=== PATIENT | female | born 1960 | race Caucasian/White ===

== ENCOUNTER 2016-09-22 07:19 | Emergency (ER) | payer OTHER ==
[2016-09-22 07:25] VITALS: BP 129/72; PULSE 89; TEMP 98; BMI 27.8
[2016-09-22] MEDS ORDERED: KETOROLAC TROMETHAMINE 60 MG/2 ML VIAL IM ONE (07:56)
[2016-09-22] MEDS ORDERED: traMADol HCL 50 MG TABLET PO ONE (07:56)
[2016-09-22] MEDS ORDERED: traMADol HCL 50 MG TABLET ONE (08:08)
[2016-09-22] MEDS ORDERED: KETOROLAC TROMETHAMINE 60 MG/2 ML VIAL ONE (08:08)
--- NOTE | 2016-09-22 08:43 | PDOC ---
History of Present Illness - General History Source: Patient - History of Present Illness Occurred: reports: other Pain Location: reports: back, lower extremity <August Espitia - Last Filed: 09/22/16 11:03> <aKit Pedro - Last Filed: 09/23/16 07:33> - General Chief Complaint: Pain Stated Complaint: R LEG PAIN Time Seen by Provider: 09/22/16 07:48 Past History - Past Medical History Diabetes: Yes HTN: Yes Hypercholesterolemia: Yes - Surgical History Cardiac Surgery: Yes (cardiac stent) - Immunization History Immunization Up to Date: No - Psycho/Social/Smoking Cessation Hx Anxiety: No Suicidal Ideation: No Smoking History: Never smoked Have you smoked in the past 12 months: No Number of Cigarettes Smoked Daily: 0 Cigars Per Day: 0 Information on smoking cessation initiated: No Hx Alcohol Use: No Drug/Substance Use Hx: No Substance Use Type: None Hx Substance Use Treatment: No <August Espitia - Last Filed: 09/22/16 11:03> <Kait Pedro - Last Filed: 09/23/16 07:33> - Past Medical History Allergies/Adverse Reactions: Allergies Allergy/AdvReac Type Severity Reaction Status Date / Time No Known Allergies Allergy Verified 09/22/16 07:25 Home Medications: Ambulatory Orders Aspirin [ASA -] 81 mg PO DAILY 11/14/15 Clopidogrel Bisulfate [Plavix -] 75 mg PO DAILY 11/14/15 Empagliflozin [Jardiance] 25 mg PO DAILY 11/14/15 Ergocalciferol (Vitamin D2) [Drisdol] 50,000 units PO WEEKLY 11/14/15 Hydrochlorothiazide [Hctz -] 12.5 mg PO DAILY 11/14/15 Ibuprofen [Motrin -] 800 mg PO Q6H #30 tablet 11/14/15 Insulin Glargine,Hum.rec.anlog [Toujeo Solostar] 80 unit SQ HS 11/14/15 Insulin Lispro [Humalog] 0 unit SQ ACHS 11/14/15 Lisinopril [Zestril] 5 mg PO DAILY 11/14/15 Metoprolol Tartrate [Lopressor -] 25 mg PO BID 11/14/15 Naproxen/Esomeprazole Mag [Vimovo Dr 500-20 mg Tablet] 1 each PO DAILY 11/14/15 Ondansetron HCl [Zofran] 4 mg PO Q8H #20 tablet 11/14/15 Pramipexole Dihydrochloride [Mirapex -] 1.5 mg PO HS 11/14/15 Pregabalin [Lyrica] 100 mg PO BID 11/14/15 Rosuvastatin Calcium [Crestor] 10 mg PO DAILY 11/14/15 Sitagliptin Phos/Metformin HCl [Janumet 50-1,000 mg Tablet] 1 each PO BID Venlafaxine HCl ER [Effexor Xr -] 75 mg PO DAILY 11/14/15 Oxycodone HCl/Acetaminophen [Percocet 5-325 mg Tablet] 1 - 2 tab PO Q6H #20 tablet MDD 4 02/28/16 Ibuprofen [Motrin -] 800 mg PO Q6H #30 tablet 09/22/16 Lidocaine 5% Patch [Lidoderm Patch -] 1 patch TP DAILY #7 patch 09/22/16 Tramadol HCl 50 mg PO Q6H #20 tablet MDD 200 mg 09/22/16 Review of Systems - Review of Systems Constitutional: No: Chills, Fever : No: Dysuria, Hematuria Musculoskeletal: Yes: Back Pain. No: Muscle Weakness <August Espitia - Last Filed: 09/22/16 11:03> *Physical Exam - Vital Signs Last Vital Signs Temp Pulse Resp BP Pulse Ox 98 F 89 18 129/72 99 09/22/16 07:22 09/22/16 07:22 09/22/16 07:22 09/22/16 07:22 09/22/16 07:22 - Physical Exam General Appearance: Yes: Appropriately Dressed, Mild Distress HEENT: positive: Normal Voice Neck: positive: Supple Respiratory/Chest: negative: Respiratory Distress Gastrointestinal/Abdominal: positive: Soft. negative: Tender Musculoskeletal: negative: CVA Tenderness Extremity: positive: Normal Inspection Integumentary: positive: Dry, Warm Neurologic: positive: Fully Oriented, Alert, Normal Mood/Affect, Motor Strength 5/5, Other (+SLR on the R). negative: Sensory Deficit <August Espitia - Last Filed: 09/22/16 11:03> - Vital Signs Last Vital Signs Temp Pulse Resp BP Pulse Ox 98 F 89 18 129/72 99 09/22/16 07:22 09/22/16 07:22 09/22/16 07:22 09/22/16 07:22 09/22/16 07:22 <Kait Pedro - Last Filed: 09/23/16 07:33> ED Treatment Course - Medications Given in the ED: ED Medications Discontinued Medications Generic Name Dose Route Start Last Admin Trade Name Freq PRN Reason Stop Dose Admin Ketorolac Tromethamine 60 mg 09/22/16 07:56 09/22/16 08:14 Toradol Injection - IM 09/22/16 07:57 60 mg ONCE ONE Administration Tramadol HCl 50 mg 09/22/16 07:56 09/22/16 08:14 Ultram - PO 09/22/16 07:57 50 mg ONCE ONE Administration <August Espitia - Last Filed: 09/22/16 11:03> - Medications Given in the ED: ED Medications Discontinued Medications Generic Name Dose Route Start Last Admin Trade Name Freq PRN Reason Stop Dose Admin Ketorolac Tromethamine 60 mg 09/22/16 07:56 09/22/16 08:14 Toradol Injection - IM 09/22/16 07:57 60 mg ONCE ONE Administration Lidocaine 1 patch 09/22/16 09:28 09/22/16 10:01 Lidoderm Patch - TP 09/22/16 09:29 1 patch ONCE ONE Administration Tramadol HCl 50 mg 09/22/16 07:56 09/22/16 08:14 Ultram - PO 09/22/16 07:57 50 mg ONCE ONE Administration <Kait Pedro - Last Filed: 09/23/16 07:33> Medical Decision Making - Medical Decision Making 09/22/16 08:38 56-year-old female history of diabetes and hypertension, presents with right lower back pain radiating to right foot 2 weeks. Patient unable to describe pain but reports that it's mostly constant and worsens with movement and weight bearing. Also states she has had frequent falls 2/2 R leg "giving out" on her. Denies trauma. States her primary care doctor arranged for her to have x-ray of her lumbar spine over a week ago, but does not yet know results. Has been taking Advil with no relief. Also complaining of intermittent numbness to right foot, but no lower extremity weakness, bowel or bladder incontinence or saddle anesthesia. 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 Bearing weight in ED now. Will dxc w. Pain control and PMD f/u 09/22/16 11:06 <August Espitia - Last Filed: 09/22/16 11:03> *DC/Admit/Observation/Transfer <August Espitia - Last Filed: 09/22/16 11:03> - Attestations Physician Attestion: I reviewed the case with the mid-level practitioner and agree with the mid- level practitioner's assessment, diagnosis and disposition. <Kait Pedro - Last Filed: 09/23/16 07:33> Diagnosis at time of Disposition: Back pain Qualifiers: Back pain location: low back pain Chronicity: acute Back pain laterality: right Sciatica presence: with sciatica Sciatica laterality: sciatica of right side Qualified Code(s): M54.41 - Lumbago with sciatica, right side - Discharge Dispostion Disposition: HOME Condition at time of disposition: Improved - Prescriptions Prescriptions: Lidocaine 5% Patch [Lidoderm Patch -] 1 patch TP DAILY #7 patch Ibuprofen [Motrin -] 800 mg PO Q6H #30 tablet Tramadol HCl 50 mg PO Q6H #20 tablet MDD 200 mg - Referrals Referrals: Art Gil MD [Primary Care Provider] - - Patient Instructions Printed Discharge Instructions: Sciatica Additional Instructions: Take medications as directed and follow up with your PMD for possible referral to ortho or neurology - Post Discharge Activity Work/School Note: Back to Work
[2016-09-22] MEDS ORDERED: LIDOCAINE 5% TOPICAL PATCH TP ONE (09:28)
== END 2016-09-22 12:03 | disposition home or self-care (01) ==
LOC: JER 07:19
PROC: 3E0333Z Introduction of Anti-inflammatory into Peripheral Vein, Percutaneous Approach (ICD-10-PCS; principal; 2016-09-22)
DX: M54.41 Lumbago with sciatica, right side (principal); I10 Essential (primary) hypertension; E11.9 Type 2 diabetes mellitus without complications; Z79.84 Long term (current) use of oral hypoglycemic drugs; E78.00 Pure hypercholesterolemia, unspecified
CPT/HCPCS: 99282-25

== ENCOUNTER 2017-03-08 07:37 | Emergency (ER) | payer OTHER ==
[2017-03-08 07:40] VITALS: TEMP 99.2; BMI 29.0
--- NOTE | 2017-03-08 07:44 | PDOC ---
History of Present Illness - General Chief Complaint: Injury Stated Complaint: FALL Time Seen by Provider: 03/08/17 07:42 History Source: Patient Exam Limitations: No Limitations - History of Present Illness Initial Comments: 03/08/17 07:44 The patient is a 56 year old female, with a significant past medical history of DM, HTN, HLD, and chronic urinary incontinence, who presents to the emergency department with Right rib pain. Patient woke up this morning, tried to roll over in bed, and fell off the bed. She landed on her right side. Patient states she has been having 7/10, non radiating, sharp pain in her ribs. She did not take any medications and came into the ED. Patient endorses pain upon inspiration. The patient denies head trauma, LOC, chest pain, shortness of breath, headache, and dizziness. Denies fever, chills, nausea, vomit, diarrhea and constipation. Denies dysuria, frequency, urgency and hematuria. Denies numbness, tingling, or weakness of extremities Allergies: NKDA Past surgical history: Ovarian cyst Social history: Denies smoking, alcohol, drug use PMD - Dr. Gil 03/08/17 08:09 Past History - Past Medical History Allergies/Adverse Reactions: Allergies Allergy/AdvReac Type Severity Reaction Status Date / Time No Known Allergies Allergy Verified 03/08/17 07:40 Home Medications: Ambulatory Orders Clopidogrel Bisulfate [Plavix -] 75 mg PO DAILY 11/14/15 Empagliflozin [Jardiance] 25 mg PO DAILY 11/14/15 Ergocalciferol (Vitamin D2) [Drisdol] 50,000 units PO WEEKLY 11/14/15 Hydrochlorothiazide [Hctz -] 12.5 mg PO DAILY 11/14/15 Insulin Glargine,Hum.rec.anlog [Toujeo Solostar] 80 unit SQ HS 11/14/15 Insulin Lispro [Humalog] 0 unit SQ ACHS 11/14/15 Lisinopril [Zestril] 5 mg PO DAILY 11/14/15 Metoprolol Tartrate [Lopressor -] 25 mg PO BID 11/14/15 Pramipexole Dihydrochloride [Mirapex -] 1.5 mg PO HS 11/14/15 Rosuvastatin Calcium [Crestor] 10 mg PO DAILY 11/14/15 Sitagliptin Phos/Metformin HCl [Janumet 50-1,000 mg Tablet] 1 each PO BID Venlafaxine HCl ER [Effexor Xr -] 75 mg PO DAILY 11/14/15 Tramadol HCl 50 mg PO Q6H PRN #12 tablet MDD 400 mg 03/08/17 Diabetes: Yes HTN: Yes Hypercholesterolemia: Yes - Surgical History Cardiac Surgery: Yes (cardiac stent) - Immunization History Immunization Up to Date: No - Suicide/Smoking/Psychosocial Hx Smoking History: Never smoked Have you smoked in the past 12 months: No Number of Cigarettes Smoked Daily: 0 Cigars Per Day: 0 Information on smoking cessation initiated: No Hx Alcohol Use: No Drug/Substance Use Hx: No Substance Use Type: None Hx Substance Use Treatment: No Review of Systems - Review of Systems Comments:: 03/08/17 07:45 GENERAL/CONSTITUTIONAL: No fever or chills. No weakness. HEAD, EYES, EARS, NOSE AND THROAT: No change in vision. No ear pain or discharge. No sore throat. CARDIOVASCULAR: No chest pain or shortness of breath RESPIRATORY: No cough, wheezing, or hemoptysis. GASTROINTESTINAL: No nausea, vomiting, diarrhea or constipation. GENITOURINARY: No dysuria, frequency, or change in urination. MUSCULOSKELETAL: No joint or muscle swelling or pain. No neck or back pain. + Pain around breast and along ribs SKIN: No rash NEUROLOGIC: No headache, vertigo, loss of consciousness, or change in strength/ sensation. ENDOCRINE: No increased thirst. No abnormal weight change HEMATOLOGIC/LYMPHATIC: No anemia, easy bleeding, or history of blood clots. ALLERGIC/IMMUNOLOGIC: No hives or skin allergy. *Physical Exam - Vital Signs Last Vital Signs Temp Pulse Resp BP Pulse Ox 99.2 F 91 H 18 122/67 99 03/08/17 07:39 03/08/17 07:39 03/08/17 07:39 03/08/17 07:39 03/08/17 07:39 - Physical Exam Comments: 03/08/17 07:45 GENERAL: Awake, alert, and fully oriented, in no acute distress HEAD: No signs of trauma, normocephalic, atraumatic EYES: PERRLA, EOMI, sclera anicteric, conjunctiva clear ENT: Oropharynx clear without exudates. Moist mucosa NECK: Normal ROM, supple, no lymphadenopathy, JVD, or masses LUNGS: No distress, speaks full sentences, clear to auscultation bilaterally HEART: Regular rate and rhythm, normal S1 and S2, no murmurs, rubs or gallops, peripheral pulses normal and equal bilaterally. ABDOMEN: Soft, nontender, normoactive bowel sounds. No guarding, no rebound. No masses EXTREMITIES: Normal inspection, Normal range of motion of R shoulder. No edema. No clubbing or cyanosis. +Pain upon palpation along right rib line beneath right breast. NEUROLOGICAL: Cranial nerves II through XII grossly intact. Normal speech, no focal sensorimotor deficits SKIN: Warm, Dry, normal turgor, no rashes or lesions noted. Medical Decision Making - Medical Decision Making 03/08/17 08:10 56 year old female, with a significant past medical history of DM, HTN, HLD, and chronic urinary incontinence, who presents to the emergency department with right rib pain. Plan: CXR to r/o fracture Pain control 03/08/17 10:17 CXR is negative. Will do rib series. 03/08/17 11:46 EKG unremarkable, NSR, HR-79, qtc-463 *DC/Admit/Observation/Transfer Diagnosis at time of Disposition: Costochondral pain - Discharge Dispostion Admit: No - Prescriptions Prescriptions: Tramadol HCl 50 mg PO Q6H PRN #12 tablet MDD 400 mg PRN Reason: Pain - Referrals Referrals: Art Gil MD [Staff Physician] - - Patient Instructions Printed Discharge Instructions: Costochondritis Additional Instructions: Please take motrin every 6 hours as needed to relieve pain. Please follow up with your primary care provider within 1 week. If you have any new, worsening or concerning symptoms, please come back to the emergency room immediately.
--- NOTE | 2017-03-08 07:57 | PDOC ---
Attending Attestation - Resident Resident Name: Fritz Sandhu - ED Attending Attestation I have performed the following: I have examined & evaluated the patient, The case was reviewed & discussed with the resident, I agree w/resident's findings & plan, Exceptions are as noted - HPI HPI: 03/08/17 07:52 56yo F hx DM presents to ED after she accidentally rolled off bed this morning when she thought she was on the center of her bed but was actually at the edge. Fell onto R shoulder. No HS, no LOC. C/o pain in R chest and R ribs. Was in her [facility] prior. Denies other injuries. Denies fevers, chills, nausea, vomiting, diarrhea Denies shortness of breath Denies abdominal pain, dysuria Denies LE edema and rashes. - Physicial Exam PE: 03/08/17 07:54 GENERAL: Awake, alert, and fully oriented, in no acute distress HEAD: No signs of trauma EYES: PERRLA, EOMI, sclera anicteric, conjunctiva clear ENT: Auricles normal inspection, hearing grossly normal, nares patent, oropharynx clear without exudates. Moist mucosa NECK: Normal ROM, supple, no lymphadenopathy, JVD, or masses LUNGS: Breath sounds equal, clear to auscultation bilaterally. No wheezes, and no crackles HEART: Regular rate and rhythm, normal S1 and S2, no murmurs, rubs or gallops ABDOMEN: Soft, nontender, normoactive bowel sounds. No guarding, no rebound. No masses EXTREMITIES: Normal range of motion, no edema, no deformities. No clubbing or cyanosis. No cords, erythema, or tenderness. 2+ peripheral pulses. MSK: ttp along R sternal border, along ribs by inferior breast crease NEUROLOGICAL: Normal speech, cranial nerves intact, negative pronator drift, 5/ 5 strength in all 4 extremities, normal sensation to light touch in all 4 extremities, normal cerebellar exam, normal gait, normal reflexes and tone SKIN: Warm, Dry, normal turgor, no rashes or lesions noted. - Medical Decision Making 03/08/17 07:54 56yo F hx DM p/w accidental fall off bed. C/o R chest and rib pain. Exam with ttp along inferior breast crease along the ribs and R sternal border. Lung sounds equal. Will obtain CXR to look for fracture or pneumothorax. -cxr -pain control -reassess 03/08/17 11:16 CXR and Rib series negative for acute fracture, pain well controlled with motrin , will DC pt to take motrin and if pain poorly controlled with a script for tramadol. Discussed precautions for tramadol and advised pt not to drive or operate machinery if she is taking tramadol. Pt expressed understanding. I discussed the physical exam findings, ancillary test results and final diagnoses with the patient. I answered all of the patient's questions. The patient was satisfied with the care received and felt comfortable with the discharge plan and treatment plan. The patient will call their primary care physician within 24 hours to arrange follow-up and will return to the Emergency Department with any new, persistent or worsening symptoms.
[2017-03-08] MEDS ORDERED: IBUPROFEN 600 MG TABLET (FP) PO ONE ×2 (07:59→08:12)
[2017-03-08 11:54] VITALS: BP 146/70; PULSE 70
--- NOTE | 2017-03-09 13:02 | EKG ---
Test Reason : Blood Pressure : / mmHG Vent. Rate : 079 BPM Atrial Rate : 079 BPM P-R Int : 166 ms QRS Dur : 068 ms QT Int : 404 ms P-R-T Axes : 052 038 036 degrees QTc Int : 463 ms NORMAL SINUS RHYTHM WHEN COMPARED WITH ECG OF 14-NOV-2015 02:20, NO SIGNIFICANT CHANGE WAS FOUND Confirmed by KENAN BEAUCHAMP MD ([id number]) on 03/09/2017 1:01:55 PM Referred By: Confirmed By:KENAN BEAUCHAMP MD
== END 2017-03-08 12:01 | disposition home or self-care (01) ==
LOC: JER 07:37
DX: M94.0 Chondrocostal junction syndrome [Tietze] (principal); I10 Essential (primary) hypertension; E11.9 Type 2 diabetes mellitus without complications; Z79.84 Long term (current) use of oral hypoglycemic drugs; Z79.4 Long term (current) use of insulin; E78.00 Pure hypercholesterolemia, unspecified
CPT/HCPCS: 71010-TC; 71020-TC; 71101-TC-RT; 93005; 93010; 99284-25

== ENCOUNTER 2017-08-05 01:19 | Inpatient (IN) | payer OTHER ==
--- NOTE | 2017-08-05 01:31 | PDOC ---
History of Present Illness - General History Source: Patient Exam Limitations: No Limitations - History of Present Illness Initial Comments: 08/05/17 02:30 The patient is a 57 year old female, with a significant past medical history of DM, HTN, HLD, and chronic urinary incontinence who presents to the emergency department with L foot wound today. [place] she [place] a injury to her L foot. Since then patient reports her foot has been warm and erythematous with pus and blood drainage. Patient also notes her blood glucose levels have been fluctuating. Patient presents to the ED for further evaluation. Patient denies chest pain, headache or dizziness. Patient denies fever, chills, abdominal pain, nausea, vomit, diarrhea or constipation. Patient denies dysuria, frequency, urgency or hematuria. Patient denies sick contacts or recent travel. Allergies: NKA Past surgical history: None Social history: None PCP: Dr. Gil <Amita Chan - Last Filed: 08/05/17 02:30> <Kait Pedro - Last Filed: 08/05/17 04:15> - General Stated Complaint: LEFT FOOT WOUND Time Seen by Provider: 08/05/17 01:30 Past History <Amita Chan - Last Filed: 08/05/17 02:30> - Past Medical History Diabetes: Yes HTN: Yes Hypercholesterolemia: Yes - Surgical History Cardiac Surgery: Yes (cardiac stent) - Immunization History Immunization Up to Date: No - Suicide/Smoking/Psychosocial Hx Smoking History: Never smoked Have you smoked in the past 12 months: No Number of Cigarettes Smoked Daily: 0 Cigars Per Day: 0 Hx Alcohol Use: No Drug/Substance Use Hx: No Substance Use Type: None Hx Substance Use Treatment: No <Kait Pedro - Last Filed: 08/05/17 04:15> - Past Medical History Allergies/Adverse Reactions: Allergies Allergy/AdvReac Type Severity Reaction Status Date / Time No Known Allergies Allergy Verified 08/05/17 01:44 Home Medications: Ambulatory Orders Clopidogrel Bisulfate [Plavix -] 75 mg PO DAILY 11/14/15 Empagliflozin [Jardiance] 25 mg PO DAILY 11/14/15 Ergocalciferol (Vitamin D2) [Drisdol] 50,000 units PO WEEKLY 11/14/15 Hydrochlorothiazide [Hctz -] 12.5 mg PO DAILY 11/14/15 Insulin Glargine,Hum.rec.anlog [Toumichelle Solostar] 80 unit SQ HS 11/14/15 Insulin Lispro [Humalog] 0 unit SQ ACHS 11/14/15 Lisinopril [Zestril] 5 mg PO DAILY 11/14/15 Metoprolol Tartrate [Lopressor -] 25 mg PO BID 11/14/15 Pramipexole Dihydrochloride [Mirapex -] 1.5 mg PO HS 11/14/15 Rosuvastatin Calcium [Crestor] 10 mg PO DAILY 11/14/15 Sitagliptin Phos/Metformin HCl [Janumet 50-1,000 mg Tablet] 1 each PO BID Venlafaxine HCl ER [Effexor Xr -] 75 mg PO DAILY 11/14/15 Tramadol HCl 50 mg PO Q6H PRN #12 tablet MDD 400 mg 03/08/17 Review of Systems - Review of Systems Able to Perform ROS?: Yes Comments:: 08/05/17 02:30 GENERAL/CONSTITUTIONAL: No fever or chills. No weakness. HEAD, EYES, EARS, NOSE AND THROAT: No change in vision. No ear pain or discharge. No sore throat. GASTROINTESTINAL: No nausea, vomiting, diarrhea or constipation. GENITOURINARY: No dysuria, frequency, or change in urination. CARDIOVASCULAR: No chest pain or shortness of breath. RESPIRATORY: No cough, wheezing, or hemoptysis. MUSCULOSKELETAL: No joint or muscle swelling or pain. No neck or back pain. SKIN: + L foot wound. No rash NEUROLOGIC: No headache, vertigo, loss of consciousness, or change in strength/ sensation. ENDOCRINE: No increased thirst. No abnormal weight change. HEMATOLOGIC/LYMPHATIC: No anemia, easy bleeding, or history of blood clots. ALLERGIC/IMMUNOLOGIC: No hives or skin allergy. <Amita Chan - Last Filed: 08/05/17 02:30> *Physical Exam - Vital Signs Last Vital Signs Temp Pulse Resp BP Pulse Ox 98.2 F 92 H 18 114/63 98 08/05/17 01:38 08/05/17 01:38 08/05/17 01:38 08/05/17 01:38 08/05/17 01:38 <Amita Chan - Last Filed: 08/05/17 02:30> - Physical Exam Comments: GENERAL: Awake, alert, and fully oriented, in no acute distress HEAD: No signs of trauma EYES: PERRLA, EOMI, sclera anicteric, conjunctiva clear ENT: Auricles normal inspection, hearing grossly normal, nares patent, oropharynx clear without exudates. Moist mucosa NECK: Normal ROM, supple, no lymphadenopathy, JVD, or masses LUNGS: Breath sounds equal, clear to auscultation bilaterally. No wheezes, and no crackles HEART: Regular rate and rhythm, normal S1 and S2, no murmurs, rubs or gallops ABDOMEN: Soft, nontender, normoactive bowel sounds. No guarding, no rebound. No masses EXTREMITIES: L foot with lesion to dorsum of foot between the bases of 1st and 2nd toes, no active drainage, +scab in place. +Granulation tissue to the base of the nail of the great toe. No active drainage, no bleeding. Remainder of extremities with normal range of motion, no edema. No clubbing or cyanosis. No cords or tenderness NEUROLOGICAL: Cranial nerves II through XII grossly intact. Normal speech, normal gait. Motor intact. Dec sensation to pinprick in both feet. SKIN: Warm, Dry, normal turgor. +Erythema to the L foot. <Kait Pedro - Last Filed: 08/05/17 04:15> ED Treatment Course - Medications Given in the ED: ED Medications Discontinued Medications Generic Name Dose Route Start Last Admin Trade Name Freq PRN Reason Stop Dose Admin Piperacillin/Tazobactam/Dextrose 50 mls @ 100 mls/hr 08/05/17 01:42 08/05/17 02:29 Zosyn 3.375gm Ivpb (Premix) IVPB 08/05/17 02:11 100 mls/hr ONCE ONE Administration Protocol <Amita Chan - Last Filed: 08/05/17 02:30> - LABORATORY CBC & Chemistry Diagram: 08/05/17 02:25 08/05/17 02:25 <Kait Pedro - Last Filed: 08/05/17 04:15> Medical Decision Making - Medical Decision Making Pt with cellulitis of entire L foot secondary to foot wound. No fluctuant areas , no drainage of pus. Will treat with IV abx based on history of DM. D/w hospitalist, will place on obs. <Kait Pedro - Last Filed: 08/05/17 04:15> *DC/Admit/Observation/Transfer - Attestations Scribe Attestion: 08/05/17 02:30 Documentation prepared by Amita Chan, acting as medical office technology instructor for Kait Pedro MD <Amita Chan - Last Filed: 08/05/17 02:30> - Discharge Dispostion Admit: Yes <Kait Pedro - Last Filed: 08/05/17 04:15> Diagnosis at time of Disposition: Diabetic foot infection - Discharge Dispostion Condition at time of disposition: Stable
[2017-08-05] MEDS ORDERED: PIPERACILLIN/TAZOB 3.375 GM 50 ML IVPB ONE (01:42)
[2017-08-05] MEDS ORDERED: VANCOMYCIN 1,000 MG in DEXTROSE 5%-WATER - 250 ML IVPB ONE (01:42)
[2017-08-05] MEDS ORDERED: PIPERACILLIN/TAZOB 3.375 GM 3.375 GM/50 ML BAG IVPB ONE (02:26)
[2017-08-05 02:35] LABS: BASO % 0.8 % (0-2.0); HEMATOCRIT 39.1 % (32.4-45.2); HEMOGLOBIN 12.8 GM/dL (10.7-15.3); LYMPH % 28.1 % (8-40); MCH 27.4 pg (25.7-33.7); MCHC 32.7 g/dl (32.0-36.0); MEAN CELL VOLUME 83.8 fl (80-96); MEAN PLT VOLUME 7.9 fl (7.5-11.1); MONO % 9.5 % (3.8-10.2); NEUT % 60.6 % (42.8-82.8); PLATELET COUNT 340 K/MM3 (134-434); RBC 4.67 M/mm3 (3.60-5.2); RDW 13.7 % (11.6-15.6)
[2017-08-05] MEDS ORDERED: VANCOMYCIN 1 GRAM (PRE-DOCKED) 1,000 MG/250 ML BAG IVPB ONE (03:08)
[2017-08-05 03:09] LABS: ANION GAP 11 (8-16); BILIRUBIN,TOTAL 0.2 mg/dL (0.2-1.0); BLOOD UREA NITROGEN 21 mg/dL (7-18); CALCIUM 9.6 mg/dL (8.5-10.1); CHLORIDE 97 mmol/L (98-107); CO2 29 mmol/L (21-32); CREATININE 0.8 mg/dL (0.55-1.02); GLUCOSE,RANDOM 131 mg/dL (74-106); POTASSIUM 3.6 mmol/L (3.5-5.1); SGOT/AST 20 U/L (15-37); SGPT/ALT 37 U/L (12-78); SODIUM 137 mmol/L (136-145); TOT PROT 6.9 g/dl (6.4-8.2)
[2017-08-05 03:10] LABS: ALK PHOS 125 U/L (45-117)
[2017-08-05] MEDS ORDERED: ACETAMINOPHEN 325 MG TABLET (FP) PO ONE (03:33)
[2017-08-05] MEDS ORDERED: ACETAMINOPHEN 325 MG TABLET (FP) ONE (04:27)
--- NOTE | 2017-08-05 04:42 | HP ---
CHIEF COMPLAINT: foot wound PCP: Jeffery HISTORY OF PRESENT ILLNESS: This is a 57 year old female with a significant past medical history of DM who presented to the ED with a wound to her left foot. She states that it happened 3 days ago when she was wearing improperly fitting sandals while she was away in [place]. She reports that her foot has become increasingly red, swollen and painful. ER course was notable for: (1) WBC 6.0 (2) foot xray pending Recent Travel: [place] PAST MEDICAL HISTORY: DM, HTN, HLD, chronic urinary incontinence PAST SURGICAL HISTORY: cardiac stent x 1 Social History: Smoking: pt denies Alcohol: pt denies Drugs: pt denies Family History: mother alive with DM father in his 70s, emphysema one sister and one brother with DM and HTN Allergies No Known Allergies Allergy (Verified 08/05/17 01:44) HOME MEDICATIONS: 3 Medication Instructions Recorded Clopidogrel Bisulfate [Plavix -] 75 mg PO DAILY 11/14/15 Empagliflozin [Jardiance] 25 mg PO DAILY 11/14/15 Ergocalciferol (Vitamin D2) 50,000 units PO WEEKLY 11/14/15 [Drisdol] Hydrochlorothiazide [Hctz -] 12.5 mg PO DAILY 11/14/15 Insulin Glargine,Hum.rec.anlog 80 unit SQ HS 11/14/15 [Toujeo Solostar] Insulin Lispro [Humalog] 0 unit SQ [facility] 11/14/15 Lisinopril [Zestril] 5 mg PO DAILY 11/14/15 Metoprolol Tartrate [Lopressor -] 25 mg PO BID 11/14/15 Pramipexole Dihydrochloride 1.5 mg PO HS 11/14/15 [Mirapex -] Rosuvastatin Calcium [Crestor] 10 mg PO DAILY 11/14/15 Sitagliptin Phos/Metformin HCl 1 each PO BID 11/14/15 [Janumet 50-1,000 mg Tablet] Venlafaxine HCl ER [Effexor Xr -] 75 mg PO DAILY 11/14/15 Tramadol HCl 50 mg PO Q6H PRN #12 tablet MDD 03/08/17 400 mg REVIEW OF SYSTEMS CONSTITUTIONAL: Absent: fever, chills, diaphoresis, generalized weakness, malaise, loss of appetite, weight change HEENT: Absent: rhinorrhea, nasal congestion, throat pain, throat swelling, difficulty swallowing, mouth swelling, ear pain, eye pain, visual changes CARDIOVASCULAR: Absent: chest pain, syncope, palpitations, irregular heart rate, lightheadedness , peripheral edema RESPIRATORY: Absent: cough, shortness of breath, dyspnea with exertion, orthopnea, wheezing, stridor, hemoptysis GASTROINTESTINAL: Absent: abdominal pain, abdominal distension, nausea, vomiting, diarrhea, constipation, melena, hematochezia GENITOURINARY: Absent: dysuria, frequency, urgency, hesitancy, hematuria, flank pain, genital pain MUSCULOSKELETAL: Present: left foot pain, swelling, erythema Absent: myalgia, arthralgia, joint swelling, back pain, neck pain SKIN: Present: Wound to left foot Absent: rash, itching, pallor HEMATOLOGIC/IMMUNOLOGIC: Absent: easy bleeding, easy bruising, lymphadenopathy, frequent infections ENDOCRINE: Absent: unexplained weight gain, unexplained weight loss, heat intolerance, cold intolerance NEUROLOGIC: Absent: headache, focal weakness or paresthesias, dizziness, unsteady gait, seizure, mental status changes, bladder or bowel incontinence PSYCHIATRIC: Absent: anxiety, depression, suicidal or homicidal ideation, hallucinations. PHYSICAL EXAMINATION Vital Signs - 24 hr 3 08/05/17 08/05/17 01:38 04:40 Temperature 98.2 F 97.9 F Pulse Rate 92 H Pulse Rate [ 85 Apical] Respiratory 18 18 Rate Blood Pressure 114/63 Blood Pressure 115/72 [Right Arm] O2 Sat by Pulse 98 96 Oximetry (%) GENERAL: Awake, alert, and fully oriented, in no acute distress. HEAD: Normal with no signs of trauma. EYES: Pupils equal, round and reactive to light, extraocular movements intact, sclera anicteric, conjunctiva clear. No lid lag. EARS, NOSE, THROAT: Ears normal, nares patent, oropharynx clear without exudates. Moist mucous membranes. NECK: Normal range of motion, supple without lymphadenopathy, JVD, or masses. LUNGS: Breath sounds equal, clear to auscultation bilaterally. No wheezes, and no crackles. No accessory muscle use. HEART: Regular rate and rhythm, normal S1 and S2 without murmur, rub or gallop. ABDOMEN: Soft, nontender, not distended, normoactive bowel sounds, no guarding, no rebound, no masses. No hepatomegaly or splenomegaly. MUSCULOSKELETAL: Normal range of motion at all joints. No bony deformities or tenderness. No CVA tenderness. UPPER EXTREMITIES: 2+ pulses, warm, well-perfused. No cyanosis. No clubbing. No peripheral edema. LOWER EXTREMITIES: 2+ pulses, warm, well-perfused. No calf tenderness. No peripheral edema. NEUROLOGICAL: Cranial nerves II-XII intact. Normal speech. Normal gait. PSYCHIATRIC: Cooperative. Good eye contact. Appropriate mood and affect. SKIN: Warm, dry, normal turgor, no rashes noted, normal capillary refill. left foot noted with erythema and mild STS. Wound noted just proximal to webbing of 1st and 2nd toes. Scab in place. No discharge. Left great toe noted with swelling, dried blood surrounding nail and faint ecchymosis. to base of toe Laboratory Results - last 24 hr 3 08/05/17 08/05/17 02:25 02:25 WBC 6.0 D RBC 4.67 Hgb 12.8 Hct 39.1 MCV 83.8 MCH 27.4 MCHC 32.7 RDW 13.7 Plt Count 340 MPV 7.9 Neutrophils % 60.6 D Lymphocytes % 28.1 D Monocytes % 9.5 Eosinophils % 1.0 D Basophils % 0.8 Sodium 137 Potassium 3.6 Chloride 97 L Carbon Dioxide 29 Anion Gap 11 BUN 21 H Creatinine 0.8 Creat Clearance w eGFR > 60 Random Glucose 131 H Calcium 9.6 Total Bilirubin 0.2 D AST 20 ALT 37 Alkaline Phosphatase 125 H Total Protein 6.9 Albumin 3.0 L ECG NSR vent rate 85, QTC 485, prolonged No acute ST/T wave changes ASSESSMENT/PLAN: 57yF with PMH DM, HTN, HLD, chronic urinary incontinence presented to the ED with wound to left foot and great toe. Cellulitis / Diabetic foot ulcer - cont vanc zosyn for now - ID consult - podiatry consult Diabetes - Pt home regimen somewhat confusing in that she reports being on both toujeo 80units qpm and tresiba 80u qpm, PCP to confirm in am, for now will order formulary levemir 40u BID - hold po hypoglycemics for now - BGM AC/HS with novolog sliding scale. - A1c in am HTN/HLD/CAD - cont home meds, no active problem at present DVT PPX - defer heparin for now as anticipated LOS <48h, reassess if longer stay FEN - Tolerating po - bmp in am - diabetic / low sodium diet Dispo: Pt admitted for observation for now; if wound not improving convert to full admission status. Visit type - Emergency Visit Emergency Visit: Yes ED Registration Date: 08/05/17 Care time: The patient presented to the Emergency Department on the above date and was hospitalized for further evaluation of their emergent condition. - New Patient This patient is new to me today: Yes Date on this admission: 08/05/17 - Critical Care Critical Care patient: No Hospitalist Screening - Colonoscopy Questionnaire Colonoscopy Questionnaire: Colonoscopy Questionnaire - Patient: 50 - 75 years old and never had a screening colonoscopy: No History of colon or rectal polyps, or CA: No History of IBD, Crohn's disease or UC: No History of abdominal radiation therapy as a child: No - Relative: 1 with colon or rectal CA, or polyps at age 60 or younger: No Colon or rectal CA diagnosed at age 45 or younger: No Multiple relatives with colon or rectal CA: No - Outcome: Screening Result: Negative Screen
[2017-08-05] MEDS: INSULIN SLIDING SCALE (NOVOLOG) 1 VIAL SQ SCH ×4 (06:18→21:31)
[2017-08-05 07:13] VITALS: BMI 29.5
[2017-08-05] MEDS ORDERED: PIPERACIL/TAZOB 3.375 GM 3.375 GM/50 ML PREMIX IVPB ONE (08:00)
[2017-08-05 08:04] LABS: BASO % 0.7 % (0-2.0); EOS % 1.1 % (0-4.5); HEMATOCRIT 38.5 % (32.4-45.2); HEMOGLOBIN 12.5 GM/dL (10.7-15.3); LYMPH % 33.1 % (8-40); MCHC 32.5 g/dl (32.0-36.0); MEAN PLT VOLUME 7.9 fl (7.5-11.1); MONO % 11.1 % (3.8-10.2); PLATELET COUNT 343 K/MM3 (134-434); RBC 4.64 M/mm3 (3.60-5.2); RDW 13.2 % (11.6-15.6); WHITE BLOOD COUNT 6.5 K/mm3 (4.0-10.0)
--- NOTE | 2017-08-05 09:09 | PN ---
Teaching Attending Note Name of Resident: Fritz Sandhu ATTENDING PHYSICIAN STATEMENT I saw and evaluated the patient. I reviewed the resident's note and discussed the case with the resident. I agree with the resident's findings and plan as documented. SUBJECTIVE:Case reviewed nonadherant Diabetic female with recent onset of redness and swelling left great toe and foot Not much pain but notes neuropathy NO fever chills Possible trauma from a sandal she wore while in [place] NO unusual exposures while traveling OBJECTIVE:Swelling of the great toe Nail appears discolored with dried blood and a discrete dry eschar dorsum of the foot NO fluctuance seen or drainage ASSESSMENT AND PLAN:Diabetic soft tissue infection with cellulitis and dry wounds toe and dorsum of foot. Plan Admitted Give Unasyn 1.5 grs q 6 H with switch to Augmentin YOLY Rogers MD Problem List - Problems (1) Cellulitis and abscess of foot Code(s): L03.119 - CELLULITIS OF UNSPECIFIED PART OF LIMB; L02.619 - CUTANEOUS ABSCESS OF UNSPECIFIED FOOT (2) Diabetic foot infection Code(s): E11.69 - TYPE 2 DIABETES MELLITUS WITH OTHER SPECIFIED COMPLICATION; L08.9 - LOCAL INFECTION OF THE SKIN AND SUBCUTANEOUS TISSUE, UNSP
[2017-08-05] MEDS ORDERED: INSULIN (NOVOLOG) ASPART 100 UNITS/ML 10ML VIAL ONE ×2 (10:04→11:39)
--- NOTE | 2017-08-05 10:14 | CON.ID ---
Consult Consult Specialty:: Infectious Disease Referred by:: Primary Team Reason for Consultation:: Cellulitis - History of Present Illness History of Present Illness: 57 y.o. F with pmh of DM, HTN, CAD s/p 1 stent in 2014 presented with a left foot wound. Patient was on vacation in [place] (for 2 weeks) when she was wearing wrong fitting sandals 3 days prior. Patient noticed her foot had a draining wound between the webbing of the 1st and 2nd digit and that her foot was becoming increasingly red, swollen, and painful. Patient denies fever, chills, chest pain, sob, ankle pain, foot pain (patient states she has neuropathy). - History Source History Provided By: Patient Limitations to Obtaining History: No Limitations - Past Medical History Cardio/Vascular: Yes: CAD, HTN ...: No Endocrine: Yes: Diabetes Mellitus - Alcohol/Substance Use Hx Alcohol Use: No - Smoking History Smoking history: Never smoked Have you smoked in the past 12 months: No Aproximately how many cigarettes per day: 0 Home Medications - Allergies Allergies/Adverse Reactions: Allergies Allergy/AdvReac Type Severity Reaction Status Date / Time No Known Allergies Allergy Verified 08/05/17 01:44 - Home Medications Home Medications: Ambulatory Orders Clopidogrel Bisulfate [Plavix -] 75 mg PO DAILY 11/14/15 Empagliflozin [Jardiance] 25 mg PO DAILY 11/14/15 Ergocalciferol (Vitamin D2) [Drisdol] 50,000 units PO WEEKLY 11/14/15 Hydrochlorothiazide [Hctz -] 25 mg PO DAILY 11/14/15 Insulin Glargine,Hum.rec.anlog [Rosy Lai] 80 unit SQ HS 11/14/15 Insulin Lispro [Humalog] 0 unit SQ [facility] 11/14/15 Lisinopril [Zestril] 5 mg PO DAILY 11/14/15 Metoprolol Tartrate [Lopressor -] 25 mg PO BID 11/14/15 Pramipexole Dihydrochloride [Mirapex -] 1.5 mg PO TID 11/14/15 Sitagliptin Phos/Metformin HCl [Janumet 50-1,000 mg Tablet] 1 each PO BID Venlafaxine HCl ER [Effexor Xr -] 75 mg PO DAILY 06/06/16 Dulaglutide [Trulicity] 1.5 mg SQ WEEKLY 08/05/17 Ezetimibe [Zetia] 10 mg PO DAILY 08/05/17 Glipizide 5 mg PO BID 08/05/17 Insulin Degludec [Tresiba Flextouch U-100] 80 unit SQ HS 08/05/17 Pregabalin [Lyrica] 100 mg PO BID 08/05/17 Review of Systems Findings/Remarks: CONSTITUTIONAL: Absent: fever, chills, diaphoresis, generalized weakness, malaise, loss of appetite, weight change HEENT: Absent: rhinorrhea, nasal congestion, throat pain, throat swelling, difficulty swallowing, mouth swelling, ear pain, eye pain, visual changes CARDIOVASCULAR: Absent: chest pain, syncope, palpitations, irregular heart rate, lightheadedness , peripheral edema RESPIRATORY: Absent: cough, shortness of breath, dyspnea with exertion, orthopnea, wheezing, stridor, hemoptysis GASTROINTESTINAL: Absent: abdominal pain, abdominal distension, nausea, vomiting, diarrhea, constipation, melena, hematochezia GENITOURINARY: Absent: dysuria, frequency, urgency, hesitancy, hematuria, flank pain, genital pain MUSCULOSKELETAL: Present: Swelling, erythema Absent: myalgia, arthralgia, joint swelling, back pain, neck pain SKIN: Present: Wound to left foot Absent: rash, itching, pallor HEMATOLOGIC/IMMUNOLOGIC: Absent: easy bleeding, easy bruising, lymphadenopathy, frequent infections ENDOCRINE: Absent: unexplained weight gain, unexplained weight loss, heat intolerance, cold intolerance NEUROLOGIC: Absent: headache, focal weakness or paresthesias, dizziness, unsteady gait, seizure, mental status changes, bladder or bowel incontinence PSYCHIATRIC: Absent: anxiety, depression, suicidal or homicidal ideation, hallucinations. Physical Exam Vital Signs: Vital Signs Temperature 98.2 F 08/05/17 08:50 Pulse Rate 90 08/05/17 08:50 Respiratory Rate 17 08/05/17 08:50 Blood Pressure 126/74 08/05/17 08:50 O2 Sat by Pulse Oximetry (%) 97 08/05/17 05:49 GENERAL: Awake, alert, and fully oriented, in no acute distress. HEAD: Normal with no signs of trauma. EYES: Extraocular movements intact, sclera anicteric, conjunctiva clear. No lid lag. LUNGS: Breath sounds equal, clear to auscultation bilaterally. No wheezes, and no crackles. No accessory muscle use. HEART: Regular rate and rhythm, normal S1 and S2 without murmur, rub or gallop. ABDOMEN: Soft, nontender, not distended, normoactive bowel sounds, no guarding, no rebound, no masses. No hepatomegaly or splenomegaly. NEUROLOGICAL: Cranial nerves II-XII intact. Normal speech. Normal gait. PSYCHIATRIC: Cooperative. Good eye contact. Appropriate mood and affect. SKIN: Left foot- erythema, warmth, mild edema. few mm wound proximal to 1st and 2nd toe space without drainage. Left great toe with thickening and yellowing, surrounded with eschar and dry blood. Labs: CBC, BMP 08/05/17 07:25 08/05/17 02:25 Assessment/Plan Assessment: 1. Diabetic wound infection 2. Surrounding Cellulitis Plan: 1. Recommend Unasyn 1.5 g q6h 2. Patient can switch to Augmentin upon discharge
--- NOTE | 2017-08-05 10:58 | PN ---
Progress Note, Physician Chief Complaint: admitteed for pain and swelling in left foot with wound - Current Medication List Current Medications: Active Medications Ampicillin Sodium/Sulbactam (Sodium 1.5 gm/ Sodium Chloride) 100 mls @ 200 mls/ hr IVPB Q6H-IV TRAM Insulin Aspart (Novolog Vial Sliding Scale -) 1 vial SQ ACHS TRAM PRN Reason: Protocol Last Admin: 08/05/17 06:18 Dose: Not Given - Objective Vital Signs: Vital Signs Temperature 98.2 F 08/05/17 08:50 Pulse Rate 90 08/05/17 08:50 Respiratory Rate 17 08/05/17 08:50 Blood Pressure 126/74 08/05/17 08:50 O2 Sat by Pulse Oximetry (%) 97 08/05/17 05:49 Constitutional: Yes: Calm Neck: Yes: Trachea Midline Cardiovascular: Yes: Regular Rate and Rhythm, S1, S2 Respiratory: Yes: CTA Bilaterally Gastrointestinal: Yes: Normal Bowel Sounds, Soft Extremities: Yes: Erythema (left foot swollen erythematous no pain) Edema: Yes (left foot) Wound/Incision: Yes: Other (left great toe dried blood swollen and drosun of foot small wound) Neurological: Yes: Alert, Oriented, Other (no sensation in left foot, decreased sensation in right foot) Labs: CBC, BMP 08/05/17 07:25 08/05/17 02:25 Problem List - Problems (1) Cellulitis and abscess of foot Assessment/Plan: iv unasyn podiatry ID Code(s): L03.119 - CELLULITIS OF UNSPECIFIED PART OF LIMB; L02.619 - CUTANEOUS ABSCESS OF UNSPECIFIED FOOT (2) Uncontrolled diabetes mellitus Assessment/Plan: hgba1c 13.3 endocrine consult has neuropathy levemir Code(s): E11.65 - TYPE 2 DIABETES MELLITUS WITH HYPERGLYCEMIA Qualifiers: Diabetes mellitus type: type 2 (3) Diabetic foot infection Assessment/Plan: see 1 Code(s): E11.69 - TYPE 2 DIABETES MELLITUS WITH OTHER SPECIFIED COMPLICATION; L08.9 - LOCAL INFECTION OF THE SKIN AND SUBCUTANEOUS TISSUE, UNSP (4) Hypertension Assessment/Plan: cuurently BP is ok wagner hold off meds for now will monitor BP Code(s): I10 - ESSENTIAL (PRIMARY) HYPERTENSION (5) Neuropathy Assessment/Plan: lyrica tid Code(s): G62.9 - POLYNEUROPATHY, UNSPECIFIED
[2017-08-05] MEDS: AMPICILLIN NA/SULBACTAM NA 1.5 GM in SODIUM CHLORIDE 100 ML IVPB SCH ×3 (11:35→21:24)
[2017-08-05] MEDS ORDERED: PREGABALIN 100 MG CAPSULE PO SCH (14:00)
[2017-08-05] MEDS: PREGABALIN 50 MG CAPSULE PO SCH ×2 (14:13→21:24)
[2017-08-05] MEDS ORDERED: PT OWN MED DRAWER 7, Y5N ONE ×2 (15:20→21:23)
--- NOTE | 2017-08-05 17:01 | EKG ---
Test Reason : Blood Pressure : / mmHG Vent. Rate : 085 BPM Atrial Rate : 085 BPM P-R Int : 142 ms QRS Dur : 074 ms QT Int : 404 ms P-R-T Axes : 052 035 048 degrees QTc Int : 480 ms NORMAL SINUS RHYTHM PROLONGED QT ABNORMAL ECG WHEN COMPARED WITH ECG OF 08-MAR-2017 11:37, NO SIGNIFICANT CHANGE WAS FOUND Confirmed by HARLAN MIRANDA MD ([id number]) on 08/05/2017 5:01:18 PM Referred By: Confirmed By:HARLAN MIRANDA MD
[2017-08-05] MEDS: INSULIN DETEMIR 100 UNITS/ML MDV SQ SCH (21:30)
--- NOTE | 2017-08-05 23:01 | CONSULT ---
Consult Consult Specialty:: endocrine Referred by:: dr.saba john Reason for Consultation:: diabetes mellitus hyperglycemia - History of Present Illness Chief Complaint: high sugars History of Present Illness: 57 year old female with a significant past medical history of DM who presented to the ED with a wound to her left foot. She states that it happened 3 days ago when she was wearing improperly fitting sandals while she was away in [place]. She reports that her foot has become increasingly red, swollen and painful.high blood sugars despite taking insulin multiple times a day,denies hypoglycemia, denies cp cough or fever - History Source History Provided By: Patient - Past Medical History Cardio/Vascular: Yes: CAD, HTN ...: No Endocrine: Yes: Diabetes Mellitus - Alcohol/Substance Use Hx Alcohol Use: No - Smoking History Smoking history: Never smoked Have you smoked in the past 12 months: No Aproximately how many cigarettes per day: 0 Home Medications - Allergies Allergies/Adverse Reactions: Allergies Allergy/AdvReac Type Severity Reaction Status Date / Time No Known Allergies Allergy Verified 08/05/17 01:44 - Home Medications Home Medications: Ambulatory Orders Clopidogrel Bisulfate [Plavix -] 75 mg PO DAILY 11/14/15 Empagliflozin [Jardiance] 25 mg PO DAILY 11/14/15 Ergocalciferol (Vitamin D2) [Drisdol] 50,000 units PO WEEKLY 11/14/15 Hydrochlorothiazide [Hctz -] 25 mg PO DAILY 11/14/15 Insulin Glargine,Hum.rec.anlog [Toumaryo Solostar] 80 unit SQ HS 11/14/15 Insulin Lispro [Humalog] 0 unit SQ ACHS 11/14/15 Lisinopril [Zestril] 5 mg PO DAILY 11/14/15 Metoprolol Tartrate [Lopressor -] 25 mg PO BID 11/14/15 Pramipexole Dihydrochloride [Mirapex -] 1.5 mg PO TID 11/14/15 Sitagliptin Phos/Metformin HCl [Janumet 50-1,000 mg Tablet] 1 each PO BID Venlafaxine HCl ER [Effexor Xr -] 75 mg PO DAILY 11/14/15 Dulaglutide [Trulicity] 1.5 mg SQ WEEKLY 08/05/17 Ezetimibe [Zetia] 10 mg PO DAILY 08/05/17 Glipizide 5 mg PO BID 08/05/17 Insulin Degludec [Tresiba Flextouch U-100] 80 unit SQ HS 08/05/17 Pregabalin [Lyrica] 100 mg PO BID 08/05/17 Review of Systems - Review of Systems Constitutional: reports: Loss of Appetite Eyes: reports: Blurred Vision HENT: reports: No Symptoms Neck: reports: No Symptoms Cardiovascular: reports: No Symptoms Respiratory: reports: Exercise Intolerance, SOB on Exertion Gastrointestinal: reports: Bloating Genitourinary: reports: No Symptoms Breasts: reports: No Symptoms Reported Musculoskeletal: reports: Muscle Cramps, Muscle Weakness Integumentary: reports: Blister, Rash, Wound Neurological: reports: Numbness, Weakness Endocrine: reports: Unexplained Weight Gain Physical Exam Vital Signs: Vital Signs Temperature 98.7 F 08/05/17 18:00 Pulse Rate 85 08/05/17 18:00 Respiratory Rate 18 08/05/17 18:00 Blood Pressure 128/70 08/05/17 18:00 O2 Sat by Pulse Oximetry (%) 99 08/05/17 12:48 Constitutional: Yes: Anxious Eyes: Yes: EOM Intact HENT: Yes: Normocephalic Neck: Yes: Trachea Midline Cardiovascular: Yes: Regular Rate and Rhythm Respiratory: Yes: CTA Bilaterally Gastrointestinal: Yes: Normal Bowel Sounds ...Rectal Exam: Yes: Deferred Renal/: Yes: WNL Musculoskeletal: Yes: WNL Extremities: Yes: WNL Integumentary: Yes: Erythema, Rash, Onychomycosis Wound/Incision: Yes: Well Approximated, Reddened Neurological: Yes: Alert, Oriented Labs: CBC, BMP 08/05/17 07:25 08/05/17 02:25 Problem List - Problems (1) Cellulitis and abscess of foot Code(s): L03.119 - CELLULITIS OF UNSPECIFIED PART OF LIMB; L02.619 - CUTANEOUS ABSCESS OF UNSPECIFIED FOOT (2) Diabetic foot infection Code(s): E11.69 - TYPE 2 DIABETES MELLITUS WITH OTHER SPECIFIED COMPLICATION; L08.9 - LOCAL INFECTION OF THE SKIN AND SUBCUTANEOUS TISSUE, UNSP (3) Neuropathy Code(s): G62.9 - POLYNEUROPATHY, UNSPECIFIED (4) Uncontrolled diabetes mellitus Code(s): E11.65 - TYPE 2 DIABETES MELLITUS WITH HYPERGLYCEMIA Qualifiers: Diabetes mellitus type: type 2 (5) Contusion of right hip Code(s): S70.01XA - CONTUSION OF RIGHT HIP, INITIAL ENCOUNTER Qualifiers: Encounter type: initial encounter Qualified Code(s): S70.01XA - Contusion of right hip, initial encounter (6) Costochondral pain Code(s): R07.1 - CHEST PAIN ON BREATHING Assessment/Plan Current Active Problems Cellulitis and abscess of foot (Acute) Diabetic foot infection (Acute) Neuropathy (Acute) Uncontrolled diabetes mellitus (Acute) Laboratory Results - last 24 hr 08/05/17 08/05/17 08/05/17 02:25 02:25 06:14 WBC 6.0 D RBC 4.67 Hgb 12.8 Hct 39.1 MCV 83.8 MCH 27.4 MCHC 32.7 RDW 13.7 Plt Count 340 MPV 7.9 Neutrophils % 60.6 D Lymphocytes % 28.1 D Monocytes % 9.5 Eosinophils % 1.0 D Basophils % 0.8 Sodium 137 Potassium 3.6 Chloride 97 L Carbon Dioxide 29 Anion Gap 11 BUN 21 H Creatinine 0.8 Creat Clearance w eGFR > 60 POC Glucometer 116 Random Glucose 131 H Hemoglobin A1c % Calcium 9.6 Total Bilirubin 0.2 D AST 20 ALT 37 Alkaline Phosphatase 125 H Total Protein 6.9 Albumin 3.0 L 08/05/17 08/05/17 08/05/17 07:25 07:25 11:37 WBC 6.5 RBC 4.64 Hgb 12.5 Hct 38.5 MCV 83.0 MCH 27.0 MCHC 32.5 RDW 13.2 Plt Count 343 MPV 7.9 Neutrophils % 54.0 Lymphocytes % 33.1 Monocytes % 11.1 H Eosinophils % 1.1 Basophils % 0.7 Sodium Potassium Chloride Carbon Dioxide Anion Gap BUN Creatinine Creat Clearance w eGFR POC Glucometer 152 Random Glucose Hemoglobin A1c % 13.3 H Calcium Total Bilirubin AST ALT Alkaline Phosphatase Total Protein Albumin 08/05/17 08/05/17 17:29 21:30 WBC RBC Hgb Hct MCV MCH MCHC RDW Plt Count MPV Neutrophils % Lymphocytes % Monocytes % Eosinophils % Basophils % Sodium Potassium Chloride Carbon Dioxide Anion Gap BUN Creatinine Creat Clearance w eGFR POC Glucometer 164 118 Random Glucose Hemoglobin A1c % Calcium Total Bilirubin AST ALT Alkaline Phosphatase Total Protein Albumin plan: bgm qid novolog insulin doses levemir 15 units am 20 unit pm nutrition consult close follow up outpatient for diabetes stric controll
[2017-08-06] MEDS: AMPICILLIN NA/SULBACTAM NA 1.5 GM in SODIUM CHLORIDE 100 ML IVPB SCH ×4 (03:19→22:33)
[2017-08-06] MEDS: PREGABALIN 50 MG CAPSULE PO SCH ×3 (05:32→22:32)
[2017-08-06] MEDS: INSULIN SLIDING SCALE (NOVOLOG) 1 VIAL SQ SCH ×4 (06:06→22:40)
[2017-08-06 08:19] LABS: ANION GAP 5 (8-16); BLOOD UREA NITROGEN 14 mg/dL (7-18); CALCIUM 8.5 mg/dL (8.5-10.1); CHLORIDE 103 mmol/L (98-107); CHOLESTEROL 265 mg/dL (50-200); CO2 33 mmol/L (21-32); CREATININE 0.6 mg/dL (0.55-1.02); GLUCOSE,RANDOM 102 mg/dL (74-106); HDL CHOLESTEROL 63 mg/dL (40-60); LDL CHOLESTEROL (ONLY SJRH) 168 mg/dL (5-100); MAGNESIUM 2.1 mg/dL (1.8-2.4); PHOSPHOROUS 3.5 mg/dL (2.5-4.9); POTASSIUM 4.3 mmol/L (3.5-5.1); SODIUM 141 mmol/L (136-145); TRIGLYCERIDES 135 mg/dL (35-160)
[2017-08-06] MEDS ORDERED: PT OWN MED DRAWER 7, Y5N ONE ×3 (08:40→22:00)
--- NOTE | 2017-08-06 08:44 | PN ---
Progress Note, Physician - Current Medication List Current Medications: Active Medications Ampicillin Sodium/Sulbactam (Sodium 1.5 gm/ Sodium Chloride) 100 mls @ 200 mls/ hr IVPB Q6H-IV TRAM Last Admin: 08/06/17 03:19 Dose: 200 mls/hr Insulin Aspart (Novolog Vial Sliding Scale -) 1 vial SQ ACHS [facility] PRN Reason: Protocol Last Admin: 08/06/17 06:06 Dose: Not Given Insulin Detemir (Levemir Vial) 20 units SQ HS [facility] Last Admin: 08/05/17 21:30 Dose: 20 units Pregabalin (Lyrica -) 100 mg PO TID [facility] Last Admin: 08/06/17 05:32 Dose: 100 mg - Objective Vital Signs: Vital Signs Temperature 98.8 F 08/06/17 06:00 Pulse Rate 94 H 08/06/17 06:00 Respiratory Rate 20 08/06/17 06:00 Blood Pressure 122/74 08/06/17 06:00 O2 Sat by Pulse Oximetry (%) 99 08/05/17 20:00 Cardiovascular: Yes: Regular Rate and Rhythm Respiratory: Yes: Regular, CTA Bilaterally Gastrointestinal: Yes: Normal Bowel Sounds, Soft Extremities: Yes: Erythema, Other (LEFT FOOT DRY ULCER) Labs: CBC, BMP 08/05/17 07:25 08/06/17 06:30 Assessment/Plan - Problems (1) Cellulitis and abscess of foot Assessment/Plan: iv unasyn podiatry VASCULAR ID Code(s): L03.119 - CELLULITIS OF UNSPECIFIED PART OF LIMB; L02.619 - CUTANEOUS ABSCESS OF UNSPECIFIED FOOT (2) Uncontrolled diabetes mellitus Assessment/Plan: hgba1c 13.3 endocrine consult has neuropathy levemir Code(s): E11.65 - TYPE 2 DIABETES MELLITUS WITH HYPERGLYCEMIA Qualifiers: Diabetes mellitus type: type 2 (3) Diabetic foot infection Assessment/Plan: see 1 Code(s): E11.69 - TYPE 2 DIABETES MELLITUS WITH OTHER SPECIFIED COMPLICATION; L08.9 - LOCAL INFECTION OF THE SKIN AND SUBCUTANEOUS TISSUE, UNSP (4) Hypertension Assessment/Plan: cuurently BP is ok wagner hold off meds for now will monitor BP Code(s): I10 - ESSENTIAL (PRIMARY) HYPERTENSION (5) Neuropathy Assessment/Plan: lyrica tid Code(s): G62.9 - POLYNEUROPATHY, UNSPECIFIED
--- NOTE | 2017-08-06 09:42 | CONSULT ---
Consult - text type - Consultation Consultation Note: Podiatry Consultation: Pleasant 57 year old diabetic F presents with L foot pain/swelling/redness for about 1 week. Patient recently returned from vacation in [place], she states she developed ulcer and infection secondary to irritation from sandal. Denies associated systemic symptoms. She does note her blood glucose has been poorly controlled of late. Currently afebrile, VSS. PMHx: DM, HTN, CAD s/p stent 2014, HLP Meds: noted ALL: NKMA JOEL: L foot: pedal pulses palpable, TG warm-warmer, CFT brisk to all toes. There is a diabetic ulcer first interspace dorsally with dried eschar, superficial purulence noted, post-debridement yields ulcer to level of extensor tendon laterally, no deep purulence, no deep fluctuance, moderate periwound erythema, moderate edema, no streaking cellulitis, no soft tissue crepitus. No tenderness to palpation. Epicritic sensation grossly diminished. WBC: 6.5 ESR: pending L foot XR: no radiographic evidence of osteomyelitis, no sub-q air Imp: 57 year old diabetic F with L foot ulcer, superficial abscess and cellulitis 1. With verbal consent obtained, incision and drainage of superficial abscess with excisional debridement of non-viable tissue to level of muscle using sterile #15 blade scalpel. Patient tolerated procedure well. Dry sterile applied. 2. C/w IV abx per Infectious Disease 3. Deeper wound culture obtained 4. Rx bactroban + DSD L foot 5. Rx surgical shoe L foot 6. Needs tighter glycemic control 7. May want to order MRI L foot to assess for any deep space infection 8. With appropriate circulation, should heal quite well, but will need follow up in wound healing center 9. Thank you for the courtesy of this consultation Сергей Bess DPM
--- NOTE | 2017-08-06 10:44 | PN ---
Progress Note, Physician History of Present Illness: No acute events overnight. Podiatry drained a superficial abscess yesterday. Patient feels much better this morning. - Current Medication List Current Medications: Active Medications Atorvastatin Calcium (Lipitor -) 20 mg PO HS [facility] Ampicillin Sodium/Sulbactam (Sodium 1.5 gm/ Sodium Chloride) 100 mls @ 200 mls/ hr IVPB Q6H-IV TRAM Last Admin: 08/06/17 09:10 Dose: 200 mls/hr Insulin Aspart (Novolog Vial Sliding Scale -) 1 vial SQ ACHS [facility] PRN Reason: Protocol Last Admin: 08/06/17 06:06 Dose: Not Given Insulin Detemir (Levemir Vial) 20 units SQ HS [facility] Last Admin: 08/05/17 21:30 Dose: 20 units Mupirocin (Bactroban 2% Ointment -) 1 applic TP DAILY [facility] Pregabalin (Lyrica -) 100 mg PO TID [facility] Last Admin: 08/06/17 05:32 Dose: 100 mg - Objective Vital Signs: Vital Signs Temperature 98.8 F 08/06/17 06:00 Pulse Rate 94 H 08/06/17 06:00 Respiratory Rate 20 08/06/17 06:00 Blood Pressure 122/74 08/06/17 06:00 O2 Sat by Pulse Oximetry (%) 99 08/05/17 20:00 GENERAL: Awake, alert, and fully oriented, in no acute distress. HEAD: Normal with no signs of trauma. EYES: Extraocular movements intact, sclera anicteric, conjunctiva clear. No lid lag. LUNGS: Breath sounds equal, clear to auscultation bilaterally. No wheezes, and no crackles. No accessory muscle use. HEART: Regular rate and rhythm, normal S1 and S2 without murmur, rub or gallop. ABDOMEN: Soft, nontender, not distended, normoactive bowel sounds, no guarding, no rebound, no masses. No hepatomegaly or splenomegaly. NEUROLOGICAL: Cranial nerves II-XII intact. Normal speech. Normal gait. PSYCHIATRIC: Cooperative. Good eye contact. Appropriate mood and affect. SKIN: Left foot- erythema, warmth, mild edema. few mm wound proximal to 1st and 2nd toe space without drainage. Left great toe with thickening and yellowing, surrounded with eschar and dry blood. Labs: CBC, BMP 08/05/17 07:25 02/27/18 06:30 Assessment/Plan Assessment: 1. Diabetic wound infection s/p I&D 2. Surrounding Cellulitis Plan: 1. Continue Unasyn 1.5 g q6h 2. Patient can switch to Augmentin upon discharge 3. Will order MRI to assess for deeper infection 4. Bactroban ointment to affected area
[2017-08-06] MEDS ORDERED: INSULIN (NOVOLOG) ASPART 100 UNITS/ML 10ML VIAL ONE (11:23)
[2017-08-06] MEDS: MUPIROCIN 2% TOPICAL OINTMENT 22 GM TUBE TP SCH (13:39)
--- NOTE | 2017-08-06 14:03 | PN ---
Progress Note (short form) - Note Progress Note: Vascular Surgery Pt seen and examined. Pt has a wound between her great and first toe. Podiatry opened and drained the wound already. Pt wiht palpable pulse -- DP Could not express any fluid when the wound was squeezed. ID on the case -- pt getting unasyn. Can image pt with MRI or CT to make sure there is no further collection deeper. Alvin Ayala DO
--- NOTE | 2017-08-06 18:43 | PN ---
Teaching Attending Note Name of Resident: Fritz Sandhu ATTENDING PHYSICIAN STATEMENT I saw and evaluated the patient. I reviewed the resident's note and discussed the case with the resident. I agree with the resident's findings and plan as documented. SUBJECTIVE: OBJECTIVE: ASSESSMENT AND PLAN Diabetic foot abscess R/O Osteomyelitis Await cultures MRI foot
[2017-08-06] MEDS: ATORVASTATIN CA 20 MG TABLET (FP) PO SCH (22:32)
[2017-08-06] MEDS: INSULIN DETEMIR 100 UNITS/ML MDV SQ SCH (22:33)
[2017-08-07] MEDS ORDERED: PT OWN MED DRAWER 7, Y5N ONE ×4 (01:15→21:52)
[2017-08-07] MEDS: AMPICILLIN NA/SULBACTAM NA 1.5 GM in SODIUM CHLORIDE 100 ML IVPB SCH ×4 (02:27→21:59)
[2017-08-07] MEDS: PREGABALIN 50 MG CAPSULE PO SCH ×3 (06:04→21:58)
[2017-08-07] MEDS: INSULIN SLIDING SCALE (NOVOLOG) 1 VIAL SQ SCH ×4 (06:05→22:16)
--- NOTE | 2017-08-07 08:04 | PN ---
Progress Note, Physician - Current Medication List Current Medications: Active Medications Atorvastatin Calcium (Lipitor -) 20 mg PO HS [facility] Last Admin: 08/06/17 22:32 Dose: 20 mg Ampicillin Sodium/Sulbactam (Sodium 1.5 gm/ Sodium Chloride) 100 mls @ 200 mls/ hr IVPB Q6H-IV [facility] Last Admin: 08/07/17 02:27 Dose: 200 mls/hr Insulin Aspart (Novolog Vial Sliding Scale -) 1 vial SQ ACHS [facility] PRN Reason: Protocol Last Admin: 08/07/17 06:05 Dose: Not Given Insulin Detemir (Levemir Vial) 20 units SQ HS [facility] Last Admin: 08/06/17 22:33 Dose: 20 units Mupirocin (Bactroban 2% Ointment -) 1 applic TP DAILY [facility] Last Admin: 08/06/17 13:39 Dose: 1 applic Pregabalin (Lyrica -) 100 mg PO TID [facility] Last Admin: 08/07/17 06:04 Dose: 100 mg - Objective Vital Signs: Vital Signs Temperature 98.3 F 08/07/17 06:42 Pulse Rate 84 08/07/17 06:42 Respiratory Rate 18 08/07/17 06:42 Blood Pressure 129/70 08/07/17 06:42 O2 Sat by Pulse Oximetry (%) 96 08/07/17 01:00 Cardiovascular: Yes: Regular Rate and Rhythm Respiratory: Yes: Regular, CTA Bilaterally Gastrointestinal: Yes: Normal Bowel Sounds, Soft Labs: CBC, BMP 08/05/17 07:25 08/06/17 06:30 Assessment/Plan - Problems (1) Cellulitis and abscess of foot Assessment/Plan: iv unasyn podiatry VASCULAR ID R/O OSTEO--MRI Code(s): L03.119 - CELLULITIS OF UNSPECIFIED PART OF LIMB; L02.619 - CUTANEOUS ABSCESS OF UNSPECIFIED FOOT (2) Uncontrolled diabetes mellitus Assessment/Plan: hgba1c 13.3 endocrine consult has neuropathy levemir Code(s): E11.65 - TYPE 2 DIABETES MELLITUS WITH HYPERGLYCEMIA Qualifiers: Diabetes mellitus type: type 2 (3) Diabetic foot infection Assessment/Plan: see 1 Code(s): E11.69 - TYPE 2 DIABETES MELLITUS WITH OTHER SPECIFIED COMPLICATION; L08.9 - LOCAL INFECTION OF THE SKIN AND SUBCUTANEOUS TISSUE, UNSP (4) Hypertension Assessment/Plan: cuurently BP is ok wagner hold off meds for now will monitor BP Code(s): I10 - ESSENTIAL (PRIMARY) HYPERTENSION (5) Neuropathy Assessment/Plan: asher balbuena Code(s): G62.9 - POLYNEUROPATHY, UNSPECIFIED
--- NOTE | 2017-08-07 08:12 | PN ---
Progress Note, Physician History of Present Illness: No acute events overnight. Patient feels well this morning. No fevers overnight. Still waiting for MRI. Currently on Day 3 of Unasyn. - Current Medication List Current Medications: Active Medications Atorvastatin Calcium (Lipitor -) 20 mg PO HS [facility] Last Admin: 08/06/17 22:32 Dose: 20 mg Ampicillin Sodium/Sulbactam (Sodium 1.5 gm/ Sodium Chloride) 100 mls @ 200 mls/ hr IVPB Q6H-IV [facility] Last Admin: 08/07/17 02:27 Dose: 200 mls/hr Insulin Aspart (Novolog Vial Sliding Scale -) 1 vial SQ ACHS [facility] PRN Reason: Protocol Last Admin: 08/07/17 06:05 Dose: Not Given Insulin Detemir (Levemir Vial) 20 units SQ HS [facility] Last Admin: 08/06/17 22:33 Dose: 20 units Mupirocin (Bactroban 2% Ointment -) 1 applic TP DAILY [facility] Last Admin: 08/06/17 13:39 Dose: 1 applic Pregabalin (Lyrica -) 100 mg PO TID [facility] Last Admin: 08/07/17 06:04 Dose: 100 mg - Objective Vital Signs: Vital Signs Temperature 98.3 F 08/07/17 06:42 Pulse Rate 84 08/07/17 06:42 Respiratory Rate 18 08/07/17 06:42 Blood Pressure 129/70 08/07/17 06:42 O2 Sat by Pulse Oximetry (%) 96 08/07/17 01:00 GENERAL: Awake, alert, and fully oriented, in no acute distress. HEAD: Normal with no signs of trauma. EYES: Extraocular movements intact, sclera anicteric, conjunctiva clear. No lid lag. LUNGS: Breath sounds equal, clear to auscultation bilaterally. No wheezes, and no crackles. No accessory muscle use. HEART: Regular rate and rhythm, normal S1 and S2 without murmur, rub or gallop. ABDOMEN: Soft, nontender, not distended, normoactive bowel sounds, no guarding, no rebound, no masses. No hepatomegaly or splenomegaly. NEUROLOGICAL: Cranial nerves II-XII intact. Normal speech. Normal gait. PSYCHIATRIC: Cooperative. Good eye contact. Appropriate mood and affect. SKIN: Left foot- Wrapped with kerlex and tape. No surrounding tenderness. Mild erythema, warmth. Edema has resolved. Labs: CBC, BMP 08/05/17 07:25 08/06/17 06:30 Microbiology 08/05/17 02:26 Blood Culture - Preliminary Blood - Peripheral Venous Pending Organism 08/05/17 02:25 Blood Culture - Preliminary Blood - Peripheral Venous NO GROWTH OBTAINED AFTER 48 HOURS, INCUBATION TO CONTINUE FOR 3 DAYS. 08/06/17 09:45 Gram Stain - Final Foot - Left Assessment/Plan Assessment: 1. Diabetic wound abscess s/p I&D 2. Surrounding Cellulitis Plan: 1. Continue Unasyn 1.5 g q6h 2. Patient can switch to Augmentin upon discharge 3. Will order MRI to assess for deeper infection and r/o Osteo-- Still pending 4. Bactroban ointment to affected area 5. Repeat Blood cultures 6. Add vancomycin given + bcx 7. wound cx pending
--- NOTE | 2017-08-07 09:16 | PN ---
Teaching Attending Note Name of Resident: Fritz Sandhu ATTENDING PHYSICIAN STATEMENT I saw and evaluated the patient. I reviewed the resident's note and discussed the case with the resident. I agree with the resident's findings and plan as documented. SUBJECTIVE: Asymptomatic Unasyn post I i& D left dorsum foot OBJECTIVE: ASSESSMENT AND PLAN: Microbiology Selected Entries 08/07/17 06:42 Temperature 98.3 F Pulse Rate 84 Respiratory 18 Rate Blood Pressure 129/70 Laboratory Tests 08/05/17 08/05/17 08/05/17 02:25 06:14 07:25 WBC 6.5 Plt Count 343 BUN 21 H POC Glucometer 116 Hemoglobin A1c % 08/05/17 07:25 WBC Plt Count BUN POC Glucometer Hemoglobin A1c % 13.3 H Assessment SSTI in this diabetic female On Unasyn Now positive blood culture 1 bottle gram posit chains ?? Plan Repeat set of blood cultures Add Vancomycin until we know more MRI has been ordered to rule out osteo Wound culture pending Sue AGUILAR Problem List - Problems (1) Cellulitis and abscess of foot Code(s): L03.119 - CELLULITIS OF UNSPECIFIED PART OF LIMB; L02.619 - CUTANEOUS ABSCESS OF UNSPECIFIED FOOT (2) Diabetic foot infection Code(s): E11.69 - TYPE 2 DIABETES MELLITUS WITH OTHER SPECIFIED COMPLICATION; L08.9 - LOCAL INFECTION OF THE SKIN AND SUBCUTANEOUS TISSUE, UNSP
[2017-08-07] MEDS: MUPIROCIN 2% TOPICAL OINTMENT 22 GM TUBE TP SCH (09:27)
[2017-08-07] MEDS: VANCOMYCIN 1,250 MG in DEXTROSE 5%-WATER - 250 ML IVPB SCH ×2 (10:36→22:50)
[2017-08-07] MEDS: INSULIN DETEMIR 100 UNITS/ML MDV SQ SCH (22:18)
[2017-08-07] MEDS: ATORVASTATIN CA 20 MG TABLET (FP) PO SCH (22:50)
--- NOTE | 2017-08-08 00:17 | PN ---
Progress Note, Physician Chief Complaint: sitting in chair no complaint History of Present Illness: dm htn,ashd,diabetic foot infection,has pain on dorsum of foot swelling improved - Current Medication List Current Medications: Active Medications Atorvastatin Calcium (Lipitor -) 20 mg PO HS [facility] Last Admin: 08/07/17 22:50 Dose: 20 mg Ampicillin Sodium/Sulbactam (Sodium 1.5 gm/ Sodium Chloride) 100 mls @ 200 mls/ hr IVPB Q6H-IV [facility] Last Admin: 08/07/17 21:59 Dose: 200 mls/hr Vancomycin HCl 1,250 mg/ (Dextrose) 250 mls @ 166.667 mls/hr IVPB BID TRAM PRN Reason: Protocol Last Admin: 08/07/17 22:50 Dose: 166.667 mls/hr Insulin Aspart (Novolog Vial Sliding Scale -) 1 vial SQ ACHS [facility] PRN Reason: Protocol Last Admin: 08/07/17 22:16 Dose: 3 units Insulin Detemir (Levemir Vial) 20 units SQ BID [facility] Mupirocin (Bactroban 2% Ointment -) 1 applic TP DAILY [facility] Last Admin: 08/07/17 09:27 Dose: 1 applic Pregabalin (Lyrica -) 100 mg PO TID [facility] Last Admin: 08/07/17 21:58 Dose: 100 mg - Objective Vital Signs: Vital Signs Temperature 97.1 F L 08/07/17 20:40 Pulse Rate 88 08/07/17 20:40 Respiratory Rate 18 08/07/17 20:40 Blood Pressure 131/75 08/07/17 20:40 O2 Sat by Pulse Oximetry (%) 97 08/07/17 20:47 Constitutional: Yes: Well Nourished, Moderate Distress Eyes: Yes: EOM Intact HENT: Yes: Normocephalic Neck: Yes: Trachea Midline Cardiovascular: Yes: Regular Rate and Rhythm Respiratory: Yes: CTA Bilaterally Gastrointestinal: Yes: Normal Bowel Sounds ...Rectal Exam: Yes: Deferred Genitourinary: Yes: WNL Breast(s): Yes: WNL Extremities: Yes: Erythema Labs: CBC, BMP 08/05/17 07:25 08/06/17 06:30 Problem List - Problems (1) Cellulitis and abscess of foot Code(s): L03.119 - CELLULITIS OF UNSPECIFIED PART OF LIMB; L02.619 - CUTANEOUS ABSCESS OF UNSPECIFIED FOOT (2) Diabetic foot infection Code(s): E11.69 - TYPE 2 DIABETES MELLITUS WITH OTHER SPECIFIED COMPLICATION; L08.9 - LOCAL INFECTION OF THE SKIN AND SUBCUTANEOUS TISSUE, UNSP (3) Neuropathy Code(s): G62.9 - POLYNEUROPATHY, UNSPECIFIED (4) Uncontrolled diabetes mellitus Code(s): E11.65 - TYPE 2 DIABETES MELLITUS WITH HYPERGLYCEMIA Qualifiers: Diabetes mellitus type: type 2 (5) Contusion of right hip Code(s): S70.01XA - CONTUSION OF RIGHT HIP, INITIAL ENCOUNTER Qualifiers: Encounter type: initial encounter Qualified Code(s): S70.01XA - Contusion of right hip, initial encounter (6) Costochondral pain Code(s): R07.1 - CHEST PAIN ON BREATHING Assessment/Plan Current Active Problems Cellulitis and abscess of foot (Acute) Diabetic foot infection (Acute) Neuropathy (Acute) Uncontrolled diabetes mellitus (Acute) Laboratory Results - last 24 hr 08/07/17 08/07/17 08/07/17 06:03 08:00 11:28 POC Glucometer 114 82 275 08/07/17 08/07/17 16:49 21:47 POC Glucometer 271 221 Laboratory Tests 08/07/17 08/07/17 08/07/17 06:03 08:00 11:28 POC Glucometer 114 82 275 08/07/17 08/07/17 16:49 21:47 POC Glucometer 271 221 plan: bgm qid novolog insulin levemir 20 units bid januvia 50mg bid metformin 500mg bid
[2017-08-08] MEDS ORDERED: PT OWN MED DRAWER 7, Y5N ONE ×2 (04:12→10:18)
[2017-08-08] MEDS: AMPICILLIN NA/SULBACTAM NA 1.5 GM in SODIUM CHLORIDE 100 ML IVPB SCH ×2 (04:14→10:50)
[2017-08-08] MEDS: PREGABALIN 50 MG CAPSULE PO SCH ×2 (06:54→14:40)
[2017-08-08] MEDS ORDERED: INSULIN DETEMIR 100 UNITS/ML MDV SQ SCH (07:00)
[2017-08-08] MEDS ORDERED: sitaGLIPtin PHOSPHATE 50 MG TABLET PO SCH (07:00)
[2017-08-08] MEDS: metFORMIN HCL 500 MG TABLET (FP) PO SCH ×2 (07:44→17:20)
--- NOTE | 2017-08-08 08:55 | PN ---
Progress Note, Physician - Current Medication List Current Medications: Active Medications Atorvastatin Calcium (Lipitor -) 20 mg PO HS [facility] Last Admin: 08/07/17 22:50 Dose: 20 mg Ampicillin Sodium/Sulbactam (Sodium 1.5 gm/ Sodium Chloride) 100 mls @ 200 mls/ hr IVPB Q6H-IV [facility] Last Admin: 08/08/17 04:14 Dose: 200 mls/hr Vancomycin HCl 1,250 mg/ (Dextrose) 250 mls @ 166.667 mls/hr IVPB BID TRAM PRN Reason: Protocol Last Admin: 08/07/17 22:50 Dose: 166.667 mls/hr Insulin Aspart (Novolog Vial Sliding Scale -) 1 vial SQ ACHS [facility] PRN Reason: Protocol Last Admin: 08/07/17 22:16 Dose: 3 units Insulin Detemir (Levemir Vial) 20 units SQ BID@0700,2200 [facility] Last Admin: 08/08/17 07:44 Dose: 20 unit Metformin HCl (Glucophage -) 500 mg PO BID@0700,1630 [facility] Last Admin: 08/08/17 07:44 Dose: 500 mg Mupirocin (Bactroban 2% Ointment -) 1 applic TP DAILY [facility] Last Admin: 08/07/17 09:27 Dose: 1 applic Pregabalin (Lyrica -) 100 mg PO TID [facility] Last Admin: 08/08/17 06:54 Dose: 100 mg Sitagliptin Phosphate (Januvia -) 100 mg PO DAILY@0700 [facility] Last Admin: 08/08/17 07:44 Dose: 100 mg - Objective Vital Signs: Vital Signs Temperature 98.4 F 08/08/17 04:00 Pulse Rate 84 08/08/17 04:00 Respiratory Rate 20 08/08/17 04:00 Blood Pressure 137/74 08/08/17 04:00 O2 Sat by Pulse Oximetry (%) 95 08/08/17 01:00 Labs: CBC, BMP 08/05/17 07:25 08/06/17 06:30
[2017-08-08] MEDS: VANCOMYCIN 1,250 MG in DEXTROSE 5%-WATER - 250 ML IVPB SCH (10:51)
[2017-08-08] MEDS: INSULIN SLIDING SCALE (NOVOLOG) 1 VIAL SQ SCH ×3 (10:52→17:20)
--- NOTE | 2017-08-08 11:50 | PN ---
Progress Note (short form) - Note Progress Note: Podiatry F/u: Seen/evaluated at bedside,NAD. Pain controlled to L foot, denies F/V/N/C/SOB/ CP. Afebrile, VSS. JOEL: L foot: subungual bleeding to nail unit with no loosening of the nail unit, no purulent drainage, no fluctuance, no periwound erythema, no streaking cellulitis. Dorsal first interspace diabetic ulcer fibrotic base, serous drainage, no deep purulence, mild periwound erythema, no streaking cellulitis, no soft tissue crepitus, no signs of active infection. No tenderness to palpation. WBC: 6.5 ESR: 25 Blood Cx: pending organism x 1; negative x 24 hrs currently Wound Cx: MSSA, strep B MRI: ? bone marrow edema distal phalanx Imp: 57 year old DM F with L foot diabetic ulcer, cellulitis, ?osteomyelitis distal phalanx 1. IV abx per ID 2. C/w local wound care 3. results of MRI discussed with patient. Index of suspicion low for osteomyelitis of the distal phalanx, given no probing ulcer in that region. There is no abscess collection dorsally. 4. Will follow. Сергей Bess DPM
[2017-08-08] MEDS: MUPIROCIN 2% TOPICAL OINTMENT 22 GM TUBE TP SCH (12:14)
--- NOTE | 2017-08-08 13:50 | PN ---
Progress Note, Physician Chief Complaint: ID Podiatric note seen and case discussed with surgery Low clinical suspicion for osteomyelitis noted Her ESR low - Current Medication List Current Medications: Active Medications Atorvastatin Calcium (Lipitor -) 20 mg PO HS [facility] Last Admin: 08/07/17 22:50 Dose: 20 mg Ampicillin Sodium/Sulbactam (Sodium 1.5 gm/ Sodium Chloride) 100 mls @ 200 mls/ hr IVPB Q6H-IV [facility] Last Admin: 08/08/17 10:50 Dose: 200 mls/hr Vancomycin HCl 1,250 mg/ (Dextrose) 250 mls @ 166.667 mls/hr IVPB BID [facility] PRN Reason: Protocol Last Admin: 08/08/17 10:51 Dose: 166.667 mls/hr Insulin Aspart (Novolog Vial Sliding Scale -) 1 vial SQ ACHS [facility] PRN Reason: Protocol Last Admin: 08/08/17 10:54 Dose: 3 units Insulin Detemir (Levemir Vial) 20 units SQ BID@0700,2200 [facility] Last Admin: 08/08/17 07:44 Dose: 20 unit Metformin HCl (Glucophage -) 500 mg PO BID@0700,1630 [facility] Last Admin: 08/08/17 07:44 Dose: 500 mg Mupirocin (Bactroban 2% Ointment -) 1 applic TP DAILY [facility] Last Admin: 08/08/17 12:14 Dose: Not Given Pregabalin (Lyrica -) 100 mg PO TID [facility] Last Admin: 08/08/17 06:54 Dose: 100 mg Sitagliptin Phosphate (Januvia -) 100 mg PO DAILY@0700 [facility] Last Admin: 08/08/17 07:44 Dose: 100 mg - Objective Vital Signs: Vital Signs Temperature 98.4 F 08/08/17 08:00 Pulse Rate 92 H 08/08/17 08:00 Respiratory Rate 18 08/08/17 08:00 Blood Pressure 130/69 08/08/17 08:00 O2 Sat by Pulse Oximetry (%) 95 08/08/17 01:00 Labs: CBC, BMP 08/05/17 07:25 08/06/17 06:30 Problem List - Problems (1) Cellulitis and abscess of foot Code(s): L03.119 - CELLULITIS OF UNSPECIFIED PART OF LIMB; L02.619 - CUTANEOUS ABSCESS OF UNSPECIFIED FOOT (2) Diabetic foot infection Code(s): E11.69 - TYPE 2 DIABETES MELLITUS WITH OTHER SPECIFIED COMPLICATION; L08.9 - LOCAL INFECTION OF THE SKIN AND SUBCUTANEOUS TISSUE, UNSP Assessment/Plan Microbiology 08/06/17 09:45 Foot - Left Gram Stain - Final 08/07/17 09:55 Blood - Peripheral Venous Blood Culture - Preliminary NO GROWTH OBTAINED AFTER 24 HOURS, INCUBATION TO CONTINUE FOR 4 DAYS. 08/07/17 09:35 Blood - Peripheral Venous Blood Culture - Preliminary NO GROWTH OBTAINED AFTER 24 HOURS, INCUBATION TO CONTINUE FOR 4 DAYS. 08/05/17 02:26 Blood - Peripheral Venous Blood Culture - Preliminary Pending Organism 08/05/17 02:25 Blood - Peripheral Venous Blood Culture - Preliminary NO GROWTH OBTAINED AFTER 72 HOURS, INCUBATION TO CONTINUE FOR 2 DAYS. 08/05/17 02:25 Blood - Peripheral Venous Blood Culture - Preliminary NO GROWTH OBTAINED AFTER 48 HOURS, INCUBATION TO CONTINUE FOR 3 DAYS. Laboratory Tests 08/05/17 08/06/17 07:25 06:30 WBC 6.5 Hgb 12.5 Plt Count 343 ESR 25 Assessment BLood culture no growth despite prelim report only 1 bottle suspect contaminant Low suspicion for osteomyeltiis Plan Augmentin 875 bid for 7 days with out pt follow up Sue AGUILAR
--- NOTE | 2017-08-08 16:47 | DS ---
Physical Examination Vital Signs: Vital Signs Temperature 98.0 F 08/08/17 14:36 Pulse Rate 88 08/08/17 14:36 Respiratory Rate 18 08/08/17 14:36 Blood Pressure 110/59 08/08/17 14:36 O2 Sat by Pulse Oximetry (%) 95 08/08/17 01:00 Labs: CBC, BMP 08/05/17 07:25 08/06/17 06:30 Discharge Summary Reason For Visit: DIABETIC FOOT INFECTION Current Active Problems Cellulitis and abscess of foot (Acute) Diabetic foot infection (Acute) Neuropathy (Acute) Uncontrolled diabetes mellitus (Acute) Hospital Course: 57 y.o. F with pmh of DM, HTN, CAD s/p 1 stent in 2014 presented with a left foot wound. Patient was on vacation in [place] (for 2 weeks) when she was wearing wrong fitting sandals 3 days prior. Patient noticed her foot had a draining wound between the webbing of the 1st and 2nd digit and that her foot was becoming increasingly red, swollen, and painful. Patient denies fever, chills, chest pain, sob, ankle pain, foot pain (patient states she has neuropathy). - History Source History Provided By: Patient Limitations to Obtaining History: No Limitations - Past Medical History Cardio/Vascular: Yes: CAD, HTN ...: No Endocrine: Yes: Diabetes Mellitus - Alcohol/Substance Use Hx Alcohol Use: No - Smoking History Smoking history: Never smoked - Problems (1) Cellulitis and abscess of foot Assessment/Plan: iv unasyn--to po podiatry VASCULAR ID noted--low susp for osteo R/O OSTEO--MRI--possible osteo--id follow up noted--augmentin x 7 days Code(s): L03.119 - CELLULITIS OF UNSPECIFIED PART OF LIMB; L02.619 - CUTANEOUS ABSCESS OF UNSPECIFIED FOOT (2) Uncontrolled diabetes mellitus Assessment/Plan: hgba1c 13.3 endocrine consult has neuropathy levemir Code(s): E11.65 - TYPE 2 DIABETES MELLITUS WITH HYPERGLYCEMIA Qualifiers: Diabetes mellitus type: type 2 (3) Diabetic foot infection Assessment/Plan: see 1 Code(s): E11.69 - TYPE 2 DIABETES MELLITUS WITH OTHER SPECIFIED COMPLICATION; L08.9 - LOCAL INFECTION OF THE SKIN AND SUBCUTANEOUS TISSUE, UNSP (4) Hypertension Assessment/Plan: will monitor BP on meds Code(s): I10 - ESSENTIAL (PRIMARY) HYPERTENSION (5) Neuropathy Assessment/Plan: lyrica tid Code(s): G62.9 - POLYNEUROPATHY, UNSPECIFIED Condition: Stable - Instructions Diet, Activity, Other Instructions: Monitor blood sugar and follow up with dr gil with blood log tresiba 20 bid Referrals: ON STAFF,NOT [Non Staff, Medical] - Art Gil MD [Primary Care Provider] - 1 Week - Home Medications Comprehensive Discharge Medication List: Ambulatory Orders Clopidogrel Bisulfate [Plavix -] 75 mg PO DAILY 11/14/15 Insulin Lispro [Humalog] 0 unit SQ ACHS 11/14/15 Lisinopril [Zestril] 5 mg PO DAILY 11/14/15 Metoprolol Tartrate [Lopressor -] 25 mg PO BID 11/14/15 Sitagliptin Phos/Metformin HCl [Janumet 50-1,000 mg Tablet] 1 each PO BID Venlafaxine HCl ER [Effexor Xr -] 75 mg PO DAILY 11/14/15 Ezetimibe [Zetia] 10 mg PO DAILY 08/05/17 Insulin Degludec [Tresiba Flextouch U-100] 80 unit SQ HS 08/05/17 Pregabalin [Lyrica] 100 mg PO BID 08/05/17 Amox-Tr/K Cl [Augmentin 875-125mg Tablet -] 1 tab PO BID@0800,1730 #14 tablet Atorvastatin Ca [Lipitor] 20 mg PO HS #30 tablet 08/08/17
[2017-08-08] MEDS ORDERED: AMOX TR/POT CLAV 875MG/125MG TABLETS (FP) PO SCH (17:30)
[2017-08-08 17:31] VITALS: BP 125/63; PULSE 94; TEMP 98.7
== END 2017-08-08 18:10 | disposition home or self-care (01) | DRG 638 ==
LOC: SUPCPDRO 01:19 → JER 01:19 → JERBED 03:54 → J8W 06:12 → OBSVTOIN 08-06 08:43
PROVIDERS: ADMIT Internal Medicine; ATTEND Family Medicine
PROC: 0H9NXZX Drainage of Left Foot Skin, External Approach, Diagnostic (ICD-10-PCS; principal; 2017-08-06)
DX: E11.69 Type 2 diabetes mellitus with other specified complication (principal); L03.116 Cellulitis of left lower limb; B95.1 Streptococcus, group B, as the cause of diseases classified elsewhere; E11.65 Type 2 diabetes mellitus with hyperglycemia; Z79.4 Long term (current) use of insulin; G62.9 Polyneuropathy, unspecified; I10 Essential (primary) hypertension; E78.5 Hyperlipidemia, unspecified; R32 Unspecified urinary incontinence; Z95.5 Presence of coronary angioplasty implant and graft; I25.10 Atherosclerotic heart disease of native coronary artery without angina pectoris
CPT/HCPCS: 36415; 73630-TC-LT; 73719-LT; 80048; 80053; 80061; 82962; 83036; 83721; 83735; 84100; 85025; 85651; 87040; 87070; 87076; 87186; 87205; 93005; 93010; 99284-25; G0378

== ENCOUNTER 2017-10-01 00:38 | Emergency (ER) | payer OTHER ==
[2017-10-01 00:57] VITALS: PULSE 88; TEMP 98.3; BMI 25.0
--- NOTE | 2017-10-01 01:04 | PDOC ---
History of Present Illness - General History Source: Patient Exam Limitations: No Limitations - History of Present Illness Initial Comments: 10/01/17 06:06 The patient is a 57 year old female, with a significant past medical history of DM, HTN, HLD, CAD s/p stent, neuropathy and chronic urinary incontinence who presents to the emergency department with multiple complaints for the past two days. Patient reports infusion treatments on sat and sat, that she receives every 3 months for her nerve disorder. Patient received infusion treatment 2 days ago and since then has been experiencing gradual onset of headache, dizziness, nausea, abd discofort. Patient describes dizziness as room spins and is unable to walk. Patient reports intermittent abdominal discomfort associated with nausea. Patient denies taking any pain medications for relief and presents to the ED for further evaluation. Note, patient experienced similar symptoms with her second infusion treatment in the past. Patient denies chest pain, palpitations, diaphoresis. Patient denies any new numbness/tingling/weakness, vision changes, dysathria. Patient denies fever, vomit, diarrhea or constipation. Patient denies dysuria, frequency, urgency or hematuria. Patient denies sick contacts or recent travel. Allergies: NKA Past surgical history: Cardiac stent Social history: denies etoh, smoking, recreational drug use Neuro: Dickoff <Amita Chan - Last Filed: 10/01/17 06:06> - General History Source: Patient Exam Limitations: No Limitations <John Fragoso - Last Filed: 10/01/17 07:48> - General Chief Complaint: Lightheaded Stated Complaint: SICK S/P INFUSION THERAPY Time Seen by Provider: 10/01/17 00:52 Past History <Amita Chan - Last Filed: 10/01/17 06:06> - Past Medical History Cardiac Disorders: Yes (cardiac stent) COPD: No Diabetes: Yes HTN: Yes Hypercholesterolemia: Yes - Surgical History Cardiac Surgery: Yes (cardiac stent) - Immunization History Immunization Up to Date: No - Suicide/Smoking/Psychosocial Hx Smoking History: Never smoked Have you smoked in the past 12 months: No Number of Cigarettes Smoked Daily: 0 Cigars Per Day: 0 Information on smoking cessation initiated: No Hx Alcohol Use: No Drug/Substance Use Hx: No Substance Use Type: None Hx Substance Use Treatment: No <John Fragoso - Last Filed: 10/01/17 07:48> - Past Medical History Allergies/Adverse Reactions: Allergies Allergy/AdvReac Type Severity Reaction Status Date / Time No Known Allergies Allergy Verified 10/01/17 00:54 Home Medications: Ambulatory Orders Clopidogrel Bisulfate [Plavix -] 75 mg PO DAILY 11/14/15 Insulin Lispro [Humalog] 0 unit SQ ACHS 11/14/15 Lisinopril [Zestril] 5 mg PO DAILY 11/14/15 Metoprolol Tartrate [Lopressor -] 25 mg PO BID 11/14/15 Sitagliptin Phos/Metformin HCl [Janumet 50-1,000 mg Tablet] 1 each PO BID Venlafaxine HCl ER [Effexor Xr -] 75 mg PO DAILY 11/14/15 Ezetimibe [Zetia] 10 mg PO DAILY 08/05/17 Insulin Degludec [Tresiba Flextouch U-100] 80 unit SQ HS 08/05/17 Pregabalin [Lyrica] 100 mg PO BID 08/05/17 Atorvastatin Ca [Lipitor] 20 mg PO HS #30 tablet 08/08/17 Mupirocin Ointment [Bactroban 2% Ointment -] 1 applic TP DAILY #90 grams Cefdinir [Omnicef -] 300 mg PO BID #14 capsule 09/24/17 Cephalexin [Keflex] 500 mg PO TID #15 capsule 10/01/17 Meclizine HCl [Antivert -] 25 mg PO TID PRN #14 tablet 10/01/17 Review of Systems - Review of Systems Able to Perform ROS?: Yes Comments:: 10/01/17 06:06 All other systems reviewed and are negative except noted in HPI <Amita Chan - Last Filed: 10/01/17 06:06> *Physical Exam - Vital Signs Last Vital Signs Temp Pulse Resp BP Pulse Ox 98.3 F 88 20 111/63 100 10/01/17 00:54 10/01/17 00:54 10/01/17 00:54 10/01/17 00:54 10/01/17 00:54 - Physical Exam Comments: 10/01/17 06:06 GENERAL: The patient is awake, alert, and fully oriented, Nontoxic - in no acute distress. HEAD: Normocephalic, atraumatic. EYES: +horizontal nystagmus, visual fieldsintact, EOMI ENT: Normal voice, Moist mucous membranes. NECK: Normal range of motion, No JVD LUNGS: Breath sounds equal, clear to auscultation bilaterally. No wheezes, no rhonchi, no rales. HEART: Regular rate and rhythm, normal S1 and S2 without murmur, rub or gallop. ABDOMEN: Soft, nontender, normoactive bowel sounds. No guarding, no rebound. No masses. No CVA tenderness EXTREMITIES: Normal range of motion, no edema. No clubbing or cyanosis. No cords , erythema, or tenderness. NEUROLOGICAL: No facial asymmetry, strength symmetric in upper/lower extremities 5/5, sensation symmetric in upper/lower extremities normal finger to nose normal rapid alternating movements, normal gait, PSYCH: Normal mood, normal affect. SKIN: Warm, Dry, normal turgor. <Amita Chan - Last Filed: 10/01/17 06:06> - Vital Signs Last Vital Signs Temp Pulse Resp BP Pulse Ox 98.3 F 88 20 111/63 100 10/01/17 00:54 10/01/17 00:54 10/01/17 00:54 10/01/17 00:54 10/01/17 00:54 <John Fragoso - Last Filed: 10/01/17 07:48> Heart Score/ECG Review - ECG Impressions Comment:: 10/01/17 03:24 Twelve-lead EKG was performed and reviewed by me. There is normal sinus rhythm with a normal rate. Rate 84 QT interval of 484 <John Fragoso - Last Filed: 10/01/17 07:48> ED Treatment Course - LABORATORY CBC & Chemistry Diagram: 10/01/17 02:20 10/01/17 02:20 - ADDITIONAL ORDERS Additional order review: Laboratory Results 10/01/17 10/01/17 04:10 02:20 Sodium 129 L Potassium 4.0 Chloride 87 L Carbon Dioxide 28 Anion Gap 14 BUN 33 H Creatinine 1.3 H Creat Clearance w eGFR 41.92 Random Glucose 386 H* Calcium 9.6 Total Bilirubin 0.2 AST 24 ALT 27 Alkaline Phosphatase 95 Creatine Kinase 89 Troponin I < 0.02 Total Protein 9.4 H Albumin 3.3 L Lipase 486 H Urine Color Straw Urine Appearance Slcloudy Urine pH 5.0 Ur Specific Julian 1.025 Urine Protein Negative Urine Glucose (UA) 3+ H Urine Ketones Trace H Urine Blood 1+ H Urine Nitrite Negative Urine Bilirubin Negative Urine Urobilinogen Negative Ur Leukocyte Esterase 1+ H Urine WBC (Auto) 25 Urine RBC (Auto) 7 Ur Epithelial Cells Moderate Urine Bacteria Many Urine Yeast Few 10/01/17 02:20 RBC 4.74 MCV 81.8 MCHC 34.8 RDW 12.7 MPV 8.4 Neutrophils % 67.3 D Lymphocytes % 22.3 D Monocytes % 8.9 Eosinophils % 0.2 D Basophils % 1.3 - Medications Given in the ED: ED Medications Discontinued Medications Generic Name Dose Route Start Last Admin Trade Name Freq PRN Reason Stop Dose Admin Sodium Chloride 1,000 mls @ 1,000 mls/hr 10/01/17 01:41 10/01/17 02:36 Normal Saline - IV 10/01/17 02:40 1,000 mls/hr .Q1H ONE Administration Meclizine HCl 25 mg 10/01/17 01:52 10/01/17 02:52 Antivert - PO 10/01/17 01:53 25 mg ONCE ONE Administration Metoclopramide HCl 10 mg 10/01/17 01:41 10/01/17 02:36 Reglan Injection - IVPUSH 10/01/17 01:42 10 mg ONCE ONE Administration <Amita Chan - Last Filed: 10/01/17 06:06> - LABORATORY CBC & Chemistry Diagram: 10/01/17 02:20 10/01/17 02:20 <John Fragoso - Last Filed: 10/01/17 07:48> Medical Decision Making - Medical Decision Making 10/01/17 01:40 57y F hx of CAD, HTN, dm, hl, neuropathy s/p ?infusion (pt oes not know, states it is 3 meds mixed together), last infusion sat/sat, on saturday started to feel mild posterior headache, intermittent abd pain, nausea, and some dizziness. pt denies any numbness/tingling/weakness, vision changes, fever/chills, diarrhea/ melena, dysuria, back pain, chest pain, sob. on exam pt appears well abd soft nontender +horizontal nystagmus +romberg neg finger to nose and rapid alternating movements, nonataxic gait will obtain CT head to r/o cerebellar hemorrhage will give meclizine/reglan will reassess A portion of this note was documented by scribe services under my direction. I have reviewed the details of the note, within reason, and agree with the documentation with the following case summary and management plan written by me 10/01/17 05:49 lbs reivewed pt feeling improved ct head negative ua cw uti will treate with course of CTX anticipate dc with pmd fu 10/01/17 07:25 pt was reasssed and notes that when she went to the bathroom to urinate, she cotinued to feel very dizzy and off balance, but at rest, she is ok will give her further hydration as her labs suggest prerenal azotemia will sign pt out to day team to reassess 10/01/17 07:47 pt feeling improved after another 500cc of NS will dc the pt with pmd able to ambulate will dc the pmd return precautions were discussed I discussed the physical exam findings, ancillary test results and final diagnoses with the patient. I answered all of the patient's questions. The patient was satisfied with the care received and felt comfortable with the discharge plan and treatment plan. The patient will call their primary care physician within 24 hours to arrange follow-up and will return to the Emergency Department with any new, persistent or worsening symptoms. <John Fragoso - Last Filed: 10/01/17 07:48> *DC/Admit/Observation/Transfer - Attestations Scribe Attestion: 10/01/17 06:06 Documentation prepared by Amita Chan, acting as medical science liaison for John Fragoso MD <Amita Chan - Last Filed: 10/01/17 06:06> - Discharge Dispostion Admit: No <John Fragoso - Last Filed: 10/01/17 07:48> Diagnosis at time of Disposition: Dehydration Urinary tract infection Qualifiers: Urinary tract infection type: acute cystitis Hematuria presence: with hematuria Qualified Code(s): N30.01 - Acute cystitis with hematuria - Discharge Dispostion Disposition: HOME Condition at time of disposition: Improved - Prescriptions Prescriptions: Cephalexin [Keflex] 500 mg PO TID #15 capsule Meclizine HCl [Antivert -] 25 mg PO TID PRN #14 tablet PRN Reason: Vertigo - Referrals Referrals: Art Gil MD [Primary Care Provider] - - Patient Instructions Printed Discharge Instructions: DI for Urinary Tract Infection (UTI) Additional Instructions: Return to the emergency department immediately with ANY new, persistent or worsening symptoms including any fevers, chills, back pain, headache, blurry vision, difficulty speaking or other concerns. Suspect your symptoms may be due to her UTI please continue taking the antibiotics until your prescription is complete. If you have any further room spinning dizziness you may take the meclizine. You MUST call and follow up with your doctor in 2-3 days for further evaluation of your symptoms. Results were discussed with you. Please make sure your doctor reviews the results of your emergency evaluation. Print Language: SPANISH - Post Discharge Activity
[2017-10-01] MEDS ORDERED: SODIUM CHLORIDE 1,000 ML IV ONE (01:41)
[2017-10-01] MEDS ORDERED: METOCLOPRAMIDE HCL INJECTION 10 MG/2 ML VIAL IVPUSH ONE (01:41)
[2017-10-01] MEDS ORDERED: MECLIZINE HCL 25 MG TABLET (FP) PO ONE (01:52)
[2017-10-01] MEDS ORDERED: METOCLOPRAMIDE HCL INJECTION 10 MG/2 ML VIAL ONE (02:28)
[2017-10-01 02:33] LABS: BASO % 1.3 % (0-2.0); EOS % 0.2 % (0-4.5); HEMATOCRIT 38.8 % (32.4-45.2); HEMOGLOBIN 13.5 GM/dL (10.7-15.3); LYMPH % 22.3 % (8-40); MCH 28.4 pg (25.7-33.7); MCHC 34.8 g/dl (32.0-36.0); MEAN CELL VOLUME 81.8 fl (80-96); MEAN PLT VOLUME 8.4 fl (7.5-11.1); MONO % 8.9 % (3.8-10.2); NEUT % 67.3 % (42.8-82.8); PLATELET COUNT 274 K/MM3 (134-434); RBC 4.74 M/mm3 (3.60-5.2); RDW 12.7 % (11.6-15.6); WHITE BLOOD COUNT 7.4 K/mm3 (4.0-10.0)
[2017-10-01] MEDS ORDERED: MECLIZINE HCL 25 MG TABLET (FP) ONE (02:37)
[2017-10-01 03:02] LABS: ALBUMIN 3.3 g/dl (3.4-5.0); ANION GAP 14 (8-16); BILIRUBIN,TOTAL 0.2 mg/dL (0.2-1.0); BLOOD UREA NITROGEN 33 mg/dL (7-18); CALCIUM 9.6 mg/dL (8.5-10.1); CHLORIDE 87 mmol/L (98-107); CO2 28 mmol/L (21-32); CREATININE 1.3 mg/dL (0.55-1.02); SGPT/ALT 27 U/L (12-78); SODIUM 129 mmol/L (136-145); TOT PROT 9.4 g/dl (6.4-8.2)
[2017-10-01 03:04] LABS: ALK PHOS 95 U/L (45-117)
[2017-10-01 03:05] LABS: LIPASE 486 U/L (73-393); SGOT/AST 24 U/L (15-37)
[2017-10-01 03:06] LABS: GLUCOSE,RANDOM 386 mg/dL (74-106)
[2017-10-01 04:21] LABS: URINE APPEARANCE SLCLOUDY; URINE BILIRUBIN NEGATIVE (<2.0 mg/dL); URINE BLOOD 1+ (NEGATIVE); URINE COLOR STRAW; URINE GLUCOSE (UA) 3+ (NEGATIVE); URINE KETONE TRACE (NEGATIVE); URINE NITRITE NEGATIVE (NEGATIVE); URINE PROTEIN NEGATIVE (NEGATIVE); URINE UROBILINOGEN NEGATIVE mg/dL (0.2-1.0)
[2017-10-01 04:27] LABS: URINE LEUK ESTERASE 1+ (NEGATIVE)
[2017-10-01 04:30] LABS: EPI CELLS MODERATE /HPF (FEW); URINE BACTERIA MANY /hpf (NONE SEEN); YEAST FEW
[2017-10-01] MEDS ORDERED: CEFTRIAXONE 1 GM in DEXTROSE 5%-WATER - 50 ML IVPB ONE (05:49)
[2017-10-01] MEDS ORDERED: CEFTRIAXONE 1 GM/50 ML BAG ONE (05:57)
[2017-10-01] MEDS ORDERED: SODIUM CHLORIDE 500 ML IV STA (07:03)
[2017-10-01 07:29] VITALS: BP 113/66
--- NOTE | 2017-10-01 10:13 | EKG ---
Test Reason : Blood Pressure : / mmHG Vent. Rate : 084 BPM Atrial Rate : 084 BPM P-R Int : 152 ms QRS Dur : 080 ms QT Int : 410 ms P-R-T Axes : 056 042 075 degrees QTc Int : 484 ms NORMAL SINUS RHYTHM PROLONGED QT ABNORMAL ECG WHEN COMPARED WITH ECG OF 05-AUG-2017 02:09, NO SIGNIFICANT CHANGE WAS FOUND Confirmed by MD ANNABEL, BRIAN ([id number]) on 10/01/2017 10:13:45 AM Referred By: Confirmed By:BRIAN JIN MD
== END 2017-10-01 08:10 | disposition home or self-care (01) ==
LOC: JER 00:38
PROC: 3E0337Z Introduction of Electrolytic and Water Balance Substance into Peripheral Vein, Percutaneous Approach (ICD-10-PCS; principal; 2017-10-01)
PROC: 3E03329 Introduction of Other Anti-infective into Peripheral Vein, Percutaneous Approach (ICD-10-PCS; 2017-10-01)
DX: N30.01 Acute cystitis with hematuria (principal); E86.0 Dehydration; E11.9 Type 2 diabetes mellitus without complications; I25.10 Atherosclerotic heart disease of native coronary artery without angina pectoris; I10 Essential (primary) hypertension; Z95.5 Presence of coronary angioplasty implant and graft
CPT/HCPCS: 36415; 70450-TC; 71045-TC-FY; 80053; 81003; 81015; 82550; 83690; 84484; 85025; 93005; 93010; 99285-25; J7030

== ENCOUNTER 2018-08-30 11:11 | Emergency (ER) | payer OTHER ==
[2018-08-30 11:23] VITALS: TEMP 98.5; BMI 30.9
--- NOTE | 2018-08-30 11:32 | PDOC ---
History of Present Illness - General History Source: Patient Exam Limitations: No Limitations - History of Present Illness Initial Comments: 08/30/18 12:10 The patient is a 58 year old female with a significant past medical history of diabetes, hypertension, hyperlipidemia, CAD s/p stents and peripheral neuropathy who presents to the ED with a medication overdose since earlier today. The patient reports that she woke up this morning at about 2am secondary to insomnia. She states that she then stayed up until about 9am by which she mistook her Humalog meds for her Tresenia. The patient states that instead of taking 10 units of Humalog, she took 100 units. The patient states that she subsequently became worried and called her PCP who advised her to intake food and juices. The patient reports that she wanted to come to the ED for further evaluation. The patient reports some associated dizziness s/p her overdose. She denies any other symptoms. She denies any fever, chills, nausea, vomiting, diarrhea, constipation or urinary symptoms. She denies any chest pain, shortness of breath , headache. The patient denies any other complaints. <Gary Juan - Last Filed: 08/30/18 12:09> - General History Source: Patient Exam Limitations: No Limitations <Rafaela Jarvis - Last Filed: 08/30/18 14:41> - General Chief Complaint: Overdose Stated Complaint: TOOK TO MUCH INSULIN Time Seen by Provider: 08/30/18 11:31 Past History <Gary Juan - Last Filed: 08/30/18 12:09> - Past Medical History Cardiac Disorders: Yes (cardiac stent) COPD: No Diabetes: Yes HTN: Yes Hypercholesterolemia: Yes - Surgical History Cardiac Surgery: Yes (cardiac stent) - Immunization History Immunization Up to Date: No - Suicide/Smoking/Psychosocial Hx Smoking History: Never smoked Have you smoked in the past 12 months: No Number of Cigarettes Smoked Daily: 0 Cigars Per Day: 0 Hx Alcohol Use: No Drug/Substance Use Hx: No Substance Use Type: None Hx Substance Use Treatment: No <Rafaela Jarvis - Last Filed: 08/30/18 14:41> - Past Medical History Allergies/Adverse Reactions: Allergies Allergy/AdvReac Type Severity Reaction Status Date / Time No Known Allergies Allergy Verified 08/30/18 11:18 Home Medications: Ambulatory Orders Clopidogrel Bisulfate [Plavix -] 75 mg PO DAILY 11/14/15 Metoprolol Tartrate [Lopressor -] 25 mg PO BID 11/14/15 Ezetimibe [Zetia] 10 mg PO DAILY 08/05/17 Aspirin [Aspirin EC] 81 mg PO DAILY 08/30/18 Bacitracin - [Bacitracin Topical Ointment -] 1 applic TP TID PRN #1 tube Cephalexin Monohydrate [Keflex -] 500 mg PO Q6H 5 Days #20 capsule 08/30/18 Empagliflozin [Jardiance] 25 mg PO DAILY 08/30/18 Ergocalciferol (Vitamin D2) [Drisdol] 50,000 unit PO DAILY 08/30/18 Exenatide Microspheres [Bydureon Pen] 2 mg SQ ASDIR 08/30/18 Glipizide [Glucotrol Xl] 10 mg PO BID 08/30/18 Hydrochlorothiazide 25 mg PO DAILY 08/30/18 Insulin Degludec [Tresiba Flextouch U-100] 80 unit SQ ACDIN 08/30/18 Lisinopril [Zestril] 5 mg PO DAILY 08/30/18 Pitavastatin Calcium [Livalo] 4 mg PO DAILY 08/30/18 Pramipexole Di-HCl [Pramipexole ER] 1.5 mg PO HS 08/30/18 Sitagliptin Phos/Metformin HCl [Janumet 50-1,000 mg Tablet] 1 each PO BID Review of Systems - Review of Systems Able to Perform ROS?: Yes Comments:: 08/30/18 12:10 GENERAL/CONSTITUTIONAL: (+)weakness. No fever or chills. HEAD, EYES, EARS, NOSE AND THROAT: No change in vision. No ear pain or discharge. No sore throat. CARDIOVASCULAR: No chest pain or shortness of breath. RESPIRATORY: No cough, wheezing, or hemoptysis. GASTROINTESTINAL: No nausea, vomiting, diarrhea or constipation. GENITOURINARY: No dysuria, frequency, or change in urination. MUSCULOSKELETAL: No joint or muscle swelling or pain. No neck or back pain. SKIN: No rash NEUROLOGIC: (+)dizziness.No headache, vertigo, loss of consciousness, or change in strength/sensation. ENDOCRINE: No increased thirst. No abnormal weight change. HEMATOLOGIC/LYMPHATIC: No anemia, easy bleeding, or history of blood clots. ALLERGIC/IMMUNOLOGIC: No hives or skin allergy. <Gary Juan - Last Filed: 08/30/18 12:09> *Physical Exam - Vital Signs Last Vital Signs Temp Pulse Resp BP Pulse Ox 98.5 F 87 16 137/72 100 08/30/18 11:19 08/30/18 11:19 08/30/18 11:19 08/30/18 11:19 08/30/18 11:19 <Gary Juan - Last Filed: 08/30/18 12:09> - Vital Signs Last Vital Signs Temp Pulse Resp BP Pulse Ox 98.5 F 87 16 137/72 100 08/30/18 11:19 08/30/18 11:19 08/30/18 11:19 08/30/18 11:19 08/30/18 11:19 <Rafaela Jarvis - Last Filed: 08/30/18 14:41> Moderate Sedation - Procedure Monitoring Vital Signs: Procedure Monitoring Vital Signs Temperature 98.5 F 08/30/18 11:19 Pulse Rate 87 08/30/18 11:19 Respiratory Rate 16 08/30/18 11:19 Blood Pressure 137/72 08/30/18 11:19 O2 Sat by Pulse Oximetry (%) 100 08/30/18 11:19 <Gary Juan - Last Filed: 08/30/18 12:09> - Procedure Monitoring Vital Signs: Procedure Monitoring Vital Signs Temperature 98.5 F 08/30/18 11:19 Pulse Rate 87 08/30/18 11:19 Respiratory Rate 16 08/30/18 11:19 Blood Pressure 137/72 08/30/18 11:19 O2 Sat by Pulse Oximetry (%) 100 08/30/18 11:19 <Rafaela Jarvis - Last Filed: 08/30/18 14:41> ED Treatment Course - LABORATORY CBC & Chemistry Diagram: 08/30/18 11:33 08/30/18 11:33 - ADDITIONAL ORDERS Additional order review: Laboratory Results 08/30/18 08/30/18 11:33 11:27 POC Glucometer 191 Creatine Kinase Cancelled Troponin I Cancelled 08/30/18 11:27 POC Glucometer 191 <Gary Juan - Last Filed: 08/30/18 12:09> - LABORATORY CBC & Chemistry Diagram: 08/30/18 11:33 08/30/18 11:33 - ADDITIONAL ORDERS Additional order review: Laboratory Results 08/30/18 11:27 POC Glucometer 191 08/30/18 11:27 POC Glucometer 191 <Rafaela Jarvis - Last Filed: 08/30/18 14:41> Medical Decision Making - Medical Decision Making 58 yo F s/p accidental medication overdose Pt took Humalog 100 Units this morning at 9am 08/30/18 11:46 Case reviewed with Poison Control 08/30/18 11:47 08/30/18 13:02 Laboratory Tests 08/30/18 08/30/18 11:33 11:33 WBC 8.1 Hgb 12.4 Hct 36.4 Plt Count 316 Sodium 135 L Potassium 3.8 Chloride 98 BUN 18 Creatinine 0.8 Random Glucose 184 H Creatine Kinase 176 Creatine Kinase Index 2.2 CK-MB (CK-2) 4.0 H Troponin I < 0.02 Poison control recommends observing until 5 hours after injection of Humalog 08/30/18 14:09 Pt observed Pt states she feels well Will re check fingerstick Will plan to discharge to home 08/30/18 14:41 Rechecked fingerstick - 240 Of note, pt was itching her right leg approximately 2 weeks ago since then she has noted superficial abrasion with surrounding erythema No drainage Will give keflex po and bacitracin <Rafaela Jarvis - Last Filed: 08/30/18 14:41> *DC/Admit/Observation/Transfer - Attestations Scribe Attestion: 08/30/18 12:11 Documentation prepared by Gary Juan, acting as medical administrator for Rafaela Jarvis MD. <Gary Juan - Last Filed: 08/30/18 12:09> - Discharge Dispostion Decision to Admit order: No <Rafaela Jarvis - Last Filed: 08/30/18 14:41> Diagnosis at time of Disposition: Poisoning by insulin and oral hypoglycemic [antidiabetic] drugs, accidental ( unintentional), initial encounter - Discharge Dispostion Disposition: HOME Condition at time of disposition: Stable - Prescriptions Prescriptions: Bacitracin - [Bacitracin Topical Ointment -] 1 applic TP TID PRN #1 tube PRN Reason: local infection Cephalexin Monohydrate [Keflex -] 500 mg PO Q6H 5 Days #20 capsule - Patient Instructions Printed Discharge Instructions: DI for Accidental Ingestion -- Adult Additional Instructions: Thank you for coming in to the ER Please be sure to monitor your blood glucose this afternoon/evening If you notice that your feel dizzy or lightheaded, please check your blood glucose AND check your blood glucose Please continue taking your diabetes medications Please follow up with your primary care physician Please return to the ER for any other concerns or complaints
[2018-08-30 11:57] LABS: BASO % 0.6 % (0-2.0); EOS % 0.9 % (0-4.5); HEMATOCRIT 36.4 % (32.4-45.2); HEMOGLOBIN 12.4 GM/dL (10.7-15.3); MCHC 34.1 g/dl (32.0-36.0); MEAN PLT VOLUME 7.7 fl (7.5-11.1); MONO % 8.7 % (3.8-10.2); NEUT % 64.8 % (42.8-82.8); PLATELET COUNT 316 K/MM3 (134-434); RBC 4.28 M/mm3 (3.60-5.2); RDW 13.2 % (11.6-15.6); WHITE BLOOD COUNT 8.1 K/mm3 (4.0-10.0)
[2018-08-30 12:29] LABS: ALBUMIN 3.5 g/dl (3.4-5.0); ALK PHOS 102 U/L (45-117); ANION GAP 9 MMOL/L (8-16); BILIRUBIN,TOTAL 0.1 mg/dL (0.2-1); BLOOD UREA NITROGEN 18 mg/dL (7-18); CALCIUM 8.6 mg/dL (8.5-10.1); CHLORIDE 98 mmol/L (98-107); CO2 28 mmol/L (21-32); CREATININE 0.8 mg/dL (0.55-1.3); GLUCOSE,RANDOM 184 mg/dL (74-106); POTASSIUM 3.8 mmol/L (3.5-5.1); SGOT/AST 25 U/L (15-37); SGPT/ALT 31 U/L (13-61); SODIUM 135 mmol/L (136-145)
[2018-08-30 15:05] VITALS: BP 125/76; PULSE 84
== END 2018-08-30 14:42 | disposition home or self-care (01) ==
LOC: JER 11:11
DX: T38.3X1A Poisoning by insulin and oral hypoglycemic [antidiabetic] drugs, accidental (unintentional), initial encounter (principal); R42 Dizziness and giddiness; Y92.038 Other place in apartment as the place of occurrence of the external cause; I25.10 Atherosclerotic heart disease of native coronary artery without angina pectoris; I10 Essential (primary) hypertension; Z95.5 Presence of coronary angioplasty implant and graft; E78.5 Hyperlipidemia, unspecified; G62.9 Polyneuropathy, unspecified
CPT/HCPCS: 36415; 80053; 82550; 82553; 82962; 84484; 85025; 99282-25

== ENCOUNTER 2019-02-02 10:07 | Emergency (ER) | payer OTHER ==
[2019-02-02 10:23] VITALS: BMI 30.7
--- NOTE | 2019-02-02 10:28 | PDOC ---
History of Present Illness - General Chief Complaint: Injury Stated Complaint: Injury Time Seen by Provider: 02/02/19 10:26 - History of Present Illness Initial Comments: 02/02/19 10:27 58 yo F with h/o HTN, HLD, DM, CAD s/p stents arrives via EMS with back pain s/ p mechanical fall. Patient [facility], when patient slipped and fell onto middle of back when ambulating down bottom steps. States that she slipped on "oily substance," on stairwell. Denies head trauma, convulsions, or LOC. Patient states that she grabbed hand rail banister with right hand and attempted to break her fall. Patient pain with weight bearing in back following fall. On plavix. Patient denies BELLA, vision change, palpitations, cough, wheezing, orthopena, PND , leg swelling, N/V, F,C, CP, SOB, urinary complaints, hematuria, BPR, abdominal pain, diarrhea, constipation, lightheadedness, weakness, sensory changes. PMHx: as noted above ROS: as noted SHx: Denies Etoh, IVDA, tobacco use Allergies: NKDA Past History - Past Medical History Allergies/Adverse Reactions: Allergies Allergy/AdvReac Type Severity Reaction Status Date / Time No Known Allergies Allergy Verified 02/02/19 10:20 Home Medications: Ambulatory Orders Clopidogrel Bisulfate [Plavix -] 75 mg PO DAILY 11/14/15 Metoprolol Tartrate [Lopressor -] 25 mg PO BID 11/14/15 Ezetimibe [Zetia] 10 mg PO DAILY 08/05/17 Bacitracin - [Bacitracin Topical Ointment -] 1 applic TP TID PRN #1 tube Cephalexin Monohydrate [Keflex -] 500 mg PO Q6H 5 Days #20 capsule 08/30/18 Empagliflozin [Jardiance] 25 mg PO DAILY 08/30/18 Ergocalciferol (Vitamin D2) [Drisdol] 50,000 unit PO DAILY 08/30/18 Exenatide Microspheres [Bydureon Pen] 2 mg SQ ASDIR 08/30/18 Glipizide [Glucotrol Xl] 10 mg PO BID 08/30/18 Hydrochlorothiazide 25 mg PO DAILY 08/30/18 Insulin Degludec [Tresiba Flextouch U-100] 80 unit SQ ACDIN 08/30/18 Lisinopril [Zestril] 5 mg PO DAILY 08/30/18 Pitavastatin Calcium [Livalo] 4 mg PO DAILY 08/30/18 Pramipexole Di-HCl [Pramipexole ER] 1.5 mg PO HS 08/30/18 Sitagliptin Phos/Metformin HCl [Janumet 50-1,000 mg Tablet] 1 each PO BID Cardiac Disorders: Yes (cardiac stent) COPD: No Diabetes: Yes HTN: Yes Hypercholesterolemia: Yes - Surgical History Cardiac Surgery: Yes (cardiac stent) - Immunization History Immunization Up to Date: No - Suicide/Smoking/Psychosocial Hx Smoking History: Never smoked Have you smoked in the past 12 months: No Number of Cigarettes Smoked Daily: 0 Cigars Per Day: 0 Information on smoking cessation initiated: No Hx Alcohol Use: No Drug/Substance Use Hx: No Substance Use Type: None Hx Substance Use Treatment: No Review of Systems - Review of Systems Comments:: 02/02/19 10:27 GENERAL/CONSTITUTIONAL: No fever or chills. No weakness. HEAD, EYES, EARS, NOSE AND THROAT: No change in vision. No ear pain or discharge. No sore throat. CARDIOVASCULAR: No chest pain or shortness of breath RESPIRATORY: No cough, wheezing, or hemoptysis. GASTROINTESTINAL: No nausea, vomiting, diarrhea or constipation. GENITOURINARY: No dysuria, frequency, or change in urination. MUSCULOSKELETAL: + Neck, back and multiple joint/muscle pain. SKIN: No rash NEUROLOGIC: No headache, vertigo, loss of consciousness, or change in strength/ sensation. ENDOCRINE: No increased thirst. No abnormal weight change HEMATOLOGIC/LYMPHATIC: No anemia, easy bleeding, or history of blood clots. ALLERGIC/IMMUNOLOGIC: No hives or skin allergy. *Physical Exam - Vital Signs Last Vital Signs Temp Pulse Resp BP Pulse Ox 98.7 F 83 18 114/66 95 02/02/19 10:20 02/02/19 10:20 02/02/19 10:20 02/02/19 10:20 02/02/19 10:20 - Physical Exam Comments: 02/02/19 10:27 GENERAL: Awake, alert, and fully oriented, in no acute distress HEAD: No signs of trauma, normocephalic, atraumatic EYES: PERRLA, EOMI, sclera anicteric, conjunctiva clear ENT: Auricles normal inspection, hearing grossly normal, nares patent, oropharynx clear without exudates. Moist mucosa NECK: Normal ROM, supple, no lymphadenopathy, JVD, or masses LUNGS: No distress, speaks full sentences, clear to auscultation bilaterally HEART: Regular rate and rhythm, normal S1 and S2, no murmurs, rubs or gallops, peripheral pulses normal and equal bilaterally. ABDOMEN: Soft, nontender, normoactive bowel sounds. No guarding, no rebound. No masses EXTREMITIES : + Right shoulder pain with active and passive ROM. + Right greater trochanter, olecranon, and thenar prominence ttp. + left tibial ttp. Absent scaphoid ttp, nml active and passive ROM through BL hands. Ext otherwise Normal inspection, Normal range of motion, no edema. or ttp. No clubbing or cyanosis. 2+ palpable and symmetric pulses throughout. NEUROLOGICAL: Cranial nerves II through XII grossly intact. Normal speech, normal gait, no focal sensorimotor deficits BACK: + midline cervical and thoracic ttp. Neg step-off, bony deformity, skin change, rib/chest wall ttp, ecchymosis, axillary skin change. SKIN: + Left tibial abrasions. Warm, Dry, normal turgor, no rashes or lesions noted Medical Decision Making - Medical Decision Making 02/02/19 10:57 58 yo F with h/o HTN, HLD, DM, CAD s/p stents arrives via EMS with mid thoracic and cervical back pain s/p mechanical fall. Vitals wnl, AF, A&Ox3. Physical exam notable for midline cervical and thoracic ttp, along musculature. CTH with no obvious signs of injury. Patient on plavix. CTH r/o hemorrhage, hematoma, skull fracture. Cervical and thoracic spine CT r/o fracture, subluxation, herniation. + left tibial abrasion, and right elbow, right thenar prominence, and right shoulder ttp. Pain control, imaging, reassess. 02/02/19 11:06 Ed Course: 02/02/19 14:13 CT C-SPINE, T SPINE : No acute change CTH: Unremarkable 02/02/19 16:32 XRAY of hip, R hand, Left tib/fib with no acute change Patient ambulatory, pain improved stable for d/c with return precautions. *DC/Admit/Observation/Transfer Diagnosis at time of Disposition: Back pain due to injury - Discharge Dispostion Condition at time of disposition: Stable Decision to Admit order: No - Referrals Referrals: Shari Braswell MD [Primary Care Provider] - - Patient Instructions Printed Discharge Instructions: How to Prevent Falls, DI for Thoracic Back Pain Additional Instructions: Please return to the emergency department with any new or worsening symptoms or concerns. Please follow up with your primary care physician within 72 hours. Can take Tylenol 650 mg every 6-8 hours as needed for pain. - Post Discharge Activity
[2019-02-02] MEDS ORDERED: ACETAMINOPHEN 325 MG TABLET (FP) PO ONE (10:45)
[2019-02-02] MEDS ORDERED: ACETAMINOPHEN 325 MG TABLET (FP) ONE (10:52)
--- NOTE | 2019-02-02 11:17 | PDOC ---
Attending Attestation - Resident Resident Name: Lionel Lora - ED Attending Attestation I have performed the following: I have examined & evaluated the patient, The case was reviewed & discussed with the resident, I agree w/resident's findings & plan, Exceptions are as noted - HPI HPI: 58 yo F history CAD s/p stents, on plavix presents s/p mechanical fall. She states she was walking down a flight of stairs, slid on an oily substance, landing on her back and falling down a few steps. She states she did not hit her head and did not lose consciousness. She c/o pain to neck, mid-back, and low back. Denies weakness, numbness, lightheadedness. - Physicial Exam PE: GENERAL: Awake, alert, and fully oriented, in no acute distress HEAD: No signs of trauma EYES: PERRLA, EOMI, sclera anicteric, conjunctiva clear ENT: Auricles normal inspection, hearing grossly normal, nares patent, oropharynx clear without exudates. Moist mucosa NECK: Normal ROM, supple, no lymphadenopathy, JVD, or masses LUNGS: Breath sounds equal, clear to auscultation bilaterally. No wheezes, and no crackles. No rib tenderness HEART: Regular rate and rhythm, normal S1 and S2, no murmurs, rubs or gallops ABDOMEN: Soft, nontender, normoactive bowel sounds. No guarding, no rebound. No masses EXTREMITIES: Normal range of motion, no edema. No clubbing or cyanosis. No cords, erythema, or tenderness NEUROLOGICAL: Cranial nerves II through XII grossly intact. Normal speech. Motor and sensation intact. Gait not tested due to back pain SKIN: Warm, dry, normal turgor, no rashes or lesions noted. SPINE: +Midline tenderness C5-7, T10-12. - Medical Decision Making Pt is s/p mechanical fall, with tenderness in the midline spine. No tenderness over the ribs, flank, or abdomen, making rib fx, splenic lac unlikely. Will obtain CTH, c-spine, and T-spine.
[2019-02-02 16:53] VITALS: BP 134/76; PULSE 68; TEMP 97.8
== END 2019-02-02 16:51 | disposition home or self-care (01) ==
LOC: JER 10:07
DX: M54.6 Pain in thoracic spine (principal); M54.2 Cervicalgia; S40.211A Abrasion of right shoulder, initial encounter; S60.511A Abrasion of right hand, initial encounter; S80.812A Abrasion, left lower leg, initial encounter; W10.8XXA Fall (on) (from) other stairs and steps, initial encounter; Y93.89 Activity, other specified; Y92.038 Other place in apartment as the place of occurrence of the external cause; Y99.8 Other external cause status; I25.10 Atherosclerotic heart disease of native coronary artery without angina pectoris; I10 Essential (primary) hypertension; Z95.5 Presence of coronary angioplasty implant and graft; E11.9 Type 2 diabetes mellitus without complications; Z79.4 Long term (current) use of insulin; E78.5 Hyperlipidemia, unspecified
CPT/HCPCS: 70450-TC; 72125-TC; 72128-TC; 73030-TC-RT-FY; 73070-TC-RT-FY; 73110-TC-RT-FY; 73130-TC-RT-FY; 73523-TC-FY; 73590-TC-LT-FY; 99282-25

== ENCOUNTER 2019-02-10 11:22 | Emergency (ER) | payer OTHER ==
[2019-02-10 11:35] VITALS: BP 112/68; PULSE 94; TEMP 98.9; BMI 30.2
--- NOTE | 2019-02-10 12:02 | PDOC ---
History of Present Illness - General Chief Complaint: Pain, Acute Stated Complaint: LT LEG WOUND Time Seen by Provider: 02/10/19 11:45 - History of Present Illness Initial Comments: 02/10/19 11:58 58-year-old female with a past medical history of coronary artery disease diabetes history of DVTs on Plavix presents for evaluation of left lower extremity pain. She states about a week ago she fell going up steps was treated in the emergency room x-rays were negative but has superficial abrasions which she feel may be getting infected. She has no systemic symptoms Past History - Past Medical History Allergies/Adverse Reactions: Allergies Allergy/AdvReac Type Severity Reaction Status Date / Time No Known Allergies Allergy Verified 02/10/19 11:32 Home Medications: Ambulatory Orders Clopidogrel Bisulfate [Plavix -] 75 mg PO DAILY 11/14/15 Metoprolol Tartrate [Lopressor -] 25 mg PO BID 11/14/15 Ezetimibe [Zetia] 10 mg PO DAILY 08/05/17 Bacitracin - [Bacitracin Topical Ointment -] 1 applic TP TID PRN #1 tube Cephalexin Monohydrate [Keflex -] 500 mg PO Q6H 5 Days #20 capsule 08/30/18 Empagliflozin [Jardiance] 25 mg PO DAILY 08/30/18 Ergocalciferol (Vitamin D2) [Drisdol] 50,000 unit PO DAILY 08/30/18 Exenatide Microspheres [Bydureon Pen] 2 mg SQ ASDIR 08/30/18 Glipizide [Glucotrol Xl] 10 mg PO BID 08/30/18 Hydrochlorothiazide 25 mg PO DAILY 08/30/18 Insulin Degludec [Tresiba Flextouch U-100] 80 unit SQ ACDIN 08/30/18 Lisinopril [Zestril] 5 mg PO DAILY 08/30/18 Pitavastatin Calcium [Livalo] 4 mg PO DAILY 08/30/18 Pramipexole Di-HCl [Pramipexole ER] 1.5 mg PO HS 08/30/18 Sitagliptin Phos/Metformin HCl [Janumet 50-1,000 mg Tablet] 1 each PO BID Cephalexin [Keflex] 500 mg PO QID #40 capsule 02/10/19 Cardiac Disorders: Yes (cardiac stent) COPD: No Diabetes: Yes HTN: Yes Hypercholesterolemia: Yes - Surgical History Cardiac Surgery: Yes (cardiac stent) - Immunization History Immunization Up to Date: No - Suicide/Smoking/Psychosocial Hx Smoking History: Never smoked Have you smoked in the past 12 months: No Number of Cigarettes Smoked Daily: 0 Cigars Per Day: 0 Hx Alcohol Use: No Drug/Substance Use Hx: No Substance Use Type: None Hx Substance Use Treatment: No Review of Systems - Review of Systems Constitutional: No: Chills, Diaphoresis, Fever, Malaise, Night Sweats Musculoskeletal: Yes: See HPI *Physical Exam - Vital Signs Last Vital Signs Temp Pulse Resp BP Pulse Ox 98.9 F 94 H 16 112/68 99 02/10/19 11:32 02/10/19 11:32 02/10/19 11:32 02/10/19 11:32 02/10/19 11:32 - Physical Exam Comments: 02/10/19 11:58 LLE skin color and temperature are normal there are no gross sensory motor deficits. There are superficial abrasions with mild surrounding erythema without warmth induration or areas of fluctuance on the anterior aspect of the left echeverria. Thighs and calves are soft and nontender and floppy. Neurovascularly intact. Medical Decision Making - Medical Decision Making 02/10/19 11:59 She is on Plavix, her exam is negative for DVT clinically. She does have superficial abrasions. She is concerned about potential infection. Even the surrounding erythema I do not think it is unreasonable to place her on prophylactic Keflex for 5 days and have her follow-up with her primary care physician for a wound check with instructions to return to the emergency room should her symptoms and pain increase. She is in agreement with the plan QUESTIONS were answered. *DC/Admit/Observation/Transfer Diagnosis at time of Disposition: Visit for wound check - Discharge Dispostion Disposition: HOME Condition at time of disposition: Stable Decision to Admit order: No - Prescriptions Prescriptions: Cephalexin [Keflex] 500 mg PO QID #40 capsule - Referrals Referrals: Cele Betancourt MD [Staff Physician] - - Patient Instructions Additional Instructions: The antibiotics as directed. You're given a 10 day course of Keflex. Please take it for 5 days. If you feel the your symptoms are getting worse continue the course for the next [address] you should follow-up with your primary care physician in the next 2-3 days for a wound check and further evaluation and treatment options. Return to the emergency room should symptoms worsen. - Post Discharge Activity
== END 2019-02-10 12:07 | disposition home or self-care (01) ==
LOC: JERFT 11:22
DX: Z51.89 Encounter for other specified aftercare (principal); S80.812D Abrasion, left lower leg, subsequent encounter; W10.8XXD Fall (on) (from) other stairs and steps, subsequent encounter; I25.10 Atherosclerotic heart disease of native coronary artery without angina pectoris; I10 Essential (primary) hypertension; Z95.5 Presence of coronary angioplasty implant and graft; E11.9 Type 2 diabetes mellitus without complications; Z79.4 Long term (current) use of insulin; Z79.84 Long term (current) use of oral hypoglycemic drugs; E78.00 Pure hypercholesterolemia, unspecified
CPT/HCPCS: 99281-25

== ENCOUNTER 2020-01-27 13:09 | Emergency (ER) | payer OTHER ==
[2020-01-27 13:14] VITALS: BP 122/68; PULSE 102; TEMP 99.3; BMI 30.9
[2020-01-27] MEDS ORDERED: ACETAMINOPHEN 500 MG TABLET (FP) ONE (13:33)
[2020-01-27] MEDS ORDERED: ACETAMINOPHEN 500 MG TABLET (FP) PO ONE (13:48)
--- NOTE | 2020-01-27 13:57 | PDOC ---
History of Present Illness - General Chief Complaint: Bone Injury Stated Complaint: FALL Time Seen by Provider: 01/27/20 13:23 History Source: Patient - History of Present Illness Occurred: reports: yesterday Severity: reports: mild Pain Location: reports: lower extremity, upper extremity Method of Injury: Yes: fall Past History - Medical History Allergies/Adverse Reactions: Allergies Allergy/AdvReac Type Severity Reaction Status Date / Time No Known Allergies Allergy Verified 01/27/20 13:11 Home Medications: Ambulatory Orders Clopidogrel Bisulfate [Plavix -] 75 mg PO DAILY 11/14/15 Metoprolol Tartrate [Lopressor -] 25 mg PO BID 11/14/15 Ergocalciferol (Vitamin D2) [Drisdol] 50,000 unit PO DAILY 08/30/18 Insulin Degludec [Tresiba Flextouch U-100] 120 unit SQ ACDIN 08/30/18 Pramipexole Di-HCl [Pramipexole ER] 1.5 mg PO HS 08/30/18 Insulin Lispro [Humalog] 12 unit SQ HS 11/13/19 Losartan Potassium 0 mg PO DAILY 11/13/19 Metformin HCl [Glucophage] 1,000 mg PO BID 11/13/19 Pregabalin [Lyrica] 100 mg PO BID 11/21/19 Aspirin 81 mg PO DAILY 12/01/19 Cardiac Disorders: Yes (cardiac stent) COPD: No Diabetes: Yes HTN: Yes Hypercholesterolemia: Yes Other medical history: NEURO- UNSURE - Surgical History Cardiac Surgery: Yes (cardiac stent) - Immunization History Immunization Up to Date: No - Psycho-Social/Smoking History Smoking History: Never smoked Have you smoked in the past 12 months: No Number of Cigarettes Smoked Daily: 0 Cigars Per Day: 0 - Substance Abuse Hx (Audit-C & DAST Scrn) How often the patient has a drink containing alcohol: Never Score: In Men: 4 or > Positive; In Women: 3 or > Positive: 0 Screen Result (Pos requires Nsg. Audit-10AR): Negative In the last yr the pt used illegal drug/Rx for NonMed reason: No Score: Yes response is considered Positive: 0 Screen Result (Positive result requires Nsg. DAST-10): Negative *Physical Exam - Vital Signs Last Vital Signs Temp Pulse Resp BP Pulse Ox 99.3 F 102 H 20 122/68 100 01/27/20 13:12 01/27/20 13:12 01/27/20 13:12 01/27/20 13:12 01/27/20 13:12 ED Treatment Course - RADIOLOGY Radiology Studies Ordered: Category Date Time Status ANKLE & FOOT-RIGHT* [RAD] Stat Radiology 01/27/20 13:48 Ordered SHOULDER-RIGHT [RAD] Stat Radiology 01/27/20 13:47 Ordered - Medications Given in the ED: ED Medications Discontinued Medications Generic Name Dose Route Start Last Admin Trade Name Sandee PRN Reason Stop Dose Admin Acetaminophen 1,000 mg 01/27/20 13:48 01/27/20 13:48 Tylenol - PO 01/27/20 13:49 1,000 mg ONCE ONE Administration Medical Decision Making - Medical Decision Making 01/27/20 13:53 59 yo F, h/o DM, here w/ R ankle/foot and shoulder pain s/p fall. States tripped at work yesterday. Has been able to bear weight since. No head injury see exam R ankle/shoulder sprain s/p minor injury at work Exam only remarkable for bi-malleolar swelling to R ankle -dose of tylenol -XR 01/27/20 14:31 XR ankle with well corticated lesion at distal tibia, m/l not representing acute fx. Of note, pt has no ttp to site, only area of ttp is in arch for R foot. JEREMY placed. Dc to take tylenol as needed and f/u with PMD Discharge - Discharge Information Problems reviewed: Yes Clinical Impression/Diagnosis: Ankle sprain Qualifiers: Encounter type: initial encounter Involved ligament of ankle: unspecified ligament Laterality: right Qualified Code(s): S93.401A - Sprain of unspecified ligament of right ankle, initial encounter Shoulder sprain Qualifiers: Encounter type: initial encounter Shoulder sprain type: unspecified sprain Laterality: right Qualified Code(s): S43.401A - Unspecified sprain of right shoulder joint, initial encounter Condition: Good Disposition: HOME - Follow up/Referral - Patient Discharge Instructions Patient Printed Discharge Instructions: DI for Ankle Sprain Additional Instructions: Your xrays did not show a fracture Take tylenol as needed for pain Please follow up with your PMD as needed - Post Discharge Activity Work/Back to School Note: Back to Work
== END 2020-01-27 14:57 | disposition home or self-care (01) ==
LOC: JERFT 13:09
DX: S93.401A Sprain of unspecified ligament of right ankle, initial encounter (principal)
CPT/HCPCS: 73030-TC-RT-FY; 73610-TC-RT-FY; 73630-TC-RT-FY; 99284-25

== ENCOUNTER 2020-10-24 11:14 | Observation (INO) | payer OTHER ==
[2020-10-24] MEDS ORDERED: ASPIRIN 81 MG CHEWABLE TABLETS PO ONE (11:47)
[2020-10-24 12:03] VITALS: BMI 34.9
[2020-10-24] MEDS ORDERED: ASPIRIN 81 MG CHEWABLE TABLETS ONE (12:23)
[2020-10-24 12:55] LABS: BASO % 0.7 % (0-2.0); EOS % 2.2 % (0-4.5); HEMATOCRIT 30.6 % (32.4-45.2); HEMOGLOBIN 10.5 GM/dL (10.7-15.3); LYMPH % 21.3 % (8-40); MCH 28.6 pg (25.7-33.7); MCHC 34.2 g/dl (32.0-36.0); MEAN CELL VOLUME 83.7 fl (80-96); MEAN PLT VOLUME 8.7 fl (7.5-11.1); MONO % 8.3 % (3.8-10.2); NEUT % 67.5 % (42.8-82.8); PLATELET COUNT 291 K/MM3 (134-434); RBC 3.65 M/mm3 (3.60-5.2); RDW 13.3 % (11.6-15.6); WHITE BLOOD COUNT 5.6 K/mm3 (4.0-10.0)
[2020-10-24 13:12] LABS: INR 0.91 (0.83-1.09); PROTHROMBIN TIME (PATIENT) 11.1 SEC (9.7-13.0)
[2020-10-24 13:32] LABS: CHLORIDE 100 mmol/L (98-107); SODIUM 136 mmol/L (136-145)
[2020-10-24 13:35] LABS: ALBUMIN 2.9 g/dl (3.4-5.0); ANION GAP 6 MMOL/L (8-16); CO2 30 mmol/L (21-32); GLUCOSE,RANDOM 319 mg/dL (74-106)
[2020-10-24 13:36] LABS: CALCIUM 8.3 mg/dL (8.5-10.1)
[2020-10-24 13:37] LABS: CREATININE 1.1 mg/dL (0.55-1.3); SGOT/AST 19 U/L (15-37)
[2020-10-24 13:39] LABS: BILIRUBIN,TOTAL 0.3 mg/dL (0.2-1); TOT PROT 6.2 g/dl (6.4-8.2)
[2020-10-24 13:41] LABS: ALK PHOS 127 U/L (45-117)
[2020-10-24 13:42] LABS: SGPT/ALT 26 U/L (13-61)
[2020-10-24 13:45] LABS: N-TERMINAL BNP 98.2 pg/ml (5-125)
[2020-10-24] MEDS: PRAMIPEXOLE DIHYDROCHLORIDE 0.5 MG TABLET PO SCH (21:06)
[2020-10-24] MEDS: PREGABALIN 100 MG CAPSULE PO SCH (21:06)
[2020-10-24] MEDS: METOPROLOL TARTRATE 25 MG TABLET (FP) PO SCH (21:06)
[2020-10-24] MEDS: INSULIN SLIDING SCALE (NOVOLOG) 1 VIAL SQ SCH (21:21)
[2020-10-25] MEDS: metFORMIN HCL 500 MG TABLET (FP) PO SCH ×2 (06:13→16:10)
[2020-10-25] MEDS: INSULIN SLIDING SCALE (NOVOLOG) 1 VIAL SQ SCH ×4 (06:13→21:35)
[2020-10-25 06:59] LABS: BASO % 0.8 % (0-2.0); EOS % 3.4 % (0-4.5); HEMATOCRIT 32.2 % (32.4-45.2); HEMOGLOBIN 10.3 GM/dL (10.7-15.3); LYMPH % 35.6 % (8-40); MCH 27.5 pg (25.7-33.7); MCHC 32.2 g/dl (32.0-36.0); MEAN CELL VOLUME 85.4 fl (80-96); MEAN PLT VOLUME 8.5 fl (7.5-11.1); MONO % 8.9 % (3.8-10.2); NEUT % 51.3 % (42.8-82.8); PLATELET COUNT 287 K/MM3 (134-434); RBC 3.77 M/mm3 (3.60-5.2); RDW 13.6 % (11.6-15.6); WHITE BLOOD COUNT 5.8 K/mm3 (4.0-10.0)
[2020-10-25 07:36] LABS: BLOOD UREA NITROGEN 19.2 mg/dL (7-18); CALCIUM 8.5 mg/dL (8.5-10.1)
[2020-10-25 07:37] LABS: ALBUMIN 2.7 g/dl (3.4-5.0)
[2020-10-25 07:38] LABS: CREATININE 0.7 mg/dL (0.55-1.3)
[2020-10-25 07:40] LABS: BILIRUBIN,TOTAL 0.2 mg/dL (0.2-1); TOT PROT 5.9 g/dl (6.4-8.2)
[2020-10-25 07:55] LABS: CHOLESTEROL 225 mg/dL (50-200); HDL CHOLESTEROL 79 mg/dL (40-60); LDL CHOLESTEROL (ONLY DFH) 121 mg/dl (5-100); TRIGLYCERIDES 123 mg/dL (0-150)
[2020-10-25] MEDS ORDERED: ASPIRIN COATED 81 MG TABLET.EC PO SCH (10:00)
[2020-10-25] MEDS: PANTOPRAZOLE 40 MG TABLET PO SCH (10:46)
[2020-10-25] MEDS: LOSARTAN POTASSIUM 25 MG TABLET PO SCH (10:46)
[2020-10-25] MEDS: ENOXAPARIN NA (PORCINE) 40 MG/0.4 ML DISP.SYRIN SQ SCH (10:46)
[2020-10-25] MEDS: PREGABALIN 100 MG CAPSULE PO SCH ×2 (10:46→21:35)
[2020-10-25] MEDS: ASPIRIN 81 MG CHEWABLE TABLETS PO SCH (10:46)
[2020-10-25] MEDS: ATORVASTATIN CA 20 MG TABLET (FP) PO ONE ×2 (10:46→10:54)
[2020-10-25] MEDS: CLOPIDOGREL BISULFATE 75 MG TABLET (FP) PO SCH (10:46)
[2020-10-25] MEDS: METOPROLOL TARTRATE 25 MG TABLET (FP) PO SCH ×2 (10:46→21:35)
[2020-10-25] MEDS: PRAMIPEXOLE DIHYDROCHLORIDE 0.5 MG TABLET PO SCH (21:35)
[2020-10-26] MEDS: INSULIN SLIDING SCALE (NOVOLOG) 1 VIAL SQ SCH ×2 (06:25→12:00)
[2020-10-26] MEDS: metFORMIN HCL 500 MG TABLET (FP) PO SCH (06:25)
[2020-10-26] MEDS: ENOXAPARIN NA (PORCINE) 40 MG/0.4 ML DISP.SYRIN SQ SCH (10:00)
[2020-10-26] MEDS ORDERED: REGADENOSON 0.4 MG/5 ML PRE-FILLED SYRINGE IVPUSH ONE ×2 (10:22→10:30)
[2020-10-26] MEDS ORDERED: ACETAMINOPHEN 325 MG TABLET (FP) ONE (12:22)
[2020-10-26] MEDS: PREGABALIN 100 MG CAPSULE PO SCH (12:26)
[2020-10-26] MEDS: ASPIRIN 81 MG CHEWABLE TABLETS PO SCH (12:26)
[2020-10-26] MEDS: LOSARTAN POTASSIUM 25 MG TABLET PO SCH (12:26)
[2020-10-26] MEDS: CLOPIDOGREL BISULFATE 75 MG TABLET (FP) PO SCH (12:26)
[2020-10-26] MEDS: PANTOPRAZOLE 40 MG TABLET PO SCH (12:27)
[2020-10-26] MEDS: METOPROLOL TARTRATE 25 MG TABLET (FP) PO SCH (12:27)
[2020-10-26 14:05] VITALS: BP 127/67; PULSE 80; TEMP 98.6
[2020-10-26] MEDS ORDERED: ATORVASTATIN CA 20 MG TABLET (FP) PO SCH (22:00)
== END 2020-10-26 17:27 | disposition home or self-care (01) ==
LOC: JER 11:14 → UNDOADMOB 13:07 → JERBED 13:07 → J4W 19:00 → JERBED 19:00 → INTOOBSV 20:32 → OBSVTOIN 20:32 → JERBED 10-25 09:47 → J4W 10-25 09:47
PROVIDERS: ADMIT Internal Medicine; ATTEND Internal Medicine
PROC: 3E033GC Introduction of Other Therapeutic Substance into Peripheral Vein, Percutaneous Approach (ICD-10-PCS; principal; 2020-10-25)
DX: I11.9 Hypertensive heart disease without heart failure (principal); G20 Parkinson's disease; E78.5 Hyperlipidemia, unspecified; I25.10 Atherosclerotic heart disease of native coronary artery without angina pectoris; Z95.5 Presence of coronary angioplasty implant and graft; F32.9 Major depressive disorder, single episode, unspecified; U07.1 COVID-19; M54.9 Dorsalgia, unspecified; E87.2 Acidosis; R07.9 Chest pain, unspecified; E66.8 Other obesity; Z68.34 Body mass index [BMI] 34.0-34.9, adult; E66.9 Obesity, unspecified; L03.119 Cellulitis of unspecified part of limb; L03.116 Cellulitis of left lower limb; R07.1 Chest pain on breathing; E11.65 Type 2 diabetes mellitus with hyperglycemia; R50.9 Fever, unspecified; E11.621 Type 2 diabetes mellitus with foot ulcer; R53.81 Other malaise; R11.2 Nausea with vomiting, unspecified; G62.9 Polyneuropathy, unspecified; Z51.89 Encounter for other specified aftercare; J06.9 Acute upper respiratory infection, unspecified; Z95.0 Presence of cardiac pacemaker; R09.3 Abnormal sputum
CPT/HCPCS: 36415; 71045-TC-FY; 78452-TC; 80053; 80061; 82550; 82962; 83036; 83880; 84484; 85025; 85610; 93005; 93010; 93017; 93306-TC; 96374; 99285-25; A9502; C9803; G0378; J2785; U0003; U0005

== ENCOUNTER 2021-03-25 08:50 | Observation (INO) | payer OTHER ==
[2021-03-25] MEDS ORDERED: LIDOCAINE 5% TOPICAL PATCH ONE (09:39)
[2021-03-25] MEDS ORDERED: LIDOCAINE 5% TOPICAL PATCH TP ONE (09:40)
[2021-03-25] MEDS ORDERED: ASPIRIN 81 MG CHEWABLE TABLETS ONE (09:40)
[2021-03-25] MEDS ORDERED: ASPIRIN 81 MG CHEWABLE TABLETS PO ONE (09:40)
[2021-03-25 09:58] VITALS: BMI 32.9
[2021-03-25 10:12] LABS: EOS % 2.3 % (0-4.5); HEMATOCRIT 33.3 % (32.4-45.2); HEMOGLOBIN 11.1 GM/dL (10.7-15.3); LYMPH % 28.5 % (8-40); MCH 27.4 pg (25.7-33.7); MCHC 33.2 g/dl (32.0-36.0); MEAN CELL VOLUME 82.5 fl (80-96); MEAN PLT VOLUME 8.1 fl (7.5-11.1); MONO % 8.2 % (3.8-10.2); PLATELET COUNT 318 10^3/uL (134-434); RBC 4.04 M/mm3 (3.60-5.2); RDW 13.1 % (11.6-15.6); WHITE BLOOD COUNT 6.6 K/mm3 (4.0-10.0)
[2021-03-25 10:14] LABS: CHLORIDE 98 mmol/L (98-107); SODIUM 134 mmol/L (136-145)
[2021-03-25 10:17] LABS: CALCIUM 9.1 mg/dL (8.5-10.1)
[2021-03-25 10:18] LABS: ANION GAP 7 MMOL/L (8-16); CO2 29 mmol/L (21-32); GLUCOSE,RANDOM 166 mg/dL (74-106)
[2021-03-25 10:21] LABS: CREATININE 1.3 mg/dL (0.55-1.3); SGOT/AST 14 U/L (15-37); SGPT/ALT 23 U/L (13-61)
[2021-03-25 10:22] LABS: BILIRUBIN,TOTAL 0.4 mg/dL (0.2-1)
[2021-03-25 10:23] LABS: ALK PHOS 129 U/L (45-117); TOT PROT 6.8 g/dl (6.4-8.2)
[2021-03-25 10:27] LABS: INR 0.88 (0.83-1.09); PROTHROMBIN TIME (PATIENT) 10.3 SEC (9.7-13.0)
[2021-03-25 10:29] LABS: ACTIVATED PTT 28.2 SECONDS (25.2-36.5)
[2021-03-25] MEDS ORDERED: PNEUMOC 13-VAL CONJ-DIP CRM/PF 0.5 ML DISP.SYRIN IM ONE (21:04)
[2021-03-25] MEDS ORDERED: FLU VACC QS2021-22(6MOS UP)/PF 60 MCG/0.5 ML SYRINGE IM ONE (21:04)
[2021-03-25] MEDS ORDERED: PNEUMOCOCCAL 23 VACCINE 0.5 ML VIAL IM ONE (21:15)
[2021-03-25] MEDS ORDERED: LIDOCAINE PATCH REMOVAL MC SCH (22:00)
[2021-03-25] MEDS: INSULIN SLIDING SCALE (NOVOLOG) 1 VIAL SQ SCH (22:30)
[2021-03-26 00:27] LABS: GLUCOSE,RANDOM 361 mg/dL (74-106)
[2021-03-26] MEDS: INSULIN SLIDING SCALE (NOVOLOG) 1 VIAL SQ SCH ×4 (06:23→21:28)
[2021-03-26 08:35] LABS: BASO % 0.9 % (0-2.0); EOS % 2.7 % (0-4.5); HEMATOCRIT 36.3 % (32.4-45.2); HEMOGLOBIN 12.4 GM/dL (10.7-15.3); LYMPH % 36.6 % (8-40); MCH 28.4 pg (25.7-33.7); MCHC 34.1 g/dl (32.0-36.0); MEAN CELL VOLUME 83.3 fl (80-96); MEAN PLT VOLUME 8.4 fl (7.5-11.1); MONO % 5.4 % (3.8-10.2); NEUT % 54.4 % (42.8-82.8); PLATELET COUNT 373 10^3/uL (134-434); RBC 4.36 M/mm3 (3.60-5.2); RDW 13.1 % (11.6-15.6); WHITE BLOOD COUNT 5.4 K/mm3 (4.0-10.0)
[2021-03-26 08:45] LABS: CHLORIDE 98 mmol/L (98-107); SODIUM 136 mmol/L (136-145)
[2021-03-26 09:00] LABS: ANION GAP 9 MMOL/L (8-16); CALCIUM 9.3 mg/dL (8.5-10.1); CO2 29 mmol/L (21-32); GLUCOSE,RANDOM 136 mg/dL (74-106)
[2021-03-26 09:04] LABS: CREATININE 1.1 mg/dL (0.55-1.3); SGOT/AST 17 U/L (15-37); SGPT/ALT 23 U/L (13-61)
[2021-03-26 09:05] LABS: ALK PHOS 118 U/L (45-117); BILIRUBIN,TOTAL 0.4 mg/dL (0.2-1); TOT PROT 7.1 g/dl (6.4-8.2)
[2021-03-26] MEDS ORDERED: PT OWN MED DRAWER 7, Y5N ONE ×2 (09:12→09:34)
[2021-03-26] MEDS: ASPIRIN 81 MG CHEWABLE TABLETS PO SCH (09:23)
[2021-03-26] MEDS: ENOXAPARIN NA (PORCINE) 40 MG/0.4 ML DISP.SYRIN SQ SCH (09:24)
[2021-03-26] MEDS: CLOPIDOGREL BISULFATE 75 MG TABLET (FP) PO SCH (09:25)
[2021-03-26] MEDS: PREGABALIN 100 MG CAPSULE PO SCH ×2 (09:25→21:28)
[2021-03-26] MEDS: PANTOPRAZOLE 40 MG TABLET PO SCH (09:25)
[2021-03-26] MEDS: LOSARTAN POTASSIUM 25 MG TABLET PO SCH (09:44)
[2021-03-26] MEDS: VENLAFAXINE HCL 75 MG E.R. CAPSULES PO SCH (09:45)
[2021-03-26] MEDS: METOPROLOL TARTRATE 25 MG TABLET (FP) PO SCH ×2 (09:45→21:28)
[2021-03-26] MEDS ORDERED: ATORVASTATIN CA 20 MG TABLET (FP) PO SCH (22:00)
[2021-03-26] MEDS ORDERED: [UNRECOGNIZED DRUG - OTHER] PO SCH (22:00)
[2021-03-26] MEDS ORDERED: PRAMIPEXOLE PO SCH (22:00)
[2021-03-27] MEDS: INSULIN SLIDING SCALE (NOVOLOG) 1 VIAL SQ SCH ×2 (06:01→11:30)
[2021-03-27 07:41] VITALS: BP 124/72; PULSE 82; TEMP 98.8
[2021-03-27 07:52] LABS: BASO % 0.9 % (0-2.0); EOS % 2.2 % (0-4.5); HEMATOCRIT 33.7 % (32.4-45.2); HEMOGLOBIN 11.4 GM/dL (10.7-15.3); LYMPH % 30.2 % (8-40); MCH 28.1 pg (25.7-33.7); MCHC 33.7 g/dl (32.0-36.0); MEAN CELL VOLUME 83.5 fl (80-96); MEAN PLT VOLUME 8.6 fl (7.5-11.1); MONO % 6.9 % (3.8-10.2); NEUT % 59.8 % (42.8-82.8); PLATELET COUNT 331 10^3/uL (134-434); RBC 4.04 M/mm3 (3.60-5.2); RDW 12.8 % (11.6-15.6); WHITE BLOOD COUNT 6.7 K/mm3 (4.0-10.0)
[2021-03-27 08:19] LABS: ALBUMIN 2.7 g/dl (3.4-5.0); BLOOD UREA NITROGEN 25.9 mg/dL (7-18); CALCIUM 8.9 mg/dL (8.5-10.1)
[2021-03-27 08:23] LABS: CREATININE 1.1 mg/dL (0.55-1.3)
[2021-03-27 08:24] LABS: BILIRUBIN,TOTAL 0.2 mg/dL (0.2-1); TOT PROT 6.4 g/dl (6.4-8.2)
[2021-03-27] MEDS: METOPROLOL TARTRATE 25 MG TABLET (FP) PO SCH (09:00)
[2021-03-27] MEDS: ASPIRIN 81 MG CHEWABLE TABLETS PO SCH (09:00)
[2021-03-27] MEDS: PREGABALIN 100 MG CAPSULE PO SCH (09:00)
[2021-03-27] MEDS: PANTOPRAZOLE 40 MG TABLET PO SCH (09:01)
[2021-03-27] MEDS: ENOXAPARIN NA (PORCINE) 40 MG/0.4 ML DISP.SYRIN SQ SCH (09:01)
[2021-03-27] MEDS: CLOPIDOGREL BISULFATE 75 MG TABLET (FP) PO SCH (09:01)
[2021-03-27] MEDS: VENLAFAXINE HCL 75 MG E.R. CAPSULES PO SCH (09:01)
[2021-03-27] MEDS: LOSARTAN POTASSIUM 25 MG TABLET PO SCH (09:01)
== END 2021-03-27 14:45 | disposition home or self-care (01) ==
LOC: JER 08:50 → JERBED 11:55 → J4W 20:40
PROVIDERS: ADMIT Internal Medicine; ATTEND Internal Medicine
PROC: 3E023GC Introduction of Other Therapeutic Substance into Muscle, Percutaneous Approach (ICD-10-PCS; principal; 2021-03-25)
PROC: 3E0234Z Introduction of Serum, Toxoid and Vaccine into Muscle, Percutaneous Approach (ICD-10-PCS; 2021-03-25)
PROC: 3E013VG Introduction of Insulin into Subcutaneous Tissue, Percutaneous Approach (ICD-10-PCS; 2021-03-25)
DX: I25.10 Atherosclerotic heart disease of native coronary artery without angina pectoris (principal); F32.9 Major depressive disorder, single episode, unspecified; Z95.5 Presence of coronary angioplasty implant and graft; I10 Essential (primary) hypertension; E66.8 Other obesity; Z68.32 Body mass index [BMI] 32.0-32.9, adult; E11.9 Type 2 diabetes mellitus without complications; R60.0 Localized edema; E78.5 Hyperlipidemia, unspecified; Z86.16 Personal history of COVID-19
CPT/HCPCS: 36415; 71046-TC-FY; 80053; 82550; 82947; 82962; 83036; 83880; 84443; 84484; 85025; 85610; 85730; 90686; 90732; 93005; 93010; 99285-25; C9803; G0009; G0378; U0003; U0005

== ENCOUNTER 2021-05-30 22:27 | Inpatient (IN) | payer OTHER ==
[2021-05-31 00:14] LABS: BASO % 0.8 % (0-2.0); EOS % 3.2 % (0-4.5); HEMATOCRIT 30.3 % (32.4-45.2); LYMPH % 28.4 % (8-40); MCH 27.5 pg (25.7-33.7); MEAN CELL VOLUME 83.2 fl (80-96); MEAN PLT VOLUME 7.7 fl (7.5-11.1); MONO % 5.9 % (3.8-10.2); NEUT % 61.7 % (42.8-82.8); PLATELET COUNT 280 10^3/uL (134-434); RBC 3.64 M/mm3 (3.60-5.2); RDW 13.2 % (11.6-15.6); WHITE BLOOD COUNT 6.2 K/mm3 (4.0-10.0)
[2021-05-31 00:44] LABS: CHLORIDE 102 mmol/L (98-107); SODIUM 138 mmol/L (136-145)
[2021-05-31 00:46] LABS: ALBUMIN 2.9 g/dl (3.4-5.0); ANION GAP 8 MMOL/L (8-16); BLOOD UREA NITROGEN 37.1 mg/dL (7-18); CALCIUM 8.5 mg/dL (8.5-10.1); CO2 28 mmol/L (21-32); GLUCOSE,RANDOM 344 mg/dL (74-106)
[2021-05-31 00:49] LABS: CREATININE 1.3 mg/dL (0.55-1.3); SGOT/AST 27 U/L (15-37); SGPT/ALT 36 U/L (13-61)
[2021-05-31 00:51] LABS: BILIRUBIN,TOTAL 0.2 mg/dL (0.2-1); TOT PROT 6.5 g/dl (6.4-8.2)
[2021-05-31 00:52] LABS: ALK PHOS 121 U/L (45-117)
[2021-05-31 00:54] LABS: N-TERMINAL BNP 227.8 pg/ml (5-125)
[2021-05-31] MEDS ORDERED: FUROSEMIDE 40 MG/4 ML INJECTABLE VIAL IVPUSH ONE (00:57)
[2021-05-31] MEDS ORDERED: FUROSEMIDE 40 MG/4 ML INJECTABLE VIAL ONE ×2 (01:47→10:44)
[2021-05-31] MEDS: ENOXAPARIN NA (PORCINE) 40 MG/0.4 ML DISP.SYRIN SQ SCH (10:37)
[2021-05-31] MEDS: LOSARTAN POTASSIUM 25 MG TABLET PO SCH (10:37)
[2021-05-31] MEDS: ASPIRIN COATED 81 MG TABLET.EC PO SCH (10:37)
[2021-05-31] MEDS: FUROSEMIDE 40 MG/4 ML INJECTABLE VIAL IVPUSH SCH (10:37)
[2021-05-31] MEDS: METOPROLOL TARTRATE 25 MG TABLET (FP) PO SCH ×2 (10:37→21:52)
[2021-05-31] MEDS: CLOPIDOGREL BISULFATE 75 MG TABLET (FP) PO SCH ×2 (10:38→10:55)
[2021-05-31] MEDS: PANTOPRAZOLE 40 MG TABLET PO SCH (10:38)
[2021-05-31] MEDS ORDERED: PREGABALIN 50 MG CAPSULE ONE (10:42)
[2021-05-31] MEDS ORDERED: PANTOPRAZOLE 40 MG TABLET ONE (10:43)
[2021-05-31] MEDS ORDERED: METOPROLOL TARTRATE 25 MG TABLET (FP) ONE ×2 (10:43→21:44)
[2021-05-31] MEDS ORDERED: CLOPIDOGREL BISULFATE 75 MG TABLET (FP) ONE (10:43)
[2021-05-31] MEDS ORDERED: LOSARTAN POTASSIUM 50 MG TABLET ONE (10:43)
[2021-05-31] MEDS ORDERED: ASPIRIN COATED 81 MG TABLET.EC ONE (10:43)
[2021-05-31] MEDS ORDERED: ENOXAPARIN NA (PORCINE) 40 MG/0.4 ML DISP.SYRIN SQ ONE (10:44)
[2021-05-31] MEDS ORDERED: VENLAFAXINE HCL 75 MG TABLET ONE (10:44)
[2021-05-31] MEDS: VENLAFAXINE HCL 75 MG E.R. CAPSULES PO SCH (10:54)
[2021-05-31] MEDS: PREGABALIN 100 MG CAPSULE PO SCH ×2 (10:55→21:52)
[2021-05-31] MEDS: INSULIN (NOVOLOG MIX 70/30) 100 UNITS/ML MDV SQ SCH ×3 (12:00→18:53)
[2021-05-31] MEDS: INSULIN SLIDING SCALE (NOVOLOG) 1 VIAL SQ SCH ×3 (15:57→21:59)
[2021-05-31] MEDS ORDERED: INSULIN (NOVOLOG MIX 70/30) 100 UNITS/ML MDV SQ ONE (18:50)
[2021-05-31] MEDS ORDERED: ATORVASTATIN CA 20 MG TABLET (FP) ONE (21:44)
[2021-05-31] MEDS ORDERED: PREGABALIN 100 MG CAPSULE ONE (21:44)
[2021-05-31] MEDS ORDERED: ATORVASTATIN CA 20 MG TABLET (FP) PO SCH (22:00)
[2021-06-01 00:42] VITALS: BMI 35.1
[2021-06-01] MEDS: INSULIN SLIDING SCALE (NOVOLOG) 1 VIAL SQ SCH ×2 (06:55→11:59)
[2021-06-01] MEDS: INSULIN (NOVOLOG MIX 70/30) 100 UNITS/ML MDV SQ SCH ×2 (06:55→11:58)
[2021-06-01 08:17] LABS: CHLORIDE 104 mmol/L (98-107); SODIUM 140 mmol/L (136-145)
[2021-06-01 08:21] LABS: CALCIUM 9.3 mg/dL (8.5-10.1)
[2021-06-01 08:22] LABS: ANION GAP 4 MMOL/L (8-16); BLOOD UREA NITROGEN 33.1 mg/dL (7-18); CO2 32 mmol/L (21-32); GLUCOSE,RANDOM 75 mg/dL (74-106)
[2021-06-01 08:25] LABS: ALK PHOS 100 U/L (45-117); CREATININE 0.9 mg/dL (0.55-1.3); SGOT/AST 21 U/L (15-37); SGPT/ALT 32 U/L (13-61)
[2021-06-01 08:26] LABS: BILIRUBIN,TOTAL 0.3 mg/dL (0.2-1); TOT PROT 6.6 g/dl (6.4-8.2)
[2021-06-01 08:27] LABS: BASO % 0.6 % (0-2.0); HEMATOCRIT 31.7 % (32.4-45.2); HEMOGLOBIN 10.6 GM/dL (10.7-15.3); LYMPH % 28.3 % (8-40); MCHC 33.3 g/dl (32.0-36.0); MEAN PLT VOLUME 8.2 fl (7.5-11.1); MONO % 7.9 % (3.8-10.2); NEUT % 60.2 % (42.8-82.8); PLATELET COUNT 313 10^3/uL (134-434); RBC 3.78 M/mm3 (3.60-5.2); RDW 13.4 % (11.6-15.6); WHITE BLOOD COUNT 6.9 K/mm3 (4.0-10.0)
[2021-06-01 09:53] VITALS: BP 144/98; PULSE 83; TEMP 97.6
[2021-06-01] MEDS ORDERED: PT OWN MED DRAWER 7, Y5N ONE (10:16)
[2021-06-01] MEDS: ASPIRIN COATED 81 MG TABLET.EC PO SCH (10:36)
[2021-06-01] MEDS: VENLAFAXINE HCL 75 MG E.R. CAPSULES PO SCH (10:36)
[2021-06-01] MEDS: FUROSEMIDE 40 MG/4 ML INJECTABLE VIAL IVPUSH SCH (10:36)
[2021-06-01] MEDS: ENOXAPARIN NA (PORCINE) 40 MG/0.4 ML DISP.SYRIN SQ SCH (10:37)
[2021-06-01] MEDS: METOPROLOL TARTRATE 25 MG TABLET (FP) PO SCH (10:37)
[2021-06-01] MEDS: CLOPIDOGREL BISULFATE 75 MG TABLET (FP) PO SCH (10:37)
[2021-06-01] MEDS: PREGABALIN 100 MG CAPSULE PO SCH (10:37)
[2021-06-01] MEDS: PANTOPRAZOLE 40 MG TABLET PO SCH (10:37)
[2021-06-01] MEDS: LOSARTAN POTASSIUM 25 MG TABLET PO SCH (10:37)
[2021-06-02] MEDS ORDERED: HYDROCHLOROTHIAZIDE 25 MG TABLET (FP) PO SCH (10:00)
== END 2021-06-01 15:30 | disposition home or self-care (01) | DRG 293 ==
LOC: JER 22:27 → JERBED 05-31 00:57 → J4W 05-31 22:18
PROVIDERS: ADMIT Internal Medicine; ATTEND Internal Medicine
DX: I50.31 Acute diastolic (congestive) heart failure (principal); R07.9 Chest pain, unspecified; I25.10 Atherosclerotic heart disease of native coronary artery without angina pectoris; Z98.61 Coronary angioplasty status; I10 Essential (primary) hypertension; E78.5 Hyperlipidemia, unspecified; E11.65 Type 2 diabetes mellitus with hyperglycemia; R51.9 Headache, unspecified
CPT/HCPCS: 36415; 71045-TC-FY; 80053; 82550; 82553; 82962; 83880; 84484; 85025; 93005; 93010; 93306-TC; 99285-25; C9803; U0003; U0005

== ENCOUNTER 2021-08-18 01:06 | Emergency (ER) | payer OTHER ==
[2021-08-18 01:20] VITALS: TEMP 98; BMI 33.3
[2021-08-18] MEDS ORDERED: LACTATED RINGERS SOLUTION 1000 ML INFUS.BAG IV ONE ×2 (01:48→03:14)
[2021-08-18] MEDS ORDERED: ACETAMINOPHEN 1000 MG/100 ML BAG IVPB ONE (01:54)
[2021-08-18] MEDS ORDERED: ACETAMINOPHEN INJECTION 100 ML IVPB ONE (02:04)
[2021-08-18 02:21] LABS: BASO % 0.7 % (0-2.0); EOS % 1.2 % (0-4.5); HEMATOCRIT 32.1 % (32.4-45.2); HEMOGLOBIN 10.5 GM/dL (10.7-15.3); LYMPH % 28.1 % (8-40); MCH 27.5 pg (25.7-33.7); MCHC 32.7 g/dl (32.0-36.0); MEAN CELL VOLUME 84.1 fl (80-96); MEAN PLT VOLUME 8.2 fl (7.5-11.1); PLATELET COUNT 334 10^3/uL (134-434); RBC 3.82 M/mm3 (3.60-5.2); RDW 13.2 % (11.6-15.6)
[2021-08-18 02:40] LABS: VENOUS BASE EXCESS -0.2 mmol/L (-2-2); VENOUS O2 SATURATION 89.1 % (70-80); VENOUS PCO2 45.5 mmHg (38-52); VENOUS PH 7.365 (7.310-7.410)
[2021-08-18 02:55] LABS: CHLORIDE 96 mmol/L (98-107); SODIUM 130 mmol/L (136-145)
[2021-08-18 02:57] LABS: CALCIUM 8.7 mg/dL (8.5-10.1)
[2021-08-18 02:58] LABS: ANION GAP 6 MMOL/L (8-16); BLOOD UREA NITROGEN 25.4 mg/dL (7-18); CO2 27 mmol/L (21-32); MAGNESIUM 2.3 mg/dL (1.8-2.4)
[2021-08-18 03:01] LABS: CREATININE 1.3 mg/dL (0.55-1.3); PHOSPHOROUS 3.2 mg/dL (2.5-4.9); SGOT/AST 25 U/L (15-37); SGPT/ALT 29 U/L (13-61)
[2021-08-18 03:02] LABS: BILIRUBIN,TOTAL 0.2 mg/dL (0.2-1); TOT PROT 6.4 g/dl (6.4-8.2)
[2021-08-18 03:12] LABS: ALK PHOS 163 U/L (45-117); GLUCOSE,RANDOM 586 mg/dL (74-106)
[2021-08-18] MEDS ORDERED: INSULIN (NOVOLOG) ASPART 100 UNITS/ML 10ML VIAL SQ ONE (03:14)
[2021-08-18 05:08] VITALS: BP 152/83; PULSE 77
== END 2021-08-18 06:25 | disposition home or self-care (01) ==
LOC: JER 01:06
PROC: 3E0333Z Introduction of Anti-inflammatory into Peripheral Vein, Percutaneous Approach (ICD-10-PCS; principal; 2021-08-18)
DX: R73.9 Hyperglycemia, unspecified (principal)
CPT/HCPCS: 36415; 71045-TC-FY; 80053; 82010; 82803; 82962; 83605; 83735; 83880; 84100; 84484; 85025; 93005; 93010; 99285-25

== ENCOUNTER 2021-09-08 15:37 | Emergency (ER) | payer OTHER ==
[2021-09-08 15:59] VITALS: BP 160/81; PULSE 91; TEMP 97.9; BMI 33.9
[2021-09-08] MEDS ORDERED: ACETAMINOPHEN 1000 MG/100 ML BAG IVPB ONE (18:00)
[2021-09-08] MEDS ORDERED: ACETAMINOPHEN INJECTION 100 ML IVPB ONE (18:03)
[2021-09-08 19:04] LABS: INR 0.93 (0.83-1.09); PROTHROMBIN TIME (PATIENT) 10.7 SEC (9.7-13.0)
[2021-09-08 19:08] LABS: BASO % 0.8 % (0-2.0); EOS % 0.5 % (0-4.5); HEMATOCRIT 33.6 % (32.4-45.2); HEMOGLOBIN 10.8 GM/dL (10.7-15.3); LYMPH % 21.5 % (8-40); MCH 26.9 pg (25.7-33.7); MCHC 32.1 g/dl (32.0-36.0); MEAN CELL VOLUME 83.8 fl (80-96); MEAN PLT VOLUME 8.6 fl (7.5-11.1); MONO % 8.7 % (3.8-10.2); NEUT % 68.5 % (42.8-82.8); PLATELET COUNT 293 10^3/uL (134-434); RBC 4.01 M/mm3 (3.60-5.2); RDW 13.5 % (11.6-15.6); WHITE BLOOD COUNT 4.6 K/mm3 (4.0-10.0)
[2021-09-08 19:19] LABS: CALCIUM 9.5 mg/dL (8.5-10.1)
[2021-09-08 19:20] LABS: ALBUMIN 3.4 g/dl (3.4-5.0)
[2021-09-08 19:23] LABS: CREATININE 1.6 mg/dL (0.55-1.3)
[2021-09-08 19:24] LABS: BILIRUBIN,TOTAL 0.2 mg/dL (0.2-1); TOT PROT 8.2 g/dl (6.4-8.2)
== END 2021-09-08 22:48 | disposition home or self-care (01) ==
LOC: JER 15:37
PROC: 3E0333Z Introduction of Anti-inflammatory into Peripheral Vein, Percutaneous Approach (ICD-10-PCS; principal; 2021-09-08)
DX: R60.0 Localized edema (principal); R21 Rash and other nonspecific skin eruption
CPT/HCPCS: 36415; 80053; 85025; 85610; 85730; 93970-TC; 99284-25

== ENCOUNTER 2021-11-14 15:42 | Inpatient (IN) | payer OTHER ==
[2021-11-14] MEDS ORDERED: PIPERACILLIN/TAZOB 4.5 GM 4.5 GM in DEXTROSE 5%-WATER 100 ML IVPB ONE (17:30)
[2021-11-14] MEDS ORDERED: VANCOMYCIN 1 GM in D5W (PRE-DOCKED) 1,000 MG/250 ML IVPB ONE (17:30)
[2021-11-14] MEDS ORDERED: VANCOMYCIN 1 GRAM (PRE-DOCKED) 1,000 MG/250 ML BAG IVPB ONE (17:33)
[2021-11-14 18:01] LABS: BASO % 0.7 % (0-2.0); EOS % 1.7 % (0-4.5); HEMATOCRIT 33.8 % (32.4-45.2); HEMOGLOBIN 10.9 GM/dL (10.7-15.3); LYMPH % 22.4 % (8-40); MCH 26.6 pg (25.7-33.7); MCHC 32.3 g/dl (32.0-36.0); MEAN CELL VOLUME 82.3 fl (80-96); MEAN PLT VOLUME 8.2 fl (7.5-11.1); MONO % 6.4 % (3.8-10.2); NEUT % 68.8 % (42.8-82.8); PLATELET COUNT 349 10^3/uL (134-434); RDW 13.8 % (11.6-15.6); WHITE BLOOD COUNT 7.7 K/mm3 (4.0-10.0)
[2021-11-14 18:09] LABS: INR 0.95 (0.83-1.09); PROTHROMBIN TIME (PATIENT) 10.9 SEC (9.7-13.0)
[2021-11-14 18:11] LABS: ACTIVATED PTT 29.8 SECONDS (25.2-36.5)
[2021-11-14 18:26] LABS: ALBUMIN 3.2 g/dl (3.4-5.0); BLOOD UREA NITROGEN 25.5 mg/dL (7-18); CALCIUM 9.7 mg/dL (8.5-10.1)
[2021-11-14 18:30] LABS: CREATININE 1.3 mg/dL (0.55-1.3)
[2021-11-14 18:32] LABS: BILIRUBIN,TOTAL 0.2 mg/dL (0.2-1); TOT PROT 6.9 g/dl (6.4-8.2)
[2021-11-14] MEDS ORDERED: PIPERACILLIN/TAZOB 4.5 GM 4.5 GM/100 ML BAG IVPB ONE (20:02)
[2021-11-14] MEDS ORDERED: VANCOMYCIN 1 GM PREMIX - 1 GM/200 ML BAG IVPB SCH (23:00)
[2021-11-15] MEDS ORDERED: PIPERACILLIN/TAZOBACTAM 3.375 GM VIAL IVPB ONE ×2 (01:11→09:57)
[2021-11-15] MEDS ORDERED: DEXTROSE 5%-WATER - 50 ML IVPB ONE ×2 (01:11→09:57)
[2021-11-15] MEDS: PREGABALIN 100 MG CAPSULE PO SCH ×3 (01:48→21:49)
[2021-11-15] MEDS: PIPERACILLIN/TAZOB 3.375 GM 3.375 GM in DEXTROSE 5%-WATER - 50 ML IVPB SCH ×2 (01:49→10:01)
[2021-11-15] MEDS ORDERED: VANCOMYCIN 1 GM PREMIX - 1 GM/200 ML BAG IVPB SCH (02:00)
[2021-11-15] MEDS ORDERED: VANCOMYCIN/WATER FOR INJ (PEG) 1 GM/200 ML BAG IVPB SCH (02:00)
[2021-11-15] MEDS: INSULIN SLIDING SCALE (NOVOLOG) 1 VIAL SQ SCH ×4 (06:39→21:49)
[2021-11-15] MEDS: INSULIN (NOVOLOG MIX 70/30) 100 UNITS/ML MDV SQ SCH ×3 (06:40→16:46)
[2021-11-15] MEDS ORDERED: INSULIN (NOVOLOG) ASPART 100 UNITS/ML 10ML VIAL ONE (06:50)
[2021-11-15 09:17] LABS: BASO % 0.8 % (0-2.0); EOS % 2.3 % (0-4.5); HEMATOCRIT 34.8 % (32.4-45.2); HEMOGLOBIN 11.1 GM/dL (10.7-15.3); LYMPH % 26.8 % (8-40); MCH 26.6 pg (25.7-33.7); MCHC 31.9 g/dl (32.0-36.0); MEAN CELL VOLUME 83.4 fl (80-96); MEAN PLT VOLUME 8.3 fl (7.5-11.1); MONO % 7.2 % (3.8-10.2); NEUT % 62.9 % (42.8-82.8); PLATELET COUNT 345 10^3/uL (134-434); RBC 4.17 M/mm3 (3.60-5.2); RDW 13.6 % (11.6-15.6); WHITE BLOOD COUNT 6.4 K/mm3 (4.0-10.0)
[2021-11-15 09:56] LABS: CALCIUM 9.1 mg/dL (8.5-10.1)
[2021-11-15 09:57] LABS: ALBUMIN 2.8 g/dl (3.4-5.0); BLOOD UREA NITROGEN 21.8 mg/dL (7-18)
[2021-11-15] MEDS ORDERED: ASPIRIN 81 MG CHEWABLE TABLETS PO SCH (10:00)
[2021-11-15] MEDS ORDERED: VENLAFAXINE HCL 75 MG E.R. CAPSULES PO SCH (10:00)
[2021-11-15] MEDS ORDERED: CLOPIDOGREL BISULFATE 75 MG TABLET (FP) PO SCH (10:00)
[2021-11-15] MEDS ORDERED: LOSARTAN POTASSIUM 25 MG TABLET PO SCH (10:00)
[2021-11-15] MEDS ORDERED: HYDROCHLOROTHIAZIDE 25 MG TABLET (FP) PO SCH (10:00)
[2021-11-15] MEDS ORDERED: CEFTRIAXONE 2 GM in DEXTROSE 5%-WATER 100 ML IVPB SCH (10:00)
[2021-11-15 10:01] LABS: BILIRUBIN,TOTAL 0.4 mg/dL (0.2-1); TOT PROT 6.3 g/dl (6.4-8.2)
[2021-11-15] MEDS: HEPARIN NA (PORCINE) 5,000 UNITS/ML 1ML VIAL SQ SCH ×2 (10:01→21:49)
[2021-11-15] MEDS: METOPROLOL TARTRATE 25 MG TABLET (FP) PO SCH ×2 (10:02→21:49)
[2021-11-15] MEDS ORDERED: DEXTROSE 5%-WATER 100 ML IVPB ONE (10:55)
[2021-11-15 21:55] LABS: EPI CELLS 8 /uL (0-25.1); HYALINE CASTS 0 /uL (0-3.1); PH,URINE 5.5 (5.0-8.0); URINE APPEARANCE CLEAR; URINE BACTERIA 70 /uL (0-1359); URINE BILIRUBIN NEGATIVE (NEGATIVE); URINE COLOR YELLOW; URINE GLUCOSE (UA) 3+ (NEGATIVE); URINE KETONE NEGATIVE (NEGATIVE); URINE LEUK ESTERASE NEGATIVE (NEGATIVE); URINE NITRITE NEGATIVE (NEGATIVE); URINE PROTEIN 3+ (NEGATIVE); URINE RBC 4 /uL (0-23.9); URINE UROBILINOGEN 0.2 mg/dL (0.2-1.0); URINE WBC 19 /uL (0-25.8)
[2021-11-16] MEDS ORDERED: PIPERACILLIN/TAZOB 3.375 GM 3.375 GM in DEXTROSE 5%-WATER - 50 ML IVPB SCH (02:00)
[2021-11-16] MEDS ORDERED: VANCOMYCIN 1 GM PREMIX - 1 GM/200 ML BAG IVPB SCH (02:00)
[2021-11-16] MEDS: INSULIN (NOVOLOG MIX 70/30) 100 UNITS/ML MDV SQ SCH ×3 (06:33→16:52)
[2021-11-16] MEDS: INSULIN SLIDING SCALE (NOVOLOG) 1 VIAL SQ SCH ×4 (06:34→21:41)
[2021-11-16] MEDS ORDERED: ONDANSETRON 4 MG/2 ML VIAL IVPUSH PRN ×2 (07:32→08:44)
[2021-11-16] MEDS ORDERED: PROMETHAZINE HCL 25 MG/1 ML VIAL IVPUSH PRN ×2 (07:32→08:44)
[2021-11-16] MEDS ORDERED: LACTATED RINGERS SOLUTION 1,000 ML IV SCH ×2 (07:45→08:44)
[2021-11-16] MEDS ORDERED: PROPOFOL 20 ML ONE ×2 (07:46)
[2021-11-16] MEDS ORDERED: MIDAZOLAM HCL 2 MG/2 ML SINGLE DOSE VIAL ONE (07:46)
[2021-11-16] MEDS ORDERED: LIDOCAINE HCL 2% (50ML VIAL) INF ONE (07:48)
[2021-11-16] MEDS ORDERED: LIDOCAINE HCL/PF 2% SDV 5ML VIAL ONE (07:51)
[2021-11-16] MEDS ORDERED: KETOROLAC TROMETHAMINE 30 MG/1 ML VIAL ONE (08:13)
[2021-11-16] MEDS ORDERED: DEXTROSE 5%-WATER 100 ML IVPB ONE (11:07)
[2021-11-16] MEDS: VENLAFAXINE HCL 75 MG E.R. CAPSULES PO SCH (11:41)
[2021-11-16] MEDS: CEFTRIAXONE 2 GM in DEXTROSE 5%-WATER 100 ML IVPB SCH (11:41)
[2021-11-16] MEDS: ASPIRIN 81 MG CHEWABLE TABLETS PO SCH (11:42)
[2021-11-16] MEDS: METOPROLOL TARTRATE 25 MG TABLET (FP) PO SCH ×2 (11:42→21:41)
[2021-11-16] MEDS: CLOPIDOGREL BISULFATE 75 MG TABLET (FP) PO SCH (11:42)
[2021-11-16] MEDS: LOSARTAN POTASSIUM 25 MG TABLET PO SCH (11:42)
[2021-11-16] MEDS: HEPARIN NA (PORCINE) 5,000 UNITS/ML 1ML VIAL SQ SCH ×2 (11:42→21:41)
[2021-11-16] MEDS: HYDROCHLOROTHIAZIDE 25 MG TABLET (FP) PO SCH (11:42)
[2021-11-16] MEDS: PREGABALIN 100 MG CAPSULE PO SCH ×2 (11:43→21:41)
[2021-11-16] MEDS ORDERED: INSULIN (NOVOLOG MIX 70/30) 100 UNITS/ML MDV SQ ONE (17:26)
[2021-11-17] MEDS: INSULIN SLIDING SCALE (NOVOLOG) 1 VIAL SQ SCH ×4 (06:33→22:03)
[2021-11-17] MEDS: INSULIN (NOVOLOG MIX 70/30) 100 UNITS/ML MDV SQ SCH ×3 (06:33→17:09)
[2021-11-17] MEDS ORDERED: DEXTROSE 5%-WATER 100 ML IVPB ONE ×2 (10:44→11:08)
[2021-11-17] MEDS: HYDROCHLOROTHIAZIDE 25 MG TABLET (FP) PO SCH (10:47)
[2021-11-17] MEDS: VENLAFAXINE HCL 75 MG E.R. CAPSULES PO SCH (10:47)
[2021-11-17] MEDS: METOPROLOL TARTRATE 25 MG TABLET (FP) PO SCH ×2 (10:47→21:49)
[2021-11-17] MEDS: LOSARTAN POTASSIUM 25 MG TABLET PO SCH (10:48)
[2021-11-17] MEDS: PREGABALIN 100 MG CAPSULE PO SCH ×2 (10:48→21:49)
[2021-11-17] MEDS: CLOPIDOGREL BISULFATE 75 MG TABLET (FP) PO SCH (10:48)
[2021-11-17] MEDS: CEFTRIAXONE 2 GM in DEXTROSE 5%-WATER 100 ML IVPB SCH (10:49)
[2021-11-17] MEDS: ASPIRIN 81 MG CHEWABLE TABLETS PO SCH (10:49)
[2021-11-17] MEDS: HEPARIN NA (PORCINE) 5,000 UNITS/ML 1ML VIAL SQ SCH ×2 (10:53→21:49)
[2021-11-17] MEDS ORDERED: INSULIN (NOVOLOG) ASPART 100 UNITS/ML 10ML VIAL ONE (21:35)
[2021-11-18] MEDS: INSULIN (NOVOLOG MIX 70/30) 100 UNITS/ML MDV SQ SCH ×3 (06:14→17:31)
[2021-11-18] MEDS: INSULIN SLIDING SCALE (NOVOLOG) 1 VIAL SQ SCH ×4 (06:15→21:37)
[2021-11-18] MEDS: ACETAMINOPHEN 325 MG TABLET (FP) PO PRN ×2 (06:18→21:36)
[2021-11-18] MEDS ORDERED: DEXTROSE 5%-WATER 100 ML IVPB ONE (10:09)
[2021-11-18] MEDS: CLOPIDOGREL BISULFATE 75 MG TABLET (FP) PO SCH (10:12)
[2021-11-18] MEDS: ASPIRIN 81 MG CHEWABLE TABLETS PO SCH (10:12)
[2021-11-18] MEDS: HYDROCHLOROTHIAZIDE 25 MG TABLET (FP) PO SCH (10:12)
[2021-11-18] MEDS: VENLAFAXINE HCL 75 MG E.R. CAPSULES PO SCH (10:12)
[2021-11-18] MEDS: LOSARTAN POTASSIUM 25 MG TABLET PO SCH (10:13)
[2021-11-18] MEDS: METOPROLOL TARTRATE 25 MG TABLET (FP) PO SCH ×2 (10:13→21:36)
[2021-11-18] MEDS: PREGABALIN 100 MG CAPSULE PO SCH ×2 (10:13→21:36)
[2021-11-18] MEDS: HEPARIN NA (PORCINE) 5,000 UNITS/ML 1ML VIAL SQ SCH ×2 (10:15→21:36)
[2021-11-18] MEDS: CEFTRIAXONE 2 GM in DEXTROSE 5%-WATER 100 ML IVPB SCH (10:16)
[2021-11-19] MEDS: INSULIN SLIDING SCALE (NOVOLOG) 1 VIAL SQ SCH ×4 (06:30→21:47)
[2021-11-19] MEDS: INSULIN (NOVOLOG MIX 70/30) 100 UNITS/ML MDV SQ SCH ×3 (06:31→17:20)
[2021-11-19 08:15] LABS: BASO % 0.8 % (0-2.0); EOS % 2.6 % (0-4.5); HEMATOCRIT 31.5 % (32.4-45.2); HEMOGLOBIN 10.3 GM/dL (10.7-15.3); LYMPH % 23.6 % (8-40); MCH 27.5 pg (25.7-33.7); MCHC 32.8 g/dl (32.0-36.0); MEAN CELL VOLUME 83.6 fl (80-96); MEAN PLT VOLUME 8.8 fl (7.5-11.1); MONO % 7.8 % (3.8-10.2); NEUT % 65.2 % (42.8-82.8); PLATELET COUNT 316 10^3/uL (134-434); RBC 3.77 M/mm3 (3.60-5.2); RDW 13.9 % (11.6-15.6)
[2021-11-19 08:33] LABS: ALBUMIN 2.6 g/dl (3.4-5.0); CALCIUM 8.9 mg/dL (8.5-10.1)
[2021-11-19 08:38] LABS: BILIRUBIN,TOTAL 0.3 mg/dL (0.2-1); TOT PROT 6.2 g/dl (6.4-8.2)
[2021-11-19] MEDS ORDERED: DEXTROSE 5%-WATER 100 ML IVPB ONE (09:56)
[2021-11-19] MEDS: HYDROCHLOROTHIAZIDE 25 MG TABLET (FP) PO SCH (10:00)
[2021-11-19] MEDS: HEPARIN NA (PORCINE) 5,000 UNITS/ML 1ML VIAL SQ SCH ×2 (10:00→21:47)
[2021-11-19] MEDS: CLOPIDOGREL BISULFATE 75 MG TABLET (FP) PO SCH (10:00)
[2021-11-19] MEDS: METOPROLOL TARTRATE 25 MG TABLET (FP) PO SCH ×2 (10:00→21:47)
[2021-11-19] MEDS: ASPIRIN 81 MG CHEWABLE TABLETS PO SCH (10:00)
[2021-11-19] MEDS: CEFTRIAXONE 2 GM in DEXTROSE 5%-WATER 100 ML IVPB SCH (10:00)
[2021-11-19] MEDS: VENLAFAXINE HCL 75 MG E.R. CAPSULES PO SCH (10:00)
[2021-11-19] MEDS: PREGABALIN 100 MG CAPSULE PO SCH ×2 (10:00→21:47)
[2021-11-19] MEDS: LOSARTAN POTASSIUM 25 MG TABLET PO SCH (10:00)
[2021-11-19] MEDS: ACETAMINOPHEN 325 MG TABLET (FP) PO PRN (10:39)
[2021-11-19] MEDS ORDERED: INSULIN (NOVOLOG) ASPART 100 UNITS/ML 10ML VIAL ONE (18:04)
[2021-11-19] MEDS ORDERED: INSULIN (NOVOLOG MIX 70/30) 100 UNITS/ML MDV SQ ONE (18:04)
[2021-11-20] MEDS: ACETAMINOPHEN 325 MG TABLET (FP) PO PRN (06:36)
[2021-11-20] MEDS: INSULIN (NOVOLOG MIX 70/30) 100 UNITS/ML MDV SQ SCH ×3 (06:37→17:29)
[2021-11-20] MEDS: INSULIN SLIDING SCALE (NOVOLOG) 1 VIAL SQ SCH ×4 (06:37→21:23)
[2021-11-20] MEDS ORDERED: DEXTROSE 5%-WATER 100 ML IVPB ONE (08:52)
[2021-11-20] MEDS: CEFTRIAXONE 2 GM in DEXTROSE 5%-WATER 100 ML IVPB SCH (09:00)
[2021-11-20] MEDS: CLOPIDOGREL BISULFATE 75 MG TABLET (FP) PO SCH (09:01)
[2021-11-20] MEDS: LOSARTAN POTASSIUM 25 MG TABLET PO SCH (09:01)
[2021-11-20] MEDS: HEPARIN NA (PORCINE) 5,000 UNITS/ML 1ML VIAL SQ SCH ×2 (09:01→21:23)
[2021-11-20] MEDS: HYDROCHLOROTHIAZIDE 25 MG TABLET (FP) PO SCH (09:01)
[2021-11-20] MEDS: ASPIRIN 81 MG CHEWABLE TABLETS PO SCH (09:01)
[2021-11-20] MEDS: METOPROLOL TARTRATE 25 MG TABLET (FP) PO SCH ×2 (09:01→21:23)
[2021-11-20] MEDS: PREGABALIN 100 MG CAPSULE PO SCH ×2 (09:01→21:23)
[2021-11-20] MEDS: VENLAFAXINE HCL 75 MG E.R. CAPSULES PO SCH (09:01)
[2021-11-20] MEDS: VANCOMYCIN/WATER 1250 MG 1,250 MG/250 ML BAG IVPB SCH ×2 (13:43→23:50)
[2021-11-20] MEDS ORDERED: INSULIN (NOVOLOG) ASPART 100 UNITS/ML 10ML VIAL ONE (21:15)
[2021-11-21] MEDS: INSULIN (NOVOLOG MIX 70/30) 100 UNITS/ML MDV SQ SCH ×3 (06:35→17:15)
[2021-11-21] MEDS: INSULIN SLIDING SCALE (NOVOLOG) 1 VIAL SQ SCH ×4 (06:36→22:12)
[2021-11-21] MEDS: PREGABALIN 100 MG CAPSULE PO SCH ×2 (09:39→22:13)
[2021-11-21] MEDS: VENLAFAXINE HCL 75 MG E.R. CAPSULES PO SCH (09:39)
[2021-11-21] MEDS: CLOPIDOGREL BISULFATE 75 MG TABLET (FP) PO SCH (09:39)
[2021-11-21] MEDS: METOPROLOL TARTRATE 25 MG TABLET (FP) PO SCH ×2 (09:40→22:13)
[2021-11-21] MEDS: LOSARTAN POTASSIUM 25 MG TABLET PO SCH (09:40)
[2021-11-21] MEDS: ASPIRIN 81 MG CHEWABLE TABLETS PO SCH (09:40)
[2021-11-21] MEDS: HYDROCHLOROTHIAZIDE 25 MG TABLET (FP) PO SCH (09:41)
[2021-11-21] MEDS: HEPARIN NA (PORCINE) 5,000 UNITS/ML 1ML VIAL SQ SCH ×2 (09:41→22:12)
[2021-11-21] MEDS: ACETAMINOPHEN 325 MG TABLET (FP) PO PRN (10:51)
[2021-11-21] MEDS: VANCOMYCIN/WATER 1250 MG 1,250 MG/250 ML BAG IVPB SCH (13:04)
[2021-11-22] MEDS: VANCOMYCIN/WATER 1250 MG 1,250 MG/250 ML BAG IVPB SCH ×2 (00:21→14:59)
[2021-11-22] MEDS: INSULIN (NOVOLOG MIX 70/30) 100 UNITS/ML MDV SQ SCH ×3 (06:22→17:07)
[2021-11-22] MEDS: INSULIN SLIDING SCALE (NOVOLOG) 1 VIAL SQ SCH ×4 (06:22→22:28)
[2021-11-22] MEDS ORDERED: INSULIN (NOVOLOG) ASPART 100 UNITS/ML 10ML VIAL ONE ×2 (07:46→10:54)
[2021-11-22] MEDS ORDERED: INSULIN (LEVEMIR) 100 UNITS/ML UNITS SQ ONE (07:46)
[2021-11-22 10:05] LABS: BASO % 0.8 % (0-2.0); EOS % 3.3 % (0-4.5); HEMATOCRIT 30.9 % (32.4-45.2); HEMOGLOBIN 10.1 GM/dL (10.7-15.3); LYMPH % 25.2 % (8-40); MCHC 32.6 g/dl (32.0-36.0); MEAN PLT VOLUME 8.7 fl (7.5-11.1); MONO % 8.9 % (3.8-10.2); NEUT % 61.8 % (42.8-82.8); PLATELET COUNT 339 10^3/uL (134-434); RBC 3.72 M/mm3 (3.60-5.2); RDW 14.1 % (11.6-15.6); WHITE BLOOD COUNT 6.8 K/mm3 (4.0-10.0)
[2021-11-22 10:23] LABS: ALBUMIN 2.5 g/dl (3.4-5.0); BLOOD UREA NITROGEN 27.4 mg/dL (7-18); CALCIUM 8.9 mg/dL (8.5-10.1)
[2021-11-22 10:26] LABS: CREATININE 0.9 mg/dL (0.55-1.3)
[2021-11-22 10:28] LABS: BILIRUBIN,TOTAL 0.2 mg/dL (0.2-1)
[2021-11-22] MEDS: VENLAFAXINE HCL 75 MG E.R. CAPSULES PO SCH (12:15)
[2021-11-22] MEDS: ASPIRIN 81 MG CHEWABLE TABLETS PO SCH (12:16)
[2021-11-22] MEDS: HYDROCHLOROTHIAZIDE 25 MG TABLET (FP) PO SCH (12:16)
[2021-11-22] MEDS: CLOPIDOGREL BISULFATE 75 MG TABLET (FP) PO SCH (12:16)
[2021-11-22] MEDS: METOPROLOL TARTRATE 25 MG TABLET (FP) PO SCH ×2 (12:16→22:28)
[2021-11-22] MEDS: PREGABALIN 100 MG CAPSULE PO SCH ×2 (12:16→22:28)
[2021-11-22] MEDS: LOSARTAN POTASSIUM 25 MG TABLET PO SCH (12:17)
[2021-11-22] MEDS: HEPARIN NA (PORCINE) 5,000 UNITS/ML 1ML VIAL SQ SCH ×2 (12:17→22:28)
[2021-11-23] MEDS: INSULIN (NOVOLOG MIX 70/30) 100 UNITS/ML MDV SQ SCH ×3 (06:45→17:08)
[2021-11-23] MEDS: INSULIN SLIDING SCALE (NOVOLOG) 1 VIAL SQ SCH ×4 (06:45→21:53)
[2021-11-23] MEDS: METOPROLOL TARTRATE 25 MG TABLET (FP) PO SCH ×2 (10:00→21:51)
[2021-11-23] MEDS: LOSARTAN POTASSIUM 25 MG TABLET PO SCH (10:00)
[2021-11-23] MEDS: HYDROCHLOROTHIAZIDE 25 MG TABLET (FP) PO SCH (10:00)
[2021-11-23] MEDS: ASPIRIN 81 MG CHEWABLE TABLETS PO SCH (10:00)
[2021-11-23] MEDS: CLOPIDOGREL BISULFATE 75 MG TABLET (FP) PO SCH (10:00)
[2021-11-23] MEDS: VENLAFAXINE HCL 75 MG E.R. CAPSULES PO SCH (10:00)
[2021-11-23 11:45] VITALS: BMI 32.5
[2021-11-23] MEDS ORDERED: INSULIN (NOVOLOG) ASPART 100 UNITS/ML 10ML VIAL ONE (21:53)
[2021-11-24] MEDS: PREGABALIN 100 MG CAPSULE PO SCH ×3 (01:16→21:44)
[2021-11-24] MEDS: INSULIN (NOVOLOG MIX 70/30) 100 UNITS/ML MDV SQ SCH ×3 (06:41→16:47)
[2021-11-24] MEDS: INSULIN SLIDING SCALE (NOVOLOG) 1 VIAL SQ SCH ×4 (06:42→21:44)
[2021-11-24] MEDS: HYDROCHLOROTHIAZIDE 25 MG TABLET (FP) PO SCH (10:00)
[2021-11-24] MEDS ORDERED: MULTIVITAMINS (DAILY MVI) TABLET (FP) PO SCH (10:00)
[2021-11-24] MEDS: CLOPIDOGREL BISULFATE 75 MG TABLET (FP) PO SCH (10:01)
[2021-11-24] MEDS: ASPIRIN 81 MG CHEWABLE TABLETS PO SCH (10:01)
[2021-11-24] MEDS: LOSARTAN POTASSIUM 25 MG TABLET PO SCH (10:01)
[2021-11-24] MEDS: VENLAFAXINE HCL 75 MG E.R. CAPSULES PO SCH (10:01)
[2021-11-24] MEDS: METOPROLOL TARTRATE 25 MG TABLET (FP) PO SCH ×2 (10:01→21:44)
[2021-11-24] MEDS: MULTIVITAMINS THER W-MINERALS COMBO TABLET (FP) PO SCH (10:01)
[2021-11-25] MEDS: INSULIN SLIDING SCALE (NOVOLOG) 1 VIAL SQ SCH ×4 (06:31→22:10)
[2021-11-25] MEDS: INSULIN (NOVOLOG MIX 70/30) 100 UNITS/ML MDV SQ SCH ×3 (06:31→17:34)
[2021-11-25] MEDS: ASPIRIN 81 MG CHEWABLE TABLETS PO SCH (09:09)
[2021-11-25] MEDS: PREGABALIN 100 MG CAPSULE PO SCH ×2 (09:09→22:06)
[2021-11-25] MEDS: LOSARTAN POTASSIUM 25 MG TABLET PO SCH (09:09)
[2021-11-25] MEDS: METOPROLOL TARTRATE 25 MG TABLET (FP) PO SCH ×2 (09:10→22:06)
[2021-11-25] MEDS: MULTIVITAMINS THER W-MINERALS COMBO TABLET (FP) PO SCH (09:10)
[2021-11-25] MEDS: HYDROCHLOROTHIAZIDE 25 MG TABLET (FP) PO SCH (09:10)
[2021-11-25] MEDS: VENLAFAXINE HCL 75 MG E.R. CAPSULES PO SCH (09:10)
[2021-11-25] MEDS: CLOPIDOGREL BISULFATE 75 MG TABLET (FP) PO SCH (09:10)
[2021-11-25 11:20] LABS: BASO % 0.6 % (0-2.0); EOS % 3.1 % (0-4.5); HEMOGLOBIN 10.7 GM/dL (10.7-15.3); LYMPH % 30.3 % (8-40); MCH 27.2 pg (25.7-33.7); MCHC 32.5 g/dl (32.0-36.0); MEAN CELL VOLUME 83.7 fl (80-96); MEAN PLT VOLUME 8.5 fl (7.5-11.1); MONO % 9.5 % (3.8-10.2); NEUT % 56.5 % (42.8-82.8); PLATELET COUNT 330 10^3/uL (134-434); RBC 3.94 M/mm3 (3.60-5.2); RDW 13.8 % (11.6-15.6); WHITE BLOOD COUNT 6.8 K/mm3 (4.0-10.0)
[2021-11-25 11:45] LABS: CALCIUM 9.3 mg/dL (8.5-10.1)
[2021-11-25 11:46] LABS: ALBUMIN 2.6 g/dl (3.4-5.0); BLOOD UREA NITROGEN 35.9 mg/dL (7-18)
[2021-11-25 11:49] LABS: CREATININE 1.2 mg/dL (0.55-1.3)
[2021-11-25 11:51] LABS: BILIRUBIN,TOTAL 0.2 mg/dL (0.2-1); TOT PROT 6.2 g/dl (6.4-8.2)
[2021-11-25] MEDS ORDERED: VANCOMYCIN/WATER FOR INJ (PEG) 1 GM/200 ML BAG IVPB ONE (14:00)
[2021-11-26] MEDS: VANCOMYCIN/WATER FOR INJ (PEG) 750 MG/150 ML BAG IVPB SCH ×2 (02:24→14:21)
[2021-11-26] MEDS: INSULIN SLIDING SCALE (NOVOLOG) 1 VIAL SQ SCH ×4 (06:23→21:41)
[2021-11-26] MEDS: INSULIN (NOVOLOG MIX 70/30) 100 UNITS/ML MDV SQ SCH ×3 (06:24→17:04)
[2021-11-26] MEDS: CLOPIDOGREL BISULFATE 75 MG TABLET (FP) PO SCH (09:49)
[2021-11-26] MEDS: VENLAFAXINE HCL 75 MG E.R. CAPSULES PO SCH (09:49)
[2021-11-26] MEDS: ASPIRIN 81 MG CHEWABLE TABLETS PO SCH (09:49)
[2021-11-26] MEDS: HYDROCHLOROTHIAZIDE 25 MG TABLET (FP) PO SCH (09:49)
[2021-11-26] MEDS: PREGABALIN 100 MG CAPSULE PO SCH ×2 (09:49→21:41)
[2021-11-26] MEDS: METOPROLOL TARTRATE 25 MG TABLET (FP) PO SCH ×2 (09:49→21:41)
[2021-11-26] MEDS: MULTIVITAMINS THER W-MINERALS COMBO TABLET (FP) PO SCH (09:50)
[2021-11-26] MEDS: LOSARTAN POTASSIUM 25 MG TABLET PO SCH (09:50)
[2021-11-26] MEDS ORDERED: INSULIN (NOVOLOG) ASPART 100 UNITS/ML 10ML VIAL ONE ×2 (14:08→16:29)
[2021-11-26] MEDS: POLYETHYLENE GLYCOL (HEALTHYLAX) 3350 17 GM PACKET PO SCH (15:18)
[2021-11-27] MEDS: VANCOMYCIN/WATER FOR INJ (PEG) 750 MG/150 ML BAG IVPB SCH ×2 (01:49→16:08)
[2021-11-27] MEDS: INSULIN (NOVOLOG MIX 70/30) 100 UNITS/ML MDV SQ SCH ×3 (06:03→16:38)
[2021-11-27] MEDS: INSULIN SLIDING SCALE (NOVOLOG) 1 VIAL SQ SCH ×4 (06:03→21:59)
[2021-11-27 08:01] LABS: BASO % 0.6 % (0-2.0); EOS % 3.2 % (0-4.5); HEMATOCRIT 31.9 % (32.4-45.2); HEMOGLOBIN 10.2 GM/dL (10.7-15.3); LYMPH % 34.4 % (8-40); MCH 26.9 pg (25.7-33.7); MCHC 32.1 g/dl (32.0-36.0); MEAN CELL VOLUME 83.8 fl (80-96); MEAN PLT VOLUME 8.5 fl (7.5-11.1); MONO % 8.4 % (3.8-10.2); NEUT % 53.4 % (42.8-82.8); PLATELET COUNT 304 10^3/uL (134-434); WHITE BLOOD COUNT 6.6 K/mm3 (4.0-10.0)
[2021-11-27 08:16] LABS: CALCIUM 8.6 mg/dL (8.5-10.1)
[2021-11-27 08:17] LABS: BLOOD UREA NITROGEN 34.3 mg/dL (7-18)
[2021-11-27] MEDS: VENLAFAXINE HCL 75 MG E.R. CAPSULES PO SCH (10:25)
[2021-11-27] MEDS: METOPROLOL TARTRATE 25 MG TABLET (FP) PO SCH ×2 (10:26→21:59)
[2021-11-27] MEDS: HYDROCHLOROTHIAZIDE 25 MG TABLET (FP) PO SCH (10:26)
[2021-11-27] MEDS: MULTIVITAMINS THER W-MINERALS COMBO TABLET (FP) PO SCH (10:26)
[2021-11-27] MEDS: CLOPIDOGREL BISULFATE 75 MG TABLET (FP) PO SCH (10:26)
[2021-11-27] MEDS: LOSARTAN POTASSIUM 25 MG TABLET PO SCH (10:26)
[2021-11-27] MEDS: ASPIRIN 81 MG CHEWABLE TABLETS PO SCH (10:26)
[2021-11-27] MEDS: PREGABALIN 100 MG CAPSULE PO SCH ×2 (10:27→21:59)
[2021-11-27] MEDS: POLYETHYLENE GLYCOL (HEALTHYLAX) 3350 17 GM PACKET PO SCH ×2 (10:27→10:42)
[2021-11-27] MEDS ORDERED: INSULIN (NOVOLOG) ASPART 100 UNITS/ML 10ML VIAL ONE ×2 (12:02→12:42)
[2021-11-27] MEDS ORDERED: INSULIN (NOVOLOG MIX 70/30) 100 UNITS/ML MDV SQ ONE ×3 (12:02→16:30)
[2021-11-28] MEDS: INSULIN (NOVOLOG MIX 70/30) 100 UNITS/ML MDV SQ SCH ×3 (06:37→16:58)
[2021-11-28] MEDS: INSULIN SLIDING SCALE (NOVOLOG) 1 VIAL SQ SCH ×4 (06:38→21:46)
[2021-11-28] MEDS: VENLAFAXINE HCL 75 MG E.R. CAPSULES PO SCH (11:26)
[2021-11-28] MEDS: CLOPIDOGREL BISULFATE 75 MG TABLET (FP) PO SCH (11:26)
[2021-11-28] MEDS: LOSARTAN POTASSIUM 25 MG TABLET PO SCH (11:27)
[2021-11-28] MEDS: HYDROCHLOROTHIAZIDE 25 MG TABLET (FP) PO SCH (11:27)
[2021-11-28] MEDS: MULTIVITAMINS THER W-MINERALS COMBO TABLET (FP) PO SCH (11:27)
[2021-11-28] MEDS: PREGABALIN 100 MG CAPSULE PO SCH ×2 (11:28→21:45)
[2021-11-28] MEDS ORDERED: INSULIN (NOVOLOG) ASPART 100 UNITS/ML 10ML VIAL ONE (11:28)
[2021-11-28] MEDS: ASPIRIN 81 MG CHEWABLE TABLETS PO SCH (11:28)
[2021-11-28] MEDS: METOPROLOL TARTRATE 25 MG TABLET (FP) PO SCH ×2 (11:28→21:45)
[2021-11-28] MEDS: POLYETHYLENE GLYCOL (HEALTHYLAX) 3350 17 GM PACKET PO SCH (11:28)
[2021-11-28] MEDS ORDERED: [UNRECOGNIZED DRUG - OTHER] IVPUSH PRN (11:42)
[2021-11-28] MEDS ORDERED: LOSARTAN POTASSIUM 25 MG TABLET PO SCH (13:39)
[2021-11-28] MEDS: VANCOMYCIN/WATER FOR INJ (PEG) 750 MG/150 ML BAG IVPB SCH (14:56)
[2021-11-28] MEDS: [UNRECOGNIZED DRUG - OTHER] IVPUSH SCH (21:46)
[2021-11-29] MEDS: VANCOMYCIN/WATER FOR INJ (PEG) 750 MG/150 ML BAG IVPB SCH ×2 (01:55→13:55)
[2021-11-29] MEDS: ACETAMINOPHEN 325 MG TABLET (FP) PO PRN ×2 (06:49→17:04)
[2021-11-29] MEDS: INSULIN (NOVOLOG MIX 70/30) 100 UNITS/ML MDV SQ SCH ×3 (06:50→17:01)
[2021-11-29] MEDS: INSULIN SLIDING SCALE (NOVOLOG) 1 VIAL SQ SCH ×4 (06:50→22:27)
[2021-11-29 08:22] LABS: EOS % 4.4 % (0-4.5); HEMATOCRIT 33.6 % (32.4-45.2); HEMOGLOBIN 10.8 GM/dL (10.7-15.3); LYMPH % 33.7 % (8-40); MCH 27.1 pg (25.7-33.7); MCHC 32.2 g/dl (32.0-36.0); MEAN CELL VOLUME 84.3 fl (80-96); MEAN PLT VOLUME 8.4 fl (7.5-11.1); MONO % 8.4 % (3.8-10.2); NEUT % 52.5 % (42.8-82.8); PLATELET COUNT 323 10^3/uL (134-434); RBC 3.98 M/mm3 (3.60-5.2); RDW 14.6 % (11.6-15.6); WHITE BLOOD COUNT 6.9 K/mm3 (4.0-10.0)
[2021-11-29 08:48] LABS: ALBUMIN 2.9 g/dl (3.4-5.0); BLOOD UREA NITROGEN 28.8 mg/dL (7-18); CALCIUM 9.4 mg/dL (8.5-10.1)
[2021-11-29 08:51] LABS: CREATININE 1.3 mg/dL (0.55-1.3)
[2021-11-29 08:53] LABS: BILIRUBIN,TOTAL 0.3 mg/dL (0.2-1)
[2021-11-29 08:55] LABS: TOT PROT 6.6 g/dl (6.4-8.2)
[2021-11-29] MEDS ORDERED: MULTIVITAMINS (DAILY MVI) TABLET (FP) PO SCH (10:00)
[2021-11-29] MEDS: [UNRECOGNIZED DRUG - OTHER] IVPUSH SCH ×2 (10:41→22:25)
[2021-11-29] MEDS: PREGABALIN 100 MG CAPSULE PO SCH ×2 (11:12→22:25)
[2021-11-29] MEDS: ASPIRIN 81 MG CHEWABLE TABLETS PO SCH (11:12)
[2021-11-29] MEDS: MULTIVITAMINS THER W-MINERALS COMBO TABLET (FP) PO SCH (11:12)
[2021-11-29] MEDS: VENLAFAXINE HCL 75 MG E.R. CAPSULES PO SCH (11:12)
[2021-11-29] MEDS: METOPROLOL TARTRATE 25 MG TABLET (FP) PO SCH ×2 (11:12→22:25)
[2021-11-29] MEDS: CLOPIDOGREL BISULFATE 75 MG TABLET (FP) PO SCH (11:13)
[2021-11-29] MEDS: POLYETHYLENE GLYCOL (HEALTHYLAX) 3350 17 GM PACKET PO SCH (11:13)
[2021-11-29] MEDS: HYDROCHLOROTHIAZIDE 25 MG TABLET (FP) PO SCH (11:17)
[2021-11-29] MEDS ORDERED: SODIUM ZIRCONIUM CYCLOSILICATE (LOKELMA) 5 GM PACKET PO SCH (13:30)
[2021-11-29] MEDS ORDERED: INSULIN (NOVOLOG) ASPART 100 UNITS/ML 10ML VIAL ONE (21:13)
[2021-11-30] MEDS: VANCOMYCIN/WATER FOR INJ (PEG) 750 MG/150 ML BAG IVPB SCH ×2 (02:45→15:27)
[2021-11-30] MEDS: INSULIN SLIDING SCALE (NOVOLOG) 1 VIAL SQ SCH ×4 (06:25→21:38)
[2021-11-30] MEDS: INSULIN (NOVOLOG MIX 70/30) 100 UNITS/ML MDV SQ SCH ×3 (06:26→18:08)
[2021-11-30 08:36] LABS: BASO % 0.8 % (0-2.0); EOS % 4.4 % (0-4.5); HEMATOCRIT 31.6 % (32.4-45.2); HEMOGLOBIN 10.3 GM/dL (10.7-15.3); LYMPH % 34.4 % (8-40); MCH 27.5 pg (25.7-33.7); MCHC 32.7 g/dl (32.0-36.0); MEAN PLT VOLUME 8.6 fl (7.5-11.1); MONO % 7.3 % (3.8-10.2); NEUT % 53.1 % (42.8-82.8); PLATELET COUNT 301 10^3/uL (134-434); RBC 3.76 M/mm3 (3.60-5.2); RDW 14.3 % (11.6-15.6); WHITE BLOOD COUNT 7.5 K/mm3 (4.0-10.0)
[2021-11-30 09:01] LABS: ALBUMIN 2.8 g/dl (3.4-5.0); BLOOD UREA NITROGEN 35.1 mg/dL (7-18)
[2021-11-30 09:04] LABS: CREATININE 1.3 mg/dL (0.55-1.3)
[2021-11-30 09:06] LABS: BILIRUBIN,TOTAL 0.7 mg/dL (0.2-1); TOT PROT 6.4 g/dl (6.4-8.2)
[2021-11-30] MEDS: POLYETHYLENE GLYCOL (HEALTHYLAX) 3350 17 GM PACKET PO SCH (11:12)
[2021-11-30] MEDS: PREGABALIN 100 MG CAPSULE PO SCH ×2 (11:13→21:38)
[2021-11-30] MEDS: VENLAFAXINE HCL 75 MG E.R. CAPSULES PO SCH (11:13)
[2021-11-30] MEDS: CLOPIDOGREL BISULFATE 75 MG TABLET (FP) PO SCH (11:13)
[2021-11-30] MEDS: ASPIRIN 81 MG CHEWABLE TABLETS PO SCH (11:13)
[2021-11-30] MEDS: MULTIVITAMINS THER W-MINERALS COMBO TABLET (FP) PO SCH (11:13)
[2021-11-30] MEDS: [UNRECOGNIZED DRUG - OTHER] IVPUSH SCH ×2 (11:14→21:44)
[2021-11-30] MEDS: METOPROLOL TARTRATE 25 MG TABLET (FP) PO SCH ×2 (11:14→21:38)
[2021-11-30] MEDS ORDERED: ZOLPIDEM TARTRATE 5 MG TABLET PO PRN (19:36)
[2021-11-30] MEDS ORDERED: INSULIN (LEVEMIR) 100 UNITS/ML UNITS SQ SCH (22:00)
[2021-11-30] MEDS ORDERED: MELATONIN 5 MG TABLETS PO PRN (22:55)
[2021-12-01] MEDS: VANCOMYCIN/WATER FOR INJ (PEG) 750 MG/150 ML BAG IVPB SCH (02:26)
[2021-12-01] MEDS: INSULIN (NOVOLOG) ASPART 100 UNITS/ML 10ML VIAL SQ SCH ×2 (06:02→11:38)
[2021-12-01] MEDS: INSULIN SLIDING SCALE (NOVOLOG) 1 VIAL SQ SCH ×4 (06:02→21:53)
[2021-12-01] MEDS ORDERED: INSULIN (LEVEMIR) 100 UNITS/ML UNITS SQ SCH (07:00)
[2021-12-01 09:24] LABS: CALCIUM 8.8 mg/dL (8.5-10.1)
[2021-12-01 09:26] LABS: ALBUMIN 2.7 g/dl (3.4-5.0); BLOOD UREA NITROGEN 33.2 mg/dL (7-18)
[2021-12-01 09:28] LABS: CREATININE 1.1 mg/dL (0.55-1.3)
[2021-12-01 09:30] LABS: BILIRUBIN,TOTAL 0.2 mg/dL (0.2-1); TOT PROT 6.2 g/dl (6.4-8.2)
[2021-12-01] MEDS: POLYETHYLENE GLYCOL (HEALTHYLAX) 3350 17 GM PACKET PO SCH (10:42)
[2021-12-01] MEDS: METOPROLOL TARTRATE 25 MG TABLET (FP) PO SCH ×2 (10:49→21:49)
[2021-12-01] MEDS: MULTIVITAMINS THER W-MINERALS COMBO TABLET (FP) PO SCH (10:49)
[2021-12-01] MEDS: VENLAFAXINE HCL 75 MG E.R. CAPSULES PO SCH (10:49)
[2021-12-01] MEDS: [UNRECOGNIZED DRUG - OTHER] IVPUSH SCH (10:51)
[2021-12-01] MEDS: CLOPIDOGREL BISULFATE 75 MG TABLET (FP) PO SCH (11:36)
[2021-12-01] MEDS: ASPIRIN 81 MG CHEWABLE TABLETS PO SCH (11:41)
[2021-12-01] MEDS ORDERED: NORMAL SALINE FLUSH 0.9% 5 ML SYRINGE IVPUSH SCH (12:00)
[2021-12-01] MEDS ORDERED: NORMAL SALINE FLUSH 0.9% 10 ML SYRINGE IVPUSH PRN (12:05)
[2021-12-01] MEDS ORDERED: [UNRECOGNIZED DRUG - OTHER] IVPUSH PRN ×2 (13:07→18:01)
[2021-12-01] MEDS: ACETAMINOPHEN 325 MG TABLET (FP) PO PRN (13:29)
[2021-12-01] MEDS ORDERED: LIDOCAINE HCL 1%, 10 MG/ML (20ML VIAL) ONE (15:56)
[2021-12-01] MEDS ORDERED: MIDAZOLAM HCL 2 MG/2 ML SINGLE DOSE VIAL ONE (17:03)
[2021-12-01] MEDS ORDERED: ceFAZolin SODIUM 1 GM VIAL IVPB ONE (17:05)
[2021-12-01] MEDS ORDERED: LIDOCAINE HCL 1%, 10 MG/ML (20ML VIAL) INF ONE (17:05)
[2021-12-01] MEDS ORDERED: PROPOFOL 20 ML ONE ×2 (17:14)
[2021-12-01] MEDS ORDERED: ACETAMINOPHEN 325 MG TABLET (FP) PO PRN (18:01)
[2021-12-01] MEDS: MELATONIN 5 MG TABLETS PO PRN (21:50)
[2021-12-01] MEDS: ZOLPIDEM TARTRATE 5 MG TABLET PO PRN (21:50)
[2021-12-01] MEDS: INSULIN (LEVEMIR) 100 UNITS/ML UNITS SQ SCH (21:54)
[2021-12-01] MEDS: NORMAL SALINE FLUSH 0.9% 5 ML SYRINGE IVPUSH SCH (21:57)
[2021-12-02] MEDS: INSULIN SLIDING SCALE (NOVOLOG) 1 VIAL SQ SCH ×4 (06:12→21:41)
[2021-12-02] MEDS: INSULIN (LEVEMIR) 100 UNITS/ML UNITS SQ SCH ×2 (06:13→21:41)
[2021-12-02] MEDS: INSULIN (NOVOLOG) ASPART 100 UNITS/ML 10ML VIAL SQ SCH ×3 (06:15→17:06)
[2021-12-02 09:01] LABS: BASO % 0.7 % (0-2.0); HEMATOCRIT 29.6 % (32.4-45.2); HEMOGLOBIN 9.8 GM/dL (10.7-15.3); MCH 27.7 pg (25.7-33.7); MEAN CELL VOLUME 83.8 fl (80-96); MEAN PLT VOLUME 8.3 fl (7.5-11.1); MONO % 7.9 % (3.8-10.2); NEUT % 62.4 % (42.8-82.8); PLATELET COUNT 282 10^3/uL (134-434); RBC 3.54 M/mm3 (3.60-5.2); RDW 14.4 % (11.6-15.6); WHITE BLOOD COUNT 6.5 K/mm3 (4.0-10.0)
[2021-12-02 09:27] LABS: ALBUMIN 2.6 g/dl (3.4-5.0); BLOOD UREA NITROGEN 26.8 mg/dL (7-18); CALCIUM 8.9 mg/dL (8.5-10.1)
[2021-12-02 09:31] LABS: BILIRUBIN,TOTAL 0.1 mg/dL (0.2-1); CREATININE 0.9 mg/dL (0.55-1.3); TOT PROT 5.9 g/dl (6.4-8.2)
[2021-12-02] MEDS: POLYETHYLENE GLYCOL (HEALTHYLAX) 3350 17 GM PACKET PO SCH (10:01)
[2021-12-02] MEDS: MULTIVITAMINS THER W-MINERALS COMBO TABLET (FP) PO SCH (10:01)
[2021-12-02] MEDS: METOPROLOL TARTRATE 25 MG TABLET (FP) PO SCH ×2 (10:01→21:41)
[2021-12-02] MEDS: VENLAFAXINE HCL 75 MG E.R. CAPSULES PO SCH (10:02)
[2021-12-02] MEDS: CLOPIDOGREL BISULFATE 75 MG TABLET (FP) PO SCH (10:02)
[2021-12-02] MEDS: ASPIRIN 81 MG CHEWABLE TABLETS PO SCH (10:02)
[2021-12-02] MEDS ORDERED: PROPOFOL 20 ML ONE ×3 (10:15)
[2021-12-02] MEDS: VANCOMYCIN/WATER FOR INJ (PEG) 750 MG/150 ML BAG IVPB SCH (13:43)
[2021-12-02] MEDS: NORMAL SALINE FLUSH 0.9% 5 ML SYRINGE IVPUSH SCH ×2 (13:44→21:41)
[2021-12-02] MEDS: LOSARTAN POTASSIUM 25 MG TABLET PO SCH (13:44)
[2021-12-02] MEDS ORDERED: LORATADINE 10 MG TABLET PO ONE (17:45)
[2021-12-02] MEDS: LORATADINE 10 MG TABLET PO SCH (20:06)
[2021-12-02] MEDS: ZOLPIDEM TARTRATE 5 MG TABLET PO PRN (21:41)
[2021-12-03] MEDS: VANCOMYCIN/WATER FOR INJ (PEG) 750 MG/150 ML BAG IVPB SCH ×2 (02:12→14:28)
[2021-12-03] MEDS: INSULIN (LEVEMIR) 100 UNITS/ML UNITS SQ SCH ×2 (06:45→21:38)
[2021-12-03] MEDS: INSULIN (NOVOLOG) ASPART 100 UNITS/ML 10ML VIAL SQ SCH ×3 (06:46→17:24)
[2021-12-03] MEDS: INSULIN SLIDING SCALE (NOVOLOG) 1 VIAL SQ SCH ×4 (06:46→21:38)
[2021-12-03 09:08] LABS: HEMATOCRIT 29.8 % (32.4-45.2); HEMOGLOBIN 9.9 GM/dL (10.7-15.3); LYMPH % 30.2 % (8-40); MCH 27.6 pg (25.7-33.7); MCHC 33.2 g/dl (32.0-36.0); MEAN CELL VOLUME 83.3 fl (80-96); MEAN PLT VOLUME 8.6 fl (7.5-11.1); MONO % 9.5 % (3.8-10.2); NEUT % 55.3 % (42.8-82.8); PLATELET COUNT 292 10^3/uL (134-434); RBC 3.57 M/mm3 (3.60-5.2); RDW 14.2 % (11.6-15.6); WHITE BLOOD COUNT 5.9 K/mm3 (4.0-10.0)
[2021-12-03 09:23] LABS: CALCIUM 8.5 mg/dL (8.5-10.1)
[2021-12-03 09:24] LABS: ALBUMIN 2.6 g/dl (3.4-5.0); BLOOD UREA NITROGEN 25.5 mg/dL (7-18)
[2021-12-03 09:28] LABS: CREATININE 0.9 mg/dL (0.55-1.3)
[2021-12-03 09:29] LABS: BILIRUBIN,TOTAL 0.3 mg/dL (0.2-1)
[2021-12-03] MEDS: ASPIRIN 81 MG CHEWABLE TABLETS PO SCH (10:25)
[2021-12-03] MEDS: CLOPIDOGREL BISULFATE 75 MG TABLET (FP) PO SCH (10:26)
[2021-12-03] MEDS: LOSARTAN POTASSIUM 25 MG TABLET PO SCH (10:26)
[2021-12-03] MEDS: MULTIVITAMINS THER W-MINERALS COMBO TABLET (FP) PO SCH (10:26)
[2021-12-03] MEDS: LORATADINE 10 MG TABLET PO SCH (10:26)
[2021-12-03] MEDS: POLYETHYLENE GLYCOL (HEALTHYLAX) 3350 17 GM PACKET PO SCH (10:26)
[2021-12-03] MEDS: VENLAFAXINE HCL 75 MG E.R. CAPSULES PO SCH (10:26)
[2021-12-03] MEDS: METOPROLOL TARTRATE 25 MG TABLET (FP) PO SCH ×2 (10:26→21:37)
[2021-12-03] MEDS: NORMAL SALINE FLUSH 0.9% 5 ML SYRINGE IVPUSH SCH ×2 (10:27→21:38)
[2021-12-03] MEDS: ZOLPIDEM TARTRATE 5 MG TABLET PO PRN (21:37)
[2021-12-03] MEDS: PREGABALIN 100 MG CAPSULE PO SCH (22:26)
[2021-12-04] MEDS: VANCOMYCIN/WATER FOR INJ (PEG) 750 MG/150 ML BAG IVPB SCH ×2 (02:26→13:58)
[2021-12-04] MEDS: INSULIN (LEVEMIR) 100 UNITS/ML UNITS SQ SCH ×2 (06:38→21:53)
[2021-12-04] MEDS: INSULIN SLIDING SCALE (NOVOLOG) 1 VIAL SQ SCH ×4 (06:38→22:06)
[2021-12-04] MEDS: INSULIN (NOVOLOG) ASPART 100 UNITS/ML 10ML VIAL SQ SCH ×3 (06:38→16:39)
[2021-12-04] MEDS ORDERED: LIDOCAINE HCL 2% (20ML MULTI-DOSE VIAL) ONE (07:11)
[2021-12-04] MEDS ORDERED: ONDANSETRON 4 MG/2 ML VIAL IVPUSH PRN (07:24)
[2021-12-04] MEDS ORDERED: oxyCODONE HCL 5 MG TABLET PO PRN (07:24)
[2021-12-04] MEDS ORDERED: ceFAZolin SODIUM 1 GM VIAL IVPB ONE (07:59)
[2021-12-04] MEDS: ASPIRIN 81 MG CHEWABLE TABLETS PO SCH (11:59)
[2021-12-04] MEDS: LOSARTAN POTASSIUM 25 MG TABLET PO SCH (11:59)
[2021-12-04] MEDS: LORATADINE 10 MG TABLET PO SCH (11:59)
[2021-12-04] MEDS: POLYETHYLENE GLYCOL (HEALTHYLAX) 3350 17 GM PACKET PO SCH (12:00)
[2021-12-04] MEDS: METOPROLOL TARTRATE 25 MG TABLET (FP) PO SCH ×2 (12:00→21:51)
[2021-12-04] MEDS: VENLAFAXINE HCL 75 MG E.R. CAPSULES PO SCH (12:00)
[2021-12-04] MEDS: PREGABALIN 100 MG CAPSULE PO SCH ×2 (12:01→21:52)
[2021-12-04] MEDS: CLOPIDOGREL BISULFATE 75 MG TABLET (FP) PO SCH (12:01)
[2021-12-04] MEDS: MULTIVITAMINS THER W-MINERALS COMBO TABLET (FP) PO SCH (12:01)
[2021-12-04] MEDS: LACTATED RINGERS SOLUTION 1,000 ML IV SCH ×2 (12:02→18:37)
[2021-12-04] MEDS: NORMAL SALINE FLUSH 0.9% 5 ML SYRINGE IVPUSH SCH ×2 (12:03→22:07)
[2021-12-04] MEDS: ACETAMINOPHEN 325 MG TABLET (FP) PO PRN (18:38)
[2021-12-04] MEDS: MELATONIN 5 MG TABLETS PO PRN (21:51)
[2021-12-05] MEDS: VANCOMYCIN/WATER FOR INJ (PEG) 750 MG/150 ML BAG IVPB SCH ×2 (03:55→14:04)
[2021-12-05] MEDS: ACETAMINOPHEN 325 MG TABLET (FP) PO PRN (04:33)
[2021-12-05] MEDS: INSULIN (LEVEMIR) 100 UNITS/ML UNITS SQ SCH ×2 (06:56→22:21)
[2021-12-05] MEDS: INSULIN (NOVOLOG) ASPART 100 UNITS/ML 10ML VIAL SQ SCH ×3 (06:57→17:00)
[2021-12-05] MEDS: INSULIN SLIDING SCALE (NOVOLOG) 1 VIAL SQ SCH ×4 (06:57→22:22)
[2021-12-05 10:11] LABS: BASO % 0.7 % (0-2.0); HEMATOCRIT 28.7 % (32.4-45.2); HEMOGLOBIN 9.5 GM/dL (10.7-15.3); LYMPH % 23.6 % (8-40); MCH 27.6 pg (25.7-33.7); MCHC 33.1 g/dl (32.0-36.0); MEAN CELL VOLUME 83.4 fl (80-96); MEAN PLT VOLUME 8.3 fl (7.5-11.1); MONO % 10.1 % (3.8-10.2); NEUT % 62.6 % (42.8-82.8); PLATELET COUNT 266 10^3/uL (134-434); RBC 3.44 M/mm3 (3.60-5.2); RDW 14.7 % (11.6-15.6); WHITE BLOOD COUNT 7.9 K/mm3 (4.0-10.0)
[2021-12-05 10:31] LABS: BLOOD UREA NITROGEN 28.3 mg/dL (7-18); CALCIUM 8.6 mg/dL (8.5-10.1)
[2021-12-05 10:32] LABS: ALBUMIN 2.6 g/dl (3.4-5.0)
[2021-12-05 10:36] LABS: BILIRUBIN,TOTAL 0.4 mg/dL (0.2-1); TOT PROT 5.7 g/dl (6.4-8.2)
[2021-12-05] MEDS: ASPIRIN 81 MG CHEWABLE TABLETS PO SCH (11:20)
[2021-12-05] MEDS: LORATADINE 10 MG TABLET PO SCH (11:20)
[2021-12-05] MEDS: METOPROLOL TARTRATE 25 MG TABLET (FP) PO SCH ×2 (11:21→22:21)
[2021-12-05] MEDS: LOSARTAN POTASSIUM 25 MG TABLET PO SCH (11:21)
[2021-12-05] MEDS: POLYETHYLENE GLYCOL (HEALTHYLAX) 3350 17 GM PACKET PO SCH (11:21)
[2021-12-05] MEDS: VENLAFAXINE HCL 75 MG E.R. CAPSULES PO SCH (11:21)
[2021-12-05] MEDS: PREGABALIN 100 MG CAPSULE PO SCH ×2 (11:22→22:21)
[2021-12-05] MEDS: NORMAL SALINE FLUSH 0.9% 5 ML SYRINGE IVPUSH SCH ×2 (11:22→22:23)
[2021-12-05] MEDS: CLOPIDOGREL BISULFATE 75 MG TABLET (FP) PO SCH (11:22)
[2021-12-05] MEDS: MULTIVITAMINS THER W-MINERALS COMBO TABLET (FP) PO SCH (11:22)
[2021-12-05] MEDS ORDERED: SODIUM ZIRCONIUM CYCLOSILICATE (LOKELMA) 5 GM PACKET PO SCH (15:45)
[2021-12-05] MEDS: MELATONIN 5 MG TABLETS PO PRN (22:23)
[2021-12-06] MEDS: VANCOMYCIN/WATER FOR INJ (PEG) 750 MG/150 ML BAG IVPB SCH ×2 (01:50→15:16)
[2021-12-06] MEDS: INSULIN (LEVEMIR) 100 UNITS/ML UNITS SQ SCH ×2 (06:47→22:53)
[2021-12-06] MEDS: INSULIN (NOVOLOG) ASPART 100 UNITS/ML 10ML VIAL SQ SCH ×3 (06:47→17:48)
[2021-12-06] MEDS: INSULIN SLIDING SCALE (NOVOLOG) 1 VIAL SQ SCH ×4 (06:48→22:54)
[2021-12-06] MEDS ORDERED: MELATONIN 5 MG TABLETS PO PRN (07:45)
[2021-12-06] MEDS ORDERED: [UNRECOGNIZED DRUG - OTHER] IVPUSH PRN (07:45)
[2021-12-06] MEDS ORDERED: ACETAMINOPHEN 325 MG TABLET (FP) PO PRN (07:45)
[2021-12-06] MEDS ORDERED: oxyCODONE HCL 5 MG TABLET PO PRN (07:45)
[2021-12-06 10:23] LABS: BASO % 0.7 % (0-2.0); EOS % 1.9 % (0-4.5); HEMATOCRIT 28.4 % (32.4-45.2); HEMOGLOBIN 9.4 GM/dL (10.7-15.3); LYMPH % 24.2 % (8-40); MCH 27.6 pg (25.7-33.7); MCHC 33.1 g/dl (32.0-36.0); MEAN CELL VOLUME 83.4 fl (80-96); MEAN PLT VOLUME 8.4 fl (7.5-11.1); MONO % 8.7 % (3.8-10.2); NEUT % 64.5 % (42.8-82.8); PLATELET COUNT 269 10^3/uL (134-434); RBC 3.41 M/mm3 (3.60-5.2); RDW 14.3 % (11.6-15.6); WHITE BLOOD COUNT 8.3 K/mm3 (4.0-10.0)
[2021-12-06 11:07] LABS: ALBUMIN 2.6 g/dl (3.4-5.0); BLOOD UREA NITROGEN 28.7 mg/dL (7-18); CALCIUM 8.6 mg/dL (8.5-10.1)
[2021-12-06 11:11] LABS: BILIRUBIN,TOTAL 0.3 mg/dL (0.2-1); TOT PROT 5.8 g/dl (6.4-8.2)
[2021-12-06] MEDS: MULTIVITAMINS THER W-MINERALS COMBO TABLET (FP) PO SCH (11:16)
[2021-12-06] MEDS: VENLAFAXINE HCL 75 MG E.R. CAPSULES PO SCH (11:16)
[2021-12-06] MEDS: POLYETHYLENE GLYCOL (HEALTHYLAX) 3350 17 GM PACKET PO SCH (11:16)
[2021-12-06] MEDS: CLOPIDOGREL BISULFATE 75 MG TABLET (FP) PO SCH (11:16)
[2021-12-06] MEDS: ASPIRIN 81 MG CHEWABLE TABLETS PO SCH (11:17)
[2021-12-06] MEDS: METOPROLOL TARTRATE 25 MG TABLET (FP) PO SCH ×2 (11:17→22:51)
[2021-12-06] MEDS: LORATADINE 10 MG TABLET PO SCH (11:17)
[2021-12-06] MEDS: PREGABALIN 100 MG CAPSULE PO SCH ×2 (11:17→22:51)
[2021-12-06] MEDS: NORMAL SALINE FLUSH 0.9% 5 ML SYRINGE IVPUSH SCH ×2 (11:18→22:35)
[2021-12-07] MEDS: VANCOMYCIN/WATER FOR INJ (PEG) 750 MG/150 ML BAG IVPB SCH ×2 (01:37→14:46)
[2021-12-07] MEDS: INSULIN (NOVOLOG) ASPART 100 UNITS/ML 10ML VIAL SQ SCH ×3 (06:04→17:48)
[2021-12-07] MEDS: INSULIN SLIDING SCALE (NOVOLOG) 1 VIAL SQ SCH ×4 (06:04→22:42)
[2021-12-07] MEDS: INSULIN (LEVEMIR) 100 UNITS/ML UNITS SQ SCH ×2 (06:33→22:41)
[2021-12-07] MEDS: ASPIRIN 81 MG CHEWABLE TABLETS PO SCH (09:58)
[2021-12-07] MEDS: LORATADINE 10 MG TABLET PO SCH (09:58)
[2021-12-07] MEDS: PREGABALIN 100 MG CAPSULE PO SCH ×2 (09:58→22:39)
[2021-12-07] MEDS: MULTIVITAMINS THER W-MINERALS COMBO TABLET (FP) PO SCH (09:58)
[2021-12-07] MEDS: CLOPIDOGREL BISULFATE 75 MG TABLET (FP) PO SCH (09:58)
[2021-12-07] MEDS: METOPROLOL TARTRATE 25 MG TABLET (FP) PO SCH ×2 (09:58→22:39)
[2021-12-07] MEDS: VENLAFAXINE HCL 75 MG E.R. CAPSULES PO SCH (09:58)
[2021-12-07] MEDS: POLYETHYLENE GLYCOL (HEALTHYLAX) 3350 17 GM PACKET PO SCH (09:59)
[2021-12-07] MEDS ORDERED: INSULIN (NOVOLOG) ASPART 100 UNITS/ML 10ML VIAL ONE ×2 (12:27→17:53)
[2021-12-07] MEDS: HYDROCHLOROTHIAZIDE 12.5 MG CAPSULE (FP) PO SCH (14:46)
[2021-12-07] MEDS: NORMAL SALINE FLUSH 0.9% 5 ML SYRINGE IVPUSH SCH ×2 (14:47→22:42)
[2021-12-08] MEDS: VANCOMYCIN/WATER FOR INJ (PEG) 750 MG/150 ML BAG IVPB SCH ×2 (02:38→14:10)
[2021-12-08] MEDS: INSULIN SLIDING SCALE (NOVOLOG) 1 VIAL SQ SCH ×3 (06:53→17:29)
[2021-12-08] MEDS: INSULIN (LEVEMIR) 100 UNITS/ML UNITS SQ SCH (06:58)
[2021-12-08] MEDS: INSULIN (NOVOLOG) ASPART 100 UNITS/ML 10ML VIAL SQ SCH ×3 (07:07→17:28)
[2021-12-08 08:48] LABS: BLOOD UREA NITROGEN 34.1 mg/dL (7-18)
[2021-12-08 08:53] LABS: BILIRUBIN,TOTAL 0.4 mg/dL (0.2-1); TOT PROT 6.6 g/dl (6.4-8.2)
[2021-12-08] MEDS: VENLAFAXINE HCL 75 MG E.R. CAPSULES PO SCH (10:04)
[2021-12-08] MEDS: METOPROLOL TARTRATE 25 MG TABLET (FP) PO SCH (10:05)
[2021-12-08] MEDS: LORATADINE 10 MG TABLET PO SCH (10:05)
[2021-12-08] MEDS: POLYETHYLENE GLYCOL (HEALTHYLAX) 3350 17 GM PACKET PO SCH (10:05)
[2021-12-08] MEDS: HYDROCHLOROTHIAZIDE 12.5 MG CAPSULE (FP) PO SCH (10:05)
[2021-12-08] MEDS: MULTIVITAMINS THER W-MINERALS COMBO TABLET (FP) PO SCH (10:05)
[2021-12-08] MEDS: PREGABALIN 100 MG CAPSULE PO SCH (10:05)
[2021-12-08] MEDS: ASPIRIN 81 MG CHEWABLE TABLETS PO SCH (10:05)
[2021-12-08] MEDS: CLOPIDOGREL BISULFATE 75 MG TABLET (FP) PO SCH (10:05)
[2021-12-08] MEDS: NORMAL SALINE FLUSH 0.9% 5 ML SYRINGE IVPUSH SCH (14:10)
[2021-12-08 15:59] VITALS: BP 136/66; PULSE 76; TEMP 98.5
== END 2021-12-08 18:37 | disposition home health service (06) | DRG 617 ==
LOC: JER 15:42 → JERBED 17:31 → J8W 11-15 00:14
PROVIDERS: ADMIT Internal Medicine; ATTEND Internal Medicine
PROC: 0QBQ0ZX Excision of Right Toe Phalanx, Open Approach, Diagnostic (ICD-10-PCS; principal; 2021-11-16 07:30)
PROC: 02HV33Z Insertion of Infusion Device into Superior Vena Cava, Percutaneous Approach (ICD-10-PCS; 2021-11-22)
PROC: B518ZZA Fluoroscopy of Superior Vena Cava, Guidance (ICD-10-PCS; 2021-11-22)
PROC: B40DYZZ Plain Radiography of Aorta and Bilateral Lower Extremity Arteries using Other Contrast (ICD-10-PCS; 2021-12-01)
PROC: B40FYZZ Plain Radiography of Right Lower Extremity Arteries using Other Contrast (ICD-10-PCS; 2021-12-01)
PROC: 0Y6M0Z9 Detachment at Right Foot, Partial 1st Ray, Open Approach (ICD-10-PCS; 2021-12-04)
DX: E11.621 Type 2 diabetes mellitus with foot ulcer (principal); E11.52 Type 2 diabetes mellitus with diabetic peripheral angiopathy with gangrene; I96 Gangrene, not elsewhere classified; M86.671 Other chronic osteomyelitis, right ankle and foot; L97.518 Non-pressure chronic ulcer of other part of right foot with other specified severity; N17.9 Acute kidney failure, unspecified; E11.69 Type 2 diabetes mellitus with other specified complication; I25.10 Atherosclerotic heart disease of native coronary artery without angina pectoris; E78.5 Hyperlipidemia, unspecified; G20 Parkinson's disease; F32.89 Other specified depressive episodes; E11.65 Type 2 diabetes mellitus with hyperglycemia; L08.9 Local infection of the skin and subcutaneous tissue, unspecified; I11.0 Hypertensive heart disease with heart failure; I50.9 Heart failure, unspecified; E87.5 Hyperkalemia; Z95.5 Presence of coronary angioplasty implant and graft
CPT/HCPCS: 11042; 36415; 36569; 73630-TC-RT-FY; 75635-TC; 76000-TC-FY; 77001-TC-FY; 80048; 80053; 81003; 82570; 82962; 84156; 85025; 85610; 85730; 86850; 86900; 86901; 87040; 87070; 87075; 87186; 87205; 88304-TC; 88305-TC; 88311-TC; 93005; 93010; 93922; 93925-TC; 93971-TC; 94760; 97116-GP; 97161-GP; 99285-25; A6022; C1751; C9803-CS; G0480; J1644; Q9967; U0003; U0005

== ENCOUNTER 2022-07-17 14:53 | Inpatient (IN) | payer OTHER ==
[2022-07-17 17:01] LABS: BASO % 0.4 % (0-2.0); EOS % 0.5 % (0-4.5); HEMATOCRIT 32.7 % (32.4-45.2); HEMOGLOBIN 10.6 GM/dL (10.7-15.3); LYMPH % 13.3 % (8-40); MCH 26.7 pg (25.7-33.7); MCHC 32.5 g/dl (32.0-36.0); MEAN CELL VOLUME 82.3 fl (80-96); MEAN PLT VOLUME 8.9 fl (7.5-11.1); MONO % 8.7 % (3.8-10.2); NEUT % 77.1 % (42.8-82.8); PLATELET COUNT 257 10^3/uL (134-434); RBC 3.98 M/mm3 (3.60-5.2); RDW 14.3 % (11.6-15.6); WHITE BLOOD COUNT 12.5 K/mm3 (4.0-10.0)
[2022-07-17 17:04] LABS: EPI CELLS 19 /uL (0-25.1); HYALINE CASTS 1 /uL (0-3.1); PH,URINE 5.5 (5.0-8.0); URINE APPEARANCE CLEAR; URINE BACTERIA 209 /uL (0-1359); URINE BILIRUBIN NEGATIVE (NEGATIVE); URINE COLOR YELLOW; URINE GLUCOSE (UA) 3+ (NEGATIVE); URINE KETONE NEGATIVE (NEGATIVE); URINE LEUK ESTERASE NEGATIVE (NEGATIVE); URINE NITRITE NEGATIVE (NEGATIVE); URINE PROTEIN 3+ (NEGATIVE); URINE RBC 13 /uL (0-23.9); URINE UROBILINOGEN 0.2 mg/dL (0.2-1.0); URINE WBC 8 /uL (0-25.8)
[2022-07-17 17:24] LABS: BLOOD UREA NITROGEN 52.4 mg/dL (7-18)
[2022-07-17 17:27] LABS: CREATININE 1.9 mg/dL (0.55-1.3)
[2022-07-17] MEDS ORDERED: SODIUM CHLORIDE 0.9% 500 ML INFUS.BAG IV ONE (17:42)
[2022-07-17 23:30] VITALS: BMI 34.4
[2022-07-18] MEDS ORDERED: ACETAMINOPHEN 325 MG TABLET (FP) PO PRN (00:15)
[2022-07-18] MEDS: SODIUM CHLORIDE 0.45% 1,000 ML IV SCH (02:51)
[2022-07-18] MEDS: INSULIN SLIDING SCALE (NOVOLOG) 1 VIAL SQ SCH ×4 (06:30→23:43)
[2022-07-18 09:30] LABS: BASO % 0.3 % (0-2.0); EOS % 0.2 % (0-4.5); HEMATOCRIT 30.6 % (32.4-45.2); HEMOGLOBIN 10.1 GM/dL (10.7-15.3); LYMPH % 7.5 % (8-40); MCHC 32.9 g/dl (32.0-36.0); MEAN CELL VOLUME 82.1 fl (80-96); MEAN PLT VOLUME 9.5 fl (7.5-11.1); MONO % 7.5 % (3.8-10.2); NEUT % 84.5 % (42.8-82.8); PLATELET COUNT 251 10^3/uL (134-434); RBC 3.72 M/mm3 (3.60-5.2); RDW 13.9 % (11.6-15.6); WHITE BLOOD COUNT 16.4 K/mm3 (4.0-10.0)
[2022-07-18 09:57] LABS: CALCIUM 8.7 mg/dL (8.5-10.1)
[2022-07-18 09:58] LABS: ALBUMIN 2.7 g/dl (3.4-5.0); BLOOD UREA NITROGEN 46.5 mg/dL (7-18)
[2022-07-18] MEDS ORDERED: CLOPIDOGREL BISULFATE 75 MG TABLET (FP) PO SCH (10:00)
[2022-07-18] MEDS ORDERED: CEFTRIAXONE 1 GM in DEXTROSE 5%-WATER - 50 ML IVPB SCH (10:00)
[2022-07-18] MEDS ORDERED: METOPROLOL TARTRATE 25 MG TABLET (FP) PO SCH (10:00)
[2022-07-18] MEDS ORDERED: PREGABALIN 100 MG CAPSULE PO SCH (10:00)
[2022-07-18 10:01] LABS: CREATININE 1.7 mg/dL (0.55-1.3)
[2022-07-18 10:02] LABS: BILIRUBIN,TOTAL 0.4 mg/dL (0.2-1); TOT PROT 6.6 g/dl (6.4-8.2)
[2022-07-18] MEDS ORDERED: metoPROLOL SUCCINATE 25 MG TAB.SR.24H (FP) PO SCH (10:21)
[2022-07-18] MEDS ORDERED: PREGABALIN 50 MG CAPSULE PO SCH (10:23)
[2022-07-18] MEDS ORDERED: PIPERACILLIN/TAZOBACTAM 2.25 GM VIAL IVPB ONE (11:46)
[2022-07-18] MEDS: PIPERACILLIN/TAZOB 2.25 GM 2.25 GM in DEXTROSE 5%-WATER - 50 ML IVPB SCH ×2 (11:51→18:16)
[2022-07-18] MEDS: HEPARIN NA (PORCINE) 5,000 UNITS/ML 1ML VIAL SQ SCH ×2 (11:52→22:18)
[2022-07-18] MEDS: ASPIRIN COATED 81 MG TABLET.EC PO SCH (11:54)
[2022-07-18] MEDS: metoPROLOL SUCCINATE 25 MG TAB.SR.24H (FP) PO SCH (11:54)
[2022-07-18] MEDS: PREGABALIN 50 MG CAPSULE PO SCH ×2 (11:54→22:18)
[2022-07-18] MEDS: VENLAFAXINE HCL 150 MG E.R. CAPSULE PO SCH (11:54)
[2022-07-18] MEDS: LOSARTAN POTASSIUM 25 MG TABLET PO SCH (11:54)
[2022-07-18] MEDS: ACETAMINOPHEN 325 MG TABLET (FP) PO PRN (12:18)
[2022-07-18] MEDS ORDERED: INSULIN (NOVOLOG) ASPART 100 UNITS/ML 10ML VIAL ONE (13:01)
[2022-07-18] MEDS: PRAMIPEXOLE DIHYDROCHLORIDE 1 MG TABLET PO SCH ×3 (17:30→22:18)
[2022-07-18] MEDS ORDERED: INSULIN (LEVEMIR) 100 UNITS/ML UNITS SQ SCH (22:00)
[2022-07-18] MEDS: ATORVASTATIN CA 40 MG TABLET (FP) PO SCH (22:18)
[2022-07-19] MEDS: PIPERACILLIN/TAZOB 2.25 GM 2.25 GM in DEXTROSE 5%-WATER - 50 ML IVPB SCH ×3 (01:38→17:27)
[2022-07-19] MEDS: SODIUM CHLORIDE 0.45% 1,000 ML IV SCH (01:38)
[2022-07-19] MEDS ORDERED: INSULIN (LEVEMIR) 100 UNITS/ML UNITS SQ ONE (06:46)
[2022-07-19] MEDS: INSULIN SLIDING SCALE (NOVOLOG) 1 VIAL SQ SCH ×4 (06:49→22:48)
[2022-07-19] MEDS: INSULIN (LEVEMIR) 100 UNITS/ML UNITS SQ SCH ×2 (06:50→22:45)
[2022-07-19 09:30] LABS: BASO % 0.5 % (0-2.0); EOS % 2.2 % (0-4.5); HEMATOCRIT 28.8 % (32.4-45.2); HEMOGLOBIN 9.6 GM/dL (10.7-15.3); LYMPH % 16.8 % (8-40); MCH 27.4 pg (25.7-33.7); MCHC 33.2 g/dl (32.0-36.0); MEAN CELL VOLUME 82.5 fl (80-96); MEAN PLT VOLUME 9.2 fl (7.5-11.1); MONO % 8.7 % (3.8-10.2); NEUT % 71.8 % (42.8-82.8); PLATELET COUNT 231 10^3/uL (134-434); RDW 13.9 % (11.6-15.6); WHITE BLOOD COUNT 10.3 K/mm3 (4.0-10.0)
[2022-07-19] MEDS: HEPARIN NA (PORCINE) 5,000 UNITS/ML 1ML VIAL SQ SCH ×2 (09:32→22:40)
[2022-07-19] MEDS: ASPIRIN COATED 81 MG TABLET.EC PO SCH (09:32)
[2022-07-19] MEDS: PREGABALIN 50 MG CAPSULE PO SCH ×2 (09:32→22:41)
[2022-07-19] MEDS: LOSARTAN POTASSIUM 25 MG TABLET PO SCH (09:32)
[2022-07-19] MEDS: PANTOPRAZOLE 40 MG TABLET PO SCH (09:32)
[2022-07-19] MEDS: VENLAFAXINE HCL 150 MG E.R. CAPSULE PO SCH (09:32)
[2022-07-19] MEDS: metoPROLOL SUCCINATE 25 MG TAB.SR.24H (FP) PO SCH (09:32)
[2022-07-19] MEDS: PRAMIPEXOLE DIHYDROCHLORIDE 1 MG TABLET PO SCH ×4 (09:35→22:41)
[2022-07-19 09:40] LABS: CALCIUM 8.4 mg/dL (8.5-10.1)
[2022-07-19 09:41] LABS: ALBUMIN 2.4 g/dl (3.4-5.0); BLOOD UREA NITROGEN 47.1 mg/dL (7-18)
[2022-07-19 09:44] LABS: CREATININE 1.7 mg/dL (0.55-1.3)
[2022-07-19 09:45] LABS: BILIRUBIN,TOTAL 0.4 mg/dL (0.2-1)
[2022-07-19] MEDS ORDERED: CLOPIDOGREL BISULFATE 75 MG TABLET (FP) PO SCH (10:00)
[2022-07-19] MEDS: ATORVASTATIN CA 40 MG TABLET (FP) PO SCH (22:41)
[2022-07-20] MEDS: PIPERACILLIN/TAZOB 2.25 GM 2.25 GM in DEXTROSE 5%-WATER - 50 ML IVPB SCH ×3 (03:31→17:32)
[2022-07-20] MEDS: SODIUM CHLORIDE 0.45% 1,000 ML IV SCH ×2 (03:32→09:36)
[2022-07-20] MEDS: INSULIN SLIDING SCALE (NOVOLOG) 1 VIAL SQ SCH ×4 (06:20→22:21)
[2022-07-20] MEDS: INSULIN (LEVEMIR) 100 UNITS/ML UNITS SQ SCH ×2 (06:21→22:22)
[2022-07-20] MEDS: PREGABALIN 50 MG CAPSULE PO SCH ×2 (09:37→22:14)
[2022-07-20] MEDS: VENLAFAXINE HCL 150 MG E.R. CAPSULE PO SCH (09:37)
[2022-07-20] MEDS: HEPARIN NA (PORCINE) 5,000 UNITS/ML 1ML VIAL SQ SCH ×2 (09:38→22:12)
[2022-07-20] MEDS: metoPROLOL SUCCINATE 25 MG TAB.SR.24H (FP) PO SCH (09:38)
[2022-07-20] MEDS: ASPIRIN COATED 81 MG TABLET.EC PO SCH (09:38)
[2022-07-20] MEDS: PRAMIPEXOLE DIHYDROCHLORIDE 1 MG TABLET PO SCH ×4 (09:38→22:18)
[2022-07-20] MEDS: PANTOPRAZOLE 40 MG TABLET PO SCH (09:38)
[2022-07-20] MEDS: ACETAMINOPHEN 325 MG TABLET (FP) PO PRN (11:52)
[2022-07-20] MEDS: ATORVASTATIN CA 40 MG TABLET (FP) PO SCH (22:14)
[2022-07-21] MEDS: PIPERACILLIN/TAZOB 2.25 GM 2.25 GM in DEXTROSE 5%-WATER - 50 ML IVPB SCH ×2 (02:05→11:05)
[2022-07-21] MEDS: INSULIN SLIDING SCALE (NOVOLOG) 1 VIAL SQ SCH ×4 (06:02→23:46)
[2022-07-21] MEDS: INSULIN (LEVEMIR) 100 UNITS/ML UNITS SQ SCH ×2 (06:03→23:48)
[2022-07-21 08:54] LABS: BASO % 0.8 % (0-2.0); EOS % 4.6 % (0-4.5); HEMATOCRIT 26.6 % (32.4-45.2); LYMPH % 24.7 % (8-40); MCH 27.9 pg (25.7-33.7); MEAN CELL VOLUME 81.9 fl (80-96); MEAN PLT VOLUME 8.9 fl (7.5-11.1); MONO % 9.8 % (3.8-10.2); NEUT % 60.1 % (42.8-82.8); PLATELET COUNT 271 10^3/uL (134-434); RBC 3.25 M/mm3 (3.60-5.2); WHITE BLOOD COUNT 6.6 K/mm3 (4.0-10.0)
[2022-07-21 09:10] LABS: CALCIUM 8.4 mg/dL (8.5-10.1)
[2022-07-21 09:11] LABS: ALBUMIN 2.2 g/dl (3.4-5.0); BLOOD UREA NITROGEN 36.3 mg/dL (7-18)
[2022-07-21 09:14] LABS: CREATININE 1.5 mg/dL (0.55-1.3)
[2022-07-21 09:15] LABS: TOT PROT 5.9 g/dl (6.4-8.2)
[2022-07-21 09:16] LABS: BILIRUBIN,TOTAL 0.1 mg/dL (0.2-1)
[2022-07-21] MEDS: PANTOPRAZOLE 40 MG TABLET PO SCH (10:40)
[2022-07-21] MEDS: metoPROLOL SUCCINATE 25 MG TAB.SR.24H (FP) PO SCH (10:40)
[2022-07-21] MEDS: ASPIRIN COATED 81 MG TABLET.EC PO SCH (10:40)
[2022-07-21] MEDS: HEPARIN NA (PORCINE) 5,000 UNITS/ML 1ML VIAL SQ SCH ×2 (10:40→22:28)
[2022-07-21] MEDS: PREGABALIN 50 MG CAPSULE PO SCH ×2 (10:40→22:29)
[2022-07-21] MEDS: PRAMIPEXOLE DIHYDROCHLORIDE 1 MG TABLET PO SCH ×4 (11:05→22:29)
[2022-07-21] MEDS: VENLAFAXINE HCL 150 MG E.R. CAPSULE PO SCH (11:06)
[2022-07-21] MEDS ORDERED: RACEPINEPHRINE IH SOL 2.25% 11.25 MG/0.5 ML VIAL NEB ONE (11:49)
[2022-07-21] MEDS: ALBUTEROL SO4 2.5/IPRATROPIUM 0.5 INH SOL 3 ML VIAL.NEB. NEB PRN ×2 (14:44→20:56)
[2022-07-21] MEDS: CEFTRIAXONE 1 GM in DEXTROSE 5%-WATER - 50 ML IVPB SCH (18:26)
[2022-07-21] MEDS: ATORVASTATIN CA 40 MG TABLET (FP) PO SCH (22:29)
[2022-07-22] MEDS: INSULIN (LEVEMIR) 100 UNITS/ML UNITS SQ SCH ×2 (08:00→22:30)
[2022-07-22] MEDS: INSULIN SLIDING SCALE (NOVOLOG) 1 VIAL SQ SCH ×4 (08:00→22:30)
[2022-07-22] MEDS: PREGABALIN 50 MG CAPSULE PO SCH ×2 (10:23→22:30)
[2022-07-22] MEDS: metoPROLOL SUCCINATE 25 MG TAB.SR.24H (FP) PO SCH (10:23)
[2022-07-22] MEDS: PANTOPRAZOLE 40 MG TABLET PO SCH (10:23)
[2022-07-22] MEDS: CEFTRIAXONE 1 GM in DEXTROSE 5%-WATER - 50 ML IVPB SCH (10:24)
[2022-07-22] MEDS: ASPIRIN COATED 81 MG TABLET.EC PO SCH (10:24)
[2022-07-22] MEDS: PRAMIPEXOLE DIHYDROCHLORIDE 1 MG TABLET PO SCH ×4 (10:24→22:30)
[2022-07-22] MEDS: VENLAFAXINE HCL 150 MG E.R. CAPSULE PO SCH (10:25)
[2022-07-22] MEDS: HEPARIN NA (PORCINE) 5,000 UNITS/ML 1ML VIAL SQ SCH ×2 (10:25→22:30)
[2022-07-22] MEDS: ACETAMINOPHEN 325 MG TABLET (FP) PO PRN (10:46)
[2022-07-22] MEDS: ALBUTEROL SO4 2.5/IPRATROPIUM 0.5 INH SOL 3 ML VIAL.NEB. NEB PRN (18:40)
[2022-07-22] MEDS: ATORVASTATIN CA 40 MG TABLET (FP) PO SCH (22:30)
[2022-07-23] MEDS: INSULIN (LEVEMIR) 100 UNITS/ML UNITS SQ SCH ×2 (06:05→21:43)
[2022-07-23] MEDS: INSULIN SLIDING SCALE (NOVOLOG) 1 VIAL SQ SCH ×4 (06:59→21:42)
[2022-07-23 08:45] LABS: BASO % 1.1 % (0-2.0); EOS % 4.9 % (0-4.5); HEMATOCRIT 27.9 % (32.4-45.2); HEMOGLOBIN 9.2 GM/dL (10.7-15.3); LYMPH % 30.8 % (8-40); MCH 27.4 pg (25.7-33.7); MCHC 33.2 g/dl (32.0-36.0); MEAN CELL VOLUME 82.7 fl (80-96); MEAN PLT VOLUME 8.4 fl (7.5-11.1); MONO % 10.2 % (3.8-10.2); PLATELET COUNT 323 10^3/uL (134-434); RBC 3.37 M/mm3 (3.60-5.2); RDW 14.1 % (11.6-15.6); WHITE BLOOD COUNT 6.4 K/mm3 (4.0-10.0)
[2022-07-23 09:49] LABS: BLOOD UREA NITROGEN 33.4 mg/dL (7-18); CALCIUM 8.9 mg/dL (8.5-10.1)
[2022-07-23 09:50] LABS: ALBUMIN 2.4 g/dl (3.4-5.0)
[2022-07-23 09:51] LABS: TOT PROT 6.4 g/dl (6.4-8.2)
[2022-07-23 09:52] LABS: BILIRUBIN,TOTAL 0.1 mg/dL (0.2-1); CREATININE 1.3 mg/dL (0.55-1.3)
[2022-07-23] MEDS: metoPROLOL SUCCINATE 25 MG TAB.SR.24H (FP) PO SCH (10:47)
[2022-07-23] MEDS: HEPARIN NA (PORCINE) 5,000 UNITS/ML 1ML VIAL SQ SCH (10:47)
[2022-07-23] MEDS: PRAMIPEXOLE DIHYDROCHLORIDE 1 MG TABLET PO SCH ×4 (10:47→21:35)
[2022-07-23] MEDS: PREGABALIN 50 MG CAPSULE PO SCH ×2 (10:47→21:35)
[2022-07-23] MEDS: ASPIRIN COATED 81 MG TABLET.EC PO SCH (10:47)
[2022-07-23] MEDS: PANTOPRAZOLE 40 MG TABLET PO SCH (10:47)
[2022-07-23] MEDS: VENLAFAXINE HCL 150 MG E.R. CAPSULE PO SCH (10:47)
[2022-07-23] MEDS: CEFTRIAXONE 1 GM in DEXTROSE 5%-WATER - 50 ML IVPB SCH (10:48)
[2022-07-23] MEDS ORDERED: SODIUM ZIRCONIUM CYCLOSILICATE (LOKELMA) 5 GM PACKET PO SCH (14:15)
[2022-07-23] MEDS ORDERED: POLYETHYLENE GLYCOL (HEALTHYLAX) 3350 17 GM PACKET PO PRN (16:39)
[2022-07-23] MEDS: ATORVASTATIN CA 40 MG TABLET (FP) PO SCH (21:34)
[2022-07-23 22:14] VITALS: RESP 18
[2022-07-24] MEDS: INSULIN (LEVEMIR) 100 UNITS/ML UNITS SQ SCH ×3 (06:39→09:15)
[2022-07-24] MEDS: INSULIN SLIDING SCALE (NOVOLOG) 1 VIAL SQ SCH ×3 (06:41→11:40)
[2022-07-24] MEDS: PREGABALIN 50 MG CAPSULE PO SCH (09:39)
[2022-07-24] MEDS: PANTOPRAZOLE 40 MG TABLET PO SCH (09:39)
[2022-07-24] MEDS: metoPROLOL SUCCINATE 25 MG TAB.SR.24H (FP) PO SCH (09:39)
[2022-07-24] MEDS: ASPIRIN COATED 81 MG TABLET.EC PO SCH (09:39)
[2022-07-24] MEDS: PRAMIPEXOLE DIHYDROCHLORIDE 1 MG TABLET PO SCH ×2 (09:40→13:13)
[2022-07-24] MEDS: CEFTRIAXONE 1 GM in DEXTROSE 5%-WATER - 50 ML IVPB SCH (09:40)
[2022-07-24] MEDS ORDERED: VENLAFAXINE HCL 75 MG E.R. CAPSULES PO SCH (10:00)
[2022-07-24 15:06] VITALS: BP 138/79; PULSE 75; TEMP 98
== END 2022-07-24 14:21 | disposition home or self-care (01) | DRG 683 ==
LOC: JERFT 14:53 → UNDOADMOB 18:21 → JERBED 18:21 → INTOOBSV 18:21 → JERBED 22:46 → J8W 22:46 → JERBED 07-18 11:21 → J8W 07-18 11:21 → OBSVTOIN 07-20 09:15
PROVIDERS: ADMIT Internal Medicine; ATTEND Internal Medicine
PROC: 0Y9N0ZX Drainage of Left Foot, Open Approach, Diagnostic (ICD-10-PCS; principal; 2022-07-19)
DX: N17.9 Acute kidney failure, unspecified (principal); L02.612 Cutaneous abscess of left foot; L03.116 Cellulitis of left lower limb; L97.528 Non-pressure chronic ulcer of other part of left foot with other specified severity; I25.10 Atherosclerotic heart disease of native coronary artery without angina pectoris; E78.5 Hyperlipidemia, unspecified; G20 Parkinson's disease; M47.816 Spondylosis without myelopathy or radiculopathy, lumbar region; E87.5 Hyperkalemia; F32.9 Major depressive disorder, single episode, unspecified; E11.51 Type 2 diabetes mellitus with diabetic peripheral angiopathy without gangrene; E11.40 Type 2 diabetes mellitus with diabetic neuropathy, unspecified; E11.65 Type 2 diabetes mellitus with hyperglycemia; E11.621 Type 2 diabetes mellitus with foot ulcer; B95.61 Methicillin susceptible Staphylococcus aureus infection as the cause of diseases classified elsewhere; I12.9 Hypertensive chronic kidney disease with stage 1 through stage 4 chronic kidney disease, or unspecified chronic kidney disease; E11.22 Type 2 diabetes mellitus with diabetic chronic kidney disease; N18.9 Chronic kidney disease, unspecified; R06.1 Stridor; Z95.5 Presence of coronary angioplasty implant and graft
CPT/HCPCS: 36415; 72131-TC; 73630-TC-LT; 73718-TC-LT; 80048; 80053; 81003; 82962; 83036; 85025; 87070; 87086; 87186; 87205; 93005; 93010; 94640; 97116-GP; 97161-GP; 99285-25; C9803-CS; G0378; J1644; U0003; U0005

== ENCOUNTER 2022-10-01 09:23 | Observation (INO) | payer OTHER ==
[2022-10-01] MEDS ORDERED: SODIUM CHLORIDE 0.9% 500 ML INFUS.BAG IV ONE ×2 (10:08→12:31)
[2022-10-01 11:57] LABS: BASO % 0.6 % (0-2.0); HEMATOCRIT 34.8 % (32.4-45.2); HEMOGLOBIN 11.6 GM/dL (10.7-15.3); LYMPH % 18.2 % (8-40); MCH 26.6 pg (25.7-33.7); MCHC 33.3 g/dl (32.0-36.0); MEAN CELL VOLUME 80.1 fl (80-96); MONO % 8.1 % (3.8-10.2); NEUT % 72.1 % (42.8-82.8); PLATELET COUNT 267 10^3/uL (134-434); RBC 4.34 M/mm3 (3.60-5.2); RDW 13.4 % (11.6-15.6); WHITE BLOOD COUNT 7.2 K/mm3 (4.0-10.0)
[2022-10-01 12:20] LABS: POTASSIUM 4.3 mmol/L (3.5-5.1)
[2022-10-01 12:22] LABS: ALBUMIN 2.9 g/dl (3.4-5.0); CALCIUM 8.4 mg/dL (8.5-10.1)
[2022-10-01 12:23] LABS: BLOOD UREA NITROGEN 55.6 mg/dL (7-18); MAGNESIUM 2.6 mg/dL (1.8-2.4)
[2022-10-01 12:25] LABS: CREATININE 2.6 mg/dL (0.55-1.3)
[2022-10-01 12:26] LABS: BILIRUBIN,TOTAL 0.3 mg/dL (0.2-1)
[2022-10-01 12:27] LABS: TOT PROT 6.7 g/dl (6.4-8.2)
[2022-10-01] MEDS ORDERED: SODIUM CHLORIDE 1,000 ML IV SCH (14:45)
[2022-10-01 18:52] VITALS: BMI 34.3
[2022-10-01] MEDS ORDERED: INSULIN (NOVOLOG) ASPART 100 UNITS/ML 10ML VIAL SQ ONE (19:00)
[2022-10-01 19:19] LABS: EPI CELLS 33 /uL (0-25.1); HYALINE CASTS 0 /uL (0-3.1); PH,URINE 6.5 (5.0-8.0); URINE APPEARANCE CLEAR; URINE BACTERIA 1371 /uL (0-1359); URINE BILIRUBIN NEGATIVE (NEGATIVE); URINE COLOR YELLOW; URINE GLUCOSE (UA) 3+ (NEGATIVE); URINE KETONE NEGATIVE (NEGATIVE); URINE LEUK ESTERASE NEGATIVE (NEGATIVE); URINE NITRITE NEGATIVE (NEGATIVE); URINE PROTEIN 2+ (NEGATIVE); URINE RBC 10 /uL (0-23.9); URINE UROBILINOGEN 0.2 mg/dL (0.2-1.0); URINE WBC 42 /uL (0-25.8)
[2022-10-01 20:44] LABS: GLUCOSE,RANDOM 563 mg/dL (74-106)
[2022-10-01] MEDS: INSULIN (LEVEMIR) 100 UNITS/ML UNITS SQ SCH (22:06)
[2022-10-01] MEDS: ATORVASTATIN CA 40 MG TABLET (FP) PO SCH (22:07)
[2022-10-01] MEDS: PRAMIPEXOLE DIHYDROCHLORIDE 1 MG TABLET PO SCH (22:07)
[2022-10-01] MEDS: CARBIDOPA/LEVODOPA 10/100 TABLET (FP) PO SCH (22:08)
[2022-10-01] MEDS ORDERED: INSULIN (NOVOLOG) ASPART 100 UNITS/ML 10ML VIAL ONE (22:17)
[2022-10-01] MEDS: INSULIN SLIDING SCALE (NOVOLOG) 1 VIAL SQ SCH (22:19)
[2022-10-02] MEDS ORDERED: INSULIN (NOVOLOG) ASPART 100 UNITS/ML 10ML VIAL ONE ×3 (06:21→21:34)
[2022-10-02] MEDS: INSULIN SLIDING SCALE (NOVOLOG) 1 VIAL SQ SCH ×4 (06:22→21:36)
[2022-10-02] MEDS: CARBIDOPA/LEVODOPA 10/100 TABLET (FP) PO SCH ×2 (06:22→13:56)
[2022-10-02 09:17] LABS: BASO % 0.8 % (0-2.0); EOS % 2.1 % (0-4.5); HEMATOCRIT 33.1 % (32.4-45.2); HEMOGLOBIN 11.4 GM/dL (10.7-15.3); LYMPH % 26.9 % (8-40); MCH 27.4 pg (25.7-33.7); MCHC 34.4 g/dl (32.0-36.0); MEAN CELL VOLUME 79.4 fl (80-96); MEAN PLT VOLUME 9.8 fl (7.5-11.1); MONO % 6.9 % (3.8-10.2); NEUT % 63.3 % (42.8-82.8); PLATELET COUNT 250 10^3/uL (134-434); RBC 4.17 M/mm3 (3.60-5.2); RDW 13.5 % (11.6-15.6); WHITE BLOOD COUNT 5.5 K/mm3 (4.0-10.0)
[2022-10-02] MEDS: CLOPIDOGREL BISULFATE 75 MG TABLET (FP) PO SCH (09:21)
[2022-10-02] MEDS: INSULIN (LEVEMIR) 100 UNITS/ML UNITS SQ SCH ×2 (09:21→21:37)
[2022-10-02] MEDS: VENLAFAXINE HCL 75 MG E.R. CAPSULES PO SCH (09:21)
[2022-10-02] MEDS: ENOXAPARIN NA (PORCINE) 40 MG/0.4 ML DISP.SYRIN SQ SCH (09:21)
[2022-10-02 09:46] LABS: POTASSIUM 3.8 mmol/L (3.5-5.1)
[2022-10-02 10:00] LABS: ALBUMIN 2.8 g/dl (3.4-5.0); BLOOD UREA NITROGEN 39.3 mg/dL (7-18)
[2022-10-02] MEDS ORDERED: PRAMIPEXOLE DIHYDROCHLORIDE 1 MG TABLET PO SCH (10:00)
[2022-10-02 10:01] LABS: CREATININE 1.5 mg/dL (0.55-1.3)
[2022-10-02 10:02] LABS: BILIRUBIN,TOTAL 0.2 mg/dL (0.2-1); TOT PROT 6.4 g/dl (6.4-8.2)
[2022-10-02] MEDS ORDERED: INSULIN (LEVEMIR) 100 UNITS/ML UNITS SQ ONE (10:23)
[2022-10-02] MEDS ORDERED: IMMUN GLOB G(IGG)/PRO/IGA 0-50 600 ML IVPB SCH (20:45)
[2022-10-02] MEDS ORDERED: IMMUN GLOB G(IGG)/PRO/IGA 0-50 600 ML IVPB ONE (20:55)
[2022-10-02] MEDS: TOPIRAMATE 25 MG TABLET PO SCH (21:35)
[2022-10-02] MEDS: ATORVASTATIN CA 40 MG TABLET (FP) PO SCH (21:35)
[2022-10-02] MEDS: PRAMIPEXOLE DIHYDROCHLORIDE 1 MG TABLET PO SCH (21:36)
[2022-10-02] MEDS ORDERED: CARBIDOPA/LEVODOPA 25/100 TABLET (FP) PO SCH (22:00)
[2022-10-03] MEDS ORDERED: INSULIN (LEVEMIR) 100 UNITS/ML UNITS SQ SCH ×2 (00:37→22:00)
[2022-10-03] MEDS: INSULIN SLIDING SCALE (NOVOLOG) 1 VIAL SQ SCH ×4 (06:23→22:19)
[2022-10-03] MEDS: INSULIN (NOVOLOG) ASPART 100 UNITS/ML 10ML VIAL SQ SCH ×3 (06:23→18:01)
[2022-10-03] MEDS: PRAMIPEXOLE DIHYDROCHLORIDE 0.5 MG TABLET PO SCH ×3 (06:24→18:13)
[2022-10-03] MEDS ORDERED: PRAMIPEXOLE DIHYDROCHLORIDE 1 MG TABLET PO SCH (07:00)
[2022-10-03] MEDS: ENOXAPARIN NA (PORCINE) 40 MG/0.4 ML DISP.SYRIN SQ SCH (10:19)
[2022-10-03] MEDS: VENLAFAXINE HCL 75 MG E.R. CAPSULES PO SCH (10:19)
[2022-10-03] MEDS: CLOPIDOGREL BISULFATE 75 MG TABLET (FP) PO SCH (10:19)
[2022-10-03] MEDS: TOPIRAMATE 25 MG TABLET PO SCH ×2 (10:19→22:11)
[2022-10-03] MEDS ORDERED: FUROSEMIDE 40 MG/4 ML INJECTABLE VIAL IVPUSH ONE ×2 (14:00→16:30)
[2022-10-03] MEDS ORDERED: ONDANSETRON 4 MG/2 ML VIAL IVPUSH PRN (15:13)
[2022-10-03] MEDS ORDERED: INSULIN (NOVOLOG) ASPART 100 UNITS/ML 10ML VIAL ONE ×2 (17:58→22:50)
[2022-10-03 22:01] VITALS: RESP 20
[2022-10-03] MEDS: ATORVASTATIN CA 40 MG TABLET (FP) PO SCH (22:11)
[2022-10-03] MEDS: INSULIN (LEVEMIR) 100 UNITS/ML UNITS SQ SCH (22:11)
[2022-10-03] MEDS: PRAMIPEXOLE DIHYDROCHLORIDE 1 MG TABLET PO SCH (22:13)
[2022-10-04] MEDS: PRAMIPEXOLE DIHYDROCHLORIDE 0.5 MG TABLET PO SCH ×2 (06:18→13:20)
[2022-10-04] MEDS: INSULIN (LEVEMIR) 100 UNITS/ML UNITS SQ SCH (06:25)
[2022-10-04] MEDS: INSULIN (NOVOLOG) ASPART 100 UNITS/ML 10ML VIAL SQ SCH ×2 (06:25→12:21)
[2022-10-04] MEDS: INSULIN SLIDING SCALE (NOVOLOG) 1 VIAL SQ SCH ×2 (06:26→12:22)
[2022-10-04] MEDS: CLOPIDOGREL BISULFATE 75 MG TABLET (FP) PO SCH (11:16)
[2022-10-04] MEDS: ENOXAPARIN NA (PORCINE) 40 MG/0.4 ML DISP.SYRIN SQ SCH (11:16)
[2022-10-04] MEDS: TOPIRAMATE 25 MG TABLET PO SCH (11:16)
[2022-10-04] MEDS: VENLAFAXINE HCL 75 MG E.R. CAPSULES PO SCH (11:16)
[2022-10-04 15:06] VITALS: BP 119/72; PULSE 68; TEMP 98.4
== END 2022-10-04 15:40 ==
LOC: JER 09:23 → JERBED 12:31 → OBSVTOIN 12:31 → INTOOBSV 12:31 → UNDOADMOB 12:31 → J8W 17:57 → JERBED 17:57 → J8W 10-02 14:56 → JERBED 10-02 14:56
PROVIDERS: ADMIT Internal Medicine; ATTEND Internal Medicine
PROC: 3E033GC Introduction of Other Therapeutic Substance into Peripheral Vein, Percutaneous Approach (ICD-10-PCS; principal; 2022-10-02)
PROC: 3E033GC Introduction of Other Therapeutic Substance into Peripheral Vein, Percutaneous Approach (ICD-10-PCS; 2022-10-02)
PROC: 3E013VG Introduction of Insulin into Subcutaneous Tissue, Percutaneous Approach (ICD-10-PCS; 2022-10-02)
DX: N17.9 Acute kidney failure, unspecified (principal); E11.42 Type 2 diabetes mellitus with diabetic polyneuropathy; I10 Essential (primary) hypertension; E87.1 Hypo-osmolality and hyponatremia; R07.9 Chest pain, unspecified; R26.81 Unsteadiness on feet; E66.01 Morbid (severe) obesity due to excess calories; R53.1 Weakness; Z68.34 Body mass index [BMI] 34.0-34.9, adult; Z79.4 Long term (current) use of insulin
CPT/HCPCS: 0241U-QW; 36415; 70450-TC; 71045-TC-FY; 72125-TC; 73630-TC-RT-FY; 80053; 81003; 82010; 82436; 82570; 82947; 82962; 83036; 83735; 84100; 84133; 84300; 84484; 85025; 87086; 93005; 93010; 97116-GP; 97161-GP; 99285-25; G0378; J1459

== ENCOUNTER 2022-10-30 20:58 | Observation (INO) | payer OTHER ==
[2022-10-30 21:22] VITALS: BMI 34.1
[2022-10-30 23:45] LABS: BASO % 0.6 % (0-2.0); EOS % 2.6 % (0-4.5); EPI CELLS 5 /uL (0-25.1); HEMATOCRIT 36.8 % (32.4-45.2); HYALINE CASTS 0 /uL (0-3.1); LYMPH % 32.5 % (8-40); MCH 26.3 pg (25.7-33.7); MCHC 32.5 g/dl (32.0-36.0); MEAN CELL VOLUME 80.7 fl (80-96); MEAN PLT VOLUME 9.5 fl (7.5-11.1); MONO % 8.1 % (3.8-10.2); NEUT % 56.2 % (42.8-82.8); PLATELET COUNT 364 10^3/uL (134-434); RBC 4.56 M/mm3 (3.60-5.2); RDW 14.6 % (11.6-15.6); URINE APPEARANCE CLEAR; URINE BACTERIA 423 /uL (0-1359); URINE BILIRUBIN NEGATIVE (NEGATIVE); URINE COLOR YELLOW; URINE GLUCOSE (UA) 3+ (NEGATIVE); URINE KETONE NEGATIVE (NEGATIVE); URINE LEUK ESTERASE NEGATIVE (NEGATIVE); URINE NITRITE NEGATIVE (NEGATIVE); URINE PROTEIN 3+ (NEGATIVE); URINE RBC 15 /uL (0-23.9); URINE UROBILINOGEN 0.2 mg/dL (0.2-1.0); URINE WBC 5 /uL (0-25.8)
[2022-10-30 23:46] LABS: VENOUS BASE EXCESS -0.9 mmol/L (-2-2); VENOUS O2 SATURATION 20.1 % (70-80); VENOUS PCO2 61.4 mmHg (38-52); VENOUS PH 7.266 (7.310-7.410)
[2022-10-30 23:53] LABS: INR 0.9 (0.83-1.09); PROTHROMBIN TIME (PATIENT) 10.5 SEC (9.7-13.0)
[2022-10-30 23:56] LABS: ACTIVATED PTT 31.1 SECONDS (25.2-36.5)
[2022-10-31 00:06] LABS: CALCIUM 9.4 mg/dL (8.5-10.1)
[2022-10-31 00:07] LABS: ALBUMIN 3.3 g/dl (3.4-5.0); BLOOD UREA NITROGEN 42.2 mg/dL (7-18); MAGNESIUM 2.7 mg/dL (1.8-2.4)
[2022-10-31 00:10] LABS: CREATININE 1.6 mg/dL (0.55-1.3)
[2022-10-31 00:11] LABS: BILIRUBIN,TOTAL 0.2 mg/dL (0.2-1); TOT PROT 7.7 g/dl (6.4-8.2)
[2022-10-31 00:15] LABS: N-TERMINAL BNP 549.7 pg/ml (5-125)
[2022-10-31] MEDS ORDERED: ASPIRIN 81 MG CHEWABLE TABLETS PO ONE (02:44)
[2022-10-31] MEDS ORDERED: ASPIRIN 81 MG CHEWABLE TABLETS ONE (02:56)
[2022-10-31] MEDS ORDERED: LYRICA PO SCH (09:30)
[2022-10-31] MEDS: INSULIN SLIDING SCALE (NOVOLOG) 1 VIAL SQ SCH ×3 (09:34→21:21)
[2022-10-31] MEDS ORDERED: VENLAFAXINE HCL 150 MG E.R. CAPSULE PO SCH (10:00)
[2022-10-31] MEDS ORDERED: PREGABALIN 100 MG CAPSULE ONE (10:27)
[2022-10-31] MEDS ORDERED: PREGABALIN 50 MG CAPSULE ONE (10:27)
[2022-10-31] MEDS ORDERED: VENLAFAXINE HCL 75 MG TABLET ONE (10:27)
[2022-10-31] MEDS: CLOPIDOGREL BISULFATE 75 MG TABLET (FP) PO SCH (10:35)
[2022-10-31] MEDS: LOSARTAN POTASSIUM 25 MG TABLET PO SCH (10:35)
[2022-10-31] MEDS: ENOXAPARIN NA (PORCINE) 40 MG/0.4 ML DISP.SYRIN SQ SCH (10:35)
[2022-10-31] MEDS ORDERED: FUROSEMIDE 40 MG/4 ML INJECTABLE VIAL IVPUSH ONE ×2 (11:00→18:50)
[2022-10-31] MEDS: PREGABALIN 75 MG CAPSULE PO SCH ×2 (11:23→23:00)
[2022-10-31] MEDS ORDERED: FUROSEMIDE 40 MG/4 ML INJECTABLE VIAL ONE (11:25)
[2022-10-31] MEDS ORDERED: CARBIDOPA/LEVODOPA 25/100 TABLET (FP) ONE (11:25)
[2022-10-31] MEDS: PRAMIPEXOLE DIHYDROCHLORIDE 0.5 MG TABLET PO SCH ×2 (17:42→21:10)
[2022-10-31] MEDS: ROSUVASTATIN CA 10 MG TABLET PO SCH (21:08)
[2022-10-31] MEDS ORDERED: INSULIN (NOVOLOG) ASPART 100 UNITS/ML 10ML VIAL ONE (21:18)
[2022-10-31] MEDS: PRAMIPEXOLE DIHYDROCHLORIDE 1 MG TABLET PO SCH (21:38)
[2022-11-01] MEDS ORDERED: INSULIN (NOVOLOG) ASPART 100 UNITS/ML 10ML VIAL ONE ×4 (06:16→21:27)
[2022-11-01] MEDS: INSULIN SLIDING SCALE (NOVOLOG) 1 VIAL SQ SCH ×5 (06:17→21:30)
[2022-11-01] MEDS: PRAMIPEXOLE DIHYDROCHLORIDE 0.5 MG TABLET PO SCH ×3 (06:18→21:33)
[2022-11-01 07:41] LABS: BASO % 0.6 % (0-2.0); EOS % 2.4 % (0-4.5); HEMATOCRIT 31.8 % (32.4-45.2); HEMOGLOBIN 10.8 GM/dL (10.7-15.3); LYMPH % 26.8 % (8-40); MCH 27.3 pg (25.7-33.7); MCHC 34.1 g/dl (32.0-36.0); MEAN PLT VOLUME 10.4 fl (7.5-11.1); MONO % 9.2 % (3.8-10.2); PLATELET COUNT 304 10^3/uL (134-434); RBC 3.98 M/mm3 (3.60-5.2); RDW 14.9 % (11.6-15.6); WHITE BLOOD COUNT 6.3 K/mm3 (4.0-10.0)
[2022-11-01 08:08] LABS: POTASSIUM 4.5 mmol/L (3.5-5.1)
[2022-11-01 08:42] LABS: CALCIUM 9.2 mg/dL (8.5-10.1)
[2022-11-01 08:43] LABS: BLOOD UREA NITROGEN 45.4 mg/dL (7-18)
[2022-11-01 08:46] LABS: CREATININE 1.7 mg/dL (0.55-1.3)
[2022-11-01 08:47] LABS: BILIRUBIN,TOTAL 0.3 mg/dL (0.2-1); TOT PROT 6.3 g/dl (6.4-8.2)
[2022-11-01 08:50] LABS: ALBUMIN 2.6 g/dl (3.4-5.0)
[2022-11-01] MEDS: ENOXAPARIN NA (PORCINE) 40 MG/0.4 ML DISP.SYRIN SQ SCH (09:17)
[2022-11-01] MEDS: CLOPIDOGREL BISULFATE 75 MG TABLET (FP) PO SCH (09:18)
[2022-11-01] MEDS: LOSARTAN POTASSIUM 25 MG TABLET PO SCH (09:18)
[2022-11-01] MEDS: VENLAFAXINE HCL 75 MG E.R. CAPSULES PO SCH (09:22)
[2022-11-01] MEDS: PREGABALIN 75 MG CAPSULE PO SCH ×2 (11:16→23:37)
[2022-11-01 20:18] VITALS: RESP 18
[2022-11-01] MEDS: ROSUVASTATIN CA 10 MG TABLET PO SCH (21:30)
[2022-11-01] MEDS: PRAMIPEXOLE DIHYDROCHLORIDE 1 MG TABLET PO SCH (21:31)
[2022-11-02] MEDS ORDERED: ACETAMINOPHEN 325 MG TABLET (FP) PO ONE ×2 (01:10)
[2022-11-02] MEDS: INSULIN SLIDING SCALE (NOVOLOG) 1 VIAL SQ SCH ×2 (06:34→11:23)
[2022-11-02] MEDS: PRAMIPEXOLE DIHYDROCHLORIDE 0.5 MG TABLET PO SCH ×2 (06:34→14:00)
[2022-11-02 07:32] LABS: POTASSIUM 5.5 mmol/L (3.5-5.1)
[2022-11-02 07:37] LABS: ALBUMIN 2.8 g/dl (3.4-5.0)
[2022-11-02 07:39] LABS: CREATININE 1.8 mg/dL (0.55-1.3)
[2022-11-02 07:41] LABS: BILIRUBIN,TOTAL 0.6 mg/dL (0.2-1); TOT PROT 6.5 g/dl (6.4-8.2)
[2022-11-02 08:35] VITALS: BP 129/79; PULSE 78; TEMP 98
[2022-11-02] MEDS: SODIUM ZIRCONIUM CYCLOSILICATE (LOKELMA) 5 GM PACKET PO SCH ×2 (09:07→10:09)
[2022-11-02] MEDS ORDERED: metoPROLOL SUCCINATE 25 MG TAB.SR.24H (FP) PO SCH (10:00)
[2022-11-02] MEDS: VENLAFAXINE HCL 75 MG E.R. CAPSULES PO SCH (10:07)
[2022-11-02] MEDS: ENOXAPARIN NA (PORCINE) 40 MG/0.4 ML DISP.SYRIN SQ SCH (10:08)
[2022-11-02] MEDS: CLOPIDOGREL BISULFATE 75 MG TABLET (FP) PO SCH (10:08)
[2022-11-02] MEDS ORDERED: INSULIN (NOVOLOG) ASPART 100 UNITS/ML 10ML VIAL ONE (11:19)
[2022-11-02] MEDS: PREGABALIN 75 MG CAPSULE PO SCH (11:23)
== END 2022-11-02 15:27 | disposition home or self-care (01) ==
LOC: JER 20:58 → UNDOADMOB 22:59 → JERBED 22:59 → INTOOBSV 10-31 09:21 → OBSVTOIN 10-31 09:21 → JERBED 10-31 10:39 → J4W 10-31 16:04
PROVIDERS: ADMIT Internal Medicine; ATTEND Internal Medicine
PROC: 3E023GC Introduction of Other Therapeutic Substance into Muscle, Percutaneous Approach (ICD-10-PCS; principal; 2022-10-31)
PROC: 3E033GC Introduction of Other Therapeutic Substance into Peripheral Vein, Percutaneous Approach (ICD-10-PCS; 2022-10-31)
PROC: 3E013VG Introduction of Insulin into Subcutaneous Tissue, Percutaneous Approach (ICD-10-PCS; 2022-10-31)
DX: E11.65 Type 2 diabetes mellitus with hyperglycemia (principal); I25.10 Atherosclerotic heart disease of native coronary artery without angina pectoris; G47.33 Obstructive sleep apnea (adult) (pediatric); R07.9 Chest pain, unspecified; I73.9 Peripheral vascular disease, unspecified; E66.01 Morbid (severe) obesity due to excess calories; Z68.34 Body mass index [BMI] 34.0-34.9, adult; I11.0 Hypertensive heart disease with heart failure; I50.9 Heart failure, unspecified; E78.5 Hyperlipidemia, unspecified; G20 Parkinson's disease; F32.A Depression, unspecified; N18.9 Chronic kidney disease, unspecified
CPT/HCPCS: 0241U-QW; 36415; 71045-TC-FY; 80053; 81003; 82010; 82550; 82553; 82803; 82962; 83036; 83690; 83735; 83880; 84484; 85025; 85610; 85730; 87086; 93005; 93010; 96372; 96375; 96376; 99285-25; G0378

== ENCOUNTER 2022-11-26 15:42 | Observation (INO) | payer OTHER ==
[2022-11-26] MEDS ORDERED: INSULIN REGULAR HUMAN 100 UNITS/ML *VIAL* (FOR IVP) IVPUSH ONE (16:45)
[2022-11-26] MEDS ORDERED: SODIUM CHLORIDE 0.9% 500 ML INFUS.BAG IV ONE (16:47)
[2022-11-26] MEDS ORDERED: ONDANSETRON 4 MG/2 ML VIAL IVPB ONE (16:47)
[2022-11-26] MEDS ORDERED: ONDANSETRON 4 MG/2 ML VIAL ONE (16:58)
[2022-11-26] MEDS ORDERED: INSULIN REGULAR HUMAN 100 UNITS/ML *VIAL ONE (16:59)
[2022-11-26 17:19] LABS: BASO % 0.7 % (0-2.0); EOS % 0.5 % (0-4.5); HEMOGLOBIN 11.4 GM/dL (10.7-15.3); LYMPH % 17.6 % (8-40); MCH 26.2 pg (25.7-33.7); MCHC 32.7 g/dl (32.0-36.0); MEAN CELL VOLUME 80.1 fl (80-96); MEAN PLT VOLUME 9.5 fl (7.5-11.1); MONO % 6.4 % (3.8-10.2); NEUT % 74.8 % (42.8-82.8); PLATELET COUNT 290 10^3/uL (134-434); RBC 4.36 M/mm3 (3.60-5.2); RDW 14.7 % (11.6-15.6); VENOUS BASE EXCESS 3.2 mmol/L (-2-2); VENOUS O2 SATURATION 60.1 % (70-80); VENOUS PCO2 46.7 mmHg (38-52); VENOUS PH 7.404 (7.310-7.410); WHITE BLOOD COUNT 9.2 K/mm3 (4.0-10.0)
[2022-11-26] MEDS ORDERED: ACETAMINOPHEN 1000 MG/100 ML BAG IVPB ONE (17:19)
[2022-11-26] MEDS ORDERED: ACETAMINOPHEN INJECTION 100 ML IVPB ONE (17:28)
[2022-11-26 17:37] LABS: POTASSIUM 5.2 mmol/L (3.5-5.1)
[2022-11-26 17:40] LABS: CALCIUM 9.3 mg/dL (8.5-10.1)
[2022-11-26 17:41] LABS: BLOOD UREA NITROGEN 37.3 mg/dL (7-18)
[2022-11-26 17:43] LABS: CREATININE 1.5 mg/dL (0.55-1.3)
[2022-11-26 17:45] LABS: BILIRUBIN,TOTAL 0.4 mg/dL (0.2-1)
[2022-11-26 18:11] LABS: ACTIVATED PTT 24.3 SECONDS (25.2-36.5); INR 0.92 (0.83-1.09); PROTHROMBIN TIME (PATIENT) 10.7 SEC (9.7-13.0)
[2022-11-26 20:46] LABS: EPI CELLS 13 /uL (0-25.1); HYALINE CASTS 0 /uL (0-3.1); PH,URINE 5.5 (5.0-8.0); URINE APPEARANCE CLEAR; URINE BACTERIA 8612 /uL (0-1359); URINE BILIRUBIN NEGATIVE (NEGATIVE); URINE COLOR YELLOW; URINE GLUCOSE (UA) 3+ (NEGATIVE); URINE KETONE NEGATIVE (NEGATIVE); URINE LEUK ESTERASE NEGATIVE (NEGATIVE); URINE NITRITE NEGATIVE (NEGATIVE); URINE PROTEIN 3+ (NEGATIVE); URINE RBC 7 /uL (0-23.9); URINE WBC 38 /uL (0-25.8)
[2022-11-26] MEDS ORDERED: CEFTRIAXONE 1 GM in DEXTROSE 5%-WATER - 100 ML IVPB ONE (20:56)
[2022-11-26] MEDS ORDERED: morphine SULFATE 4 MG/ML VIAL IVPUSH ONE (21:11)
[2022-11-26] MEDS ORDERED: CEFTRIAXONE 1 GM/50 ML BAG ONE (21:36)
[2022-11-26] MEDS ORDERED: TRIMETHOBENZAMIDE HCL 200MG/2ML INJ IM ONE ×2 (21:42→21:44)
[2022-11-26 22:40] LABS: MAGNESIUM 2.7 mg/dL (1.8-2.4)
[2022-11-26 22:44] LABS: PHOSPHOROUS 3.4 mg/dL (2.5-4.9)
[2022-11-27 02:22] VITALS: BMI 31.6
[2022-11-27] MEDS ORDERED: PATIENT'S OWN MEDICATION (NON-FORMULARY) (Insulin Nph Hum/Reg Insulin Hm [Humulin 70/30 Kw SQ SCH (06:00)
[2022-11-27] MEDS ORDERED: INSULIN (NOVOLOG MIX 70/30) 100 UNITS/ML MDV SQ ONE ×2 (06:04→22:12)
[2022-11-27] MEDS ORDERED: INSULIN (NOVOLOG) ASPART 100 UNITS/ML 10ML VIAL ONE ×3 (06:08→16:47)
[2022-11-27] MEDS: INSULIN SLIDING SCALE (NOVOLOG) 1 VIAL SQ SCH ×4 (06:15→22:17)
[2022-11-27] MEDS: PRAMIPEXOLE DIHYDROCHLORIDE 0.5 MG TABLET PO SCH ×3 (06:15→22:16)
[2022-11-27] MEDS: METOCLOPRAMIDE HCL 10 MG TABLET (FP) PO SCH ×3 (06:16→16:50)
[2022-11-27 07:29] LABS: BASO % 0.5 % (0-2.0); EOS % 2.7 % (0-4.5); HEMATOCRIT 34.8 % (32.4-45.2); HEMOGLOBIN 11.4 GM/dL (10.7-15.3); LYMPH % 27.8 % (8-40); MCH 26.8 pg (25.7-33.7); MCHC 32.8 g/dl (32.0-36.0); MEAN CELL VOLUME 81.7 fl (80-96); MEAN PLT VOLUME 10.1 fl (7.5-11.1); MONO % 5.9 % (3.8-10.2); NEUT % 63.1 % (42.8-82.8); PLATELET COUNT 287 10^3/uL (134-434); RBC 4.26 M/mm3 (3.60-5.2); RDW 14.3 % (11.6-15.6); WHITE BLOOD COUNT 7.7 K/mm3 (4.0-10.0)
[2022-11-27 07:36] LABS: POTASSIUM 3.8 mmol/L (3.5-5.1)
[2022-11-27 07:41] LABS: CALCIUM 9.4 mg/dL (8.5-10.1)
[2022-11-27 07:42] LABS: ALBUMIN 2.8 g/dl (3.4-5.0); BLOOD UREA NITROGEN 29.7 mg/dL (7-18)
[2022-11-27 07:44] LABS: CREATININE 1.3 mg/dL (0.55-1.3)
[2022-11-27 07:46] LABS: BILIRUBIN,TOTAL 0.3 mg/dL (0.2-1); TOT PROT 6.4 g/dl (6.4-8.2)
[2022-11-27] MEDS: CLOPIDOGREL BISULFATE 75 MG TABLET (FP) PO SCH (09:42)
[2022-11-27] MEDS: FUROSEMIDE 40 MG TABLET (FP) PO SCH ×2 (09:43→22:16)
[2022-11-27] MEDS: ENOXAPARIN NA (PORCINE) 40 MG/0.4 ML DISP.SYRIN SQ SCH (09:43)
[2022-11-27] MEDS: CEFTRIAXONE 1 GM in DEXTROSE 5%-WATER - 50 ML IVPB SCH (09:43)
[2022-11-27] MEDS: metoPROLOL SUCCINATE 25 MG TAB.SR.24H (FP) PO SCH (09:43)
[2022-11-27] MEDS ORDERED: VENLAFAXINE HCL 150 MG E.R. CAPSULE PO SCH (10:00)
[2022-11-27] MEDS: VENLAFAXINE HCL 75 MG E.R. CAPSULES PO SCH (10:37)
[2022-11-27] MEDS: PREGABALIN 75 MG CAPSULE PO SCH ×3 (11:07→22:19)
[2022-11-27] MEDS: INSULIN (NOVOLOG MIX 70/30) 100 UNITS/ML MDV SQ SCH (16:49)
[2022-11-27] MEDS ORDERED: ROSUVASTATIN CA 10 MG TABLET PO SCH (22:00)
[2022-11-27] MEDS ORDERED: PRAMIPEXOLE DIHYDROCHLORIDE 1 MG TABLET PO SCH (22:00)
[2022-11-28] MEDS: INSULIN (NOVOLOG MIX 70/30) 100 UNITS/ML MDV SQ SCH ×2 (06:07→11:11)
[2022-11-28] MEDS: INSULIN SLIDING SCALE (NOVOLOG) 1 VIAL SQ SCH ×2 (06:07→11:12)
[2022-11-28] MEDS: PRAMIPEXOLE DIHYDROCHLORIDE 0.5 MG TABLET PO SCH ×2 (06:07→12:59)
[2022-11-28] MEDS: METOCLOPRAMIDE HCL 10 MG TABLET (FP) PO SCH ×2 (06:07→11:15)
[2022-11-28 06:40] VITALS: RESP 20
[2022-11-28] MEDS: FUROSEMIDE 40 MG TABLET (FP) PO SCH (09:01)
[2022-11-28] MEDS: ENOXAPARIN NA (PORCINE) 40 MG/0.4 ML DISP.SYRIN SQ SCH (09:01)
[2022-11-28] MEDS: metoPROLOL SUCCINATE 25 MG TAB.SR.24H (FP) PO SCH (09:01)
[2022-11-28] MEDS: CLOPIDOGREL BISULFATE 75 MG TABLET (FP) PO SCH (09:01)
[2022-11-28] MEDS: VENLAFAXINE HCL 75 MG E.R. CAPSULES PO SCH (09:02)
[2022-11-28] MEDS: CEFTRIAXONE 1 GM in DEXTROSE 5%-WATER - 50 ML IVPB SCH (09:02)
[2022-11-28] MEDS ORDERED: INSULIN (NOVOLOG) ASPART 100 UNITS/ML 10ML VIAL ONE (11:04)
[2022-11-28] MEDS: PREGABALIN 75 MG CAPSULE PO SCH (11:13)
[2022-11-28 14:59] VITALS: BP 147/73; PULSE 74; TEMP 98.2
== END 2022-11-28 15:45 | disposition home health service (06) ==
LOC: JER 15:42 → JERBED 22:01 → UNDOADMOB 22:01 → OBSVTOIN 23:13 → INTOOBSV 23:13 → J4W 11-27 02:15 → JERBED 11-27 02:15 → J4W 11-28 10:48 → JERBED 11-28 10:48
PROVIDERS: ADMIT Internal Medicine; ATTEND Internal Medicine
PROC: 3E033NZ Introduction of Analgesics, Hypnotics, Sedatives into Peripheral Vein, Percutaneous Approach (ICD-10-PCS; principal; 2022-11-28)
PROC: 3E03329 Introduction of Other Anti-infective into Peripheral Vein, Percutaneous Approach (ICD-10-PCS; 2022-11-28)
PROC: 3E023GC Introduction of Other Therapeutic Substance into Muscle, Percutaneous Approach (ICD-10-PCS; 2022-11-28)
PROC: 3E013VG Introduction of Insulin into Subcutaneous Tissue, Percutaneous Approach (ICD-10-PCS; 2022-11-28)
PROC: 3E033NZ Introduction of Analgesics, Hypnotics, Sedatives into Peripheral Vein, Percutaneous Approach (ICD-10-PCS; 2022-11-28)
DX: N17.9 Acute kidney failure, unspecified (principal); I25.10 Atherosclerotic heart disease of native coronary artery without angina pectoris; I11.0 Hypertensive heart disease with heart failure; E78.5 Hyperlipidemia, unspecified; I12.9 Hypertensive chronic kidney disease with stage 1 through stage 4 chronic kidney disease, or unspecified chronic kidney disease; E11.22 Type 2 diabetes mellitus with diabetic chronic kidney disease; N18.9 Chronic kidney disease, unspecified
CPT/HCPCS: 36415; 74177-TC; 80053; 81003; 82010; 82803; 82962; 83036; 83605; 83735; 84100; 84443; 84484; 85025; 85610; 85730; 87086; 93005; 93010; 96365; 96366; 96372; 96375; 99285-25; G0378

== ENCOUNTER 2023-01-08 02:23 | Inpatient (IN) | payer OTHER ==
[2023-01-08] MEDS ORDERED: SODIUM CHLORIDE 0.9% 500 ML INFUS.BAG IV ONE ×2 (02:50→04:49)
[2023-01-08 03:15] LABS: EOS % 1.4 % (0-4.5); HEMATOCRIT 32.1 % (32.4-45.2); HEMOGLOBIN 10.7 GM/dL (10.7-15.3); LYMPH % 24.2 % (8-40); MCHC 33.2 g/dl (32.0-36.0); MEAN CELL VOLUME 81.1 fl (80-96); MEAN PLT VOLUME 9.6 fl (7.5-11.1); MONO % 6.9 % (3.8-10.2); NEUT % 66.5 % (42.8-82.8); PLATELET COUNT 260 10^3/uL (134-434); RBC 3.96 M/mm3 (3.60-5.2); RDW 14.4 % (11.6-15.6)
[2023-01-08 03:49] LABS: VENOUS BASE EXCESS -4.1 mmol/L (-2-2); VENOUS O2 SATURATION 55.4 % (70-80); VENOUS PCO2 42.1 mmHg (38-52); VENOUS PH 7.329 (7.310-7.410)
[2023-01-08 03:51] LABS: CHLORIDE 102 mmol/L (98-107); POTASSIUM 4.6 mmol/L (3.5-5.1); SODIUM 138 mmol/L (136-145)
[2023-01-08 03:53] LABS: CALCIUM 8.8 mg/dL (8.5-10.1)
[2023-01-08 03:54] LABS: ANION GAP 9 MMOL/L (8-16); BLOOD UREA NITROGEN 32.6 mg/dL (7-18); CO2 27 mmol/L (21-32)
[2023-01-08 03:56] LABS: SGPT/ALT 10 U/L (13-61)
[2023-01-08 03:57] LABS: CREATININE 1.6 mg/dL (0.55-1.3); SGOT/AST 10 U/L (15-37)
[2023-01-08 03:58] LABS: BILIRUBIN,TOTAL 0.3 mg/dL (0.2-1); TOT PROT 6.4 g/dl (6.4-8.2)
[2023-01-08 03:59] LABS: ALK PHOS 128 U/L (45-117)
[2023-01-08 04:18] LABS: GLUCOSE,RANDOM 441 mg/dL (74-106)
[2023-01-08] MEDS ORDERED: INSULIN (NOVOLOG MIX 70/30) 100 UNITS/ML MDV SQ ONE (05:09)
[2023-01-08] MEDS ORDERED: ONDANSETRON 4 MG/2 ML VIAL IVPUSH ONE (06:14)
[2023-01-08] MEDS ORDERED: ONDANSETRON 4 MG/2 ML VIAL ONE (06:16)
[2023-01-08 06:40] LABS: EPI CELLS >36 /uL (0-25.1); HYALINE CASTS 1 /uL (0-3.1); URINE APPEARANCE CLEAR; URINE BACTERIA 3411 /uL (0-1359); URINE BILIRUBIN NEGATIVE (NEGATIVE); URINE COLOR YELLOW; URINE GLUCOSE (UA) 3+ (NEGATIVE); URINE KETONE TRACE (NEGATIVE); URINE LEUK ESTERASE 1+ (NEGATIVE); URINE NITRITE NEGATIVE (NEGATIVE); URINE PROTEIN 3+ (NEGATIVE); URINE RBC 14 /uL (0-23.9); URINE UROBILINOGEN 0.2 mg/dL (0.2-1.0); URINE WBC 536 /uL (0-25.8)
[2023-01-08 11:26] VITALS: BMI 34.0
[2023-01-08] MEDS ORDERED: FUROSEMIDE 40 MG TABLET (FP) PO SCH (11:30)
[2023-01-08] MEDS ORDERED: VENLAFAXINE HCL 150 MG E.R. CAPSULE PO SCH (12:30)
[2023-01-08 12:34] LABS: EPI CELLS 4 /uL (0-25.1); HYALINE CASTS 0 /uL (0-3.1); PH,URINE 7.5 (5.0-8.0); URINE APPEARANCE CLEAR; URINE BACTERIA 1114 /uL (0-1359); URINE BILIRUBIN NEGATIVE (NEGATIVE); URINE COLOR YELLOW; URINE GLUCOSE (UA) 3+ (NEGATIVE); URINE KETONE TRACE (NEGATIVE); URINE LEUK ESTERASE NEGATIVE (NEGATIVE); URINE NITRITE NEGATIVE (NEGATIVE); URINE PROTEIN 3+ (NEGATIVE); URINE RBC 10 /uL (0-23.9); URINE UROBILINOGEN 0.2 mg/dL (0.2-1.0); URINE WBC 2 /uL (0-25.8)
[2023-01-08] MEDS: metoPROLOL SUCCINATE 25 MG TAB.SR.24H (FP) PO SCH (12:48)
[2023-01-08] MEDS: PREGABALIN 75 MG CAPSULE PO SCH ×2 (12:48→23:09)
[2023-01-08] MEDS: CLOPIDOGREL BISULFATE 75 MG TABLET (FP) PO SCH (12:48)
[2023-01-08] MEDS: VENLAFAXINE HCL 75 MG E.R. CAPSULES PO SCH (12:48)
[2023-01-08] MEDS: ONDANSETRON 4 MG/2 ML VIAL IVPUSH PRN ×2 (12:51→21:53)
[2023-01-08] MEDS: CEFTRIAXONE 1 GM in DEXTROSE 5%-WATER - 50 ML IVPB SCH (12:51)
[2023-01-08] MEDS: PRAMIPEXOLE DIHYDROCHLORIDE 0.5 MG TABLET PO SCH ×2 (14:51→21:29)
[2023-01-08] MEDS ORDERED: SODIUM CHLORIDE 0.45% 1,000 ML IV SCH (16:00)
[2023-01-08] MEDS: INSULIN SLIDING SCALE (NOVOLOG) 1 VIAL SQ SCH ×2 (16:39→21:31)
[2023-01-08] MEDS: ACETAMINOPHEN 325 MG TABLET (FP) PO PRN (17:42)
[2023-01-08] MEDS ORDERED: INSULIN (NOVOLOG) ASPART 100 UNITS/ML 10ML VIAL ONE (21:17)
[2023-01-08] MEDS: INSULIN (LEVEMIR) 100 UNITS/ML UNITS SQ SCH (21:27)
[2023-01-08] MEDS: HEPARIN NA (PORCINE) 5,000 UNITS/ML 1ML VIAL SQ SCH (21:27)
[2023-01-08] MEDS: ROSUVASTATIN CA 10 MG TABLET PO SCH (21:27)
[2023-01-08] MEDS: PRAMIPEXOLE DIHYDROCHLORIDE 1 MG TABLET PO SCH (21:29)
[2023-01-08] MEDS ORDERED: ROSUVASTATIN CALCIUM 10 MG PO SCH (22:00)
[2023-01-09] MEDS: PRAMIPEXOLE DIHYDROCHLORIDE 0.5 MG TABLET PO SCH ×3 (06:27→16:05)
[2023-01-09] MEDS: INSULIN SLIDING SCALE (NOVOLOG) 1 VIAL SQ SCH ×4 (06:47→23:27)
[2023-01-09] MEDS: ONDANSETRON 4 MG/2 ML VIAL IVPUSH PRN (06:56)
[2023-01-09] MEDS: PREGABALIN 75 MG CAPSULE PO SCH (11:35)
[2023-01-09] MEDS: VENLAFAXINE HCL 75 MG E.R. CAPSULES PO SCH (11:35)
[2023-01-09] MEDS: HEPARIN NA (PORCINE) 5,000 UNITS/ML 1ML VIAL SQ SCH ×2 (11:36→22:52)
[2023-01-09] MEDS: CLOPIDOGREL BISULFATE 75 MG TABLET (FP) PO SCH (11:36)
[2023-01-09] MEDS: metoPROLOL SUCCINATE 25 MG TAB.SR.24H (FP) PO SCH (11:37)
[2023-01-09] MEDS: PIPERACILLIN/TAZOB 3.375 GM 3.375 GM in DEXTROSE 5%-WATER - 50 ML IVPB SCH ×2 (13:30→17:23)
[2023-01-09] MEDS: CEFTRIAXONE 1 GM in DEXTROSE 5%-WATER - 50 ML IVPB SCH (13:35)
[2023-01-09] MEDS: ACETAMINOPHEN 325 MG TABLET (FP) PO PRN (16:12)
[2023-01-09] MEDS: INSULIN (LEVEMIR) 100 UNITS/ML UNITS SQ SCH (22:52)
[2023-01-09] MEDS: PRAMIPEXOLE DIHYDROCHLORIDE 1 MG TABLET PO SCH (22:55)
[2023-01-09] MEDS: ROSUVASTATIN CA 10 MG TABLET PO SCH (22:56)
[2023-01-10] MEDS: PREGABALIN 75 MG CAPSULE PO SCH ×3 (00:30→22:32)
[2023-01-10] MEDS: PIPERACILLIN/TAZOB 3.375 GM 3.375 GM in DEXTROSE 5%-WATER - 50 ML IVPB SCH ×3 (01:45→17:21)
[2023-01-10] MEDS: INSULIN SLIDING SCALE (NOVOLOG) 1 VIAL SQ SCH ×4 (06:42→22:02)
[2023-01-10] MEDS: PRAMIPEXOLE DIHYDROCHLORIDE 0.5 MG TABLET PO SCH ×3 (07:39→17:21)
[2023-01-10] MEDS ORDERED: PIPERACILLIN/TAZOBACTAM 3.375 GM VIAL IVPB ONE (09:41)
[2023-01-10] MEDS: VENLAFAXINE HCL 75 MG E.R. CAPSULES PO SCH (09:49)
[2023-01-10] MEDS: HEPARIN NA (PORCINE) 5,000 UNITS/ML 1ML VIAL SQ SCH ×2 (09:50→21:56)
[2023-01-10] MEDS: CLOPIDOGREL BISULFATE 75 MG TABLET (FP) PO SCH (09:50)
[2023-01-10 10:23] LABS: AMYLASE 62 U/L (25-115); LIPASE 84 U/L (73-393)
[2023-01-10] MEDS: metoPROLOL SUCCINATE 25 MG TAB.SR.24H (FP) PO SCH (11:14)
[2023-01-10] MEDS ORDERED: INSULIN (NOVOLOG) ASPART 100 UNITS/ML 10ML VIAL ONE (11:36)
[2023-01-10] MEDS: ROSUVASTATIN CA 10 MG TABLET PO SCH (21:56)
[2023-01-10] MEDS: INSULIN (LEVEMIR) 100 UNITS/ML UNITS SQ SCH (21:58)
[2023-01-10] MEDS: PRAMIPEXOLE DIHYDROCHLORIDE 1 MG TABLET PO SCH (22:55)
[2023-01-11] MEDS: PIPERACILLIN/TAZOB 3.375 GM 3.375 GM in DEXTROSE 5%-WATER - 50 ML IVPB SCH ×3 (01:49→17:02)
[2023-01-11] MEDS: INSULIN SLIDING SCALE (NOVOLOG) 1 VIAL SQ SCH ×4 (06:03→22:35)
[2023-01-11] MEDS: PRAMIPEXOLE DIHYDROCHLORIDE 0.5 MG TABLET PO SCH ×3 (06:07→16:47)
[2023-01-11 08:21] LABS: BASO % 0.6 % (0-2.0); EOS % 2.8 % (0-4.5); HEMATOCRIT 35.2 % (32.4-45.2); HEMOGLOBIN 11.3 GM/dL (10.7-15.3); LYMPH % 19.7 % (8-40); MCH 26.8 pg (25.7-33.7); MEAN CELL VOLUME 83.5 fl (80-96); MEAN PLT VOLUME 9.6 fl (7.5-11.1); MONO % 9.5 % (3.8-10.2); NEUT % 67.4 % (42.8-82.8); PLATELET COUNT 300 10^3/uL (134-434); RBC 4.22 M/mm3 (3.60-5.2); RDW 14.5 % (11.6-15.6); WHITE BLOOD COUNT 8.9 K/mm3 (4.0-10.0)
[2023-01-11 08:35] LABS: POTASSIUM 3.9 mmol/L (3.5-5.1)
[2023-01-11 08:39] LABS: BLOOD UREA NITROGEN 25.2 mg/dL (7-18); CALCIUM 8.9 mg/dL (8.5-10.1)
[2023-01-11 08:42] LABS: CREATININE 2.2 mg/dL (0.55-1.3)
[2023-01-11 08:44] LABS: BILIRUBIN,TOTAL 0.3 mg/dL (0.2-1); TOT PROT 6.7 g/dl (6.4-8.2)
[2023-01-11] MEDS: CLOPIDOGREL BISULFATE 75 MG TABLET (FP) PO SCH (09:08)
[2023-01-11] MEDS: VENLAFAXINE HCL 75 MG E.R. CAPSULES PO SCH (09:09)
[2023-01-11] MEDS: HEPARIN NA (PORCINE) 5,000 UNITS/ML 1ML VIAL SQ SCH ×2 (09:10→22:23)
[2023-01-11] MEDS: metoPROLOL SUCCINATE 25 MG TAB.SR.24H (FP) PO SCH (10:34)
[2023-01-11] MEDS: PREGABALIN 75 MG CAPSULE PO SCH ×2 (11:55→22:31)
[2023-01-11] MEDS ORDERED: SODIUM CHLORIDE 0.45% 1,000 ML IV SCH (14:30)
[2023-01-11] MEDS ORDERED: INSULIN (NOVOLOG) ASPART 100 UNITS/ML 10ML VIAL ONE (16:40)
[2023-01-11] MEDS: ROSUVASTATIN CA 10 MG TABLET PO SCH (22:23)
[2023-01-11] MEDS: PRAMIPEXOLE DIHYDROCHLORIDE 1 MG TABLET PO SCH (22:25)
[2023-01-11] MEDS: INSULIN (LEVEMIR) 100 UNITS/ML UNITS SQ SCH (22:37)
[2023-01-12] MEDS: PIPERACILLIN/TAZOB 3.375 GM 3.375 GM in DEXTROSE 5%-WATER - 50 ML IVPB SCH ×3 (01:40→16:59)
[2023-01-12] MEDS: PRAMIPEXOLE DIHYDROCHLORIDE 0.5 MG TABLET PO SCH ×3 (06:11→16:49)
[2023-01-12] MEDS: INSULIN SLIDING SCALE (NOVOLOG) 1 VIAL SQ SCH ×4 (06:31→22:11)
[2023-01-12] MEDS: metoPROLOL SUCCINATE 25 MG TAB.SR.24H (FP) PO SCH (09:23)
[2023-01-12] MEDS: VENLAFAXINE HCL 75 MG E.R. CAPSULES PO SCH (09:23)
[2023-01-12] MEDS: CLOPIDOGREL BISULFATE 75 MG TABLET (FP) PO SCH (09:24)
[2023-01-12] MEDS: HEPARIN NA (PORCINE) 5,000 UNITS/ML 1ML VIAL SQ SCH ×2 (09:24→21:42)
[2023-01-12 10:13] LABS: BASO % 0.7 % (0-2.0); HEMOGLOBIN 10.7 GM/dL (10.7-15.3); LYMPH % 28.5 % (8-40); MCH 27.4 pg (25.7-33.7); MCHC 33.6 g/dl (32.0-36.0); MEAN CELL VOLUME 81.6 fl (80-96); MEAN PLT VOLUME 9.5 fl (7.5-11.1); MONO % 9.2 % (3.8-10.2); NEUT % 57.6 % (42.8-82.8); PLATELET COUNT 260 10^3/uL (134-434); RBC 3.92 M/mm3 (3.60-5.2); RDW 14.6 % (11.6-15.6); WHITE BLOOD COUNT 7.3 K/mm3 (4.0-10.0)
[2023-01-12 10:23] LABS: CALCIUM 8.5 mg/dL (8.5-10.1)
[2023-01-12 10:24] LABS: ALBUMIN 2.7 g/dl (3.4-5.0)
[2023-01-12 10:27] LABS: CREATININE 2.3 mg/dL (0.55-1.3)
[2023-01-12 10:28] LABS: BILIRUBIN,TOTAL 0.4 mg/dL (0.2-1); TOT PROT 5.9 g/dl (6.4-8.2)
[2023-01-12] MEDS: PREGABALIN 75 MG CAPSULE PO SCH ×2 (12:24→23:17)
[2023-01-12] MEDS ORDERED: INSULIN (NOVOLOG) ASPART 100 UNITS/ML 10ML VIAL ONE (17:13)
[2023-01-12] MEDS: ROSUVASTATIN CA 10 MG TABLET PO SCH (21:42)
[2023-01-12] MEDS: PRAMIPEXOLE DIHYDROCHLORIDE 1 MG TABLET PO SCH (21:43)
[2023-01-12] MEDS: INSULIN (LEVEMIR) 100 UNITS/ML UNITS SQ SCH (21:49)
[2023-01-13] MEDS: INSULIN SLIDING SCALE (NOVOLOG) 1 VIAL SQ SCH ×4 (06:59→22:31)
[2023-01-13] MEDS: INSULIN (LEVEMIR) 100 UNITS/ML UNITS SQ SCH ×2 (07:14→22:26)
[2023-01-13] MEDS: AMOX TR/POT CLAV 500MG/125MG TABLETS (FP) PO SCH ×2 (07:56→16:34)
[2023-01-13] MEDS: PRAMIPEXOLE DIHYDROCHLORIDE 0.5 MG TABLET PO SCH ×3 (07:56→16:34)
[2023-01-13] MEDS: VENLAFAXINE HCL 75 MG E.R. CAPSULES PO SCH (09:03)
[2023-01-13] MEDS: HEPARIN NA (PORCINE) 5,000 UNITS/ML 1ML VIAL SQ SCH ×2 (09:04→22:24)
[2023-01-13] MEDS: CLOPIDOGREL BISULFATE 75 MG TABLET (FP) PO SCH (09:04)
[2023-01-13 10:33] LABS: POTASSIUM 4.5 mmol/L (3.5-5.1)
[2023-01-13 10:37] LABS: CALCIUM 8.8 mg/dL (8.5-10.1)
[2023-01-13 10:38] LABS: ALBUMIN 2.7 g/dl (3.4-5.0); BLOOD UREA NITROGEN 26.4 mg/dL (7-18)
[2023-01-13 10:41] LABS: CREATININE 1.9 mg/dL (0.55-1.3)
[2023-01-13 10:43] LABS: BILIRUBIN,TOTAL 0.4 mg/dL (0.2-1); TOT PROT 6.1 g/dl (6.4-8.2)
[2023-01-13] MEDS ORDERED: INSULIN (NOVOLOG) ASPART 100 UNITS/ML 10ML VIAL ONE (10:57)
[2023-01-13] MEDS: PREGABALIN 75 MG CAPSULE PO SCH ×2 (11:01→22:44)
[2023-01-13] MEDS: PRAMIPEXOLE DIHYDROCHLORIDE 1 MG TABLET PO SCH (22:25)
[2023-01-13] MEDS: ROSUVASTATIN CA 10 MG TABLET PO SCH (22:25)
[2023-01-14] MEDS: PRAMIPEXOLE DIHYDROCHLORIDE 0.5 MG TABLET PO SCH ×3 (06:08→16:47)
[2023-01-14] MEDS: INSULIN (LEVEMIR) 100 UNITS/ML UNITS SQ SCH ×2 (06:13→21:12)
[2023-01-14] MEDS: INSULIN SLIDING SCALE (NOVOLOG) 1 VIAL SQ SCH ×4 (06:17→21:12)
[2023-01-14] MEDS: CLOPIDOGREL BISULFATE 75 MG TABLET (FP) PO SCH (09:17)
[2023-01-14] MEDS: VENLAFAXINE HCL 75 MG E.R. CAPSULES PO SCH (09:17)
[2023-01-14] MEDS: HEPARIN NA (PORCINE) 5,000 UNITS/ML 1ML VIAL SQ SCH ×2 (09:18→21:05)
[2023-01-14] MEDS: AMOX TR/POT CLAV 500MG/125MG TABLETS (FP) PO SCH ×2 (09:18→16:47)
[2023-01-14] MEDS: ACETAMINOPHEN 325 MG TABLET (FP) PO PRN (10:05)
[2023-01-14] MEDS: PREGABALIN 75 MG CAPSULE PO SCH ×2 (11:54→23:00)
[2023-01-14] MEDS ORDERED: INSULIN (NOVOLOG) ASPART 100 UNITS/ML 10ML VIAL ONE ×2 (17:18→20:58)
[2023-01-14] MEDS: ROSUVASTATIN CA 10 MG TABLET PO SCH (21:05)
[2023-01-14] MEDS: PRAMIPEXOLE DIHYDROCHLORIDE 1 MG TABLET PO SCH (21:05)
[2023-01-15] MEDS: INSULIN (LEVEMIR) 100 UNITS/ML UNITS SQ SCH (06:23)
[2023-01-15] MEDS: INSULIN SLIDING SCALE (NOVOLOG) 1 VIAL SQ SCH ×2 (06:23→11:58)
[2023-01-15] MEDS ORDERED: INSULIN (LEVEMIR) 100 UNITS/ML UNITS SQ ONE (06:27)
[2023-01-15] MEDS ORDERED: INSULIN (NOVOLOG) ASPART 100 UNITS/ML 10ML VIAL ONE (06:28)
[2023-01-15] MEDS: ACETAMINOPHEN 325 MG TABLET (FP) PO PRN ×2 (06:44→13:47)
[2023-01-15] MEDS: AMOX TR/POT CLAV 500MG/125MG TABLETS (FP) PO SCH (08:33)
[2023-01-15] MEDS: PRAMIPEXOLE DIHYDROCHLORIDE 0.5 MG TABLET PO SCH ×2 (08:33→13:09)
[2023-01-15] MEDS: HEPARIN NA (PORCINE) 5,000 UNITS/ML 1ML VIAL SQ SCH (09:28)
[2023-01-15] MEDS: CLOPIDOGREL BISULFATE 75 MG TABLET (FP) PO SCH (09:28)
[2023-01-15] MEDS: VENLAFAXINE HCL 75 MG E.R. CAPSULES PO SCH (09:28)
[2023-01-15] MEDS ORDERED: ACETAMINOPHEN 1000 MG/100 ML BAG IVPB ONE (14:15)
[2023-01-15 14:21] VITALS: BP 155/62; PULSE 63; RESP 18; TEMP 98
== END 2023-01-15 16:36 | disposition home health service (06) | DRG 684 ==
LOC: JER 02:23 → UNDOADMOB 09:25 → INTOOBSV 09:25 → JERBED 09:25 → J6S 11:00 → JERBED 11:22 → OBSVTOIN 01-14 14:10
PROVIDERS: ADMIT Internal Medicine; ATTEND Internal Medicine
DX: N17.9 Acute kidney failure, unspecified (principal); E11.65 Type 2 diabetes mellitus with hyperglycemia; N18.9 Chronic kidney disease, unspecified; E66.9 Obesity, unspecified; Z68.34 Body mass index [BMI] 34.0-34.9, adult; G20 Parkinson's disease; E78.5 Hyperlipidemia, unspecified; I12.9 Hypertensive chronic kidney disease with stage 1 through stage 4 chronic kidney disease, or unspecified chronic kidney disease; I25.10 Atherosclerotic heart disease of native coronary artery without angina pectoris; E11.43 Type 2 diabetes mellitus with diabetic autonomic (poly)neuropathy; K31.84 Gastroparesis
CPT/HCPCS: 0241U-QW; 36415; 71045-TC-FY; 73030-TC-LT-FY; 73060-TC-LT-FY; 74176-TC; 80053; 81003; 82010; 82150; 82570; 82803; 82962; 83690; 84156; 84300; 85025; 87086; 87186; 93005; 93010; 99285-25; G0378; J1644

== ENCOUNTER 2023-04-26 14:14 | Inpatient (IN) | payer OTHER ==
[2023-04-26] MEDS ORDERED: SODIUM CHLORIDE 0.9% 500 ML INFUS.BAG IV ONE (14:53)
[2023-04-26 16:02] LABS: EPI CELLS 9 /uL (0-25.1); HYALINE CASTS 0 /uL (0-3.1); URINE APPEARANCE CLEAR; URINE BACTERIA 2425 /uL (0-1359); URINE BILIRUBIN NEGATIVE (NEGATIVE); URINE COLOR YELLOW; URINE GLUCOSE (UA) 3+ (NEGATIVE); URINE KETONE NEGATIVE (NEGATIVE); URINE LEUK ESTERASE 1+ (NEGATIVE); URINE NITRITE NEGATIVE (NEGATIVE); URINE PROTEIN 2+ (NEGATIVE); URINE RBC 9 /uL (0-23.9); URINE UROBILINOGEN 0.2 mg/dL (0.2-1.0); URINE WBC 470 /uL (0-25.8)
[2023-04-26] MEDS ORDERED: CEFTRIAXONE 1,000 MG in DEXTROSE 5%-WATER - 50 ML IVPB ONE (16:06)
[2023-04-26 16:15] LABS: BASO % 0.9 % (0-2.0); HEMATOCRIT 34.8 % (32.4-45.2); HEMOGLOBIN 11.3 GM/dL (10.7-15.3); LYMPH % 25.4 % (8-40); MCH 26.1 pg (25.7-33.7); MCHC 32.6 g/dl (32.0-36.0); MEAN CELL VOLUME 80.2 fl (80-96); MEAN PLT VOLUME 10.3 fl (7.5-11.1); MONO % 9.5 % (3.8-10.2); NEUT % 62.2 % (42.8-82.8); PLATELET COUNT 276 10^3/uL (134-434); RBC 4.34 M/mm3 (3.60-5.2); RDW 14.1 % (11.6-15.6); WHITE BLOOD COUNT 6.8 K/mm3 (4.0-10.0)
[2023-04-26 16:17] LABS: VENOUS BASE EXCESS 0.1 mmol/L (-2-2); VENOUS O2 SATURATION 49.3 % (70-80); VENOUS PH 7.292 (7.310-7.410)
[2023-04-26] MEDS ORDERED: PREGABALIN 50 MG CAPSULE ONE (16:51)
[2023-04-26] MEDS ORDERED: PREGABALIN 100 MG CAPSULE ONE (16:51)
[2023-04-26] MEDS ORDERED: CEFTRIAXONE 1 GM/50 ML BAG ONE (16:52)
[2023-04-26] MEDS ORDERED: CARBIDOPA/LEVODOPA 25/100 TABLET (FP) ONE (17:19)
[2023-04-26] MEDS: PREGABALIN 75 MG CAPSULE PO SCH (17:34)
[2023-04-26] MEDS: SODIUM CHLORIDE 0.45% 1,000 ML IV SCH (17:35)
[2023-04-26 17:56] LABS: CHLORIDE 93 mmol/L (98-107); POTASSIUM 3.8 mmol/L (3.5-5.1); SODIUM 131 mmol/L (136-145)
[2023-04-26 17:57] LABS: CALCIUM 8.3 mg/dL (8.5-10.1)
[2023-04-26 17:58] LABS: ANION GAP 11 mmol/L (4-13); BLOOD UREA NITROGEN 70.9 mg/dL (7-18); CO2 27 mmol/L (21-32)
[2023-04-26 18:00] LABS: SGOT/AST 20 U/L (15-37)
[2023-04-26 18:01] LABS: CREATININE 2.4 mg/dL (0.55-1.3); SGPT/ALT 10 U/L (13-61)
[2023-04-26 18:03] LABS: BILIRUBIN,TOTAL 0.2 mg/dL (0.2-1); TOT PROT 7.4 g/dl (6.4-8.2)
[2023-04-26 18:04] LABS: ALK PHOS 206 U/L (45-117)
[2023-04-26 18:09] LABS: GLUCOSE,RANDOM 540 mg/dL (74-106)
[2023-04-26] MEDS: PRAMIPEXOLE DIHYDROCHLORIDE 0.5 MG TABLET PO SCH (18:40)
[2023-04-26 18:51] VITALS: BMI 34.4
[2023-04-26] MEDS: ROSUVASTATIN CA 10 MG TABLET PO SCH (21:37)
[2023-04-26] MEDS: INSULIN SLIDING SCALE (NOVOLOG) 1 VIAL SQ SCH (21:51)
[2023-04-26] MEDS: INSULIN (LEVEMIR) 100 UNITS/ML UNITS SQ SCH (22:00)
[2023-04-26] MEDS: PRAMIPEXOLE DIHYDROCHLORIDE 1 MG TABLET PO SCH (22:37)
[2023-04-27] MEDS: PREGABALIN 75 MG CAPSULE PO SCH ×2 (05:24→17:57)
[2023-04-27] MEDS: PRAMIPEXOLE DIHYDROCHLORIDE 0.5 MG TABLET PO SCH ×3 (06:18→18:01)
[2023-04-27] MEDS: INSULIN SLIDING SCALE (NOVOLOG) 1 VIAL SQ SCH ×4 (06:19→22:52)
[2023-04-27] MEDS ORDERED: INSULIN (LEVEMIR) 100 UNITS/ML UNITS SQ ONE (08:19)
[2023-04-27 09:04] LABS: BASO % 0.8 % (0-2.0); EOS % 3.2 % (0-4.5); HEMATOCRIT 34.3 % (32.4-45.2); HEMOGLOBIN 10.8 GM/dL (10.7-15.3); LYMPH % 32.4 % (8-40); MCH 25.9 pg (25.7-33.7); MCHC 31.6 g/dl (32.0-36.0); MEAN CELL VOLUME 81.8 fl (80-96); MEAN PLT VOLUME 9.8 fl (7.5-11.1); MONO % 9.1 % (3.8-10.2); NEUT % 54.5 % (42.8-82.8); PLATELET COUNT 279 10^3/uL (134-434); RBC 4.19 M/mm3 (3.60-5.2); WHITE BLOOD COUNT 8.1 K/mm3 (4.0-10.0)
[2023-04-27 09:28] LABS: POTASSIUM 3.4 mmol/L (3.5-5.1)
[2023-04-27] MEDS ORDERED: VENLAFAXINE HCL 75 MG E.R. CAPSULES PO SCH (10:00)
[2023-04-27] MEDS ORDERED: FUROSEMIDE 40 MG/4 ML INJECTABLE VIAL IVPUSH SCH (10:00)
[2023-04-27] MEDS ORDERED: ENOXAPARIN NA (PORCINE) 40 MG/0.4 ML DISP.SYRIN SQ SCH (10:00)
[2023-04-27] MEDS ORDERED: CLOPIDOGREL BISULFATE 75 MG TABLET (FP) PO SCH (10:00)
[2023-04-27 10:11] LABS: MAGNESIUM 2.9 mg/dL (1.8-2.4)
[2023-04-27 10:15] LABS: PHOSPHOROUS 3.8 mg/dL (2.5-4.9)
[2023-04-27 10:21] LABS: ALBUMIN 2.8 g/dl (3.4-5.0)
[2023-04-27 10:22] LABS: CALCIUM 8.8 mg/dL (8.5-10.1)
[2023-04-27 10:27] LABS: BILIRUBIN,TOTAL 0.3 mg/dL (0.2-1); CREATININE 1.6 mg/dL (0.55-1.3); TOT PROT 6.9 g/dl (6.4-8.2)
[2023-04-27] MEDS: metoPROLOL SUCCINATE 25 MG TAB.SR.24H (FP) PO SCH (13:44)
[2023-04-27] MEDS ORDERED: INSULIN (NOVOLOG) ASPART 100 UNITS/ML 10ML VIAL ONE (15:03)
[2023-04-27] MEDS: SODIUM CHLORIDE 0.45% 1,000 ML IV SCH (17:55)
[2023-04-27] MEDS: INSULIN (LEVEMIR) 100 UNITS/ML UNITS SQ SCH (22:07)
[2023-04-27] MEDS: ROSUVASTATIN CA 10 MG TABLET PO SCH (22:51)
[2023-04-27] MEDS: PRAMIPEXOLE DIHYDROCHLORIDE 1 MG TABLET PO SCH (22:52)
[2023-04-28] MEDS ORDERED: BENZOCAINE/MENTH/CETYLPYRD CL 1 EACH LOZENGE MM PRN (02:55)
[2023-04-28] MEDS: PRAMIPEXOLE DIHYDROCHLORIDE 0.5 MG TABLET PO SCH ×3 (06:43→18:00)
[2023-04-28] MEDS: INSULIN SLIDING SCALE (NOVOLOG) 1 VIAL SQ SCH ×4 (06:51→23:13)
[2023-04-28 07:21] LABS: POTASSIUM 3.2 mmol/L (3.5-5.1)
[2023-04-28 07:23] LABS: CALCIUM 8.4 mg/dL (8.5-10.1)
[2023-04-28 07:25] LABS: BLOOD UREA NITROGEN 58.4 mg/dL (7-18)
[2023-04-28 07:28] LABS: CREATININE 1.6 mg/dL (0.55-1.3)
[2023-04-28] MEDS ORDERED: VENLAFAXINE HCL 150 MG E.R. CAPSULE PO SCH (10:00)
[2023-04-28] MEDS: CLOPIDOGREL BISULFATE 75 MG TABLET (FP) PO SCH (10:20)
[2023-04-28] MEDS: TORSEMIDE 20 MG TABLET (FP) PO SCH (10:20)
[2023-04-28] MEDS: metoPROLOL SUCCINATE 25 MG TAB.SR.24H (FP) PO SCH (10:20)
[2023-04-28] MEDS: PREGABALIN 75 MG CAPSULE PO SCH ×2 (10:20→23:35)
[2023-04-28] MEDS: ENOXAPARIN NA (PORCINE) 40 MG/0.4 ML DISP.SYRIN SQ SCH (10:20)
[2023-04-28] MEDS ORDERED: POTASSIUM CHLORIDE TABS 10 MEQ TABLET.ER (FP) PO ONE (10:45)
[2023-04-28] MEDS: VENLAFAXINE HCL 75 MG E.R. CAPSULES PO SCH (11:30)
[2023-04-28 17:05] LABS: EPI CELLS 3 /uL (0-25.1); HYALINE CASTS 1 /uL (0-3.1); PH,URINE 5.5 (5.0-8.0); URINE APPEARANCE CLEAR; URINE BACTERIA 25 /uL (0-1359); URINE BILIRUBIN NEGATIVE (NEGATIVE); URINE COLOR YELLOW; URINE GLUCOSE (UA) 2+ (NEGATIVE); URINE KETONE NEGATIVE (NEGATIVE); URINE LEUK ESTERASE NEGATIVE (NEGATIVE); URINE NITRITE NEGATIVE (NEGATIVE); URINE PROTEIN 3+ (NEGATIVE); URINE RBC 12 /uL (0-23.9); URINE UROBILINOGEN 0.2 mg/dL (0.2-1.0); URINE WBC 5 /uL (0-25.8)
[2023-04-28] MEDS: INSULIN (NOVOLOG) ASPART 100 UNITS/ML 10ML VIAL SQ SCH (18:01)
[2023-04-28] MEDS: POTASSIUM CHLORIDE ORAL LIQUID 20 MEQ/15 ML PO ONE ×2 (21:40→23:42)
[2023-04-28] MEDS ORDERED: PRAMIPEXOLE DIHYDROCHLORIDE 1 MG TABLET PO SCH (22:00)
[2023-04-28] MEDS ORDERED: ROSUVASTATIN CA 10 MG TABLET PO SCH (22:00)
[2023-04-28] MEDS: INSULIN (LEVEMIR) 100 UNITS/ML UNITS SQ SCH (23:34)
[2023-04-29] MEDS: INSULIN (LEVEMIR) 100 UNITS/ML UNITS SQ SCH (00:23)
[2023-04-29] MEDS: PRAMIPEXOLE DIHYDROCHLORIDE 0.5 MG TABLET PO SCH ×2 (06:07→12:59)
[2023-04-29] MEDS: INSULIN SLIDING SCALE (NOVOLOG) 1 VIAL SQ SCH ×2 (06:07→11:13)
[2023-04-29] MEDS: INSULIN (NOVOLOG) ASPART 100 UNITS/ML 10ML VIAL SQ SCH ×2 (06:07→11:13)
[2023-04-29] MEDS ORDERED: ACETAMINOPHEN 325 MG TABLET (FP) PO ONE (06:36)
[2023-04-29 07:58] LABS: POTASSIUM 3.5 mmol/L (3.5-5.1)
[2023-04-29 08:01] LABS: ALBUMIN 2.4 g/dl (3.4-5.0); BLOOD UREA NITROGEN 54.9 mg/dL (7-18); CALCIUM 8.3 mg/dL (8.5-10.1)
[2023-04-29 08:05] LABS: CREATININE 1.7 mg/dL (0.55-1.3)
[2023-04-29 08:06] LABS: BILIRUBIN,TOTAL 0.6 mg/dL (0.2-1); TOT PROT 6.1 g/dl (6.4-8.2)
[2023-04-29] MEDS: ENOXAPARIN NA (PORCINE) 40 MG/0.4 ML DISP.SYRIN SQ SCH (11:00)
[2023-04-29] MEDS: PREGABALIN 75 MG CAPSULE PO SCH (11:00)
[2023-04-29] MEDS: metoPROLOL SUCCINATE 25 MG TAB.SR.24H (FP) PO SCH (11:01)
[2023-04-29] MEDS: TORSEMIDE 20 MG TABLET (FP) PO SCH (11:01)
[2023-04-29] MEDS: VENLAFAXINE HCL 75 MG E.R. CAPSULES PO SCH (11:01)
[2023-04-29] MEDS ORDERED: AMOX TR/POT CLAV 500MG/125MG TABLETS (FP) PO SCH (11:45)
[2023-04-29] MEDS: CLOPIDOGREL BISULFATE 75 MG TABLET (FP) PO SCH (12:58)
[2023-04-29] MEDS ORDERED: SENNOSIDES 8.6MG TABLET (FP) PO SCH (13:15)
[2023-04-29] MEDS ORDERED: POLYETHYLENE GLYCOL (HEALTHYLAX) 3350 17 GM PACKET PO SCH (13:15)
[2023-04-29 13:33] VITALS: BP 138/71; PULSE 70; RESP 16; TEMP 98.3
== END 2023-04-29 14:01 | disposition home or self-care (01) | DRG 638 ==
LOC: JER 14:14 → JERBED 16:05 → OBSVTOIN 16:39 → J7W 18:22 → J4W 04-27 13:05
PROVIDERS: ADMIT Internal Medicine; ATTEND Internal Medicine
DX: E11.65 Type 2 diabetes mellitus with hyperglycemia (principal); I13.0 Hypertensive heart and chronic kidney disease with heart failure and stage 1 through stage 4 chronic kidney disease, or unspecified chronic kidney disease; J98.11 Atelectasis; N17.9 Acute kidney failure, unspecified; N39.0 Urinary tract infection, site not specified; I50.32 Chronic diastolic (congestive) heart failure; G25.81 Restless legs syndrome; N18.9 Chronic kidney disease, unspecified; E11.22 Type 2 diabetes mellitus with diabetic chronic kidney disease; G47.33 Obstructive sleep apnea (adult) (pediatric); I25.10 Atherosclerotic heart disease of native coronary artery without angina pectoris; E87.5 Hyperkalemia; R00.1 Bradycardia, unspecified; G20.A1 Parkinson's disease without dyskinesia, without mention of fluctuations; Z79.4 Long term (current) use of insulin; F32.A Depression, unspecified; E11.51 Type 2 diabetes mellitus with diabetic peripheral angiopathy without gangrene; E11.42 Type 2 diabetes mellitus with diabetic polyneuropathy
CPT/HCPCS: 36415; 71046-TC-FY; 80048; 80053; 81003; 82010; 82550; 82553; 82803; 82962; 83036; 83735; 83880; 84100; 84484; 85025; 87077; 87086; 93005; 93010; 93306-TC; 93970-TC; 99285-25; G0378

== ENCOUNTER 2023-06-01 16:27 | Inpatient (IN) | payer OTHER ==
[2023-06-01 18:20] LABS: BASO % 0.7 % (0-2.0); HEMATOCRIT 35.1 % (32.4-45.2); HEMOGLOBIN 11.1 GM/dL (10.7-15.3); MCH 25.7 pg (25.7-33.7); MCHC 31.6 g/dl (32.0-36.0); MEAN CELL VOLUME 81.3 fl (80-96); MEAN PLT VOLUME 9.9 fl (7.5-11.1); MONO % 6.1 % (3.8-10.2); NEUT % 67.2 % (42.8-82.8); PLATELET COUNT 287 10^3/uL (134-434); RBC 4.32 M/mm3 (3.60-5.2); RDW 14.2 % (11.6-15.6); WHITE BLOOD COUNT 7.4 K/mm3 (4.0-10.0)
[2023-06-01 18:28] LABS: PROTHROMBIN TIME (PATIENT) 11.6 SEC (9.7-13.0)
[2023-06-01 18:31] LABS: ACTIVATED PTT 31.2 SECONDS (25.2-36.5)
[2023-06-01 18:38] LABS: POTASSIUM 3.8 mmol/L (3.5-5.1)
[2023-06-01 18:41] LABS: ALBUMIN 3.1 g/dl (3.4-5.0); MAGNESIUM 3.1 mg/dL (1.8-2.4)
[2023-06-01 18:44] LABS: CREATININE 2.3 mg/dL (0.55-1.3)
[2023-06-01 18:45] LABS: BILIRUBIN,TOTAL 0.2 mg/dL (0.2-1); TOT PROT 7.4 g/dl (6.4-8.2)
[2023-06-01 18:49] LABS: N-TERMINAL BNP 1069.4 pg/ml (5-125)
[2023-06-01 19:05] LABS: EPI CELLS 5 /uL (0-25.1); HYALINE CASTS 1 /uL (0-3.1); URINE APPEARANCE CLEAR; URINE BACTERIA 8207 /uL (0-1359); URINE BILIRUBIN NEGATIVE (NEGATIVE); URINE COLOR YELLOW; URINE GLUCOSE (UA) 3+ (NEGATIVE); URINE KETONE NEGATIVE (NEGATIVE); URINE LEUK ESTERASE TRACE (NEGATIVE); URINE NITRITE NEGATIVE (NEGATIVE); URINE PROTEIN 2+ (NEGATIVE); URINE RBC 18 /uL (0-23.9); URINE UROBILINOGEN 0.2 mg/dL (0.2-1.0); URINE WBC 91 /uL (0-25.8)
[2023-06-01] MEDS ORDERED: CEFTRIAXONE 1,000 MG in DEXTROSE 5%-WATER - 50 ML IVPB ONE (19:20)
[2023-06-01] MEDS ORDERED: CEFTRIAXONE 1 GM/50 ML BAG ONE (19:29)
[2023-06-02] MEDS ORDERED: DOCUSATE SODIUM 100 MG CAPSULE (FP) PO PRN ×2 (04:45→11:15)
[2023-06-02] MEDS ORDERED: ACETAMINOPHEN 325 MG TABLET (FP) PO PRN ×2 (06:00→11:15)
[2023-06-02] MEDS: INSULIN SLIDING SCALE (NOVOLOG) 1 VIAL SQ SCH ×2 (06:29→12:07)
[2023-06-02] MEDS ORDERED: PRAMIPEXOLE DIHYDROCHLORIDE 0.5 MG TABLET PO SCH ×2 (07:00→12:00)
[2023-06-02] MEDS ORDERED: LIPASE/PROTEASE/AMYLASE 36,000 UNIT CAPSULE PO SCH ×2 (08:00→12:00)
[2023-06-02 08:55] LABS: BASO % 0.9 % (0-2.0); EOS % 2.5 % (0-4.5); HEMATOCRIT 36.3 % (32.4-45.2); HEMOGLOBIN 11.7 GM/dL (10.7-15.3); LYMPH % 26.5 % (8-40); MCHC 32.3 g/dl (32.0-36.0); MEAN CELL VOLUME 80.6 fl (80-96); MEAN PLT VOLUME 9.7 fl (7.5-11.1); MONO % 5.8 % (3.8-10.2); NEUT % 64.3 % (42.8-82.8); PLATELET COUNT 315 10^3/uL (134-434); RBC 4.51 M/mm3 (3.60-5.2); RDW 14.4 % (11.6-15.6); WHITE BLOOD COUNT 6.1 K/mm3 (4.0-10.0)
[2023-06-02 09:11] LABS: POTASSIUM 3.5 mmol/L (3.5-5.1)
[2023-06-02 09:17] LABS: CALCIUM 9.5 mg/dL (8.5-10.1)
[2023-06-02 09:18] LABS: MAGNESIUM 3.1 mg/dL (1.8-2.4)
[2023-06-02 09:19] LABS: BLOOD UREA NITROGEN 71.6 mg/dL (7-18); CREATININE 2.1 mg/dL (0.55-1.3); PHOSPHOROUS 4.3 mg/dL (2.5-4.9)
[2023-06-02] MEDS ORDERED: PREGABALIN 75 MG CAPSULE PO SCH ×2 (10:00→22:00)
[2023-06-02] MEDS ORDERED: HEPARIN NA (PORCINE) 5,000 UNITS/ML 1ML VIAL SQ SCH ×2 (10:00→22:00)
[2023-06-02] MEDS ORDERED: metoPROLOL SUCCINATE 25 MG TAB.SR.24H (FP) PO SCH (10:00)
[2023-06-02] MEDS ORDERED: POLYETHYLENE GLYCOL (HEALTHYLAX) 3350 17 GM PACKET PO SCH (10:00)
[2023-06-02] MEDS ORDERED: CLOPIDOGREL BISULFATE 75 MG TABLET (FP) PO SCH (10:00)
[2023-06-02] MEDS ORDERED: VENLAFAXINE HCL 75 MG E.R. CAPSULES PO SCH (10:00)
[2023-06-02] MEDS ORDERED: CEFTRIAXONE 1 GM in DEXTROSE 5%-WATER - 50 ML IVPB SCH (12:15)
[2023-06-02] MEDS ORDERED: TORSEMIDE 20 MG TABLET (FP) PO SCH (12:15)
[2023-06-02] MEDS ORDERED: LISINOPRIL 5 MG TABLET PO SCH (12:15)
[2023-06-02 14:13] VITALS: BP 114/70; PULSE 71; RESP 17; TEMP 97.8
[2023-06-02] MEDS ORDERED: INSULIN SLIDING SCALE (NOVOLOG) 1 VIAL SQ SCH (16:30)
[2023-06-02 17:26] VITALS: BMI 33.0
[2023-06-02] MEDS ORDERED: DOCUSATE SODIUM 100 MG CAPSULE (FP) PO SCH (22:00)
[2023-06-02] MEDS ORDERED: ROSUVASTATIN CA 10 MG TABLET PO SCH ×2 (22:00)
[2023-06-02] MEDS ORDERED: PRAMIPEXOLE DIHYDROCHLORIDE 1 MG TABLET PO SCH ×2 (22:00)
[2023-06-03] MEDS ORDERED: POLYETHYLENE GLYCOL (HEALTHYLAX) 3350 17 GM PACKET PO SCH (10:00)
[2023-06-03] MEDS ORDERED: VENLAFAXINE HCL 75 MG E.R. CAPSULES PO SCH (10:00)
[2023-06-03] MEDS ORDERED: MULTIVITAMINS (DAILY MVI) TABLET (FP) PO SCH (10:00)
[2023-06-03] MEDS ORDERED: CLOPIDOGREL BISULFATE 75 MG TABLET (FP) PO SCH (10:00)
[2023-06-03] MEDS ORDERED: metoPROLOL SUCCINATE 25 MG TAB.SR.24H (FP) PO SCH (10:00)
== END 2023-06-02 18:37 | disposition home or self-care (01) | DRG 690 ==
LOC: JER 16:27 → JERBED 19:21 → J5S 06-02 01:27 → J4S 06-02 10:17
PROVIDERS: ADMIT Internal Medicine; ATTEND Internal Medicine
DX: N39.0 Urinary tract infection, site not specified (principal); I13.0 Hypertensive heart and chronic kidney disease with heart failure and stage 1 through stage 4 chronic kidney disease, or unspecified chronic kidney disease; I50.32 Chronic diastolic (congestive) heart failure; N17.9 Acute kidney failure, unspecified; G61.81 Chronic inflammatory demyelinating polyneuritis; L03.115 Cellulitis of right lower limb; B96.20 Unspecified Escherichia coli [E. coli] as the cause of diseases classified elsewhere; G20.A1 Parkinson's disease without dyskinesia, without mention of fluctuations; I25.10 Atherosclerotic heart disease of native coronary artery without angina pectoris; E78.5 Hyperlipidemia, unspecified; F32.A Depression, unspecified; G25.81 Restless legs syndrome; E11.22 Type 2 diabetes mellitus with diabetic chronic kidney disease; N18.9 Chronic kidney disease, unspecified; E11.43 Type 2 diabetes mellitus with diabetic autonomic (poly)neuropathy; K31.84 Gastroparesis; E83.42 Hypomagnesemia; E11.40 Type 2 diabetes mellitus with diabetic neuropathy, unspecified; E87.5 Hyperkalemia; G47.33 Obstructive sleep apnea (adult) (pediatric); Z95.5 Presence of coronary angioplasty implant and graft
CPT/HCPCS: 0241U-QW; 36415; 71045-TC-FY; 80048; 80053; 81003; 82962; 83735; 83880; 84100; 84484; 85025; 85610; 85651; 85730; 86140; 87086; 87186; 93005; 93010; 93971-TC; 99285-25; J1644

== ENCOUNTER 2023-07-19 20:15 | Observation (INO) | payer OTHER ==
[2023-07-19] MEDS ORDERED: ONDANSETRON 4 MG/2 ML VIAL ONE (20:56)
[2023-07-19] MEDS ORDERED: FAMOTIDINE 20 MG/50 ML IVPB 20 MG/50 ML MG IVPB ONE (20:56)
[2023-07-19] MEDS ORDERED: ACETAMINOPHEN INJECTION 100 ML IVPB ONE (20:56)
[2023-07-19] MEDS: ACETAMINOPHEN 1000 MG/100 ML BAG IVPB ONE (21:24)
[2023-07-19] MEDS: SODIUM CHLORIDE 500 ML IV STA (21:24)
[2023-07-19] MEDS: ONDANSETRON 4 MG/2 ML VIAL IVPUSH ONE (21:24)
[2023-07-19] MEDS: FAMOTIDINE 20 MG/50 ML IVPB 20 MG/50 ML MG IVPB ONE (21:25)
[2023-07-19 21:27] LABS: BASO % 0.7 % (0-2.0); EOS % 0.8 % (0-4.5); HEMATOCRIT 38.1 % (32.4-45.2); HEMOGLOBIN 12.4 GM/dL (10.7-15.3); LYMPH % 23.3 % (8-40); MCH 26.3 pg (25.7-33.7); MCHC 32.5 g/dl (32.0-36.0); MEAN CELL VOLUME 80.9 fl (80-96); MEAN PLT VOLUME 9.4 fl (7.5-11.1); MONO % 8.4 % (3.8-10.2); NEUT % 66.8 % (42.8-82.8); PLATELET COUNT 311 10^3/uL (134-434); RBC 4.71 M/mm3 (3.60-5.2); RDW 14.5 % (11.6-15.6); WHITE BLOOD COUNT 7.7 K/mm3 (4.0-10.0)
[2023-07-19 21:34] LABS: INR 0.91 (0.83-1.09); PROTHROMBIN TIME (PATIENT) 10.6 SEC (9.7-13.0)
[2023-07-19 21:37] LABS: ACTIVATED PTT 28.2 SECONDS (25.2-36.5)
[2023-07-19 21:44] LABS: POTASSIUM 3.8 mmol/L (3.5-5.1)
[2023-07-19 21:46] LABS: CALCIUM 9.1 mg/dL (8.5-10.1)
[2023-07-19 21:47] LABS: ALBUMIN 2.8 g/dl (3.4-5.0); BLOOD UREA NITROGEN 62.8 mg/dL (7-18)
[2023-07-19 21:51] LABS: BILIRUBIN,TOTAL 0.2 mg/dL (0.2-1); TOT PROT 7.8 g/dl (6.4-8.2)
[2023-07-19 21:55] LABS: N-TERMINAL BNP 242.1 pg/ml (5-125)
[2023-07-20] MEDS: SODIUM CHLORIDE 500 ML IV STA (01:03)
[2023-07-20] MEDS ORDERED: METOCLOPRAMIDE HCL INJECTION 10 MG/2 ML VIAL ONE (01:06)
[2023-07-20] MEDS ORDERED: SIMETHICONE 80 MG TAB.CHEW (FP) ONE (01:17)
[2023-07-20] MEDS: METOCLOPRAMIDE HCL INJECTION 10 MG/2 ML VIAL IVPUSH ONE (01:20)
[2023-07-20] MEDS: DEXTROSE 5%-NORMAL SALINE 1,000 ML IV ONE (01:20)
[2023-07-20] MEDS: SIMETHICONE 80 MG TAB.CHEW (FP) PO ONE (01:20)
[2023-07-20 02:09] LABS: EPI CELLS >36 /uL (0-25.1); HYALINE CASTS 0 /uL (0-3.1); PH,URINE 5.5 (5.0-8.0); URINE APPEARANCE CLEAR; URINE BACTERIA 889 /uL (0-1359); URINE BILIRUBIN NEGATIVE (NEGATIVE); URINE COLOR YELLOW; URINE GLUCOSE (UA) 2+ (NEGATIVE); URINE KETONE NEGATIVE (NEGATIVE); URINE LEUK ESTERASE TRACE (NEGATIVE); URINE NITRITE NEGATIVE (NEGATIVE); URINE PROTEIN 3+ (NEGATIVE); URINE RBC 26 /uL (0-23.9); URINE UROBILINOGEN 0.2 mg/dL (0.2-1.0); URINE WBC 82 /uL (0-25.8)
[2023-07-20 06:46] LABS: EOS % 0.8 % (0-4.5); HEMATOCRIT 38.8 % (32.4-45.2); HEMOGLOBIN 12.5 GM/dL (10.7-15.3); LYMPH % 28.6 % (8-40); MCH 26.3 pg (25.7-33.7); MCHC 32.2 g/dl (32.0-36.0); MEAN CELL VOLUME 81.9 fl (80-96); MEAN PLT VOLUME 9.6 fl (7.5-11.1); MONO % 8.5 % (3.8-10.2); NEUT % 61.1 % (42.8-82.8); PLATELET COUNT 272 10^3/uL (134-434); RBC 4.74 M/mm3 (3.60-5.2); RDW 14.6 % (11.6-15.6); WHITE BLOOD COUNT 6.6 K/mm3 (4.0-10.0)
[2023-07-20] MEDS ORDERED: CARBIDOPA/LEVODOPA 25/100 TABLET (FP) ONE ×2 (07:48→12:29)
[2023-07-20] MEDS ORDERED: PREGABALIN 75 MG CAPSULE PO SCH (09:00)
[2023-07-20 09:14] LABS: POTASSIUM 4.3 mmol/L (3.5-5.1)
[2023-07-20 09:17] LABS: CALCIUM 8.7 mg/dL (8.5-10.1)
[2023-07-20 09:18] LABS: BLOOD UREA NITROGEN 57.5 mg/dL (7-18)
[2023-07-20 09:21] LABS: CREATININE 1.8 mg/dL (0.55-1.3)
[2023-07-20] MEDS ORDERED: PREGABALIN 50 MG CAPSULE ONE (09:40)
[2023-07-20] MEDS ORDERED: CLOPIDOGREL BISULFATE 75 MG TABLET (FP) ONE (09:41)
[2023-07-20] MEDS ORDERED: PREGABALIN 100 MG CAPSULE ONE (09:41)
[2023-07-20] MEDS ORDERED: PANTOPRAZOLE SODIUM 40 MG VIAL ONE (09:41)
[2023-07-20] MEDS: CLOPIDOGREL BISULFATE 75 MG TABLET (FP) PO SCH (09:48)
[2023-07-20] MEDS: PREGABALIN 100 MG, PREGABALIN 50 MG PO SCH (09:48)
[2023-07-20] MEDS: PANTOPRAZOLE SODIUM 40 MG VIAL IVPUSH SCH (09:48)
[2023-07-20] MEDS ORDERED: LISINOPRIL 5 MG TABLET ONE (09:51)
[2023-07-20] MEDS: LISINOPRIL 5 MG TABLET PO SCH (09:54)
[2023-07-20] MEDS: INSULIN ASPART SLIDING SCALE (NOVOLOG) 1 VIAL SQ SCH (11:47)
[2023-07-20] MEDS: PRAMIPEXOLE DIHYDROCHLORIDE 0.5 MG TABLET PO SCH (12:43)
[2023-07-20 14:42] LABS: MAGNESIUM 3.3 mg/dL (1.8-2.4)
[2023-07-20 17:42] VITALS: BMI 32.7
[2023-07-20] MEDS: ONDANSETRON 4 MG/2 ML VIAL IVPUSH PRN (17:51)
[2023-07-20] MEDS: ROSUVASTATIN CA 10 MG TABLET PO SCH (21:44)
[2023-07-20] MEDS ORDERED: INSULIN (NOVOLOG) ASPART 100 UNITS/ML 10ML VIAL ONE (22:41)
[2023-07-21 06:57] LABS: BASO % 0.7 % (0-2.0); EOS % 2.7 % (0-4.5); HEMATOCRIT 33.5 % (32.4-45.2); HEMOGLOBIN 10.6 GM/dL (10.7-15.3); LYMPH % 34.2 % (8-40); MCHC 31.6 g/dl (32.0-36.0); MEAN CELL VOLUME 82.4 fl (80-96); MEAN PLT VOLUME 9.9 fl (7.5-11.1); MONO % 9.7 % (3.8-10.2); NEUT % 52.7 % (42.8-82.8); PLATELET COUNT 246 10^3/uL (134-434); RBC 4.06 M/mm3 (3.60-5.2); RDW 14.6 % (11.6-15.6); WHITE BLOOD COUNT 5.6 K/mm3 (4.0-10.0)
[2023-07-21 07:14] LABS: POTASSIUM 4.5 mmol/L (3.5-5.1)
[2023-07-21 07:17] LABS: ALBUMIN 2.8 g/dl (3.4-5.0); BLOOD UREA NITROGEN 50.8 mg/dL (7-18)
[2023-07-21 07:20] LABS: CREATININE 1.9 mg/dL (0.55-1.3)
[2023-07-21 07:22] LABS: BILIRUBIN,TOTAL 0.3 mg/dL (0.2-1); TOT PROT 6.7 g/dl (6.4-8.2)
[2023-07-21] MEDS ORDERED: TORSEMIDE 20 MG TABLET (FP) PO SCH (10:00)
[2023-07-21] MEDS: metoPROLOL SUCCINATE 25 MG TAB.SR.24H (FP) PO SCH (11:00)
[2023-07-21] MEDS: TORSEMIDE 20 MG TABLET (FP) PO SCH (11:00)
[2023-07-21] MEDS: INSULIN (LEVEMIR) 100 UNITS/ML UNITS SQ SCH (18:27)
[2023-07-22 14:27] VITALS: BP 125/72; PULSE 76; RESP 16; TEMP 97.7
== END 2023-07-22 15:30 | disposition home or self-care (01) ==
LOC: JER 20:15 → JERBED 22:35 → J4W 07-20 17:10
PROVIDERS: ADMIT Internal Medicine; ATTEND Internal Medicine
PROC: 3E033NZ Introduction of Analgesics, Hypnotics, Sedatives into Peripheral Vein, Percutaneous Approach (ICD-10-PCS; principal; 2023-07-19)
PROC: 3E033GC Introduction of Other Therapeutic Substance into Peripheral Vein, Percutaneous Approach (ICD-10-PCS; 2023-07-19)
PROC: 3E013VG Introduction of Insulin into Subcutaneous Tissue, Percutaneous Approach (ICD-10-PCS; 2023-07-19)
PROC: 3E0337Z Introduction of Electrolytic and Water Balance Substance into Peripheral Vein, Percutaneous Approach (ICD-10-PCS; 2023-07-19)
DX: I49.3 Ventricular premature depolarization (principal); E11.43 Type 2 diabetes mellitus with diabetic autonomic (poly)neuropathy; I10 Essential (primary) hypertension; I25.10 Atherosclerotic heart disease of native coronary artery without angina pectoris; N17.9 Acute kidney failure, unspecified; E78.00 Pure hypercholesterolemia, unspecified; E11.9 Type 2 diabetes mellitus without complications; G25.81 Restless legs syndrome; G20.A1 Parkinson's disease without dyskinesia, without mention of fluctuations; Z95.5 Presence of coronary angioplasty implant and graft; E78.5 Hyperlipidemia, unspecified; Z91.148 Patient's other noncompliance with medication regimen for other reason; N18.9 Chronic kidney disease, unspecified; I11.0 Hypertensive heart disease with heart failure
CPT/HCPCS: 0241U-QW; 36415; 71045-TC-FY; 74176-TC; 76705-TC; 80048; 80053; 81003; 82962; 83036; 83605; 83690; 83735; 83880; 84484; 85025; 85610; 85730; 87086; 93005; 93010; 99285-25; G0378; J0131

== ENCOUNTER 2023-08-06 00:30 | Observation (INO) | payer OTHER ==
[2023-08-06 01:12] LABS: BASO % 0.5 % (0-2.0); EOS % 2.1 % (0-4.5); HEMATOCRIT 34.3 % (32.4-45.2); HEMOGLOBIN 11.3 GM/dL (10.7-15.3); LYMPH % 17.3 % (8-40); MCH 26.8 pg (25.7-33.7); MCHC 33.1 g/dl (32.0-36.0); MEAN CELL VOLUME 81.1 fl (80-96); MEAN PLT VOLUME 8.7 fl (7.5-11.1); MONO % 4.9 % (3.8-10.2); NEUT % 75.2 % (42.8-82.8); PLATELET COUNT 261 10^3/uL (134-434); RBC 4.23 M/mm3 (3.60-5.2); RDW 14.9 % (11.6-15.6); WHITE BLOOD COUNT 6.9 K/mm3 (4.0-10.0)
[2023-08-06 01:31] LABS: POTASSIUM 3.2 mmol/L (3.5-5.1)
[2023-08-06 01:55] LABS: ALBUMIN 2.9 g/dl (3.4-5.0); BILIRUBIN,TOTAL 0.1 mg/dL (0.2-1); BLOOD UREA NITROGEN 80.5 mg/dL (7-18); CREATININE 2.1 mg/dL (0.55-1.3); TOT PROT 7.4 g/dl (6.4-8.2)
[2023-08-06] MEDS ORDERED: POTASSIUM CHLORIDE ORAL LIQUID 20 MEQ/15 ML ONE (02:05)
[2023-08-06] MEDS: POTASSIUM CHLORIDE ORAL LIQUID 20 MEQ/15 ML PO ONE (02:37)
[2023-08-06] MEDS: SODIUM CHLORIDE 1,000 ML IV STA (02:37)
[2023-08-06 02:48] LABS: EPI CELLS >36 /uL (0-25.1); HYALINE CASTS 1 /uL (0-3.1); PH,URINE 7.5 (5.0-8.0); URINE APPEARANCE CLEAR; URINE BACTERIA 3314 /uL (0-1359); URINE BILIRUBIN NEGATIVE (NEGATIVE); URINE COLOR YELLOW; URINE GLUCOSE (UA) 1+ (NEGATIVE); URINE KETONE NEGATIVE (NEGATIVE); URINE LEUK ESTERASE TRACE (NEGATIVE); URINE NITRITE NEGATIVE (NEGATIVE); URINE PROTEIN 3+ (NEGATIVE); URINE RBC 9 /uL (0-23.9); URINE UROBILINOGEN 0.2 mg/dL (0.2-1.0); URINE WBC 43 /uL (0-25.8)
[2023-08-06] MEDS: DEXTROSE 5%-WATER - 250 ML IV SCH (05:19)
[2023-08-06] MEDS ORDERED: CARBIDOPA/LEVODOPA 25/100 TABLET (FP) ONE ×2 (06:54→06:55)
[2023-08-06] MEDS: CARBIDOPA/LEVODOPA 25/100 TABLET (FP) PO SCH (06:57)
[2023-08-06] MEDS: CLOPIDOGREL BISULFATE 75 MG TABLET (FP) PO SCH (10:30)
[2023-08-06] MEDS: metoPROLOL SUCCINATE 25 MG TAB.SR.24H (FP) PO SCH (10:30)
[2023-08-06] MEDS ORDERED: INSULIN (NOVOLOG) ASPART 100 UNITS/ML 10ML VIAL ONE ×3 (12:03→21:04)
[2023-08-06] MEDS: INSULIN ASPART SLIDING SCALE (NOVOLOG) 1 VIAL SQ SCH (12:05)
[2023-08-06 14:05] VITALS: BMI 33.7
[2023-08-06] MEDS: PRAMIPEXOLE DIHYDROCHLORIDE 0.5 MG TABLET PO SCH (21:34)
[2023-08-06] MEDS: ROSUVASTATIN CA 10 MG TABLET PO SCH (21:35)
[2023-08-07 07:45] LABS: POTASSIUM 3.8 mmol/L (3.5-5.1)
[2023-08-07 08:14] LABS: ALBUMIN 2.6 g/dl (3.4-5.0); BLOOD UREA NITROGEN 66.7 mg/dL (7-18); CALCIUM 8.4 mg/dL (8.5-10.1)
[2023-08-07 08:17] LABS: CREATININE 1.7 mg/dL (0.55-1.3)
[2023-08-07 08:19] LABS: BILIRUBIN,TOTAL 0.3 mg/dL (0.2-1); TOT PROT 6.5 g/dl (6.4-8.2)
[2023-08-07] MEDS: INSULIN ASPART SLIDING SCALE (NOVOLOG) 1 VIAL SQ SCH (11:52)
[2023-08-07] MEDS ORDERED: diphenhydrAMINE HCL 25 MG CAPSULE (FP) PO PRN ×2 (13:10→13:11)
[2023-08-07] MEDS: SODIUM CHLORIDE NASAL SPRAY 44 ML BOTTLE NS PRN (16:31)
[2023-08-07] MEDS: DOXYCYCLINE HYCLATE 100 MG CAPSULE PO SCH (17:12)
[2023-08-07] MEDS ORDERED: INSULIN (NOVOLOG) ASPART 100 UNITS/ML 10ML VIAL ONE ×2 (17:38→21:29)
[2023-08-07] MEDS: BENZOCAINE/MENTH/CETYLPYRD CL 1 EACH LOZENGE MM PRN (18:18)
[2023-08-07] MEDS: PREGABALIN 50 MG CAPSULE PO SCH (21:31)
[2023-08-07] MEDS: PRAMIPEXOLE DIHYDROCHLORIDE 1 MG TABLET PO SCH (21:31)
[2023-08-07] MEDS: INSULIN (LEVEMIR) 100 UNITS/ML UNITS SQ SCH (21:31)
[2023-08-07] MEDS ORDERED: ROSUVASTATIN CA 10 MG TABLET PO SCH (22:00)
[2023-08-07] MEDS ORDERED: metoPROLOL SUCCINATE 25 MG TAB.SR.24H (FP) PO SCH (22:00)
[2023-08-07] MEDS: guaiFENesin 200 MG/10 ML 10 ML UNIT-DOSE CUPS PO PRN (22:08)
[2023-08-08] MEDS ORDERED: INSULIN (NOVOLOG) ASPART 100 UNITS/ML 10ML VIAL ONE ×3 (06:22→16:51)
[2023-08-08] MEDS: INSULIN (LEVEMIR) 100 UNITS/ML UNITS SQ SCH (06:31)
[2023-08-08] MEDS ORDERED: PRAMIPEXOLE DIHYDROCHLORIDE 0.5 MG TABLET PO SCH (07:00)
[2023-08-08 07:42] LABS: POTASSIUM 4.1 mmol/L (3.5-5.1)
[2023-08-08 07:50] LABS: EOS % 3.9 % (0-4.5); HEMATOCRIT 31.9 % (32.4-45.2); HEMOGLOBIN 10.8 GM/dL (10.7-15.3); LYMPH % 27.7 % (8-40); MCH 27.4 pg (25.7-33.7); MEAN CELL VOLUME 80.6 fl (80-96); MEAN PLT VOLUME 9.1 fl (7.5-11.1); MONO % 10.6 % (3.8-10.2); NEUT % 56.8 % (42.8-82.8); PLATELET COUNT 244 10^3/uL (134-434); RBC 3.95 M/mm3 (3.60-5.2); RDW 15.1 % (11.6-15.6); WHITE BLOOD COUNT 6.3 K/mm3 (4.0-10.0)
[2023-08-08 08:01] LABS: CALCIUM 8.3 mg/dL (8.5-10.1)
[2023-08-08 08:02] LABS: ALBUMIN 2.7 g/dl (3.4-5.0); BLOOD UREA NITROGEN 60.8 mg/dL (7-18)
[2023-08-08 08:05] LABS: CREATININE 1.8 mg/dL (0.55-1.3)
[2023-08-08 08:06] LABS: TOT PROT 6.8 g/dl (6.4-8.2)
[2023-08-08 08:07] LABS: BILIRUBIN,TOTAL 0.3 mg/dL (0.2-1)
[2023-08-08] MEDS ORDERED: VENLAFAXINE HCL 150 MG E.R. CAPSULE PO SCH (10:00)
[2023-08-08] MEDS: LISINOPRIL 5 MG TABLET PO SCH (10:30)
[2023-08-08] MEDS: TORSEMIDE 20 MG TABLET (FP) PO SCH (10:31)
[2023-08-08] MEDS: VENLAFAXINE HCL 75 MG E.R. CAPSULES PO SCH (11:40)
[2023-08-08 19:33] VITALS: BP 120/65; PULSE 71; RESP 18; TEMP 98.6
== END 2023-08-08 19:17 | disposition home or self-care (01) ==
LOC: JER 00:30 → JERBED 04:47 → J7W 12:56
PROVIDERS: ADMIT Internal Medicine; ATTEND Internal Medicine
PROC: 3E0337Z Introduction of Electrolytic and Water Balance Substance into Peripheral Vein, Percutaneous Approach (ICD-10-PCS; principal; 2023-08-06)
PROC: 3E013VG Introduction of Insulin into Subcutaneous Tissue, Percutaneous Approach (ICD-10-PCS; 2023-08-06)
DX: R41.82 Altered mental status, unspecified (principal); E11.22 Type 2 diabetes mellitus with diabetic chronic kidney disease; I13.10 Hypertensive heart and chronic kidney disease without heart failure, with stage 1 through stage 4 chronic kidney disease, or unspecified chronic kidney disease; N18.9 Chronic kidney disease, unspecified; I50.33 Acute on chronic diastolic (congestive) heart failure; E11.649 Type 2 diabetes mellitus with hypoglycemia without coma; E78.5 Hyperlipidemia, unspecified; G20.A1 Parkinson's disease without dyskinesia, without mention of fluctuations; G61.81 Chronic inflammatory demyelinating polyneuritis; I25.10 Atherosclerotic heart disease of native coronary artery without angina pectoris; I11.0 Hypertensive heart disease with heart failure; F32.A Depression, unspecified; E11.40 Type 2 diabetes mellitus with diabetic neuropathy, unspecified; G47.33 Obstructive sleep apnea (adult) (pediatric); N39.0 Urinary tract infection, site not specified; N17.9 Acute kidney failure, unspecified; R10.84 Generalized abdominal pain; I50.9 Heart failure, unspecified
CPT/HCPCS: 36415; 71045-TC-FY; 80053; 81003; 82962; 83036; 83735; 84484; 85025; 87086; 87186; 99285-25; G0378

== ENCOUNTER 2023-08-29 13:14 | Inpatient (IN) | payer OTHER ==
[2023-08-29] MEDS ORDERED: ONDANSETRON 4 MG/2 ML VIAL ONE (15:51)
[2023-08-29] MEDS: SODIUM CHLORIDE 0.9% 500 ML INFUS.BAG IV ONE (15:57)
[2023-08-29] MEDS: ONDANSETRON 4 MG/2 ML VIAL IVPUSH ONE (15:57)
[2023-08-29 15:59] LABS: VENOUS BASE EXCESS -2.5 mmol/L (-2-2); VENOUS O2 SATURATION 28.1 % (70-80); VENOUS PCO2 45.7 mmHg (38-52); VENOUS PH 7.33 (7.310-7.410)
[2023-08-29 16:00] LABS: BASO % 0.6 % (0-2.0); EOS % 0.9 % (0-4.5); HEMOGLOBIN 11.5 GM/dL (10.7-15.3); LYMPH % 17.9 % (8-40); MCH 26.5 pg (25.7-33.7); MCHC 32.8 g/dl (32.0-36.0); MEAN PLT VOLUME 9.4 fl (7.5-11.1); MONO % 6.1 % (3.8-10.2); NEUT % 74.5 % (42.8-82.8); PLATELET COUNT 263 10^3/uL (134-434); RBC 4.32 M/mm3 (3.60-5.2); RDW 15.4 % (11.6-15.6); WHITE BLOOD COUNT 7.8 K/mm3 (4.0-10.0)
[2023-08-29 16:06] LABS: INR 1.05 (0.83-1.09); PROTHROMBIN TIME (PATIENT) 12.2 SEC (9.7-13.0)
[2023-08-29 16:20] LABS: POTASSIUM 5.3 mmol/L (3.5-5.1)
[2023-08-29 16:24] LABS: CALCIUM 9.2 mg/dL (8.5-10.1)
[2023-08-29 16:25] LABS: ALBUMIN 2.9 g/dl (3.4-5.0); BLOOD UREA NITROGEN 45.7 mg/dL (7-18)
[2023-08-29 16:28] LABS: CREATININE 1.7 mg/dL (0.55-1.3)
[2023-08-29 16:29] LABS: BILIRUBIN,TOTAL 0.3 mg/dL (0.2-1)
[2023-08-29] MEDS ORDERED: METOCLOPRAMIDE HCL INJECTION 10 MG/2 ML VIAL ONE (18:40)
[2023-08-29] MEDS: METOCLOPRAMIDE HCL INJECTION 10 MG/2 ML VIAL IVPB ONE (19:03)
[2023-08-29 21:59] LABS: POTASSIUM 4.3 mmol/L (3.5-5.1)
[2023-08-29 22:00] LABS: CALCIUM 8.8 mg/dL (8.5-10.1)
[2023-08-29 22:01] LABS: BLOOD UREA NITROGEN 42.6 mg/dL (7-18)
[2023-08-29 22:04] LABS: CREATININE 1.5 mg/dL (0.55-1.3)
[2023-08-29] MEDS ORDERED: SENNOSIDES 8.6MG TABLET (FP) PO PRN (22:08)
[2023-08-29] MEDS ORDERED: ACETAMINOPHEN 1000 MG/100 ML BAG IVPB PRN (22:12)
[2023-08-29] MEDS ORDERED: METOCLOPRAMIDE HCL INJECTION 10 MG/2 ML VIAL IVPUSH PRN (22:12)
[2023-08-29] MEDS: SODIUM CHLORIDE 0.45% 1,000 ML IV SCH (23:30)
[2023-08-30] MEDS: SODIUM CHLORIDE NASAL SPRAY 44 ML BOTTLE NS ONE (02:37)
[2023-08-30] MEDS ORDERED: SODIUM CHLORIDE 0.45% 1,000 ML IV SCH (03:10)
[2023-08-30] MEDS: SODIUM CHLORIDE 0.45% 1,000 ML IV SCH (03:53)
[2023-08-30 05:18] LABS: EPI CELLS 6 /uL (0-25.1); HYALINE CASTS 0 /uL (0-3.1); PH,URINE 5.5 (5.0-8.0); URINE APPEARANCE CLEAR; URINE BACTERIA 163 /uL (0-1359); URINE BILIRUBIN NEGATIVE (NEGATIVE); URINE COLOR YELLOW; URINE GLUCOSE (UA) 3+ (NEGATIVE); URINE KETONE 1+ (NEGATIVE); URINE LEUK ESTERASE NEGATIVE (NEGATIVE); URINE NITRITE NEGATIVE (NEGATIVE); URINE PROTEIN 3+ (NEGATIVE); URINE RBC 21 /uL (0-23.9); URINE UROBILINOGEN 0.2 mg/dL (0.2-1.0); URINE WBC 20 /uL (0-25.8)
[2023-08-30] MEDS: INSULIN ASPART SLIDING SCALE (NOVOLOG) 1 VIAL SQ SCH ×2 (06:19→22:03)
[2023-08-30] MEDS: PRAMIPEXOLE DIHYDROCHLORIDE 0.5 MG TABLET PO SCH (06:22)
[2023-08-30 08:19] LABS: BASO % 0.8 % (0-2.0); EOS % 1.2 % (0-4.5); HEMATOCRIT 35.6 % (32.4-45.2); HEMOGLOBIN 11.4 GM/dL (10.7-15.3); LYMPH % 19.1 % (8-40); MCH 26.3 pg (25.7-33.7); MEAN CELL VOLUME 82.4 fl (80-96); MEAN PLT VOLUME 9.5 fl (7.5-11.1); MONO % 6.6 % (3.8-10.2); NEUT % 72.3 % (42.8-82.8); PLATELET COUNT 240 10^3/uL (134-434); RBC 4.32 M/mm3 (3.60-5.2); RDW 15.3 % (11.6-15.6)
[2023-08-30 08:29] LABS: POTASSIUM 4.8 mmol/L (3.5-5.1)
[2023-08-30 08:33] LABS: CALCIUM 7.9 mg/dL (8.5-10.1)
[2023-08-30 08:34] LABS: MAGNESIUM 2.2 mg/dL (1.8-2.4)
[2023-08-30 08:36] LABS: CREATININE 1.4 mg/dL (0.55-1.3)
[2023-08-30] MEDS: VENLAFAXINE HCL 75 MG E.R. CAPSULES PO SCH (10:01)
[2023-08-30] MEDS: metoPROLOL SUCCINATE 25 MG TAB.SR.24H (FP) PO SCH (10:01)
[2023-08-30] MEDS: PREGABALIN 75 MG CAPSULE PO SCH (10:01)
[2023-08-30] MEDS: CLOPIDOGREL BISULFATE 75 MG TABLET (FP) PO SCH (10:01)
[2023-08-30] MEDS ORDERED: ONDANSETRON 4 MG/2 ML VIAL IVPUSH PRN (11:32)
[2023-08-30 15:30] VITALS: BMI 33.6
[2023-08-30] MEDS ORDERED: METOCLOPRAMIDE HCL 10 MG TABLET (FP) PO SCH (16:30)
[2023-08-30] MEDS ORDERED: INSULIN (NOVOLOG) ASPART 100 UNITS/ML 10ML VIAL ONE (21:29)
[2023-08-30] MEDS: ROSUVASTATIN CA 10 MG TABLET PO SCH (22:03)
[2023-08-31] MEDS ORDERED: INSULIN (NOVOLOG) ASPART 100 UNITS/ML 10ML VIAL ONE ×2 (05:23→12:01)
[2023-08-31] MEDS: ACETAMINOPHEN 325 MG TABLET (FP) PO PRN (05:32)
[2023-08-31 09:57] LABS: BASO % 0.5 % (0-2.0); EOS % 3.4 % (0-4.5); HEMATOCRIT 34.9 % (32.4-45.2); HEMOGLOBIN 11.2 GM/dL (10.7-15.3); LYMPH % 22.4 % (8-40); MCH 26.3 pg (25.7-33.7); MEAN CELL VOLUME 82.1 fl (80-96); MEAN PLT VOLUME 9.3 fl (7.5-11.1); MONO % 8.9 % (3.8-10.2); NEUT % 64.8 % (42.8-82.8); PLATELET COUNT 239 10^3/uL (134-434); RBC 4.25 M/mm3 (3.60-5.2); RDW 15.3 % (11.6-15.6); WHITE BLOOD COUNT 7.3 K/mm3 (4.0-10.0)
[2023-08-31 10:01] VITALS: RESP 20
[2023-08-31] MEDS: TORSEMIDE 20 MG TABLET (FP) PO SCH (10:02)
[2023-08-31 10:18] LABS: POTASSIUM 4.4 mmol/L (3.5-5.1)
[2023-08-31 10:20] LABS: CALCIUM 8.4 mg/dL (8.5-10.1)
[2023-08-31 10:21] LABS: ALBUMIN 2.5 g/dl (3.4-5.0); BLOOD UREA NITROGEN 30.5 mg/dL (7-18)
[2023-08-31 10:24] LABS: CREATININE 1.3 mg/dL (0.55-1.3)
[2023-08-31 10:25] LABS: BILIRUBIN,TOTAL 0.3 mg/dL (0.2-1)
[2023-08-31] MEDS: LIPASE/PROTEASE/AMYLASE 36,000 UNIT CAPSULE PO SCH (18:11)
[2023-09-01 10:53] VITALS: BP 158/77; PULSE 70; TEMP 98.6
[2023-09-01] MEDS ORDERED: INSULIN (NOVOLOG) ASPART 100 UNITS/ML 10ML VIAL ONE (11:58)
== END 2023-09-01 14:07 | disposition home health service (06) | DRG 74 ==
LOC: JER 13:14 → JERBED 20:39 → J8W 23:16
PROVIDERS: ADMIT Internal Medicine; ATTEND Internal Medicine
DX: E11.43 Type 2 diabetes mellitus with diabetic autonomic (poly)neuropathy (principal); G61.81 Chronic inflammatory demyelinating polyneuritis; I13.0 Hypertensive heart and chronic kidney disease with heart failure and stage 1 through stage 4 chronic kidney disease, or unspecified chronic kidney disease; I50.32 Chronic diastolic (congestive) heart failure; I25.10 Atherosclerotic heart disease of native coronary artery without angina pectoris; E78.5 Hyperlipidemia, unspecified; E87.5 Hyperkalemia; E11.22 Type 2 diabetes mellitus with diabetic chronic kidney disease; N18.9 Chronic kidney disease, unspecified; F32.A Depression, unspecified; G20.A1 Parkinson's disease without dyskinesia, without mention of fluctuations; G25.81 Restless legs syndrome; K31.84 Gastroparesis; E11.10 Type 2 diabetes mellitus with ketoacidosis without coma; G47.33 Obstructive sleep apnea (adult) (pediatric); E11.51 Type 2 diabetes mellitus with diabetic peripheral angiopathy without gangrene; E88.09 Other disorders of plasma-protein metabolism, not elsewhere classified; Z79.4 Long term (current) use of insulin
CPT/HCPCS: 0241U-QW; 36415; 71046-TC-FY; 80048; 80053; 81003; 82010; 82803; 82962; 83036; 83605; 83690; 83735; 84100; 84484; 85025; 85610; 87086; 93005; 93010; 99285-25

== ENCOUNTER 2023-09-08 13:13 | Inpatient (IN) | payer OTHER ==
[2023-09-08 14:08] LABS: BASO % 0.8 % (0-2.0); EOS % 2.9 % (0-4.5); HEMATOCRIT 32.9 % (32.4-45.2); HEMOGLOBIN 10.8 GM/dL (10.7-15.3); MCH 26.9 pg (25.7-33.7); MCHC 32.8 g/dl (32.0-36.0); MEAN PLT VOLUME 9.6 fl (7.5-11.1); NEUT % 67.3 % (42.8-82.8); PLATELET COUNT 290 10^3/uL (134-434); RBC 4.01 M/mm3 (3.60-5.2); RDW 16.6 % (11.6-15.6); WHITE BLOOD COUNT 7.4 K/mm3 (4.0-10.0)
[2023-09-08 14:16] LABS: INR 0.92 (0.83-1.09); PROTHROMBIN TIME (PATIENT) 10.7 SEC (9.7-13.0)
[2023-09-08 14:19] LABS: ACTIVATED PTT 31.5 SECONDS (25.2-36.5)
[2023-09-08 14:41] LABS: VENOUS BASE EXCESS -3.1 mmol/L (-2-2); VENOUS O2 SATURATION 78.5 % (70-80); VENOUS PCO2 53.3 mmHg (38-52); VENOUS PH 7.284 (7.310-7.410)
[2023-09-08 14:42] LABS: POTASSIUM 5.5 mmol/L (3.5-5.1)
[2023-09-08 14:44] LABS: ALBUMIN 2.9 g/dl (3.4-5.0); CALCIUM 8.7 mg/dL (8.5-10.1); MAGNESIUM 2.4 mg/dL (1.8-2.4)
[2023-09-08 14:45] LABS: BLOOD UREA NITROGEN 43.9 mg/dL (7-18)
[2023-09-08 14:47] LABS: CREATININE 2.2 mg/dL (0.55-1.3)
[2023-09-08 14:49] LABS: BILIRUBIN,TOTAL 0.1 mg/dL (0.2-1); TOT PROT 6.8 g/dl (6.4-8.2)
[2023-09-08 15:27] LABS: EPI CELLS 11 /uL (0-25.1); HYALINE CASTS 0 /uL (0-3.1); PH,URINE 6.5 (5.0-8.0); URINE APPEARANCE CLEAR; URINE BACTERIA 120 /uL (0-1359); URINE BILIRUBIN NEGATIVE (NEGATIVE); URINE COLOR YELLOW; URINE GLUCOSE (UA) 3+ (NEGATIVE); URINE KETONE NEGATIVE (NEGATIVE); URINE LEUK ESTERASE NEGATIVE (NEGATIVE); URINE NITRITE NEGATIVE (NEGATIVE); URINE PROTEIN 2+ (NEGATIVE); URINE RBC 8 /uL (0-23.9); URINE UROBILINOGEN 0.2 mg/dL (0.2-1.0); URINE WBC 30 /uL (0-25.8)
[2023-09-08] MEDS: SODIUM CHLORIDE 0.9% 500 ML INFUS.BAG IV ONE (15:38)
[2023-09-08] MEDS ORDERED: ACETAMINOPHEN INJECTION 100 ML IVPB ONE (16:15)
[2023-09-08] MEDS: ACETAMINOPHEN 1000 MG/100 ML BAG IVPB ONE (16:19)
[2023-09-08] MEDS ORDERED: HEPARIN NA (PORCINE) 5,000 UNITS/ML 1ML VIAL ONE (20:59)
[2023-09-08] MEDS ORDERED: ROSUVASTATIN CA 5 MG TABLET ONE (20:59)
[2023-09-08] MEDS ORDERED: metoPROLOL SUCCINATE 25 MG TAB.SR.24H (FP) PO ONE (20:59)
[2023-09-08] MEDS: ROSUVASTATIN CA 10 MG TABLET PO SCH (21:05)
[2023-09-08] MEDS: INSULIN (LEVEMIR) 100 UNITS/ML UNITS SQ SCH (21:05)
[2023-09-08] MEDS: HEPARIN NA (PORCINE) 5,000 UNITS/ML 1ML VIAL SQ SCH (21:05)
[2023-09-08] MEDS: metoPROLOL SUCCINATE 25 MG TAB.SR.24H (FP) PO SCH (21:06)
[2023-09-08] MEDS: INSULIN ASPART SLIDING SCALE (NOVOLOG) 1 VIAL SQ SCH (21:06)
[2023-09-08] MEDS ORDERED: INSULIN (LEVEMIR) 100 UNITS/ML UNITS SQ ONE (21:07)
[2023-09-08] MEDS: SODIUM CHLORIDE 0.45% 1,000 ML IV SCH (21:11)
[2023-09-09] MEDS: PRAMIPEXOLE DIHYDROCHLORIDE 0.5 MG TABLET PO SCH (06:17)
[2023-09-09 08:21] LABS: EOS % 4.4 % (0-4.5); HEMATOCRIT 29.5 % (32.4-45.2); HEMOGLOBIN 9.4 GM/dL (10.7-15.3); LYMPH % 31.7 % (8-40); MCH 26.2 pg (25.7-33.7); MCHC 31.8 g/dl (32.0-36.0); MEAN CELL VOLUME 82.2 fl (80-96); MEAN PLT VOLUME 9.2 fl (7.5-11.1); MONO % 8.7 % (3.8-10.2); NEUT % 54.2 % (42.8-82.8); PLATELET COUNT 272 10^3/uL (134-434); RBC 3.59 M/mm3 (3.60-5.2); WHITE BLOOD COUNT 6.2 K/mm3 (4.0-10.0)
[2023-09-09 08:26] LABS: POTASSIUM 4.8 mmol/L (3.5-5.1)
[2023-09-09 08:33] LABS: ALBUMIN 2.4 g/dl (3.4-5.0); BLOOD UREA NITROGEN 37.5 mg/dL (7-18); CALCIUM 8.1 mg/dL (8.5-10.1); MAGNESIUM 2.4 mg/dL (1.8-2.4)
[2023-09-09 08:35] LABS: CREATININE 1.5 mg/dL (0.55-1.3)
[2023-09-09 08:38] LABS: BILIRUBIN,TOTAL 0.2 mg/dL (0.2-1); TOT PROT 5.7 g/dl (6.4-8.2)
[2023-09-09] MEDS ORDERED: FLU VACCINE (FLULAVAL) PF 60 MCG/0.5 ML SYRINGE 2023-2024 IM ONE (10:00)
[2023-09-09] MEDS ORDERED: PATIENT'S OWN MEDICATION (NON-FORMULARY) (Dapagliflozin Propanediol 10 MG Tablet) PO SCH (10:00)
[2023-09-09] MEDS: CLOPIDOGREL BISULFATE 75 MG TABLET (FP) PO SCH (10:14)
[2023-09-09] MEDS: VENLAFAXINE HCL 150 MG E.R. CAPSULE PO SCH (11:19)
[2023-09-09] MEDS: TORSEMIDE 20 MG TABLET (FP) PO SCH (11:48)
[2023-09-09 13:03] VITALS: BMI 36.6
[2023-09-09] MEDS: PREGABALIN 75 MG CAPSULE PO SCH (21:22)
[2023-09-10] MEDS: ACETAMINOPHEN 1000 MG/100 ML BAG IVPB ONE (03:00)
[2023-09-10] MEDS: VENLAFAXINE HCL 75 MG E.R. CAPSULES PO SCH (12:28)
[2023-09-10] MEDS: TORSEMIDE 20 MG TABLET (FP) PO ONE (18:24)
[2023-09-10 22:46] VITALS: RESP 18
[2023-09-11] MEDS: TRIMETHOBENZAMIDE HCL 200MG/2ML INJ IM PRN (02:57)
[2023-09-11] MEDS ORDERED: TORSEMIDE 20 MG TABLET (FP) PO SCH (11:17)
[2023-09-11 12:32] VITALS: PULSE 70
[2023-09-11 15:01] VITALS: BP 149/76; TEMP 98.2
== END 2023-09-11 15:35 | disposition home health service (06) | DRG 57 ==
LOC: JER 13:13 → JERBED 15:52 → OBSVTOIN 20:14 → J4S 09-09 01:33
PROVIDERS: ADMIT Internal Medicine; ATTEND Internal Medicine
DX: G20.A1 Parkinson's disease without dyskinesia, without mention of fluctuations (principal); G61.81 Chronic inflammatory demyelinating polyneuritis; I13.0 Hypertensive heart and chronic kidney disease with heart failure and stage 1 through stage 4 chronic kidney disease, or unspecified chronic kidney disease; I50.32 Chronic diastolic (congestive) heart failure; I25.10 Atherosclerotic heart disease of native coronary artery without angina pectoris; M25.511 Pain in right shoulder; E11.22 Type 2 diabetes mellitus with diabetic chronic kidney disease; N18.9 Chronic kidney disease, unspecified; E11.43 Type 2 diabetes mellitus with diabetic autonomic (poly)neuropathy; E78.5 Hyperlipidemia, unspecified; G25.81 Restless legs syndrome; R26.81 Unsteadiness on feet; F32.A Depression, unspecified; K31.84 Gastroparesis; E11.42 Type 2 diabetes mellitus with diabetic polyneuropathy; G47.33 Obstructive sleep apnea (adult) (pediatric); W01.0XXA Fall on same level from slipping, tripping and stumbling without subsequent striking against object, initial encounter; Y92.091 Bathroom in other non-institutional residence as the place of occurrence of the external cause; Y99.9 Unspecified external cause status; Z95.5 Presence of coronary angioplasty implant and graft
CPT/HCPCS: 36415; 70450-TC; 71045-TC-FY; 72125-TC; 72170-TC-FY; 73030-TC-RT-FY; 73552-TC-RT-FY; 73562-TC-RT-FY; 80053; 81003; 82803; 82962; 83735; 84443; 84484; 85025; 85610; 85730; 87086; 93005; 93010; 97116-GP; 97161-GP; 99285-25; G0378; J0131; J1644

== ENCOUNTER 2023-11-14 13:10 | Emergency (ER) | payer OTHER ==
[2023-11-14 13:16] VITALS: RESP 18; BMI 36.8
[2023-11-14 15:37] LABS: BASO % 0.9 % (0-2.0); HEMATOCRIT 34.5 % (32.4-45.2); LYMPH % 23.5 % (8-40); MCH 26.8 pg (25.7-33.7); MCHC 31.9 g/dl (32.0-36.0); MEAN PLT VOLUME 9.6 fl (7.5-11.1); MONO % 9.3 % (3.8-10.2); NEUT % 64.3 % (42.8-82.8); PLATELET COUNT 241 10^3/uL (134-434); WHITE BLOOD COUNT 6.5 K/mm3 (4.0-10.0)
[2023-11-14 15:43] LABS: INR 0.89 (0.83-1.09); PROTHROMBIN TIME (PATIENT) 10.3 SEC (9.7-13.0)
[2023-11-14 15:46] LABS: ACTIVATED PTT 28.3 SECONDS (25.2-36.5)
[2023-11-14 15:56] LABS: CHLORIDE 103 mmol/L (98-107); POTASSIUM 4.6 mmol/L (3.5-5.1); SODIUM 132 mmol/L (136-145)
[2023-11-14 15:58] LABS: ANION GAP 6 mmol/L (4-13); BLOOD UREA NITROGEN 45.2 mg/dL (7-18); CALCIUM 8.4 mg/dL (8.5-10.1); CO2 23 mmol/L (21-32); MAGNESIUM 2.6 mg/dL (1.8-2.4)
[2023-11-14 15:59] LABS: ALBUMIN 2.6 g/dl (3.4-5.0)
[2023-11-14 16:01] LABS: SGPT/ALT 33 U/L (13-61)
[2023-11-14 16:02] LABS: CREATININE 1.8 mg/dL (0.55-1.3); SGOT/AST 19 U/L (15-37)
[2023-11-14 16:03] LABS: BILIRUBIN,TOTAL 0.2 mg/dL (0.2-1); TOT PROT 6.3 g/dl (6.4-8.2)
[2023-11-14 16:04] LABS: ALK PHOS 227 U/L (45-117)
[2023-11-14 16:05] LABS: GLUCOSE,RANDOM 515 mg/dL (74-106)
[2023-11-14] MEDS ORDERED: INSULIN REGULAR HUMAN 100 UNITS/ML *VIAL ONE (16:12)
[2023-11-14] MEDS ORDERED: FUROSEMIDE 40 MG/4 ML INJECTABLE VIAL ONE (16:12)
[2023-11-14] MEDS: FUROSEMIDE 40 MG/4 ML INJECTABLE VIAL IVPUSH ONE (16:36)
[2023-11-14] MEDS: INSULIN REGULAR HUMAN 100 UNITS/ML *VIAL SQ ONE (16:36)
[2023-11-14 19:52] VITALS: BP 152/70; PULSE 65; TEMP 98.4
== END 2023-11-14 19:53 | disposition home or self-care (01) ==
LOC: JER 13:10
PROC: 3E033GC Introduction of Other Therapeutic Substance into Peripheral Vein, Percutaneous Approach (ICD-10-PCS; principal; 2023-11-14)
PROC: 3E013VG Introduction of Insulin into Subcutaneous Tissue, Percutaneous Approach (ICD-10-PCS; 2023-11-14)
DX: N18.9 Chronic kidney disease, unspecified (principal); R60.0 Localized edema; R51.9 Headache, unspecified; R05.9 Cough, unspecified; R09.81 Nasal congestion; R11.0 Nausea; U07.1 COVID-19
CPT/HCPCS: 0241U-QW; 36415; 71046-TC-FY; 80053; 82962; 83735; 83880; 84484; 85025; 85610; 85730; 93005; 93010; 93970-TC; 96372; 96374; 99285-25

== ENCOUNTER 2023-12-30 11:03 | Inpatient (IN) | payer OTHER ==
[2023-12-30] MEDS ORDERED: FAMOTIDINE 20 MG/50 ML IVPB 20 MG/50 ML MG IVPB ONE (11:58)
[2023-12-30] MEDS ORDERED: MAG HYDROX/AL HYDROX/SIMETH 30 ML UNIT-DOSE CUP ONE (11:58)
[2023-12-30] MEDS ORDERED: ONDANSETRON 4 MG/2 ML VIAL ONE ×2 (11:58→23:00)
[2023-12-30] MEDS: SODIUM CHLORIDE 0.9% 500 ML INFUS.BAG IV ONE (12:15)
[2023-12-30] MEDS: FAMOTIDINE 20 MG/50 ML IVPB 20 MG/50 ML MG IVPB ONE (12:15)
[2023-12-30] MEDS: MAG HYDROX/AL HYDROX/SIMETH 30 ML UNIT-DOSE CUP PO ONE (12:15)
[2023-12-30] MEDS: ONDANSETRON 4 MG/2 ML VIAL IVPB ONE (12:15)
[2023-12-30 12:20] LABS: BASO % 0.9 % (0-2.0); EOS % 0.8 % (0-4.5); HEMOGLOBIN 11.8 GM/dL (10.7-15.3); LYMPH % 20.2 % (8-40); MCH 27.3 pg (25.7-33.7); MCHC 32.8 g/dl (32.0-36.0); MEAN CELL VOLUME 83.2 fl (80-96); MEAN PLT VOLUME 9.3 fl (7.5-11.1); NEUT % 70.1 % (42.8-82.8); PLATELET COUNT 270 10^3/uL (134-434); RBC 4.33 M/mm3 (3.60-5.2); RDW 14.1 % (11.6-15.6); WHITE BLOOD COUNT 7.4 K/mm3 (4.0-10.0)
[2023-12-30 12:41] LABS: POTASSIUM 4.2 mmol/L (3.5-5.1)
[2023-12-30 12:47] LABS: ALBUMIN 2.5 g/dl (3.4-5.0); CALCIUM 8.5 mg/dL (8.5-10.1)
[2023-12-30 12:48] LABS: BLOOD UREA NITROGEN 31.3 mg/dL (7-18)
[2023-12-30 12:51] LABS: CREATININE 1.8 mg/dL (0.55-1.3)
[2023-12-30 12:53] LABS: BILIRUBIN,TOTAL 0.3 mg/dL (0.2-1); TOT PROT 5.6 g/dl (6.4-8.2)
[2023-12-30 13:45] LABS: EPI CELLS 19 /uL (0-25.1); HYALINE CASTS 1 /uL (0-3.1); PH,URINE 5.5 (5.0-8.0); URINE APPEARANCE CLEAR; URINE BACTERIA 2935 /uL (0-1359); URINE BILIRUBIN NEGATIVE (NEGATIVE); URINE COLOR YELLOW; URINE GLUCOSE (UA) 3+ (NEGATIVE); URINE KETONE 2+ (NEGATIVE); URINE LEUK ESTERASE NEGATIVE (NEGATIVE); URINE NITRITE POSITIVE (NEGATIVE); URINE PROTEIN 4+ (NEGATIVE); URINE RBC 21 /uL (0-23.9); URINE UROBILINOGEN 0.2 mg/dL (0.2-1.0)
[2023-12-30 13:48] LABS: URINE WBC 364 /uL (0-25.8)
[2023-12-30] MEDS ORDERED: CEFTRIAXONE 1 GM/50 ML BAG ONE (14:09)
[2023-12-30] MEDS ORDERED: METOCLOPRAMIDE HCL INJECTION 10 MG/2 ML VIAL ONE ×2 (14:09→14:11)
[2023-12-30] MEDS: CEFTRIAXONE 1 GM in DEXTROSE 5%-WATER - 50 ML IVPB ONE (14:18)
[2023-12-30 14:43] LABS: VENOUS BASE EXCESS -9.8 mmol/L (-2-2); VENOUS O2 SATURATION 63.2 % (70-80); VENOUS PCO2 39.9 mmHg (38-52); VENOUS PH 7.245 (7.310-7.410)
[2023-12-30] MEDS ORDERED: INSULIN ASPART SLIDING SCALE (NOVOLOG) 1 VIAL SQ ONE (15:35)
[2023-12-30] MEDS: INSULIN (NOVOLOG) ASPART 100 UNITS/ML 10ML VIAL SQ ONE (15:40)
[2023-12-30] MEDS ORDERED: PREGABALIN 50 MG CAPSULE ONE (16:57)
[2023-12-30] MEDS: PREGABALIN 50 MG CAPSULE PO ONE (17:13)
[2023-12-30] MEDS: SODIUM CHLORIDE 1,000 ML IV SCH (21:13)
[2023-12-30] MEDS ORDERED: ACETAMINOPHEN 1000 MG/100 ML BAG IVPB PRN (21:36)
[2023-12-30] MEDS ORDERED: HEPARIN NA (PORCINE) 5,000 UNITS/ML 1ML VIAL ONE (22:12)
[2023-12-30] MEDS: INSULIN ASPART SLIDING SCALE (NOVOLOG) 1 VIAL SQ SCH (22:20)
[2023-12-30] MEDS: ONDANSETRON 4 MG/2 ML VIAL IVPUSH PRN (23:05)
[2023-12-31 07:13] LABS: BASO % 0.8 % (0-2.0); EOS % 2.8 % (0-4.5); HEMATOCRIT 35.4 % (32.4-45.2); HEMOGLOBIN 11.5 GM/dL (10.7-15.3); LYMPH % 24.2 % (8-40); MCH 27.1 pg (25.7-33.7); MCHC 32.4 g/dl (32.0-36.0); MEAN CELL VOLUME 83.7 fl (80-96); MEAN PLT VOLUME 9.9 fl (7.5-11.1); MONO % 8.5 % (3.8-10.2); NEUT % 63.7 % (42.8-82.8); PLATELET COUNT 276 10^3/uL (134-434); RBC 4.23 M/mm3 (3.60-5.2); RDW 14.1 % (11.6-15.6); WHITE BLOOD COUNT 7.3 K/mm3 (4.0-10.0)
[2023-12-31 07:25] LABS: INR 0.87 (0.83-1.09)
[2023-12-31 07:27] LABS: ACTIVATED PTT 29.5 SECONDS (25.2-36.5)
[2023-12-31 07:39] LABS: POTASSIUM 4.6 mmol/L (3.5-5.1)
[2023-12-31 07:40] LABS: CALCIUM 8.5 mg/dL (8.5-10.1)
[2023-12-31 07:41] LABS: MAGNESIUM 2.6 mg/dL (1.8-2.4)
[2023-12-31 07:44] LABS: CREATININE 1.5 mg/dL (0.55-1.3); PHOSPHOROUS 2.9 mg/dL (2.5-4.9)
[2023-12-31] MEDS ORDERED: INSULIN ASPART SLIDING SCALE (NOVOLOG) 1 VIAL SQ ONE ×2 (08:15→12:53)
[2023-12-31] MEDS ORDERED: PREGABALIN 100 MG CAPSULE ONE (09:43)
[2023-12-31] MEDS ORDERED: PREGABALIN 50 MG CAPSULE ONE (09:43)
[2023-12-31] MEDS: PRAMIPEXOLE DIHYDROCHLORIDE 0.5 MG TABLET PO SCH (09:52)
[2023-12-31] MEDS: metoPROLOL SUCCINATE 25 MG TAB.SR.24H (FP) PO SCH (09:53)
[2023-12-31] MEDS: CLOPIDOGREL BISULFATE 75 MG TABLET (FP) PO SCH (09:53)
[2023-12-31] MEDS: VENLAFAXINE HCL 75 MG E.R. CAPSULES PO SCH (09:53)
[2023-12-31] MEDS: LISINOPRIL 5 MG TABLET PO SCH (09:53)
[2023-12-31] MEDS: PREGABALIN 50 MG CAPSULE PO SCH (09:53)
[2023-12-31] MEDS ORDERED: TOPIRAMATE 25 MG TABLET ONE (14:41)
[2023-12-31] MEDS: TOPIRAMATE 25 MG TABLET PO SCH (14:49)
[2023-12-31] MEDS ORDERED: CEFTRIAXONE 1 GM/50 ML BAG ONE (17:19)
[2023-12-31] MEDS ORDERED: METOCLOPRAMIDE HCL 10 MG TABLET (FP) PO ONE (17:33)
[2023-12-31] MEDS: METOCLOPRAMIDE HCL 10 MG TABLET (FP) PO SCH (17:41)
[2023-12-31] MEDS: CEFTRIAXONE 1 GM in DEXTROSE 5%-WATER - 50 ML IVPB SCH (17:42)
[2023-12-31] MEDS: VANCOMYCIN 1 GRAM (PRE-DOCKED) 1,000 MG/250 ML BAG IVPB ONE (22:17)
[2023-12-31] MEDS: VANCOMYCIN/WATER FOR INJ (PEG) 1,000 MG/200 ML BAG IVPB ONE (22:24)
[2023-12-31] MEDS: ROSUVASTATIN CA 10 MG TABLET PO SCH (22:26)
[2023-12-31] MEDS: PRAMIPEXOLE DIHYDROCHLORIDE 1 MG TABLET PO SCH (22:26)
[2023-12-31] MEDS: HEPARIN NA (PORCINE) 5,000 UNITS/ML 1ML VIAL SQ SCH (22:27)
[2023-12-31] MEDS: INSULIN (LEVEMIR) 100 UNITS/ML UNITS SQ SCH (22:39)
[2024-01-01 09:32] LABS: BASO % 0.5 % (0-2.0); EOS % 3.6 % (0-4.5); HEMATOCRIT 34.7 % (32.4-45.2); LYMPH % 27.5 % (8-40); MCH 27.1 pg (25.7-33.7); MCHC 31.8 g/dl (32.0-36.0); MEAN CELL VOLUME 85.3 fl (80-96); MEAN PLT VOLUME 9.5 fl (7.5-11.1); NEUT % 59.4 % (42.8-82.8); PLATELET COUNT 241 10^3/uL (134-434); RBC 4.06 M/mm3 (3.60-5.2); WHITE BLOOD COUNT 6.8 K/mm3 (4.0-10.0)
[2024-01-01 09:47] LABS: CALCIUM 8.1 mg/dL (8.5-10.1)
[2024-01-01 09:48] LABS: ALBUMIN 2.1 g/dl (3.4-5.0); BLOOD UREA NITROGEN 24.2 mg/dL (7-18)
[2024-01-01 09:51] LABS: CREATININE 1.7 mg/dL (0.55-1.3)
[2024-01-01 09:52] LABS: BILIRUBIN,TOTAL 0.2 mg/dL (0.2-1); TOT PROT 5.2 g/dl (6.4-8.2)
[2024-01-01] MEDS: ACETAMINOPHEN 325 MG TABLET (FP) PO PRN (11:45)
[2024-01-01] MEDS: TORSEMIDE 20 MG TABLET (FP) PO SCH (12:46)
[2024-01-02] MEDS: INSULIN (LEVEMIR) 100 UNITS/ML UNITS SQ SCH (06:50)
[2024-01-02] MEDS: INSULIN ASPART SLIDING SCALE (NOVOLOG) 1 VIAL SQ SCH (06:54)
[2024-01-02 08:11] LABS: BASO % 0.9 % (0-2.0); HEMOGLOBIN 11.4 GM/dL (10.7-15.3); LYMPH % 29.7 % (8-40); MCH 27.6 pg (25.7-33.7); MCHC 32.5 g/dl (32.0-36.0); MEAN CELL VOLUME 84.9 fl (80-96); MEAN PLT VOLUME 9.6 fl (7.5-11.1); MONO % 7.2 % (3.8-10.2); NEUT % 58.2 % (42.8-82.8); PLATELET COUNT 241 10^3/uL (134-434); RBC 4.12 M/mm3 (3.60-5.2); RDW 13.9 % (11.6-15.6); WHITE BLOOD COUNT 5.8 K/mm3 (4.0-10.0)
[2024-01-02 08:29] LABS: BLOOD UREA NITROGEN 30.9 mg/dL (7-18)
[2024-01-02 08:32] LABS: CREATININE 1.6 mg/dL (0.55-1.3)
[2024-01-02 08:34] LABS: BILIRUBIN,TOTAL 0.1 mg/dL (0.2-1); TOT PROT 5.2 g/dl (6.4-8.2)
[2024-01-03 11:10] LABS: BASO % 0.9 % (0-2.0); HEMATOCRIT 35.3 % (32.4-45.2); HEMOGLOBIN 11.4 GM/dL (10.7-15.3); LYMPH % 24.8 % (8-40); MCH 26.9 pg (25.7-33.7); MCHC 32.4 g/dl (32.0-36.0); MEAN CELL VOLUME 83.1 fl (80-96); MEAN PLT VOLUME 9.8 fl (7.5-11.1); MONO % 7.4 % (3.8-10.2); NEUT % 61.9 % (42.8-82.8); PLATELET COUNT 255 10^3/uL (134-434); RBC 4.24 M/mm3 (3.60-5.2); RDW 14.2 % (11.6-15.6); WHITE BLOOD COUNT 6.5 K/mm3 (4.0-10.0)
[2024-01-03 11:27] LABS: POTASSIUM 4.6 mmol/L (3.5-5.1)
[2024-01-03 11:29] LABS: ALBUMIN 2.1 g/dl (3.4-5.0); CALCIUM 7.8 mg/dL (8.5-10.1); MAGNESIUM 2.2 mg/dL (1.8-2.4)
[2024-01-03 11:32] LABS: CREATININE 1.7 mg/dL (0.55-1.3)
[2024-01-03 11:34] LABS: BILIRUBIN,TOTAL 0.1 mg/dL (0.2-1); TOT PROT 5.4 g/dl (6.4-8.2)
[2024-01-03] MEDS: NITROGLYCERIN 2% OINTMENT - 1GM PACKET TD ONE (13:01)
[2024-01-03] MEDS: FLUCONAZOLE 150 MG TABLET PO ONE (13:49)
[2024-01-04 07:53] LABS: BASO % 0.6 % (0-2.0); EOS % 4.2 % (0-4.5); HEMATOCRIT 34.6 % (32.4-45.2); HEMOGLOBIN 11.1 GM/dL (10.7-15.3); LYMPH % 28.6 % (8-40); MCH 27.2 pg (25.7-33.7); MCHC 32.2 g/dl (32.0-36.0); MEAN CELL VOLUME 84.6 fl (80-96); MEAN PLT VOLUME 10.2 fl (7.5-11.1); MONO % 6.5 % (3.8-10.2); NEUT % 60.1 % (42.8-82.8); PLATELET COUNT 258 10^3/uL (134-434); RDW 13.9 % (11.6-15.6); WHITE BLOOD COUNT 6.8 K/mm3 (4.0-10.0)
[2024-01-04 07:56] LABS: ALBUMIN 2.1 g/dl (3.4-5.0); BLOOD UREA NITROGEN 40.9 mg/dL (7-18); CALCIUM 8.5 mg/dL (8.5-10.1)
[2024-01-04 07:59] LABS: CREATININE 1.8 mg/dL (0.55-1.3)
[2024-01-04 08:00] LABS: BILIRUBIN,TOTAL 0.2 mg/dL (0.2-1); TOT PROT 5.7 g/dl (6.4-8.2)
[2024-01-04] MEDS: metoPROLOL SUCCINATE 25 MG TAB.SR.24H (FP) PO SCH (09:46)
[2024-01-04] MEDS: DOCUSATE SODIUM 100 MG CAPSULE (FP) PO PRN (09:50)
[2024-01-05 14:25] VITALS: BMI 36.4
[2024-01-05] MEDS ORDERED: SENNOSIDES 8.6MG TABLET (FP) PO PRN (15:27)
[2024-01-05] MEDS: POLYETHYLENE GLYCOL (HEALTHYLAX) 3350 17 GM PACKET PO SCH (16:59)
[2024-01-06] MEDS: INSULIN ASPART SLIDING SCALE (NOVOLOG) 1 VIAL SQ SCH (06:35)
[2024-01-06 14:12] VITALS: RESP 18
[2024-01-06 15:38] VITALS: TEMP 98.1
[2024-01-06 18:09] VITALS: BP 106/63; PULSE 67
== END 2024-01-06 18:37 | disposition home health service (06) | DRG 74 ==
LOC: JER 11:03 → JERBED 17:28 → J5S 12-31 21:36 → J4W 01-03 13:06
PROVIDERS: ADMIT Internal Medicine; ATTEND Internal Medicine
DX: E11.43 Type 2 diabetes mellitus with diabetic autonomic (poly)neuropathy (principal); I50.32 Chronic diastolic (congestive) heart failure; I13.0 Hypertensive heart and chronic kidney disease with heart failure and stage 1 through stage 4 chronic kidney disease, or unspecified chronic kidney disease; E87.20 Acidosis, unspecified; N39.0 Urinary tract infection, site not specified; G61.81 Chronic inflammatory demyelinating polyneuritis; I25.10 Atherosclerotic heart disease of native coronary artery without angina pectoris; E11.9 Type 2 diabetes mellitus without complications; G20.A1 Parkinson's disease without dyskinesia, without mention of fluctuations; E11.40 Type 2 diabetes mellitus with diabetic neuropathy, unspecified; E11.22 Type 2 diabetes mellitus with diabetic chronic kidney disease; N18.9 Chronic kidney disease, unspecified; E78.00 Pure hypercholesterolemia, unspecified; B95.61 Methicillin susceptible Staphylococcus aureus infection as the cause of diseases classified elsewhere; F32.A Depression, unspecified; G25.81 Restless legs syndrome; R26.81 Unsteadiness on feet; R07.89 Other chest pain; K31.84 Gastroparesis; E11.65 Type 2 diabetes mellitus with hyperglycemia; J44.9 Chronic obstructive pulmonary disease, unspecified; G47.33 Obstructive sleep apnea (adult) (pediatric); E66.9 Obesity, unspecified; Z68.35 Body mass index [BMI] 35.0-35.9, adult; Z95.5 Presence of coronary angioplasty implant and graft
CPT/HCPCS: 36415; 71045-TC-FY; 74176-TC; 80048; 80053; 81003; 82550; 82803; 82962; 83036; 83690; 83735; 84100; 84484; 85025; 85610; 85730; 87077; 87086; 93005; 93010; 97116-GP; 97161-GP; 99285-25; J1644

== ENCOUNTER 2024-01-26 20:30 | Emergency (ER) | payer OTHER ==
[2024-01-26 20:35] VITALS: BMI 33.3
[2024-01-26 21:17] LABS: BASO % 0.6 % (0-2.0); EOS % 1.5 % (0-4.5); HEMATOCRIT 34.9 % (32.4-45.2); HEMOGLOBIN 11.3 GM/dL (10.7-15.3); LYMPH % 22.7 % (8-40); MCH 27.4 pg (25.7-33.7); MCHC 32.5 g/dl (32.0-36.0); MEAN CELL VOLUME 84.2 fl (80-96); MEAN PLT VOLUME 9.9 fl (7.5-11.1); MONO % 7.9 % (3.8-10.2); NEUT % 67.3 % (42.8-82.8); PLATELET COUNT 307 10^3/uL (134-434); RBC 4.14 M/mm3 (3.60-5.2); RDW 14.6 % (11.6-15.6); WHITE BLOOD COUNT 6.7 K/mm3 (4.0-10.0)
[2024-01-26 21:24] LABS: INR 0.88 (0.83-1.09)
[2024-01-26 21:25] LABS: VENOUS BASE EXCESS -2.8 mmol/L (-2-2); VENOUS O2 SATURATION 38.8 % (70-80); VENOUS PH 7.372 (7.310-7.410)
[2024-01-26 21:27] LABS: ACTIVATED PTT 28.9 SECONDS (25.2-36.5)
[2024-01-26 21:43] LABS: CHLORIDE 102 mmol/L (98-107); POTASSIUM 4.6 mmol/L (3.5-5.1); SODIUM 134 mmol/L (136-145)
[2024-01-26 21:46] LABS: ALBUMIN 2.2 g/dl (3.4-5.0); ANION GAP 9 mmol/L (4-13); BLOOD UREA NITROGEN 19.1 mg/dL (7-18); CALCIUM 8.1 mg/dL (8.5-10.1); CO2 23 mmol/L (21-32); MAGNESIUM 2.3 mg/dL (1.8-2.4)
[2024-01-26 21:47] LABS: GLUCOSE,RANDOM 415 mg/dL (74-106)
[2024-01-26 21:49] LABS: CREATININE 1.3 mg/dL (0.55-1.3); SGOT/AST 26 U/L (15-37); SGPT/ALT 19 U/L (13-61)
[2024-01-26 21:50] LABS: BILIRUBIN,TOTAL 0.4 mg/dL (0.2-1); PHOSPHOROUS 2.9 mg/dL (2.5-4.9); TOT PROT 5.2 g/dl (6.4-8.2)
[2024-01-26 21:52] LABS: ALK PHOS 142 U/L (45-117)
[2024-01-26 21:54] LABS: N-TERMINAL BNP 1219.5 pg/ml (5-125)
[2024-01-26] MEDS ORDERED: METOCLOPRAMIDE HCL INJECTION 10 MG/2 ML VIAL ONE (21:55)
[2024-01-26] MEDS ORDERED: ACETAMINOPHEN INJECTION 100 ML IVPB ONE (21:56)
[2024-01-26] MEDS: METOCLOPRAMIDE HCL INJECTION 10 MG/2 ML VIAL IVPUSH ONE (22:16)
[2024-01-26] MEDS: ACETAMINOPHEN 1000 MG/100 ML BAG IVPB ONE (22:16)
[2024-01-26 23:44] VITALS: RESP 16
[2024-01-26] MEDS ORDERED: PREGABALIN 50 MG CAPSULE ONE (23:46)
[2024-01-26] MEDS ORDERED: PREGABALIN 100 MG CAPSULE ONE (23:47)
[2024-01-26] MEDS: PREGABALIN 75 MG CAPSULE PO ONE (23:50)
[2024-01-27 03:50] VITALS: BP 136/78; PULSE 67; TEMP 98
== END 2024-01-27 07:52 | disposition home or self-care (01) ==
LOC: JER 20:30
PROC: 3E033NZ Introduction of Analgesics, Hypnotics, Sedatives into Peripheral Vein, Percutaneous Approach (ICD-10-PCS; principal; 2024-01-26)
PROC: 3E033GC Introduction of Other Therapeutic Substance into Peripheral Vein, Percutaneous Approach (ICD-10-PCS; 2024-01-26)
DX: R51.9 Headache, unspecified (principal); R11.2 Nausea with vomiting, unspecified; R50.9 Fever, unspecified; R05.9 Cough, unspecified; R10.30 Lower abdominal pain, unspecified; Z20.822 Contact with and (suspected) exposure to COVID-19
CPT/HCPCS: 0241U-QW; 36415; 70450-TC; 71045-TC-FY; 80053; 82803; 82962; 83735; 83880; 84100; 84484; 85025; 85610; 85730; 93005; 93010; 99285-25; J0131

== ENCOUNTER 2024-02-21 14:57 | Inpatient (IN) | payer OTHER ==
[2024-02-21 16:37] LABS: BASO % 0.8 % (0-2.0); EOS % 1.9 % (0-4.5); HEMATOCRIT 36.5 % (32.4-45.2); HEMOGLOBIN 11.7 GM/dL (10.7-15.3); LYMPH % 32.4 % (8-40); MCH 26.7 pg (25.7-33.7); MEAN CELL VOLUME 83.5 fl (80-96); MEAN PLT VOLUME 9.6 fl (7.5-11.1); MONO % 6.4 % (3.8-10.2); NEUT % 58.5 % (42.8-82.8); PLATELET COUNT 295 10^3/uL (134-434); RBC 4.37 M/mm3 (3.60-5.2); RDW 13.8 % (11.6-15.6); WHITE BLOOD COUNT 7.8 K/mm3 (4.0-10.0)
[2024-02-21 16:45] LABS: INR 0.86 (0.83-1.09); PROTHROMBIN TIME (PATIENT) 9.8 SEC (9.7-13.0)
[2024-02-21] MEDS: SODIUM CHLORIDE 0.9% 500 ML INFUS.BAG IV ONE ×2 (16:45→19:03)
[2024-02-21 16:47] LABS: VENOUS BASE EXCESS -3.7 mmol/L (-2-2); VENOUS O2 SATURATION 32.4 % (70-80); VENOUS PCO2 58.8 mmHg (38-52); VENOUS PH 7.25 (7.310-7.410)
[2024-02-21 16:47] LABS: ACTIVATED PTT 33.5 SECONDS (25.2-36.5)
[2024-02-21 17:03] LABS: EPI CELLS 26 /uL (0-25.1); HYALINE CASTS 4 /uL (0-3.1); PH,URINE 5.5 (5.0-8.0); URINE APPEARANCE CLEAR; URINE BACTERIA 7 /uL (0-1359); URINE BILIRUBIN NEGATIVE (NEGATIVE); URINE COLOR YELLOW; URINE GLUCOSE (UA) 3+ (NEGATIVE); URINE KETONE NEGATIVE (NEGATIVE); URINE LEUK ESTERASE NEGATIVE (NEGATIVE); URINE NITRITE NEGATIVE (NEGATIVE); URINE PROTEIN 3+ (NEGATIVE); URINE RBC 9 /uL (0-23.9); URINE UROBILINOGEN 0.2 mg/dL (0.2-1.0); URINE WBC 20 /uL (0-25.8)
[2024-02-21 17:04] LABS: LACTIC ACID 2.3 mmol/L (0.4-2.0)
[2024-02-21 17:08] LABS: POTASSIUM 3.5 mmol/L (3.5-5.1)
[2024-02-21 17:11] LABS: CALCIUM 9.3 mg/dL (8.5-10.1)
[2024-02-21 17:12] LABS: ALBUMIN 2.6 g/dl (3.4-5.0); BLOOD UREA NITROGEN 51.4 mg/dL (7-18); MAGNESIUM 2.6 mg/dL (1.8-2.4)
[2024-02-21 17:15] LABS: CREATININE 2.4 mg/dL (0.55-1.3)
[2024-02-21 17:16] LABS: BILIRUBIN,TOTAL 0.2 mg/dL (0.2-1); TOT PROT 6.3 g/dl (6.4-8.2)
[2024-02-21] MEDS ORDERED: DEXTROSE 50%-WATER 25 GM/50 ML DISP.SYRIN ONE (17:41)
[2024-02-21] MEDS: DEXTROSE 50%-WATER 25 GM/50 ML DISP.SYRIN IVPUSH ONE (17:46)
[2024-02-21 21:36] VITALS: BMI 32.1
[2024-02-21] MEDS: DEXTROSE 5%-NORMAL SALINE 1,000 ML IV SCH (22:21)
[2024-02-21] MEDS: MUPIROCIN 2% TOPICAL OINTMENT FOR DECOLONIZATION NS SCH (22:21)
[2024-02-21] MEDS: CHLORHEXIDINE GLUCONATE 4% CLEANSER FOR DECOLONIZATION TP SCH (22:22)
[2024-02-21] MEDS: HEPARIN NA (PORCINE) 5,000 UNITS/ML 1ML VIAL SQ SCH (22:23)
[2024-02-22] MEDS ORDERED: DEXTROSE 50%-WATER 25 GM/50 ML DISP.SYRIN ONE (02:23)
[2024-02-22] MEDS: DEXTROSE 50%-WATER - 25 GM/50 ML VIAL IVPUSH ONE (02:25)
[2024-02-22] MEDS: DEXTROSE 10%-WATER - 1,000 ML IV SCH ×2 (03:02→10:37)
[2024-02-22] MEDS: ACETAMINOPHEN 1000 MG/100 ML BAG IVPB PRN (05:12)
[2024-02-22 06:53] LABS: BASO % 0.8 % (0-2.0); EOS % 3.2 % (0-4.5); HEMATOCRIT 36.3 % (32.4-45.2); HEMOGLOBIN 11.5 GM/dL (10.7-15.3); LYMPH % 35.3 % (8-40); MCH 26.7 pg (25.7-33.7); MCHC 31.7 g/dl (32.0-36.0); MEAN CELL VOLUME 84.3 fl (80-96); MEAN PLT VOLUME 9.9 fl (7.5-11.1); MONO % 6.3 % (3.8-10.2); NEUT % 54.4 % (42.8-82.8); PLATELET COUNT 257 10^3/uL (134-434); RBC 4.31 M/mm3 (3.60-5.2); RDW 14.4 % (11.6-15.6); WHITE BLOOD COUNT 7.5 K/mm3 (4.0-10.0)
[2024-02-22 07:13] LABS: POTASSIUM 3.4 mmol/L (3.5-5.1)
[2024-02-22 07:16] LABS: CALCIUM 8.6 mg/dL (8.5-10.1)
[2024-02-22 07:17] LABS: ALBUMIN 2.2 g/dl (3.4-5.0); BLOOD UREA NITROGEN 42.2 mg/dL (7-18); MAGNESIUM 2.3 mg/dL (1.8-2.4)
[2024-02-22 07:20] LABS: CREATININE 1.9 mg/dL (0.55-1.3); PHOSPHOROUS 3.3 mg/dL (2.5-4.9)
[2024-02-22 07:21] LABS: BILIRUBIN,TOTAL 0.2 mg/dL (0.2-1); TOT PROT 5.4 g/dl (6.4-8.2)
[2024-02-22 10:24] LABS: INR 0.87 (0.83-1.09); PROTHROMBIN TIME (PATIENT) 10.1 SEC (9.7-13.0)
[2024-02-22] MEDS: POTASSIUM CHLORIDE ORAL LIQUID 20 MEQ/15 ML PO ONE ×2 (10:36→22:45)
[2024-02-22] MEDS: TORSEMIDE 20 MG TABLET (FP) PO SCH (10:37)
[2024-02-22] MEDS: metoPROLOL SUCCINATE 25 MG TAB.SR.24H (FP) PO SCH (10:37)
[2024-02-22] MEDS: CLOPIDOGREL BISULFATE 75 MG TABLET (FP) PO SCH (10:37)
[2024-02-22] MEDS: INSULIN ASPART SLIDING SCALE (NOVOLOG) 1 VIAL SQ SCH (10:57)
[2024-02-22] MEDS ORDERED: ACETAMINOPHEN 1000 MG/100 ML BAG IVPB PRN (16:58)
[2024-02-22] MEDS: PNEUMOC 20-VAL CONJ-DIP CRM/PF 0.5 ML SYRINGE IM ONE (17:13)
[2024-02-22] MEDS: ROSUVASTATIN CA 10 MG TABLET PO SCH (21:18)
[2024-02-22] MEDS ORDERED: ROSUVASTATIN CA 10 MG TABLET PO SCH (22:00)
[2024-02-22] MEDS ORDERED: MUPIROCIN 2% TOPICAL OINTMENT FOR DECOLONIZATION NS SCH (22:00)
[2024-02-22] MEDS ORDERED: CHLORHEXIDINE GLUCONATE 4% CLEANSER FOR DECOLONIZATION TP SCH (22:00)
[2024-02-23 08:34] LABS: BASO % 0.7 % (0-2.0); EOS % 3.4 % (0-4.5); HEMATOCRIT 37.1 % (32.4-45.2); HEMOGLOBIN 12.2 GM/dL (10.7-15.3); LYMPH % 30.9 % (8-40); MCH 27.1 pg (25.7-33.7); MEAN CELL VOLUME 82.2 fl (80-96); MONO % 8.1 % (3.8-10.2); NEUT % 56.9 % (42.8-82.8); PLATELET COUNT 273 10^3/uL (134-434); RBC 4.52 M/mm3 (3.60-5.2); RDW 14.4 % (11.6-15.6); WHITE BLOOD COUNT 6.1 K/mm3 (4.0-10.0)
[2024-02-23 08:59] LABS: POTASSIUM 4.1 mmol/L (3.5-5.1)
[2024-02-23 09:04] LABS: CALCIUM 8.7 mg/dL (8.5-10.1)
[2024-02-23 09:05] LABS: ALBUMIN 2.2 g/dl (3.4-5.0); BLOOD UREA NITROGEN 45.2 mg/dL (7-18); MAGNESIUM 2.4 mg/dL (1.8-2.4)
[2024-02-23] MEDS: TORSEMIDE 20 MG TABLET (FP) PO SCH (09:06)
[2024-02-23] MEDS: metoPROLOL SUCCINATE 25 MG TAB.SR.24H (FP) PO SCH (09:06)
[2024-02-23 09:08] LABS: CREATININE 2.2 mg/dL (0.55-1.3); PHOSPHOROUS 3.3 mg/dL (2.5-4.9)
[2024-02-23 09:09] LABS: BILIRUBIN,TOTAL 0.3 mg/dL (0.2-1); TOT PROT 5.6 g/dl (6.4-8.2)
[2024-02-23] MEDS: CLOPIDOGREL BISULFATE 75 MG TABLET (FP) PO SCH (09:18)
[2024-02-23] MEDS: INSULIN (NOVOLOG) ASPART 100 UNITS/ML 10ML VIAL SQ ONE (11:59)
[2024-02-23] MEDS: PREGABALIN 75 MG CAPSULE PO SCH (21:27)
[2024-02-24] MEDS: INSULIN (LEVEMIR) 100 UNITS/ML UNITS SQ SCH ×2 (06:42→21:53)
[2024-02-24] MEDS: INSULIN ASPART SLIDING SCALE (NOVOLOG) 1 VIAL SQ SCH (06:42)
[2024-02-24 08:49] LABS: POTASSIUM 4.3 mmol/L (3.5-5.1)
[2024-02-24 08:53] LABS: ALBUMIN 2.1 g/dl (3.4-5.0); BLOOD UREA NITROGEN 38.1 mg/dL (7-18)
[2024-02-24 08:56] LABS: CREATININE 1.9 mg/dL (0.55-1.3)
[2024-02-24 08:58] LABS: BILIRUBIN,TOTAL 0.4 mg/dL (0.2-1); TOT PROT 5.5 g/dl (6.4-8.2)
[2024-02-24] MEDS: INSULIN (NOVOLOG) ASPART 100 UNITS/ML 10ML VIAL SQ ONE (11:49)
[2024-02-25] MEDS: ARTIFICIAL TEARS OPHTHALMIC DROPS OU PRN (00:49)
[2024-02-25 10:28] LABS: BASO % 0.4 % (0-2.0); EOS % 3.9 % (0-4.5); HEMATOCRIT 37.4 % (32.4-45.2); HEMOGLOBIN 12.1 GM/dL (10.7-15.3); LYMPH % 29.8 % (8-40); MCH 27.2 pg (25.7-33.7); MCHC 32.2 g/dl (32.0-36.0); MEAN CELL VOLUME 84.4 fl (80-96); MEAN PLT VOLUME 10.1 fl (7.5-11.1); MONO % 7.9 % (3.8-10.2); PLATELET COUNT 250 10^3/uL (134-434); RBC 4.43 M/mm3 (3.60-5.2); RDW 14.4 % (11.6-15.6); WHITE BLOOD COUNT 8.9 K/mm3 (4.0-10.0)
[2024-02-25 10:38] LABS: POTASSIUM 4.2 mmol/L (3.5-5.1)
[2024-02-25 10:41] LABS: CALCIUM 8.7 mg/dL (8.5-10.1)
[2024-02-25 10:42] LABS: ALBUMIN 2.2 g/dl (3.4-5.0); BLOOD UREA NITROGEN 38.3 mg/dL (7-18)
[2024-02-25 10:45] LABS: CREATININE 1.7 mg/dL (0.55-1.3)
[2024-02-25 10:46] LABS: BILIRUBIN,TOTAL 0.3 mg/dL (0.2-1); TOT PROT 5.4 g/dl (6.4-8.2)
[2024-02-26 08:33] LABS: BASO % 0.6 % (0-2.0); EOS % 4.3 % (0-4.5); HEMOGLOBIN 12.4 GM/dL (10.7-15.3); LYMPH % 31.8 % (8-40); MCH 26.8 pg (25.7-33.7); MCHC 31.8 g/dl (32.0-36.0); MEAN CELL VOLUME 84.2 fl (80-96); MEAN PLT VOLUME 10.1 fl (7.5-11.1); MONO % 8.3 % (3.8-10.2); PLATELET COUNT 252 10^3/uL (134-434); RBC 4.63 M/mm3 (3.60-5.2); RDW 14.2 % (11.6-15.6); WHITE BLOOD COUNT 8.8 K/mm3 (4.0-10.0)
[2024-02-26 10:12] LABS: POTASSIUM 3.9 mmol/L (3.5-5.1)
[2024-02-26 10:17] LABS: ALBUMIN 2.3 g/dl (3.4-5.0); BLOOD UREA NITROGEN 42.6 mg/dL (7-18)
[2024-02-26 10:20] LABS: CREATININE 1.6 mg/dL (0.55-1.3)
[2024-02-26 10:21] LABS: BILIRUBIN,TOTAL 0.4 mg/dL (0.2-1); TOT PROT 5.8 g/dl (6.4-8.2)
[2024-02-26] MEDS: POLYETHYLENE GLYCOL (HEALTHYLAX) 3350 17 GM PACKET PO SCH (18:12)
[2024-02-26] MEDS: SODIUM PHOSPHATE/NA BIPHOS 133 ML ENEMA RC ONE (21:43)
[2024-02-26] MEDS: CITALOPRAM HYDROBROMIDE 20 MG TABLET PO ONE (22:25)
[2024-02-26] MEDS: PRAMIPEXOLE DIHYDROCHLORIDE 0.5 MG TABLET PO SCH (22:25)
[2024-02-27] MEDS: TOPIRAMATE 25 MG TABLET PO SCH (09:55)
[2024-02-27 14:09] VITALS: BP 123/72; PULSE 71; RESP 20; TEMP 98.8
[2024-02-28] MEDS ORDERED: TORSEMIDE 20 MG TABLET (FP) PO SCH (10:00)
== END 2024-02-27 18:16 | disposition home health service (06) | DRG 638 ==
LOC: JER 14:57 → JERBED 19:40 → JICU 21:13 → J7W 02-22 16:20
PROVIDERS: ADMIT Internal Medicine Pulmonary Disease; ATTEND Internal Medicine
DX: E11.65 Type 2 diabetes mellitus with hyperglycemia (principal); E87.20 Acidosis, unspecified; G61.81 Chronic inflammatory demyelinating polyneuritis; I13.0 Hypertensive heart and chronic kidney disease with heart failure and stage 1 through stage 4 chronic kidney disease, or unspecified chronic kidney disease; I50.32 Chronic diastolic (congestive) heart failure; E86.0 Dehydration; I27.20 Pulmonary hypertension, unspecified; E11.43 Type 2 diabetes mellitus with diabetic autonomic (poly)neuropathy; G20.A1 Parkinson's disease without dyskinesia, without mention of fluctuations; E11.22 Type 2 diabetes mellitus with diabetic chronic kidney disease; N18.9 Chronic kidney disease, unspecified; E11.42 Type 2 diabetes mellitus with diabetic polyneuropathy; K31.84 Gastroparesis; E78.5 Hyperlipidemia, unspecified; I25.10 Atherosclerotic heart disease of native coronary artery without angina pectoris; R29.6 Repeated falls; R55 Syncope and collapse; Z95.5 Presence of coronary angioplasty implant and graft; E66.9 Obesity, unspecified; Z68.32 Body mass index [BMI] 32.0-32.9, adult
CPT/HCPCS: 0241U-QW; 36415; 70450-TC; 71045-TC-FY; 71250-TC; 72125-TC; 72170-TC-FY; 73030-TC-LT-FY; 74176-TC; 80053; 81003; 82550; 82553; 82607; 82803; 82962; 83036; 83540; 83550; 83605; 83735; 84100; 84443; 84484; 85025; 85610; 85730; 86850; 86900; 86901; 87040; 87086; 87635; 93005; 93010; 93306-TC; 97116-GP; 97162-GP; 99285-25; J0131; J1644

== ENCOUNTER 2024-03-06 09:16 | Observation (INO) | payer OTHER ==
[2024-03-06] MEDS ORDERED: ACETAMINOPHEN INJECTION 100 ML ONE (10:38)
[2024-03-06] MEDS: ACETAMINOPHEN 1000 MG/100 ML BAG IVPB ONE (11:23)
[2024-03-06 11:28] LABS: BASO % 0.6 % (0-2.0); EOS % 2.8 % (0-4.5); HEMATOCRIT 35.7 % (32.4-45.2); HEMOGLOBIN 11.8 GM/dL (10.7-15.3); LYMPH % 20.9 % (8-40); MCH 27.2 pg (25.7-33.7); MEAN CELL VOLUME 82.5 fl (80-96); MEAN PLT VOLUME 9.8 fl (7.5-11.1); NEUT % 67.7 % (42.8-82.8); PLATELET COUNT 287 10^3/uL (134-434); RBC 4.32 M/mm3 (3.60-5.2); WHITE BLOOD COUNT 8.4 K/mm3 (4.0-10.0)
[2024-03-06 11:48] LABS: POTASSIUM 3.8 mmol/L (3.5-5.1)
[2024-03-06 11:50] LABS: ALBUMIN 2.5 g/dl (3.4-5.0); BLOOD UREA NITROGEN 36.4 mg/dL (7-18); CALCIUM 9.5 mg/dL (8.5-10.1)
[2024-03-06 11:53] LABS: CREATININE 1.8 mg/dL (0.55-1.3)
[2024-03-06 11:55] LABS: BILIRUBIN,TOTAL 0.2 mg/dL (0.2-1)
[2024-03-06 13:53] LABS: PH,URINE 5.5 (5.0-8.0); URINE APPEARANCE CLOUDY; URINE BILIRUBIN NEGATIVE (NEGATIVE); URINE COLOR YELLOW; URINE GLUCOSE (UA) 2+ (NEGATIVE); URINE KETONE NEGATIVE (NEGATIVE); URINE LEUK ESTERASE 2+ (NEGATIVE); URINE NITRITE NEGATIVE (NEGATIVE); URINE PROTEIN 4+ (NEGATIVE); URINE UROBILINOGEN 0.2 mg/dL (0.2-1.0)
[2024-03-06 13:54] LABS: EPI CELLS 35.6 /uL (0-25.1); HYALINE CASTS 0.73 /uL (0-3.1); URINE BACTERIA 8994.3 /uL (0-1359); URINE RBC 33.7 /uL (0-23.9); URINE WBC 1792.9 /uL (0-25.8); YEAST NEGATIVE (NEGATIVE)
[2024-03-06] MEDS ORDERED: CEFTRIAXONE 1 GM/50 ML BAG ONE (14:20)
[2024-03-06] MEDS: CEFTRIAXONE 1,000 MG in DEXTROSE 5%-WATER - 50 ML IVPB ONE (14:27)
[2024-03-06] MEDS: INSULIN ASPART SLIDING SCALE (NOVOLOG) 1 VIAL SQ SCH (21:30)
[2024-03-06] MEDS: INSULIN (LEVEMIR) 100 UNITS/ML UNITS SQ SCH (21:31)
[2024-03-06] MEDS: TOPIRAMATE 25 MG TABLET PO SCH (21:33)
[2024-03-06] MEDS: metoPROLOL SUCCINATE 25 MG TAB.SR.24H (FP) PO SCH (21:34)
[2024-03-06] MEDS: PRAMIPEXOLE DIHYDROCHLORIDE 1 MG TABLET PO SCH (21:34)
[2024-03-06] MEDS: PREGABALIN 50 MG CAPSULE PO SCH (21:34)
[2024-03-06] MEDS: ROSUVASTATIN CA 10 MG TABLET PO SCH (21:34)
[2024-03-07] MEDS: PRAMIPEXOLE DIHYDROCHLORIDE 0.5 MG TABLET PO SCH (06:27)
[2024-03-07] MEDS: INSULIN (NOVOLOG) ASPART 100 UNITS/ML 10ML VIAL SQ SCH (06:27)
[2024-03-07 08:07] LABS: POTASSIUM 3.2 mmol/L (3.5-5.1)
[2024-03-07 08:09] LABS: CALCIUM 8.7 mg/dL (8.5-10.1)
[2024-03-07 08:10] LABS: BASO % 0.5 % (0-2.0); EOS % 2.8 % (0-4.5); HEMATOCRIT 33.5 % (32.4-45.2); LYMPH % 20.6 % (8-40); MCHC 32.7 g/dl (32.0-36.0); MEAN CELL VOLUME 82.5 fl (80-96); MEAN PLT VOLUME 10.5 fl (7.5-11.1); MONO % 8.5 % (3.8-10.2); NEUT % 67.6 % (42.8-82.8); PLATELET COUNT 256 10^3/uL (134-434); RBC 4.06 M/mm3 (3.60-5.2); RDW 14.5 % (11.6-15.6); WHITE BLOOD COUNT 7.3 K/mm3 (4.0-10.0)
[2024-03-07 08:12] LABS: CREATININE 1.8 mg/dL (0.55-1.3)
[2024-03-07 08:14] LABS: BILIRUBIN,TOTAL 0.2 mg/dL (0.2-1); TOT PROT 5.3 g/dl (6.4-8.2)
[2024-03-07] MEDS: LISINOPRIL 5 MG TABLET PO SCH (10:14)
[2024-03-07] MEDS: TORSEMIDE 20 MG TABLET (FP) PO SCH (10:14)
[2024-03-07] MEDS: CLOPIDOGREL BISULFATE 75 MG TABLET (FP) PO SCH (10:20)
[2024-03-07] MEDS: VENLAFAXINE HCL 75 MG E.R. CAPSULES PO SCH (10:23)
[2024-03-07] MEDS: CEFTRIAXONE 1 GM in DEXTROSE 5%-WATER - 50 ML IVPB SCH (10:25)
[2024-03-07] MEDS: ENOXAPARIN NA (PORCINE) 40 MG/0.4 ML DISP.SYRIN SQ SCH (10:25)
[2024-03-07] MEDS: POTASSIUM CHLORIDE ORAL LIQUID 20 MEQ/15 ML PO ONE (11:34)
[2024-03-07] MEDS: KCL 10 MEQ IVPB 10 MEQ/100 ML INFUS.BAG IVPB SCH (14:12)
[2024-03-07 19:20] VITALS: BMI 31.5
[2024-03-07 21:23] LABS: POTASSIUM 4.3 mmol/L (3.5-5.1)
[2024-03-07 21:24] LABS: CALCIUM 8.3 mg/dL (8.5-10.1)
[2024-03-07 21:25] LABS: BLOOD UREA NITROGEN 32.5 mg/dL (7-18); MAGNESIUM 2.6 mg/dL (1.8-2.4)
[2024-03-07 21:28] LABS: CREATININE 1.8 mg/dL (0.55-1.3)
[2024-03-07] MEDS: PRAMIPEXOLE DIHYDROCHLORIDE 1 MG TABLET PO SCH (21:39)
[2024-03-08] MEDS: PRAMIPEXOLE DIHYDROCHLORIDE 0.5 MG TABLET PO SCH (06:17)
[2024-03-08 07:16] LABS: BASO % 0.7 % (0-2.0); EOS % 3.1 % (0-4.5); HEMATOCRIT 34.2 % (32.4-45.2); HEMOGLOBIN 10.8 GM/dL (10.7-15.3); LYMPH % 22.6 % (8-40); MCH 26.7 pg (25.7-33.7); MCHC 31.7 g/dl (32.0-36.0); MEAN CELL VOLUME 84.4 fl (80-96); MEAN PLT VOLUME 10.1 fl (7.5-11.1); MONO % 8.6 % (3.8-10.2); PLATELET COUNT 272 10^3/uL (134-434); RBC 4.05 M/mm3 (3.60-5.2); RDW 14.2 % (11.6-15.6); WHITE BLOOD COUNT 8.7 K/mm3 (4.0-10.0)
[2024-03-08 07:49] LABS: CHLORIDE 103 mmol/L (98-107); POTASSIUM 3.9 mmol/L (3.5-5.1); SODIUM 137 mmol/L (136-145)
[2024-03-08 07:52] LABS: CALCIUM 8.5 mg/dL (8.5-10.1); GLUCOSE,RANDOM 93 mg/dL (74-106)
[2024-03-08 07:53] LABS: ALBUMIN 2.1 g/dl (3.4-5.0); BLOOD UREA NITROGEN 29.6 mg/dL (7-18)
[2024-03-08 07:55] LABS: CREATININE 1.7 mg/dL (0.55-1.3)
[2024-03-08 07:56] LABS: ANION GAP 4 mmol/L (4-13); CO2 29 mmol/L (21-32); SGOT/AST 17 U/L (15-37); SGPT/ALT < 6 U/L (13-61)
[2024-03-08 07:57] LABS: BILIRUBIN,TOTAL 0.2 mg/dL (0.2-1); TOT PROT 5.4 g/dl (6.4-8.2)
[2024-03-08 07:58] LABS: ALK PHOS 135 U/L (45-117)
[2024-03-08] MEDS: TORSEMIDE 20 MG TABLET (FP) PO SCH (09:14)
[2024-03-09] MEDS: ACETAMINOPHEN 500 MG TABLET (FP) PO PRN (12:34)
[2024-03-10 06:20] LABS: BASO % 0.5 % (0-2.0); EOS % 4.4 % (0-4.5); HEMATOCRIT 35.1 % (32.4-45.2); HEMOGLOBIN 10.9 GM/dL (10.7-15.3); LYMPH % 31.9 % (8-40); MCH 26.6 pg (25.7-33.7); MCHC 31.1 g/dl (32.0-36.0); MEAN CELL VOLUME 85.6 fl (80-96); MEAN PLT VOLUME 9.9 fl (7.5-11.1); MONO % 7.3 % (3.8-10.2); NEUT % 55.9 % (42.8-82.8); PLATELET COUNT 263 10^3/uL (134-434); RDW 14.5 % (11.6-15.6); WHITE BLOOD COUNT 7.3 K/mm3 (4.0-10.0)
[2024-03-10 06:38] LABS: CHLORIDE 101 mmol/L (98-107); POTASSIUM 4.7 mmol/L (3.5-5.1); SODIUM 133 mmol/L (136-145)
[2024-03-10 06:43] LABS: ANION GAP 4 mmol/L (4-13); BLOOD UREA NITROGEN 34.6 mg/dL (7-18); CALCIUM 8.6 mg/dL (8.5-10.1); CO2 28 mmol/L (21-32)
[2024-03-10 06:44] LABS: GLUCOSE,RANDOM 171 mg/dL (74-106)
[2024-03-10 06:46] LABS: SGOT/AST 28 U/L (15-37); SGPT/ALT < 6 U/L (13-61)
[2024-03-10 06:47] LABS: CREATININE 1.8 mg/dL (0.55-1.3)
[2024-03-10 06:48] LABS: BILIRUBIN,TOTAL 0.2 mg/dL (0.2-1); TOT PROT 5.3 g/dl (6.4-8.2)
[2024-03-10 06:49] LABS: ALK PHOS 156 U/L (45-117)
[2024-03-10] MEDS ORDERED: SENNOSIDES 8.6MG TABLET (FP) PO PRN (10:09)
[2024-03-10] MEDS: POLYETHYLENE GLYCOL (HEALTHYLAX) 3350 17 GM PACKET PO SCH (10:24)
[2024-03-10] MEDS: ACETAMINOPHEN 325 MG TABLET (FP) PO ONE (14:39)
[2024-03-10] MEDS: diphenhydrAMINE HCL 25 MG CAPSULE (FP) PO ONE (14:39)
[2024-03-10] MEDS: IMMUN GLOB G(IGG)/PRO/IGA 0-50 400 ML, IMMUN GLOB G(IGG)/PRO/IGA 0-50 200 ML, IMMUN GLOB G IVPB SCH (15:05)
[2024-03-10] MEDS ORDERED: INSULIN ASPART SLIDING SCALE (NOVOLOG) 1 VIAL SQ ONE (17:07)
[2024-03-11 06:16] LABS: BASO % 0.8 % (0-2.0); EOS % 2.3 % (0-4.5); HEMATOCRIT 33.4 % (32.4-45.2); HEMOGLOBIN 10.6 GM/dL (10.7-15.3); MCH 26.9 pg (25.7-33.7); MCHC 31.8 g/dl (32.0-36.0); MEAN CELL VOLUME 84.7 fl (80-96); MEAN PLT VOLUME 9.6 fl (7.5-11.1); MONO % 7.5 % (3.8-10.2); NEUT % 65.4 % (42.8-82.8); PLATELET COUNT 252 10^3/uL (134-434); RBC 3.94 M/mm3 (3.60-5.2); RDW 14.5 % (11.6-15.6); WHITE BLOOD COUNT 5.5 K/mm3 (4.0-10.0)
[2024-03-11 07:36] LABS: BILIRUBIN,TOTAL 0.1 mg/dL (0.2-1); BLOOD UREA NITROGEN 37.4 mg/dL (7-18); CALCIUM 8.2 mg/dL (8.5-10.1); CREATININE 1.8 mg/dL (0.55-1.3); POTASSIUM 4.3 mmol/L (3.5-5.1)
[2024-03-11] MEDS: diphenhydrAMINE HCL 25 MG CAPSULE (FP) PO ONE (13:57)
[2024-03-11] MEDS: ACETAMINOPHEN 325 MG TABLET (FP) PO ONE (13:57)
[2024-03-13 06:57] VITALS: TEMP 98.1
[2024-03-13] MEDS ORDERED: INSULIN ASPART SLIDING SCALE (NOVOLOG) 1 VIAL SQ ONE (07:10)
[2024-03-13] MEDS ORDERED: INSULIN (LEVEMIR) 100 UNITS/ML UNITS SQ ONE (07:10)
[2024-03-13 14:29] VITALS: BP 158/73; PULSE 64; RESP 17
== END 2024-03-13 19:33 ==
LOC: JER 09:16 → JERBED 14:38 → OBSVTOIN 17:12 → INTOOBSV 17:12 → J4S 17:35
PROVIDERS: ADMIT Internal Medicine; ATTEND Internal Medicine
PROC: 3E013VG Introduction of Insulin into Subcutaneous Tissue, Percutaneous Approach (ICD-10-PCS; principal; 2024-03-06)
PROC: 3E023GC Introduction of Other Therapeutic Substance into Muscle, Percutaneous Approach (ICD-10-PCS; 2024-03-06)
PROC: 3E033GC Introduction of Other Therapeutic Substance into Peripheral Vein, Percutaneous Approach (ICD-10-PCS; 2024-03-06)
DX: N39.0 Urinary tract infection, site not specified (principal); I25.10 Atherosclerotic heart disease of native coronary artery without angina pectoris; I50.32 Chronic diastolic (congestive) heart failure; R42 Dizziness and giddiness; N17.9 Acute kidney failure, unspecified; I12.9 Hypertensive chronic kidney disease with stage 1 through stage 4 chronic kidney disease, or unspecified chronic kidney disease; E11.40 Type 2 diabetes mellitus with diabetic neuropathy, unspecified; G20.A1 Parkinson's disease without dyskinesia, without mention of fluctuations; K31.89 Other diseases of stomach and duodenum; G61.81 Chronic inflammatory demyelinating polyneuritis; Z79.01 Long term (current) use of anticoagulants; R29.6 Repeated falls; R55 Syncope and collapse; E11.22 Type 2 diabetes mellitus with diabetic chronic kidney disease; N18.9 Chronic kidney disease, unspecified; F32.9 Major depressive disorder, single episode, unspecified; E78.5 Hyperlipidemia, unspecified
CPT/HCPCS: 36415; 70450-TC; 71045-TC-FY; 72125-TC; 80048; 80053; 81003; 82140; 82533; 82962; 83036; 83605; 83735; 84443; 84484; 85025; 87077; 87086; 93005; 93010; 96365; 96366; 96367; 96372; 96375; 97116-GP; 97162-GP; 99285-25; G0378; J0131; J1459

== ENCOUNTER 2024-06-14 08:13 | Emergency (ER) | payer OTHER ==
[2024-06-14 08:31] VITALS: TEMP 98.6; BMI 31.6
[2024-06-14 10:16] LABS: VENOUS O2 SATURATION 35.9 % (70-80); VENOUS PCO2 50.2 mmHg (38-52); VENOUS PH 7.294 (7.310-7.410)
[2024-06-14 10:17] LABS: BASO % 0.4 % (0-2.0); EOS % 1.6 % (0-4.5); HEMATOCRIT 33.5 % (32.4-45.2); HEMOGLOBIN 10.8 GM/dL (10.7-15.3); LYMPH % 22.4 % (8-40); MCH 27.1 pg (25.7-33.7); MCHC 32.3 g/dl (32.0-36.0); MEAN CELL VOLUME 83.9 fl (80-96); MONO % 7.3 % (3.8-10.2); NEUT % 68.3 % (42.8-82.8); PLATELET COUNT 289 10^3/uL (134-434); RBC 3.99 M/mm3 (3.60-5.2); WHITE BLOOD COUNT 7.9 K/mm3 (4.0-10.0)
[2024-06-14 10:37] LABS: POTASSIUM 4.4 mmol/L (3.5-5.1)
[2024-06-14 10:39] LABS: CALCIUM 8.8 mg/dL (8.5-10.1)
[2024-06-14 10:40] LABS: ALBUMIN 2.4 g/dl (3.4-5.0); BLOOD UREA NITROGEN 46.6 mg/dL (7-18); MAGNESIUM 2.5 mg/dL (1.8-2.4)
[2024-06-14 10:44] LABS: BILIRUBIN,TOTAL 0.2 mg/dL (0.2-1); TOT PROT 6.2 g/dl (6.4-8.2)
[2024-06-14 14:10] LABS: N-TERMINAL BNP 3536.4 pg/ml (5-125)
[2024-06-14 14:32] LABS: URINE APPEARANCE CLOUDY; URINE BILIRUBIN NEGATIVE (NEGATIVE); URINE COLOR YELLOW; URINE GLUCOSE (UA) 3+ (NEGATIVE); URINE KETONE NEGATIVE (NEGATIVE); URINE LEUK ESTERASE 1+ (NEGATIVE); URINE NITRITE NEGATIVE (NEGATIVE); URINE PROTEIN 4+ (NEGATIVE); URINE UROBILINOGEN 0.2 mg/dL (0.2-1.0)
[2024-06-14 14:33] LABS: EPI CELLS 34 /uL (0-25.1); HYALINE CASTS 1 /uL (0-3.1); URINE BACTERIA 12151 /uL (0-1359); URINE RBC 21 /uL (0-23.9); URINE WBC 1134 /uL (0-25.8)
[2024-06-14 14:35] VITALS: BP 156/63; PULSE 77; RESP 16
[2024-06-14] MEDS ORDERED: CEPHALEXIN MONOHYDRATE 500 MG CAPSULE (UD) ONE (15:38)
[2024-06-14] MEDS: CEPHALEXIN MONOHYDRATE 500 MG CAPSULE (UD) PO ONE (15:46)
== END 2024-06-14 16:34 | disposition home or self-care (01) ==
LOC: JER 08:13
DX: N39.0 Urinary tract infection, site not specified (principal); R11.2 Nausea with vomiting, unspecified; R05.9 Cough, unspecified; R10.13 Epigastric pain; R51.9 Headache, unspecified; R09.81 Nasal congestion; E11.65 Type 2 diabetes mellitus with hyperglycemia; Z20.822 Contact with and (suspected) exposure to COVID-19
CPT/HCPCS: 0241U-QW; 36415; 71046-TC-FY; 80053; 81003; 82010; 82803; 82962; 83690; 83735; 83880; 84484; 85025; 87077; 87086; 93005; 93010; 99285-25

== ENCOUNTER 2024-08-12 22:28 | Inpatient (IN) | payer OTHER ==
[2024-08-12] MEDS ORDERED: DEXTROSE 50%-WATER 25 GM/50 ML DISP.SYRIN ONE (23:34)
[2024-08-12 23:42] LABS: BASO % 0.7 % (0-2.0); EOS % 1.8 % (0-4.5); HEMATOCRIT 32.1 % (32.4-45.2); HEMOGLOBIN 10.2 GM/dL (10.7-15.3); LYMPH % 12.9 % (8-40); MCH 26.5 pg (25.7-33.7); MCHC 31.8 g/dl (32.0-36.0); MEAN CELL VOLUME 83.3 fl (80-96); MONO % 4.9 % (3.8-10.2); NEUT % 79.7 % (42.8-82.8); PLATELET COUNT 245 10^3/uL (134-434); RBC 3.85 M/mm3 (3.60-5.2); RDW 14.3 % (11.6-15.6); VENOUS O2 SATURATION 33.3 % (70-80); VENOUS PCO2 62.2 mmHg (38-52); VENOUS PH 7.256 (7.310-7.410); WHITE BLOOD COUNT 8.5 K/mm3 (4.0-10.0)
[2024-08-12] MEDS: DEXTROSE 50%-WATER - 25 GM/50 ML VIAL IVPUSH ONE (23:48)
[2024-08-13] LABS: POTASSIUM 5.8 mmol/L (3.5-5.1)
[2024-08-13 00:02] LABS: CALCIUM 8.9 mg/dL (8.5-10.1)
[2024-08-13 00:03] LABS: ALBUMIN 2.5 g/dl (3.4-5.0); BLOOD UREA NITROGEN 51.9 mg/dL (7-18); MAGNESIUM 2.5 mg/dL (1.8-2.4)
[2024-08-13 00:06] LABS: CREATININE 2.3 mg/dL (0.55-1.3); PHOSPHOROUS 3.6 mg/dL (2.5-4.9)
[2024-08-13 00:07] LABS: BILIRUBIN,TOTAL 0.3 mg/dL (0.2-1); TOT PROT 6.9 g/dl (6.4-8.2)
[2024-08-13 00:55] LABS: N-TERMINAL BNP 1600.2 pg/ml (5-125)
[2024-08-13] MEDS ORDERED: ACETAMINOPHEN 325 MG TABLET (FP) PO PRN (02:17)
[2024-08-13] MEDS ORDERED: DOCUSATE SODIUM 100 MG CAPSULE (FP) PO PRN (02:17)
[2024-08-13 02:58] LABS: POTASSIUM 4.4 mmol/L (3.5-5.1)
[2024-08-13 03:00] LABS: BLOOD UREA NITROGEN 51.4 mg/dL (7-18); CALCIUM 8.8 mg/dL (8.5-10.1)
[2024-08-13 03:02] LABS: CREATININE 2.4 mg/dL (0.55-1.3)
[2024-08-13 05:16] VITALS: BMI 31.6
[2024-08-13 09:42] LABS: BASO % 0.5 % (0-2.0); EOS % 0.9 % (0-4.5); HEMATOCRIT 33.4 % (32.4-45.2); HEMOGLOBIN 10.5 GM/dL (10.7-15.3); LYMPH % 15.5 % (8-40); MCH 26.7 pg (25.7-33.7); MCHC 31.5 g/dl (32.0-36.0); MEAN PLT VOLUME 10.2 fl (7.5-11.1); MONO % 6.5 % (3.8-10.2); NEUT % 76.6 % (42.8-82.8); PLATELET COUNT 249 10^3/uL (134-434); RBC 3.94 M/mm3 (3.60-5.2); RDW 14.2 % (11.6-15.6); WHITE BLOOD COUNT 8.9 K/mm3 (4.0-10.0)
[2024-08-13 10:17] LABS: CALCIUM 8.8 mg/dL (8.5-10.1)
[2024-08-13 10:18] LABS: BLOOD UREA NITROGEN 49.7 mg/dL (7-18)
[2024-08-13 10:21] LABS: CREATININE 2.2 mg/dL (0.55-1.3)
[2024-08-13 12:11] LABS: EPI CELLS 24 /uL (0-25.1); HYALINE CASTS 1 /uL (0-3.1); URINE APPEARANCE CLEAR; URINE BACTERIA 617 /uL (0-1359); URINE BILIRUBIN NEGATIVE (NEGATIVE); URINE COLOR YELLOW; URINE GLUCOSE (UA) 3+ (NEGATIVE); URINE KETONE NEGATIVE (NEGATIVE); URINE LEUK ESTERASE NEGATIVE (NEGATIVE); URINE NITRITE NEGATIVE (NEGATIVE); URINE PROTEIN 4+ (NEGATIVE); URINE RBC 11 /uL (0-23.9); URINE UROBILINOGEN 0.2 mg/dL (0.2-1.0); URINE WBC 51 /uL (0-25.8)
[2024-08-13] MEDS ORDERED: SENNOSIDES 8.6MG TABLET (FP) PO PRN (13:30)
[2024-08-13 13:33] LABS: OPIATES, URI NEGATIVE (NEGATIVE); PHENCYCLIDINE,URINE NEGATIVE (NEGATIVE)
[2024-08-13 13:34] LABS: COCAINE, UR NEGATIVE (NEGATIVE); URINE AMPHETAMINES NEGATIVE (NEGATIVE); URINE BARBITURATES NEGATIVE (NEGATIVE); URINE BENZODIAZEPINES NEGATIVE (NEGATIVE)
[2024-08-13 13:35] LABS: METHADONE, UR NEGATIVE (NEGATIVE)
[2024-08-13] MEDS: HEPARIN NA (PORCINE) 5,000 UNITS/ML 1ML VIAL SQ SCH (14:30)
[2024-08-13] MEDS: CLOPIDOGREL BISULFATE 75 MG TABLET (FP) PO SCH (14:30)
[2024-08-13] MEDS ORDERED: PRAMIPEXOLE DIHYDROCHLORIDE 0.5 MG TABLET PO SCH (17:00)
[2024-08-13] MEDS: INSULIN ASPART SLIDING SCALE (NOVOLOG) 1 VIAL SQ SCH (19:22)
[2024-08-13] MEDS: DOCUSATE SODIUM 100 MG CAPSULE (FP) PO SCH (21:50)
[2024-08-13] MEDS: ROSUVASTATIN CA 10 MG TABLET PO SCH (21:50)
[2024-08-13] MEDS: PRAMIPEXOLE DIHYDROCHLORIDE 0.5 MG TABLET PO SCH (21:50)
[2024-08-13] MEDS: TOPIRAMATE 25 MG TABLET PO SCH (21:51)
[2024-08-13] MEDS: metoPROLOL SUCCINATE 25 MG TAB.SR.24H (FP) PO SCH (21:51)
[2024-08-13] MEDS: PREGABALIN 50 MG CAPSULE PO SCH (21:51)
[2024-08-14] MEDS: PANTOPRAZOLE 40 MG TABLET PO SCH (06:10)
[2024-08-14 09:00] LABS: BASO % 0.7 % (0-2.0); EOS % 3.3 % (0-4.5); HEMATOCRIT 32.9 % (32.4-45.2); HEMOGLOBIN 10.6 GM/dL (10.7-15.3); MCH 26.7 pg (25.7-33.7); MCHC 32.1 g/dl (32.0-36.0); MEAN CELL VOLUME 83.3 fl (80-96); MEAN PLT VOLUME 10.1 fl (7.5-11.1); MONO % 6.7 % (3.8-10.2); NEUT % 66.3 % (42.8-82.8); PLATELET COUNT 237 10^3/uL (134-434); RBC 3.95 M/mm3 (3.60-5.2); RDW 14.3 % (11.6-15.6); WHITE BLOOD COUNT 7.5 K/mm3 (4.0-10.0)
[2024-08-14 09:20] LABS: POTASSIUM 4.4 mmol/L (3.5-5.1)
[2024-08-14 09:27] LABS: ALBUMIN 2.3 g/dl (3.4-5.0); BLOOD UREA NITROGEN 47.7 mg/dL (7-18); CALCIUM 8.4 mg/dL (8.5-10.1); MAGNESIUM 2.4 mg/dL (1.8-2.4)
[2024-08-14 09:30] LABS: BILIRUBIN,TOTAL 0.3 mg/dL (0.2-1); CREATININE 2.1 mg/dL (0.55-1.3); TOT PROT 6.2 g/dl (6.4-8.2)
[2024-08-14 09:31] LABS: PHOSPHOROUS 3.4 mg/dL (2.5-4.9)
[2024-08-14] MEDS: TORSEMIDE 20 MG TABLET (FP) PO SCH (09:51)
[2024-08-14] MEDS: POLYETHYLENE GLYCOL (HEALTHYLAX) 3350 17 GM PACKET PO SCH (09:52)
[2024-08-14] MEDS: TOPIRAMATE 25 MG TABLET PO SCH (09:53)
[2024-08-14] MEDS: PRAMIPEXOLE DIHYDROCHLORIDE 0.25 MG TABLET PO SCH (21:19)
[2024-08-14] MEDS: INSULIN (LEVEMIR) 100 UNITS/ML UNITS SQ SCH (21:20)
[2024-08-14] MEDS: INSULIN ASPART SLIDING SCALE (NOVOLOG) 1 VIAL SQ SCH (21:21)
[2024-08-15] MEDS: INSULIN (LEVEMIR) 100 UNITS/ML UNITS SQ SCH (06:37)
[2024-08-15 16:57] VITALS: BP 140/65; PULSE 68; RESP 20; TEMP 97.9
== END 2024-08-15 19:09 | disposition home or self-care (01) | DRG 638 ==
LOC: JER 22:28 → JERBED 08-13 01:37 → J7W 08-13 04:57 → OBSVTOIN 08-15 13:48
PROVIDERS: ADMIT Internal Medicine; ATTEND Internal Medicine
DX: E11.649 Type 2 diabetes mellitus with hypoglycemia without coma (principal); I13.0 Hypertensive heart and chronic kidney disease with heart failure and stage 1 through stage 4 chronic kidney disease, or unspecified chronic kidney disease; I50.32 Chronic diastolic (congestive) heart failure; R47.01 Aphasia; E11.65 Type 2 diabetes mellitus with hyperglycemia; N18.9 Chronic kidney disease, unspecified; E78.5 Hyperlipidemia, unspecified; I25.10 Atherosclerotic heart disease of native coronary artery without angina pectoris; E11.40 Type 2 diabetes mellitus with diabetic neuropathy, unspecified; G20.A1 Parkinson's disease without dyskinesia, without mention of fluctuations; E11.22 Type 2 diabetes mellitus with diabetic chronic kidney disease; E11.43 Type 2 diabetes mellitus with diabetic autonomic (poly)neuropathy; E11.51 Type 2 diabetes mellitus with diabetic peripheral angiopathy without gangrene; K31.84 Gastroparesis
CPT/HCPCS: 0241U-QW; 36415; 70450-TC; 70551-TC; 71045-TC-FY; 80048; 80053; 80307; 81003; 82140; 82803; 82962; 83036; 83605; 83735; 83880; 84100; 84443; 84484; 85025; 87086; 87254; 93005; 93010; 93880-TC; 97116-GP; 97162-GP; 99285-25; G0378; J1644

== ENCOUNTER 2024-11-23 13:34 | Observation (INO) | payer OTHER ==
[2024-11-23 14:30] VITALS: BMI 33.9
[2024-11-23 14:40] LABS: ABSOLUTE IMMATURE GRANULOCYTES 0.06 x10^3/uL (0.0-0.031); BASOPHILS # 0.04 x10^3/uL (0.01-0.08); EOSINOPHIL % 1.2 % (0.7-5.8); EOSINOPHILS # 0.11 x10^3/uL (0.04-0.36); HEMATOCRIT 30.6 % (34.1-44.9); HEMOGLOBIN 9.6 g/dL (11.2-15.7); MCHC 31.4 g/dl (32.2-35.5); MEAN CELL VOLUME 85.7 fl (79.4-94.8); MEAN PLT VOLUME 11.5 fl (9.4-12.3); MONOCYTE # 0.43 x10^3/uL (0.24-0.86); MONOCYTE % 4.9 % (4.7-12.5); PLATELET COUNT 313 x10^3/uL (182-369); RDW 14.5 % (12.4-16.4); VENOUS BASE EXCESS -7.5 mmol/L (-2-2); VENOUS O2 SATURATION 38.2 % (70-80); VENOUS PCO2 46.7 mmHg (38-52); VENOUS PH 7.243 (7.310-7.410)
[2024-11-23] MEDS: SODIUM CHLORIDE 500 ML IV STA ×2 (15:02→17:36)
[2024-11-23 15:03] LABS: CHLORIDE 105 mmol/L (98-107); SODIUM 134 mmol/L (136-145)
[2024-11-23 15:04] LABS: POTASSIUM 6.3 mmol/L (3.5-5.1)
[2024-11-23 15:05] LABS: CALCIUM 9.2 mg/dL (8.5-10.1)
[2024-11-23 15:06] LABS: ALBUMIN 2.6 g/dl (3.4-5.0); ANION GAP 6 mmol/L (4-13); BLOOD UREA NITROGEN 54.7 mg/dL (7-18); CO2 23 mmol/L (21-32)
[2024-11-23 15:09] LABS: CREATININE 2.3 mg/dL (0.55-1.3); SGOT/AST 41 U/L (15-37); SGPT/ALT 15 U/L (13-61)
[2024-11-23 15:11] LABS: BILIRUBIN,TOTAL 0.3 mg/dL (0.2-1); TOT PROT 6.3 g/dl (6.4-8.2)
[2024-11-23 15:12] LABS: ALK PHOS 173 U/L (45-117)
[2024-11-23 15:18] LABS: EPI CELLS 15 /uL (0-25.1); HYALINE CASTS 0 /uL (0-3.1); URINE APPEARANCE CLEAR; URINE BACTERIA 25 /uL (0-1359); URINE BILIRUBIN NEGATIVE (NEGATIVE); URINE COLOR YELLOW; URINE GLUCOSE (UA) 3+ (NEGATIVE); URINE KETONE TRACE (NEGATIVE); URINE LEUK ESTERASE NEGATIVE (NEGATIVE); URINE NITRITE NEGATIVE (NEGATIVE); URINE PROTEIN 3+ (NEGATIVE); URINE RBC 25 /uL (0-23.9); URINE UROBILINOGEN 0.2 mg/dL (0.2-1.0)
[2024-11-23 15:20] LABS: GLUCOSE,RANDOM 503 mg/dL (74-106)
[2024-11-23] MEDS ORDERED: AMPICILLIN NA/SULBACTAM NA 3 GM/100 ML BAG IVPB ONE (15:31)
[2024-11-23 15:35] LABS: URINE WBC 195 /uL (0-25.8)
[2024-11-23] MEDS: AMPICILLIN NA/SULBACTAM NA 3 GM in SODIUM CHLORIDE 100 ML IVPB ONE (15:38)
[2024-11-23] MEDS ORDERED: INSULIN ASPART SLIDING SCALE (NOVOLOG) 1 VIAL SQ ONE (17:39)
[2024-11-23] MEDS: INSULIN ASPART SLIDING SCALE (NOVOLOG) 1 VIAL SQ SCH (17:43)
[2024-11-23 17:58] LABS: CHLORIDE 106 mmol/L (98-107); POTASSIUM 5.6 mmol/L (3.5-5.1); SODIUM 135 mmol/L (136-145)
[2024-11-23] MEDS ORDERED: CARBIDOPA/LEVODOPA 25/100 TABLET (FP) ONE (17:58)
[2024-11-23 18:00] LABS: CALCIUM 9.1 mg/dL (8.5-10.1)
[2024-11-23 18:01] LABS: ALBUMIN 2.6 g/dl (3.4-5.0); ANION GAP 8 mmol/L (4-13); BLOOD UREA NITROGEN 51.9 mg/dL (7-18); CO2 21 mmol/L (21-32)
[2024-11-23 18:04] LABS: CREATININE 2.2 mg/dL (0.55-1.3); SGOT/AST 36 U/L (15-37); SGPT/ALT 15 U/L (13-61)
[2024-11-23 18:05] LABS: BILIRUBIN,TOTAL 0.2 mg/dL (0.2-1)
[2024-11-23 18:06] LABS: TOT PROT 6.1 g/dl (6.4-8.2)
[2024-11-23 18:07] LABS: ALK PHOS 165 U/L (45-117)
[2024-11-23 18:09] LABS: GLUCOSE,RANDOM 432 mg/dL (74-106)
[2024-11-23] MEDS: TORSEMIDE 20 MG TABLET (FP) PO SCH (18:16)
[2024-11-23] MEDS ORDERED: CALCIUM GLUCONATE 10% - 1,000 MG/10 ML VIAL ONE (18:26)
[2024-11-23] MEDS ORDERED: SODIUM ZIRCONIUM CYCLOSILICATE (LOKELMA) 10 GM PACKET ONE (18:26)
[2024-11-23] MEDS: CALCIUM GLUCONATE 10% - 1,000 MG/10 ML VIAL IVPB ONE (18:56)
[2024-11-23] MEDS: SODIUM ZIRCONIUM CYCLOSILICATE (LOKELMA) 5 GM PACKET PO SCH (18:56)
[2024-11-23 19:59] LABS: CALCIUM 9.2 mg/dL (8.5-10.1); POTASSIUM 5.3 mmol/L (3.5-5.1)
[2024-11-23 20:00] LABS: BLOOD UREA NITROGEN 49.8 mg/dL (7-18)
[2024-11-23 20:03] LABS: CREATININE 2.1 mg/dL (0.55-1.3)
[2024-11-23] MEDS: SODIUM CHLORIDE 0.45% 1,000 ML IV SCH (20:25)
[2024-11-23] MEDS: AMPICILLIN NA/SULBACTAM NA 3 GM in SODIUM CHLORIDE 100 ML IVPB SCH (20:25)
[2024-11-23] MEDS: ACETAMINOPHEN 325 MG TABLET (FP) PO ONE (20:51)
[2024-11-23] MEDS ORDERED: INSULIN ASPART SLIDING SCALE (NOVOLOG) 1 VIAL SQ SCH (22:00)
[2024-11-23] MEDS: ONDANSETRON 4 MG/2 ML VIAL IVPUSH ONE (22:10)
[2024-11-23] MEDS: DOCUSATE SODIUM 100 MG CAPSULE (FP) PO SCH (22:14)
[2024-11-23] MEDS: PREGABALIN 75 MG CAPSULE PO SCH (22:14)
[2024-11-23] MEDS: ROSUVASTATIN CA 10 MG TABLET PO SCH (22:14)
[2024-11-23] MEDS: metoPROLOL SUCCINATE 25 MG TAB.SR.24H (FP) PO SCH (22:15)
[2024-11-23] MEDS: TOPIRAMATE 25 MG TABLET PO SCH (22:15)
[2024-11-23] MEDS: INSULIN GLARGINE (LANTUS) 100 UNITS/ML UNITS SQ SCH (22:19)
[2024-11-23] MEDS: PRAMIPEXOLE DIHYDROCHLORIDE 0.25 MG TABLET PO SCH (22:31)
[2024-11-24] MEDS: BENZOCAINE 20 % GEL TUBE MM PRN (01:54)
[2024-11-24] MEDS: traMADol HCL 50 MG TABLET PO ONE (02:34)
[2024-11-24] MEDS: ACETAMINOPHEN 325 MG TABLET (FP) PO ONE (05:08)
[2024-11-24] MEDS: PANTOPRAZOLE 40 MG TABLET PO SCH (07:00)
[2024-11-24 07:10] LABS: ALBUMIN 2.5 g/dl (3.4-5.0); CALCIUM 8.8 mg/dL (8.5-10.1)
[2024-11-24 07:14] LABS: BILIRUBIN,TOTAL 0.2 mg/dL (0.2-1); CREATININE 2.1 mg/dL (0.55-1.3); TOT PROT 5.7 g/dl (6.4-8.2)
[2024-11-24 07:15] LABS: ABSOLUTE IMMATURE GRANULOCYTES 0.03 x10^3/uL (0.0-0.031); BASOPHILS # 0.03 x10^3/uL (0.01-0.08); EOSINOPHIL % 3.5 % (0.7-5.8); EOSINOPHILS # 0.23 x10^3/uL (0.04-0.36); HEMATOCRIT 30.5 % (34.1-44.9); HEMOGLOBIN 9.3 g/dL (11.2-15.7); MCHC 30.5 g/dl (32.2-35.5); MEAN CELL VOLUME 85.7 fl (79.4-94.8); MEAN PLT VOLUME 11.5 fl (9.4-12.3); MONOCYTE % 7.6 % (4.7-12.5); PLATELET COUNT 316 x10^3/uL (182-369); RDW 14.5 % (12.4-16.4)
[2024-11-24] MEDS: POLYETHYLENE GLYCOL (HEALTHYLAX) 3350 17 GM PACKET PO SCH (09:33)
[2024-11-24] MEDS: CLOPIDOGREL BISULFATE 75 MG TABLET (FP) PO SCH (09:34)
[2024-11-24] MEDS: ENOXAPARIN NA (PORCINE) 40 MG/0.4 ML DISP.SYRIN SQ SCH (09:36)
[2024-11-24] MEDS: ACETAMINOPHEN 1000 MG/100 ML BAG IVPB PRN (12:00)
[2024-11-24] MEDS: hydrALAZINE HCL 25 MG TABLET (FP) PO SCH (13:52)
[2024-11-24] MEDS: DOXYCYCLINE HYCLATE 100 MG TABLET PO SCH (18:16)
[2024-11-25] MEDS: INSULIN GLARGINE (LANTUS) 100 UNITS/ML UNITS SQ SCH (06:17)
[2024-11-25] MEDS: INSULIN ASPART SLIDING SCALE (NOVOLOG) 1 VIAL SQ SCH (06:19)
[2024-11-26] MEDS: SENNOSIDES 8.6MG TABLET (FP) PO PRN (04:59)
[2024-11-26 06:49] LABS: POTASSIUM 4.7 mmol/L (3.5-5.1)
[2024-11-26 06:56] LABS: CALCIUM 8.7 mg/dL (8.5-10.1)
[2024-11-26 06:57] LABS: ALBUMIN 2.3 g/dl (3.4-5.0); BLOOD UREA NITROGEN 53.3 mg/dL (7-18)
[2024-11-26 07:00] LABS: CREATININE 2.6 mg/dL (0.55-1.3)
[2024-11-26 07:01] LABS: BILIRUBIN,TOTAL 0.3 mg/dL (0.2-1)
[2024-11-26 07:02] LABS: TOT PROT 5.6 g/dl (6.4-8.2)
[2024-11-26] MEDS ORDERED: ACETAMINOPHEN 325 MG TABLET (FP) PO PRN (12:15)
[2024-11-26] MEDS ORDERED: AMPICILLIN NA/SULBACTAM NA 3 GM VIAL ONE (17:28)
[2024-11-27 06:58] LABS: POTASSIUM 4.2 mmol/L (3.5-5.1)
[2024-11-27 07:02] LABS: CALCIUM 8.8 mg/dL (8.5-10.1)
[2024-11-27 07:03] LABS: ALBUMIN 2.4 g/dl (3.4-5.0); BLOOD UREA NITROGEN 59.3 mg/dL (7-18)
[2024-11-27 07:06] LABS: CREATININE 2.9 mg/dL (0.55-1.3)
[2024-11-27 07:08] LABS: BILIRUBIN,TOTAL 0.2 mg/dL (0.2-1); TOT PROT 5.6 g/dl (6.4-8.2)
[2024-11-27 13:49] VITALS: BP 140/69; PULSE 70; RESP 18; TEMP 98.2
== END 2024-11-27 15:19 | disposition home health service (06) ==
LOC: JER 13:34 → UNDOADMOB 15:30 → JERBED 15:30 → INTOOBSV 16:15 → OBSVTOIN 16:15 → JERBED 19:51 → J4S 19:51
PROVIDERS: ADMIT Internal Medicine; ATTEND Internal Medicine
PROC: 3E033NZ Introduction of Analgesics, Hypnotics, Sedatives into Peripheral Vein, Percutaneous Approach (ICD-10-PCS; principal; 2024-11-24)
PROC: 3E03329 Introduction of Other Anti-infective into Peripheral Vein, Percutaneous Approach (ICD-10-PCS; 2024-11-24)
PROC: 3E013VG Introduction of Insulin into Subcutaneous Tissue, Percutaneous Approach (ICD-10-PCS; 2024-11-24)
PROC: 3E033GC Introduction of Other Therapeutic Substance into Peripheral Vein, Percutaneous Approach (ICD-10-PCS; 2024-11-24)
DX: N17.9 Acute kidney failure, unspecified (principal); I12.9 Hypertensive chronic kidney disease with stage 1 through stage 4 chronic kidney disease, or unspecified chronic kidney disease; K08.89 Other specified disorders of teeth and supporting structures; G61.81 Chronic inflammatory demyelinating polyneuritis; E11.22 Type 2 diabetes mellitus with diabetic chronic kidney disease; N18.9 Chronic kidney disease, unspecified; F32.A Depression, unspecified; G20.A1 Parkinson's disease without dyskinesia, without mention of fluctuations; I11.0 Hypertensive heart disease with heart failure; I50.30 Unspecified diastolic (congestive) heart failure; E78.5 Hyperlipidemia, unspecified; E11.43 Type 2 diabetes mellitus with diabetic autonomic (poly)neuropathy; K31.84 Gastroparesis
CPT/HCPCS: 36415; 70486-TC; 71045-TC-FY; 80048; 80053; 81003; 82010; 82803; 82962; 83036; 83880; 84484; 85025; 87086; 93005; 93010; 93306-TC; 97116-GP; 97161-GP; 99285-25; G0378

== ENCOUNTER 2025-02-24 12:43 | Emergency (ER) | payer OTHER ==
[2025-02-24 13:02] VITALS: RESP 18; TEMP 98.3; BMI 33.3
[2025-02-24] MEDS ORDERED: ACETAMINOPHEN 325 MG TABLET (FP) ONE (15:00)
[2025-02-24] MEDS ORDERED: LIDOCAINE 5% TOPICAL PATCH ONE (15:01)
[2025-02-24] MEDS: LIDOCAINE 5% TOPICAL PATCH TP ONE (15:01)
[2025-02-24] MEDS: ACETAMINOPHEN 325 MG TABLET (FP) PO ONE (15:02)
[2025-02-24 18:46] LABS: EPI CELLS 9 /uL (0-25.1); HYALINE CASTS 0 /uL (0-3.1); URINE APPEARANCE CLOUDY; URINE BACTERIA 843 /uL (0-1359); URINE BILIRUBIN NEGATIVE (NEGATIVE); URINE COLOR YELLOW; URINE GLUCOSE (UA) 3+ (NEGATIVE); URINE KETONE NEGATIVE (NEGATIVE); URINE LEUK ESTERASE 2+ (NEGATIVE); URINE NITRITE NEGATIVE (NEGATIVE); URINE PROTEIN 3+ (NEGATIVE); URINE RBC 60 /uL (0-23.9); URINE UROBILINOGEN 0.2 mg/dL (0.2-1.0); URINE WBC 1921 /uL (0-25.8)
[2025-02-24 19:31] VITALS: BP 130/70; PULSE 80
[2025-02-24] MEDS ORDERED: LIDOCAINE PATCH REMOVAL MC SCH (22:00)
== END 2025-02-24 19:31 | disposition home or self-care (01) ==
LOC: JER 12:43
DX: N39.0 Urinary tract infection, site not specified (principal); R51.9 Headache, unspecified; M54.2 Cervicalgia; M25.511 Pain in right shoulder; R30.0 Dysuria; R11.2 Nausea with vomiting, unspecified; W06.XXXA Fall from bed, initial encounter; Y92.009 Unspecified place in unspecified non-institutional (private) residence as the place of occurrence of the external cause
CPT/HCPCS: 70450-TC; 72125-TC; 72170-TC-FY; 73030-TC-RT-FY; 81003; 87077; 87086; 93005; 93010; 99285-25

== ENCOUNTER 2025-03-29 18:47 | Emergency (ER) | payer OTHER ==
[2025-03-29 19:34] VITALS: TEMP 98.5; BMI 32.4
[2025-03-29] MEDS ORDERED: ACETAMINOPHEN INJECTION 100 ML ONE (20:18)
[2025-03-29] MEDS ORDERED: FAMOTIDINE 20 MG/50 ML IVPB 20 MG/50 ML MG IVPB ONE (20:19)
[2025-03-29] MEDS ORDERED: ONDANSETRON 4 MG/2 ML VIAL ONE (20:19)
[2025-03-29] MEDS: LACTATED RINGERS SOLUTION 1000 ML INFUS.BAG IV ONE ×2 (20:40→23:08)
[2025-03-29] MEDS: ACETAMINOPHEN 1000 MG/100 ML BAG IVPB ONE (20:40)
[2025-03-29] MEDS: ONDANSETRON 4 MG/2 ML VIAL IVPUSH ONE (20:40)
[2025-03-29] MEDS: FAMOTIDINE 20 MG/50 ML IVPB 20 MG/50 ML MG IVPB ONE (20:55)
[2025-03-29 21:05] LABS: BG HCT 33.0 % (32.4-45.2); VENOUS BASE EXCESS -5.3 mmol/L (-2-2); VENOUS O2 SATURATION 20.0 % (70-80); VENOUS PCO2 46.1 mmHg (38-52); VENOUS PH 7.283 (7.310-7.410)
[2025-03-29 21:07] LABS: ABSOLUTE IMMATURE GRANULOCYTES 0.02 x10^3/uL (0.0-0.031); BASOPHILS # 0.07 x10^3/uL (0.01-0.08); EOSINOPHIL % 1.1 % (0.7-5.8); EOSINOPHILS # 0.07 x10^3/uL (0.04-0.36); MCHC 31.0 g/dl (32.2-35.5); MEAN CELL VOLUME 88.0 fl (79.4-94.8); MEAN PLT VOLUME 11.4 fl (9.4-12.3); MONOCYTE # 0.52 x10^3/uL (0.24-0.86); MONOCYTE % 8.3 % (4.7-12.5); RDW 13.3 % (12.4-16.4)
[2025-03-29 21:08] LABS: INR 0.99 (0.83-1.09); PROTHROMBIN TIME (PATIENT) 10.9 SEC (9.7-13.0)
[2025-03-29 21:11] LABS: ACTIVATED PTT 31.6 SECONDS (25.2-36.5)
[2025-03-29 21:27] LABS: GLUCOSE,RANDOM 261.0 mg/dL (74-106)
[2025-03-29 21:28] LABS: TOT PROT 6.5 g/dl (6.4-8.2)
[2025-03-29 21:29] LABS: CO2 19.0 mmol/L (21-32)
[2025-03-29 21:30] LABS: ALK PHOS 154.0 U/L (40-150)
[2025-03-29 21:33] LABS: CREATININE 2.3 mg/dL (0.55-1.3); SGOT/AST 20.0 U/L (5-34); SGPT/ALT 9.0 U/L (0-55)
[2025-03-30 00:30] LABS: EPI CELLS 3 /uL (0-25.1); HYALINE CASTS 0 /uL (0-3.1); URINE APPEARANCE CLOUDY; URINE BILIRUBIN NEGATIVE (NEGATIVE); URINE COLOR YELLOW; URINE GLUCOSE (UA) 3+ (NEGATIVE); URINE KETONE 1+ (NEGATIVE); URINE LEUK ESTERASE NEGATIVE (NEGATIVE); URINE NITRITE NEGATIVE (NEGATIVE); URINE PROTEIN 3+ (NEGATIVE); URINE UROBILINOGEN 0.2 mg/dL (0.2-1.0); URINE WBC 18 /uL (0-25.8)
[2025-03-30 00:58] VITALS: BP 182/82; PULSE 91; RESP 16
[2025-03-30 04:37] LABS: URINE RBC 1766.0 /uL (0-23.9)
[2025-03-30 04:38] LABS: URINE BACTERIA 74.0 /uL (0-1359)
[2025-03-30 07:56] LABS: URINE CRYSTALS NONE SEEN /hpf
[2025-04-01 14:32] LABS: HCV DIAGNOSTIC IN-HOUSE W/RFLX NON-REACTIVE (NONREACTIVE)
[2025-04-01 15:42] LABS: HIV INTERPRETATION PRESUMPTIVE POSITIVE (NEGATIVE)
== END 2025-03-30 00:58 | disposition home or self-care (01) ==
LOC: JER 18:47
PROC: 3E033GC Introduction of Other Therapeutic Substance into Peripheral Vein, Percutaneous Approach (ICD-10-PCS; principal; 2025-03-29)
PROC: 3E033NZ Introduction of Analgesics, Hypnotics, Sedatives into Peripheral Vein, Percutaneous Approach (ICD-10-PCS; 2025-03-29)
PROC: 3E033GC Introduction of Other Therapeutic Substance into Peripheral Vein, Percutaneous Approach (ICD-10-PCS; 2025-03-29)
DX: K59.00 Constipation, unspecified (principal); R10.84 Generalized abdominal pain; R11.0 Nausea
CPT/HCPCS: 36415; 71045-TC-FY; 74177-TC; 80053; 81003; 82010; 82803; 82962; 83690; 83735; 84484; 85025; 85610; 85730; 86803; 87086; 87389; 93005; 93010; 96365; 96375; 99285-25